=== PATIENT | female | born 1950 | race Caucasian/White ===

== ENCOUNTER → 2017-11-28 13:04 | Outpatient (CLI) | payer MEDICARE, SELFPAY ==
[2017-10-31 13:05] VITALS: BMI 44.4
[2017-11-28 13:14] VITALS: BP 118/66; PULSE 65; RESP 16; TEMP 36.5; O2SAT 94; BMI 43.1
[2017-11-28] MEDS: Immune Globulin 20 gm Premixed Solution IV (13:24)
[2017-11-28 14:05] VITALS: BP 129/62; PULSE 62; RESP 16; TEMP 36.8; O2SAT 95
[2017-11-28 14:35] VITALS: BP 117/66; PULSE 69; RESP 16; TEMP 36.7; O2SAT 93
[2017-11-28 15:10] VITALS: BP 110/55; PULSE 59; RESP 16; TEMP 36.2; O2SAT 94
[2017-11-28] MEDS: Immune Globulin 5 GM Premixed Solution IV (16:04)
[2017-11-28 16:07] VITALS: BP 145/72; PULSE 70; RESP 16; TEMP 36.8; O2SAT 95
== END ==
PROVIDERS: Family Provider Family Medicine; PCP Family Medicine; Visit Provider Psychiatry & Neurology Neuromuscular Medicine
DX: G61.81 Chronic inflammatory demyelinating polyneuritis (principal); G62.2 Polyneuropathy due to other toxic agents; G61.9 Inflammatory polyneuropathy, unspecified
CPT/HCPCS: 96365; 96366 ×2; A4216; J1568

== ENCOUNTER → 2017-11-29 13:07 | Outpatient (CLI) | payer MEDICARE, SELFPAY ==
[2017-11-28 13:14] VITALS: BMI 43.1
[2017-11-28 16:07] VITALS: BP 145/72
[2017-11-29] MEDS: Immune Globulin 20 gm Premixed Solution IV (13:15)
[2017-11-29 13:16] VITALS: BP 154/76; PULSE 68; RESP 16; TEMP 37.3; O2SAT 98; BMI 43.2
[2017-11-29 13:54] VITALS: BP 116/64; PULSE 59; RESP 16; TEMP 37; O2SAT 96
[2017-11-29 14:20] VITALS: BP 137/67; PULSE 71; RESP 18; TEMP 36.9; O2SAT 96
[2017-11-29 14:55] VITALS: BP 128/57; PULSE 54; RESP 18; TEMP 37.1; O2SAT 93
[2017-11-29] MEDS: Immune Globulin 5 GM Premixed Solution IV (15:38)
[2017-11-29 15:39] VITALS: BP 115/61; PULSE 65; RESP 18; TEMP 37; O2SAT 95
== END ==
PROVIDERS: Family Provider Family Medicine; PCP Family Medicine; Visit Provider Psychiatry & Neurology Neuromuscular Medicine
DX: G61.81 Chronic inflammatory demyelinating polyneuritis (principal); G61.9 Inflammatory polyneuropathy, unspecified; G62.2 Polyneuropathy due to other toxic agents
CPT/HCPCS: 96365; 96366 ×3; A4216; J1568

== ENCOUNTER → 2018-01-02 13:05 | Outpatient (CLI) | payer MEDICARE, SELFPAY ==
[2018-01-02 13:14] VITALS: BP 153/78; PULSE 71; RESP 18; TEMP 36.8; O2SAT 96
[2018-01-02] MEDS: Immune Globulin 20 gm Premixed Solution IV (13:19)
[2018-01-02 13:50] VITALS: BP 136/80; PULSE 72; RESP 16; O2SAT 94
[2018-01-02 14:24] VITALS: BP 125/63; PULSE 41
[2018-01-02 14:57] VITALS: BP 128/62; PULSE 69; RESP 16; O2SAT 98
[2018-01-02 15:48] VITALS: BP 131/68; PULSE 68; RESP 18
[2018-01-02] MEDS: Immune Globulin 5 GM Premixed Solution IV (15:51)
== END ==
PROVIDERS: Family Provider Family Medicine; PCP Family Medicine; Visit Provider Psychiatry & Neurology Neuromuscular Medicine
DX: G61.81 Chronic inflammatory demyelinating polyneuritis (principal); G62.2 Polyneuropathy due to other toxic agents; G61.9 Inflammatory polyneuropathy, unspecified
CPT/HCPCS: 96365; 96366 ×2; A4216; J1568

== ENCOUNTER → 2018-01-03 13:07 | Outpatient (CLI) | payer MEDICARE, SELFPAY ==
[2018-01-03 13:13] VITALS: BP 162/81; PULSE 72; RESP 18; TEMP 35.8; O2SAT 96; BMI 44.2
[2018-01-03] MEDS: Immune Globulin 20 gm Premixed Solution IV (13:16)
[2018-01-03 14:00] VITALS: BP 171/73; PULSE 76; RESP 18; TEMP 36.6; O2SAT 95
[2018-01-03 14:36] VITALS: BP 177/75; PULSE 72; RESP 16; O2SAT 93
[2018-01-03 15:00] VITALS: BP 143/71; PULSE 76; RESP 16; TEMP 37.2; O2SAT 93
[2018-01-03] MEDS: Immune Globulin 5 GM Premixed Solution IV (16:01)
[2018-01-03 16:02] VITALS: BP 158/73; PULSE 69; RESP 16; TEMP 36.7; O2SAT 94
== END ==
PROVIDERS: Family Provider Family Medicine; PCP Family Medicine; Visit Provider Psychiatry & Neurology Neuromuscular Medicine
DX: G61.81 Chronic inflammatory demyelinating polyneuritis (principal); G62.2 Polyneuropathy due to other toxic agents; G61.9 Inflammatory polyneuropathy, unspecified
CPT/HCPCS: 96365; 96366 ×3; A4216; J1568

== ENCOUNTER → 2018-01-30 13:03 | Outpatient (CLI) | payer MEDICARE, SELFPAY ==
[2018-01-30 13:07] VITALS: BP 144/70; PULSE 70; RESP 16; TEMP 37; O2SAT 95; BMI 44.7
[2018-01-30] MEDS: Immune Globulin 20 gm Premixed Solution IV (13:27)
[2018-01-30 14:00] VITALS: BP 153/82; PULSE 73; TEMP 37.3
[2018-01-30 14:35] VITALS: BP 142/82; PULSE 73; RESP 18; TEMP 37.1
[2018-01-30 15:06] VITALS: BP 108/56; PULSE 64; RESP 18; TEMP 36.7; O2SAT 93
[2018-01-30 16:03] VITALS: BP 128/60; PULSE 64; RESP 16; TEMP 36.9
[2018-01-30 16:40] VITALS: BP 139/69; PULSE 64; RESP 18; TEMP 36.8; O2SAT 94
== END ==
PROVIDERS: Family Provider Family Medicine; PCP Family Medicine; Visit Provider Psychiatry & Neurology Neuromuscular Medicine
DX: G61.81 Chronic inflammatory demyelinating polyneuritis (principal); G61.9 Inflammatory polyneuropathy, unspecified; G62.2 Polyneuropathy due to other toxic agents
CPT/HCPCS: 96365; 96366 ×3; A4216; J1568

== ENCOUNTER → 2018-01-31 13:02 | Outpatient (CLI) | payer MEDICARE, SELFPAY ==
[2018-01-31] MEDS: Immune Globulin 20 gm Premixed Solution IV (13:11)
[2018-01-31 13:28] VITALS: BP 131/71; PULSE 65; RESP 16; TEMP 37; O2SAT 94
[2018-01-31 13:45] VITALS: BP 146/87; PULSE 55; RESP 16; TEMP 36.5; O2SAT 95
[2018-01-31 14:21] VITALS: BP 148/69; PULSE 69; RESP 16; TEMP 36.6
[2018-01-31 14:50] VITALS: BP 121/56; PULSE 62; RESP 16; TEMP 36.8; O2SAT 94
== END ==
PROVIDERS: Family Provider Family Medicine; PCP Family Medicine; Visit Provider Psychiatry & Neurology Neuromuscular Medicine
DX: G61.81 Chronic inflammatory demyelinating polyneuritis (principal); G61.9 Inflammatory polyneuropathy, unspecified; G62.2 Polyneuropathy due to other toxic agents
CPT/HCPCS: 96365; 96366 ×2; A4216; J1568

== ENCOUNTER → 2018-03-06 13:03 | Outpatient (CLI) | payer MEDICARE, SELFPAY ==
[2018-03-06] MEDS: Immune Globulin 20 gm Premixed Solution IV (13:12)
[2018-03-06 13:13] VITALS: BP 142/68; PULSE 62; RESP 20; TEMP 36.7; BMI 43.4
[2018-03-06 13:40] VITALS: BP 126/60; PULSE 62; RESP 18; TEMP 36.9
[2018-03-06 14:15] VITALS: BP 149/77; PULSE 66; RESP 16; TEMP 36.4
[2018-03-06 14:47] VITALS: BP 111/58; PULSE 68; RESP 16; TEMP 36.9
[2018-03-06 15:39] VITALS: BP 133/63; PULSE 67; RESP 18; TEMP 36.5
[2018-03-06] MEDS: Immune Globulin 5 GM Premixed Solution IV (15:42)
[2018-03-06 16:14] VITALS: BP 139/71; PULSE 66; RESP 18; TEMP 36.8
== END ==
PROVIDERS: Family Provider Family Medicine; PCP Family Medicine; Visit Provider Psychiatry & Neurology Neuromuscular Medicine
DX: G61.81 Chronic inflammatory demyelinating polyneuritis (principal); G61.9 Inflammatory polyneuropathy, unspecified; G62.2 Polyneuropathy due to other toxic agents
CPT/HCPCS: 96365; 96366 ×3; A4216; J1568

== ENCOUNTER → 2018-03-07 13:00 | Outpatient (CLI) | payer MEDICARE, SELFPAY ==
[2018-03-07 13:02] VITALS: BP 134/90; PULSE 83; RESP 18; TEMP 36.9
[2018-03-07] MEDS: Immune Globulin 20 gm Premixed Solution IV (13:05)
[2018-03-07 13:41] VITALS: BP 119/81; PULSE 67; RESP 18; TEMP 36.8
[2018-03-07 14:10] VITALS: BP 147/73; PULSE 82; RESP 18; TEMP 37
[2018-03-07 15:34] VITALS: BP 133/72; PULSE 68; RESP 16; TEMP 36.6
[2018-03-07] MEDS: Immune Globulin 5 GM Premixed Solution IV (15:39)
== END ==
PROVIDERS: Family Provider Family Medicine; PCP Family Medicine; Visit Provider Psychiatry & Neurology Neuromuscular Medicine
DX: G61.81 Chronic inflammatory demyelinating polyneuritis (principal); G61.9 Inflammatory polyneuropathy, unspecified; G62.2 Polyneuropathy due to other toxic agents
CPT/HCPCS: 96365; 96366 ×2; A4216; J1568

== ENCOUNTER → 2018-04-03 12:54 | Outpatient (CLI) | payer MEDICARE, SELFPAY ==
[2018-04-03 13:07] VITALS: BP 141/61; PULSE 65; RESP 18; TEMP 37.6; O2SAT 96
[2018-04-03] MEDS: Immune Globulin 20 gm Premixed Solution IV (13:29)
[2018-04-03 14:02] VITALS: BP 158/60; PULSE 69; RESP 16; TEMP 37.2; O2SAT 95
[2018-04-03 14:28] VITALS: BP 139/62; PULSE 72; RESP 16; TEMP 37.1; O2SAT 95
[2018-04-03 14:57] VITALS: BP 121/56; PULSE 67; RESP 16; TEMP 36.1; O2SAT 97
[2018-04-03 15:49] VITALS: BP 135/61; PULSE 65; RESP 16; TEMP 36.8; O2SAT 93
[2018-04-03] MEDS: Immune Globulin 5 GM Premixed Solution IV (15:52)
== END ==
PROVIDERS: Family Provider Family Medicine; PCP Family Medicine; Visit Provider Psychiatry & Neurology Neuromuscular Medicine
DX: G61.81 Chronic inflammatory demyelinating polyneuritis (principal); G61.9 Inflammatory polyneuropathy, unspecified; G62.2 Polyneuropathy due to other toxic agents
CPT/HCPCS: 96365; 96366 ×2; A4216; J1568

== ENCOUNTER → 2018-04-04 13:03 | Outpatient (CLI) | payer MEDICARE, SELFPAY ==
[2018-04-04 13:17] VITALS: BP 152/65; PULSE 58; RESP 16; TEMP 36.1; O2SAT 94; BMI 44.8
[2018-04-04] MEDS: Immune Globulin 20 gm Premixed Solution IV (13:26)
[2018-04-04 14:00] VITALS: BP 169/68; PULSE 61; RESP 16; TEMP 36.4; O2SAT 93
[2018-04-04 14:37] VITALS: BP 157/66; PULSE 78; RESP 16; TEMP 36.7; O2SAT 93
[2018-04-04 15:08] VITALS: BP 125/62; PULSE 65; RESP 16
[2018-04-04] MEDS: Immune Globulin 5 GM Premixed Solution IV (16:09)
[2018-04-04 16:41] VITALS: BP 146/65; PULSE 63; RESP 18; TEMP 35.9; O2SAT 96
== END ==
PROVIDERS: Family Provider Family Medicine; PCP Family Medicine; Visit Provider Psychiatry & Neurology Neuromuscular Medicine
DX: G61.81 Chronic inflammatory demyelinating polyneuritis (principal); G62.2 Polyneuropathy due to other toxic agents
CPT/HCPCS: 96365; 96366 ×2; A4216; J1568

== ENCOUNTER → 2018-05-01 13:01 | Outpatient (CLI) | payer MEDICARE, SELFPAY ==
[2018-05-01 13:27] VITALS: BP 134/63; PULSE 59; RESP 16; TEMP 37.1; O2SAT 92; BMI 44.0
[2018-05-01] MEDS: Immune Globulin 20 gm Premixed Solution IV (13:44)
[2018-05-01 14:18] VITALS: BP 153/68; PULSE 64; RESP 18; TEMP 36.4; O2SAT 93
[2018-05-01 14:47] VITALS: BP 140/61; PULSE 64; RESP 18; TEMP 37.4; O2SAT 93
[2018-05-01 15:15] VITALS: BP 140/83; PULSE 66; RESP 18; TEMP 36.8; O2SAT 93
[2018-05-01 15:46] VITALS: BP 140/68; PULSE 64; RESP 16; TEMP 37; O2SAT 94
[2018-05-01] MEDS: Immune Globulin 5 GM Premixed Solution IV (16:12)
[2018-05-01 16:31] VITALS: BP 142/74; PULSE 68; RESP 16; TEMP 37.3; O2SAT 95
== END ==
PROVIDERS: Family Provider Family Medicine; PCP Family Medicine; Visit Provider Psychiatry & Neurology Neuromuscular Medicine
DX: G61.81 Chronic inflammatory demyelinating polyneuritis (principal); G61.9 Inflammatory polyneuropathy, unspecified; G62.2 Polyneuropathy due to other toxic agents
CPT/HCPCS: 96365; 96366 ×2; A4216; J1568

== ENCOUNTER → 2018-05-02 12:59 | Outpatient (CLI) | payer MEDICARE, SELFPAY ==
[2018-05-02 13:15] VITALS: BP 138/67; PULSE 61; RESP 16; TEMP 37.2; O2SAT 96
[2018-05-02] MEDS: Immune Globulin 20 gm Premixed Solution IV (13:19)
[2018-05-02 13:50] VITALS: BP 143/61
[2018-05-02 14:28] VITALS: BP 157/86; PULSE 16; RESP 65
[2018-05-02 14:41] VITALS: BP 144/62; PULSE 64
[2018-05-02 15:48] VITALS: BP 132/64; PULSE 70
[2018-05-02] MEDS: Immune Globulin 5 GM Premixed Solution IV (15:48)
== END ==
PROVIDERS: Family Provider Family Medicine; PCP Family Medicine; Visit Provider Psychiatry & Neurology Neuromuscular Medicine
DX: G61.81 Chronic inflammatory demyelinating polyneuritis (principal); G61.9 Inflammatory polyneuropathy, unspecified; G62.2 Polyneuropathy due to other toxic agents
CPT/HCPCS: 96365; 96366 ×3; A4216; J1568

== ENCOUNTER → 2018-05-20 15:12 | Outpatient (CLI) | payer MEDICARE, SELFPAY ==
[2018-05-20 17:39] LABS: Absolute Lymphocyte Count 2.62 X10^3/ul (0.83-4.51); Absolute Neutrophil Count 3.4 X10^3/uL (2.0-7.7); Basophil# 0.04 X10^3/uL; Basophil% 0.6 % (0-1); Eosinophil# 0.11 X10^3/uL; Eosinophils% 1.6 % (0-5); Hematocrit 38.8 % (37-47); Hemoglobin 12.7 g/dl (12.0-15.0); Lymphocyte # 2.62 X10^3/ul (4.0); Lymphocyte % 37.2 % (19-41); Mean Corp Hgb Conc 32.7 g/gl (32-36); Mean Corpuscular Hgb 30.7 pg (27.0-32.0); Mean Corpuscular Volume 93.7 fL (81-99); Mean Platelet Vol. 10.7 fl (6.2-12.0); Monocyte# 0.86 X10^3/uL; Monocyte% 12.2 % (0-10); Neutrophil % 48.3 % (47-70); Platelet Count 206 K/mm3 (150-450); RBC Distribution Width CV 14.3 % (11.6-14.6); RBC Distribution Width SD 47.4 fl (35.1-43.9); Red Blood Count 4.14 M/mm3 (4.2-5.4)
[2018-05-20 17:48] LABS: POSITIVE COUNT NO; POSITIVE DIFFERENTIAL NO; POSITIVE MORPHOLOGY NO
[2018-05-20 18:00] LABS: Hemoglobin A1c 8.4 % (4.2-6.3)
[2018-05-20 18:13] LABS: Anion Gap 8 (5-15); BUN 11 mg/dL (7-18); BUN/Creat Ratio 11.6 RATIO (10-20); Chloride 103 mmol/L (98-107); Creatinine, Serum 0.95 mg/dL (0.55-1.02); EST Glomerular Filtration Rate 62 mL/min (>60); Est Glom Filt Rate - Afr Amer 75 mL/min (>60); Glucose 88 mg/dL (74-106); Potassium 3.6 mmol/L (3.5-5.1); Sodium Level 142 mmol/L (136-145); Thyroid Stim Hormone (TSH) 1.22 uIU/mL (0.358-3.74)
== END ==
PROVIDERS: Family Provider Family Medicine; PCP Family Medicine; Visit Provider Family Medicine
DX: E11.65 Type 2 diabetes mellitus with hyperglycemia (principal); E03.9 Hypothyroidism, unspecified; E55.9 Vitamin D deficiency, unspecified; R53.83 Other fatigue
CPT/HCPCS: 36415; 80048; 82043; 82306; 83036; 84443; 85025

== ENCOUNTER → 2018-05-29 13:01 | Outpatient (CLI) | payer MEDICARE, SELFPAY ==
[2018-05-29] MEDS: Immune Globulin 20 gm Premixed Solution IV (13:40)
[2018-05-29 13:45] VITALS: BP 154/85; PULSE 67; RESP 16; TEMP 37.1; O2SAT 95; BMI 45.9
[2018-05-29 14:15] VITALS: BP 139/82; PULSE 65
[2018-05-29 14:54] VITALS: BP 153/74; PULSE 64; RESP 16; TEMP 37.1; O2SAT 95
[2018-05-29 15:25] VITALS: BP 138/52; PULSE 65; RESP 16; TEMP 37.2; O2SAT 93
[2018-05-29] MEDS: Immune Globulin 5 GM Premixed Solution IV (16:24)
[2018-05-29 16:25] VITALS: BP 141/74; PULSE 66; RESP 16; TEMP 37.3; O2SAT 93
== END ==
PROVIDERS: Family Provider Family Medicine; PCP Family Medicine; Visit Provider Psychiatry & Neurology Neuromuscular Medicine
DX: G61.81 Chronic inflammatory demyelinating polyneuritis (principal); G61.9 Inflammatory polyneuropathy, unspecified; G62.2 Polyneuropathy due to other toxic agents
CPT/HCPCS: 96365; 96366 ×2; A4216; J1568

== ENCOUNTER → 2018-05-30 11:26 | Outpatient (CLI) | payer MEDICARE, SELFPAY ==
[2018-05-30 11:49] VITALS: BP 157/65; PULSE 65; RESP 16; TEMP 35.5; O2SAT 94
[2018-05-30] MEDS: Immune Globulin 20 gm Premixed Solution IV (11:54)
[2018-05-30 12:27] VITALS: BP 156/60; PULSE 64; RESP 18; TEMP 37.1; O2SAT 93
[2018-05-30 13:05] VITALS: BP 150/63; PULSE 62
[2018-05-30 13:35] VITALS: BP 146/69; PULSE 68
[2018-05-30 14:34] VITALS: BP 147/61; PULSE 67; RESP 16; TEMP 37.5; O2SAT 94
[2018-05-30] MEDS: Immune Globulin 5 GM Premixed Solution IV (14:37)
== END ==
PROVIDERS: Family Provider Family Medicine; PCP Family Medicine; Visit Provider Psychiatry & Neurology Neuromuscular Medicine
DX: G61.81 Chronic inflammatory demyelinating polyneuritis (principal); G61.9 Inflammatory polyneuropathy, unspecified; G62.2 Polyneuropathy due to other toxic agents
CPT/HCPCS: 96365; 96366 ×3; A4216; J1568

== ENCOUNTER → 2018-07-07 11:53 | Outpatient (CLI) | payer MEDICARE, SELFPAY ==
[2018-07-07 12:09] VITALS: BP 134/72; PULSE 69; RESP 18; TEMP 36.7; O2SAT 95
[2018-07-07] MEDS: Immune Globulin 20 gm Premixed Solution IV (12:22)
[2018-07-07 13:00] VITALS: BP 163/73; PULSE 66; RESP 16; TEMP 36.6; O2SAT 96
[2018-07-07 13:30] VITALS: BP 142/79; PULSE 64; RESP 24; TEMP 36.1; O2SAT 95
[2018-07-07 14:03] VITALS: BP 127/70; PULSE 63; RESP 18; TEMP 36.4; O2SAT 94
[2018-07-07 14:59] VITALS: BP 142/69; PULSE 63; RESP 18; TEMP 36.5; O2SAT 93
[2018-07-07] MEDS: Immune Globulin 5 GM Premixed Solution IV (15:02)
== END ==
PROVIDERS: Family Provider Family Medicine; PCP Family Medicine; Visit Provider Psychiatry & Neurology Neuromuscular Medicine
DX: G61.81 Chronic inflammatory demyelinating polyneuritis (principal); G61.9 Inflammatory polyneuropathy, unspecified; G62.2 Polyneuropathy due to other toxic agents
CPT/HCPCS: 96365; 96366 ×3; A4216; J1568

== ENCOUNTER → 2018-07-08 12:01 | Outpatient (CLI) | payer MEDICARE, SELFPAY ==
[2018-07-08 12:07] VITALS: PULSE 73; RESP 16; TEMP 36.3; O2SAT 96
[2018-07-08] MEDS: Immune Globulin 20 gm Premixed Solution IV (12:13)
[2018-07-08 12:50] VITALS: BP 145/74; PULSE 64
[2018-07-08 13:23] VITALS: BP 141/75; PULSE 63; RESP 16
[2018-07-08 13:56] VITALS: BP 156/97; PULSE 65; RESP 16; O2SAT 95
[2018-07-08 14:31] VITALS: BP 135/74; PULSE 70
[2018-07-08] MEDS: Immune Globulin 5 GM Premixed Solution IV (15:06)
== END ==
PROVIDERS: Family Provider Family Medicine; PCP Family Medicine; Visit Provider Psychiatry & Neurology Neuromuscular Medicine
DX: G61.81 Chronic inflammatory demyelinating polyneuritis (principal); G61.9 Inflammatory polyneuropathy, unspecified; G62.2 Polyneuropathy due to other toxic agents
CPT/HCPCS: 96365; 96366 ×2; A4216; J1568

== ENCOUNTER → 2018-08-04 12:00 | Outpatient (CLI) | payer MEDICARE, SELFPAY ==
[2018-08-04 12:09] VITALS: BP 160/61; PULSE 63; RESP 18; TEMP 36.7; O2SAT 96
[2018-08-04] MEDS: Immune Globulin 10 gm Premixed Solution IV ×2 (12:28→14:05)
[2018-08-04 13:00] VITALS: BP 145/59; PULSE 61
[2018-08-04 13:35] VITALS: BP 150/66; PULSE 61; RESP 18
[2018-08-04 14:07] VITALS: BP 140/51; PULSE 65; RESP 18; TEMP 36.7; O2SAT 93
[2018-08-04] MEDS: Immune Globulin 5 GM Premixed Solution IV (15:10)
== END ==
PROVIDERS: Family Provider Family Medicine; PCP Family Medicine; Visit Provider Psychiatry & Neurology Neuromuscular Medicine
DX: G62.2 Polyneuropathy due to other toxic agents (principal); G61.81 Chronic inflammatory demyelinating polyneuritis
CPT/HCPCS: 96365; 96366 ×3; A4216; J1568

== ENCOUNTER → 2018-08-05 11:58 | Outpatient (CLI) | payer MEDICARE, SELFPAY ==
[2018-08-05] MEDS: Immune Globulin 10 gm Premixed Solution IV ×2 (12:16→13:57)
[2018-08-05 12:17] VITALS: BP 131/65; PULSE 60; RESP 16; TEMP 36.6; O2SAT 97; BMI 45.9
[2018-08-05 12:50] VITALS: BP 135/64; PULSE 64; RESP 18; TEMP 37.2
[2018-08-05 13:21] VITALS: BP 138/63; PULSE 62; RESP 16; TEMP 37.2
[2018-08-05 13:45] VITALS: BP 118/59; PULSE 60; RESP 14; O2SAT 92
[2018-08-05] MEDS: Immune Globulin 5 GM Premixed Solution IV (14:50)
== END ==
PROVIDERS: Family Provider Family Medicine; PCP Family Medicine; Visit Provider Psychiatry & Neurology Neuromuscular Medicine
DX: G62.2 Polyneuropathy due to other toxic agents (principal); G61.81 Chronic inflammatory demyelinating polyneuritis
CPT/HCPCS: 96365; 96366 ×2; A4216; J1568

== ENCOUNTER → 2018-09-01 12:10 | Outpatient (CLI) | payer MEDICARE, SELFPAY ==
[2018-09-01] MEDS: Immune Globulin 20 gm Premixed Solution IV (12:46)
[2018-09-01 12:47] VITALS: BP 151/67; PULSE 67; RESP 18; TEMP 36.7; BMI 45.6
[2018-09-01 13:50] VITALS: BP 150/63; PULSE 66; RESP 16
[2018-09-01 13:52] VITALS: BP 129/99; PULSE 65; RESP 16; TEMP 36.9
[2018-09-01 14:26] VITALS: BP 115/54; PULSE 67; RESP 16; TEMP 36.4
[2018-09-01] MEDS: Immune Globulin 5 GM Premixed Solution IV (15:20)
[2018-09-01 15:30] VITALS: BP 134/60; PULSE 69; RESP 16; TEMP 36.6; O2SAT 94
== END ==
PROVIDERS: Family Provider Family Medicine; PCP Family Medicine; Referring Provider Psychiatry & Neurology Neuromuscular Medicine; Visit Provider Psychiatry & Neurology Neuromuscular Medicine
DX: G61.81 Chronic inflammatory demyelinating polyneuritis (principal); G62.2 Polyneuropathy due to other toxic agents
CPT/HCPCS: 96365; 96366 ×3; A4216; J1568

== ENCOUNTER → 2018-09-02 12:02 | Outpatient (CLI) | payer MEDICARE, SELFPAY ==
[2018-09-02 12:40] VITALS: BP 146/59; PULSE 61; RESP 16; TEMP 36.7; BMI 45.6
[2018-09-02] MEDS: Immune Globulin 20 gm Premixed Solution IV (12:40)
[2018-09-02 13:05] VITALS: BP 124/54; PULSE 59; RESP 16; TEMP 36.8
[2018-09-02 13:41] VITALS: BP 142/69; PULSE 63; RESP 16; TEMP 36.2
[2018-09-02 14:13] VITALS: BP 151/71; PULSE 66; RESP 16; TEMP 36.4; O2SAT 95
[2018-09-02] MEDS: Immune Globulin 5 GM Premixed Solution IV (15:05)
[2018-09-02 15:09] VITALS: BP 130/59; PULSE 64; RESP 18; TEMP 36.4; O2SAT 95
== END ==
PROVIDERS: Family Provider Family Medicine; PCP Family Medicine; Referring Provider Psychiatry & Neurology Neuromuscular Medicine; Visit Provider Psychiatry & Neurology Neuromuscular Medicine
DX: G61.81 Chronic inflammatory demyelinating polyneuritis (principal); G62.2 Polyneuropathy due to other toxic agents
CPT/HCPCS: 96365; 96366 ×2; A4216; J1568

== ENCOUNTER → 2018-09-30 12:02 | Outpatient (CLI) | payer MEDICARE, SELFPAY ==
[2018-09-02 12:40] VITALS: BMI 45.6
[2018-09-30 12:15] VITALS: BP 143/73; PULSE 68; RESP 16; TEMP 37.1; O2SAT 95; BMI 44.6
[2018-09-30] MEDS: Immune Globulin 10 gm Premixed Solution IV ×2 (12:33→14:09)
[2018-09-30 13:35] VITALS: BP 140/79; PULSE 73; TEMP 36.9
[2018-09-30] MEDS: Immune Globulin 5 GM Premixed Solution IV (14:56)
--- OUTSIDE RECORDS SUMMARY | 2018-11-16 13:56 | XMS RPT_ITS ---
:1950 Author Organization OHIP Support Name Relationship Address Phone JAJA STEARNS Unavailable Unavailable + R Unavailable Unavailable Unavailable SCHRIER BUCK Unavailable [address] + [place] [address] LAURENJAJA CALHOUN Unavailable Unavailable + R Unavailable Unavailable Unavailable SCHRIER, BUCK Unavailable [address] + [place] [address] LAURENLJ JAJA Unavailable Unavailable + R Unavailable Unavailable Unavailable SCHRIER, BUCK Unavailable [address] + [place] [address] JAJA STEARNS Unavailable Unavailable + R Unavailable Unavailable Unavailable SCHRIER, BUCK Unavailable [address] + [place] [address] JAJA STEARNS Unavailable Unavailable + R Unavailable Unavailable Unavailable SCHRIER, BUCK Unavailable [address] + [place] [address] JUAN STEARNSARA Unavailable Unavailable + R Unavailable Unavailable Unavailable SCHRIER, BUCK Unavailable [address] + [place] [address] JAJA STEARNS Unavailable Unavailable + R Unavailable Unavailable Unavailable SCHRIER, BUCK Unavailable [address] + [place] [address] JAJA STEARNS Unavailable Unavailable + R Unavailable Unavailable Unavailable SCHRIER, BUCK Unavailable [address] + [place] [address] JAJA STEARNS Unavailable Unavailable + R Unavailable Unavailable Unavailable SCHRIER, BUCK Unavailable [address] + [place] [address] JINNY, JAJA Unavailable Unavailable + R Unavailable Unavailable Unavailable SCHRIER, BUCK Unavailable [address] + [place] [address] LUDMAN, JAJA Unavailable Unavailable + R Unavailable Unavailable Unavailable SCHRIER, BUCK Unavailable [address] + [place] [address] LUDMAN, JAJA Unavailable Unavailable + R Unavailable Unavailable Unavailable SCHRIER, BUCK Unavailable [address] + [place] [address] LUDMAN, JAJA Unavailable Unavailable + R Unavailable Unavailable Unavailable SCHRIER, BUCK Unavailable [address] + [place] [address] LAURENMAN, JAJA Unavailable Unavailable + R Unavailable Unavailable Unavailable SCHRIER, BUCK Unavailable [address] + [place] [address] LUDMAN, JAJA Unavailable Unavailable + R Unavailable Unavailable Unavailable SCHRIER, BUCK Unavailable [address] + [place] [address] LUDLJ, JAJA Unavailable Unavailable + R Unavailable Unavailable Unavailable SCHRIER, BUCK Unavailable [address] + [place] [address] LUDMAN, JAJA Unavailable Unavailable + R Unavailable Unavailable Unavailable SCHRIER, BUCK Unavailable [address] + [place] [address] LUDMAN, JAJA Unavailable Unavailable + R Unavailable Unavailable Unavailable SCHRIER, BUCK Unavailable [address] + [place] [address] LUDMAN, JAJA Unavailable Unavailable + R Unavailable Unavailable Unavailable SCHRIER, BUCK Unavailable [address] + [place] [address] LUDMAN, JAJA Unavailable Unavailable + R Unavailable Unavailable Unavailable SCHRIER BUCK Unavailable [address] + [place] [address] JAJA STEARNS Unavailable Unavailable + R Unavailable Unavailable Unavailable SCHRIER BUCK Unavailable [address] + [place] [address] JAJA STEARNS Unavailable Unavailable + R Unavailable Unavailable Unavailable SCHRIER BUCK Unavailable [address] + [place] [address] JAJA STEARNS Unavailable Unavailable + R Unavailable Unavailable Unavailable SCHRIER BUCK Unavailable [address] + [place] [address] JAJA STEARNS Unavailable . + ., . . R Unavailable Unavailable Unavailable SCHRIER BUCK Unavailable [address] + [place] [address] LAURENJAJA CALHOUN Unavailable . + ., . . R Unavailable Unavailable Unavailable SCHRIER BUCK Unavailable [address] + [place] [address] Care Team Providers Name Role Phone RAUL FREEMAN JR Admitting Unavailable RAUL FREEMAN JR Attending Unavailable RAUL FREEMAN JR Admitting Unavailable RAUL FREEMAN JR Attending Unavailable RAUL FREEMAN JR Admitting Unavailable RAUL FREEMAN JR Attending Unavailable RAUL FREEMAN JR Admitting Unavailable RAUL FREEMAN JR Attending Unavailable RAUL FREEMAN JR Admitting Unavailable RAUL FREEMAN JR Attending Unavailable RAUL FREEMAN JR Admitting Unavailable RAUL FREEMAN JR Attending Unavailable RAUL FREEMAN JR Attending Unavailable RAUL FREEMAN JR Referring Unavailable FATIMAH BIRMINGHAM (DRIVER STARTING GATE) Referring Unavailable MARCIE BATES Attending Unavailable RAUL FREEMAN JR Attending Unavailable RAUL FREEMAN JR Referring Unavailable MAURICIO FAIR (FEL) Referring Unavailable MAURICIO FAIR (FEL) Referring Unavailable RAUL FREEMAN JR Referring Unavailable MAURICIO FAIR (FEL) Referring Unavailable PETE LOPES, RAUL L Attending Unavailable PETE LOPES, RAUL L Referring Unavailable PETE JR, RAUL L Referring Unavailable Pioro, Marcie Attending Unavailable Pioro, Marcie Referring Unavailable Farley, Angella Primary Care Unavailable Pioro, Marcie Attending Unavailable Pioro, Marcie Referring Unavailable Farley, Angella Primary Care Unavailable Pioro, Marcie Attending Unavailable Farley, Angella Primary Care Unavailable Pioro, Marcie Attending Unavailable Farley, Angella Primary Care Unavailable Pioro, Marcie Attending Unavailable Pioro, Marcie Referring Unavailable Farley, Angella Primary Care Unavailable Pioro, Marcie Attending Unavailable Pioro, Marcie Referring Unavailable Farley, Angella Primary Care Unavailable Pioro, Marcie Attending Unavailable Pioro, Marcie Referring Unavailable Farley, Angella Primary Care Unavailable Pioro, Marcie Attending Unavailable Pioro, Marcie Referring Unavailable Farley, Angella Primary Care Unavailable Pioro, Marcie Attending Unavailable Pioro, Marcie Referring Unavailable Farley, Angella Primary Care Unavailable Pioro, Marcie Attending Unavailable Pioro, Marcie Referring Unavailable Farley, Angella Primary Care Unavailable Pioro, Marcie Attending Unavailable Pioro, Marcie Referring Unavailable Farley, Angella Primary Care Unavailable Pioro, Marcie Attending Unavailable Pioro, Marcie Referring Unavailable Farley, Angella Primary Care Unavailable Pioro, Marcie Attending Unavailable Pioro, Marcie Referring Unavailable Farley, Angella Primary Care Unavailable Pioro, Marcie Attending Unavailable Pioro, Marcie Referring Unavailable Farley, Angella Primary Care Unavailable Farley, Angella Attending Unavailable Farley, Angella Primary Care Unavailable Pioro, Marcie Attending Unavailable Pioro, Marcie Referring Unavailable Farley, Angella Primary Care Unavailable Pioro, Marcie Attending Unavailable Pioro, Marcie Referring Unavailable Farley, Angella Primary Care Unavailable Pioro, Marcie Attending Unavailable Pioro, Marcie Referring Unavailable Farley, Angella Primary Care Unavailable Pioro, Marcie Attending Unavailable Pioro, Marcie Referring Unavailable Farley, Angella Primary Care Unavailable Pioro, Marcie Attending Unavailable Pioro, Marcie Referring Unavailable Farley, Angella Primary Care Unavailable Pioro, Marcie Attending Unavailable Pioro, Marcie Referring Unavailable Farley, Angella Primary Care Unavailable Pioro, Marcie Attending Unavailable Pioro, Marcie Referring Unavailable Farley, Angella Primary Care Unavailable Pioro, Marcie Attending Unavailable Pioro, Marcie Referring Unavailable Farley, Angella Primary Care Unavailable Pioro, Marcie Attending Unavailable Pioro, Marcie Referring Unavailable Farley, Angella Primary Care Unavailable Pioro, Marcie Attending Unavailable Marcie Bates Referring Unavailable Angella Farley Primary Care Unavailable PROBLEMS PROBLEMS DATE TYPE CONDITION / CODE ATTENDING STATUS SOURCE 09/01/2018 Unknown 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 Bates 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 / Repository G62.2(ICD-10) 03/24/2017 Active Personal history of NA Active [facility] Main of ovary / [place] Z85.43(ICD-10) Repository 05/20/2018 Unknown E55.9 - Vitamin D Angella Farley Active [facility] deficiency, Community unspecified / Hospital E55.9(ICD-10) Repository 05/20/2018 Unknown E03.9 - Angelal Farley Active [facility] Hypothyroidism, Community unspecified / Hospital E03.9(ICD-10) Repository 05/20/2018 Unknown R53.83 - Other Angella Farley Active [facility] fatigue / Community R53.83(ICD-10) Hospital Repository 05/20/2018 Unknown E11.65 - Type 2 Angella Farley Active [facility] diabetes mellitus Community with hyperglycemia / Hospital E11.65(ICD-10) Repository 02/25/2018 Active Encounter for NA Active [facility] screening for other Clinic Main disorder / [place] Z13.89(ICD-10) Repository 02/25/2018 Active Malignant neoplasm NA Active [facility] of unspecified ovary Clinic Main / C56.9(ICD-10) [place] Repository 11/21/2017 Active Unknown / PETE LOPES Active [facility] UNK(Unknown) RAUL [facility] Other [place] Repository PROCEDURES PROCEDURES No Procedure Records FoundRESULTS RESULTS CNPN Observed: 08/04/2018 Status: COMPLETED Source: [place] 12:00 AM [facility] REPOSITORY Telephone (NENMMN) BRANDAN CROWE ([id number]) 1950 F Date Time Provider Department 08/04/18 MARCIE BATES During your visit today, we recorded the following information about you: Chico Wang RN 08/04/2018 11:48 AM Signed Message from racing secretary: Marely from [facility] called stated she has questions about the dosage for Octagam. At 400mg/kg - the dosing at 55kg is 20g on two consec days = 40g. Adjusted ideal body weight is 62kg (current documented wt = 95kg) which calculates to 25g on two consec days = 50g. Which dosage does Dr. Bates want to use for future Octagam therapy? Chico Wang RN 08/04/2018 12:[address] Bates, please use the 25g on two consec days = 50g. Marely at [facility] pharmacy notified + read-back. Chico Wang RN 08/05/2018 4:40 PM Signed Message from ELEAZAR Bae: Insurance is asking if Dr. Bates wants to do a dose titration? I told them they questioned the dosage last time and he said he would review and this is how he ordered it. Insurance says if he doesn't want to do a dose titration will he give any kind of clinical rationale for not wanting to change the dose whether the patient is currently experiencing worsening symptoms or if there is another reason? Allergies As of Date: 08/04/2018 Noted Allergy Reaction BERRIES 07/19/2014 14 - Other: See Comments MENTHOL 04/22/2013 9 - Itching OATS, OAT GUM 07/19/2014 2 - Rash PEPPER (GENUS CAPSICUM) 07/09/2016 16 - Unknown Comments: bogs down my immune system SODIUM BENZOATE 11/24/2012 16 - Unknown TUNA OIL 07/19/2014 14 - Other: See Comments Comments: TUNA Date Reviewed: 07/03/2018 Reviewed by: Ana Paula Hubbard - Fully Assessed Reason for Visit: Medication Update [0552] Cmt: Octagam-[facility] Prescriptions as of 08/04/2018 Sig: IBUPROFEN 100 MG TABLET Take 200 mg by mouth every 6 * DOCUSATE SODIUM 100 MG CAPSULE Take 100 mg by mouth twice da* AFLIBERCEPT 2 MG/0.05 ML INTR* 2 mg by INTRAVITREAL route on* IMMUNE GLOB,GAMM(IGG)10 %-MAL* Inject intravenously. IMMUNE GLOB,GAMM(IGG) 10 %-CA* Sig: Infuse for next 8 months* INSULIN LISPRO (U-100) 100 UN* Inject subcutaneously twice d* ARMOUR THYROID 60 MG TABLET Take 60 mg by mouth once yossi* ESCITALOPRAM 10 MG TABLET Take 10 mg by mouth once yossi* * INSULIN GLARGINE (U-100) 100 * Inject 75 Units subcutaneousl* Problem List As Of Date 08/04/2018 Noted Resolved Disturbance of skin sensation [R20.9] INVALID FOR* Pain in limb [M79.609] INVALID FOR*12/02/2015 Diabetic neuropathy [E11.40] INVALID FOR*10/30/2012 Abnormality of gait [R26.9] INVALID FOR* Inflammatory and toxic neuropathy (HCC) [G62.2,*INVALID FOR* Lumbar radiculopathy [M54.16] INVALID FOR* Spinal stenosis [M48.00] INVALID FOR*03/31/2018 Lumbago [M54.5] INVALID FOR* Small fiber neuropathy [G62.9] INVALID FOR* Pain of lower extremity [M79.606] INVALID FOR* Diabetic peripheral neuropathy (HCC) [E11.42] INVALID FOR* Diabetes mellitus (HCC) [E11.9] INVALID FOR* Hypothyroid [E03.9] INVALID FOR* CIDP (chronic inflammatory demyelinating polyne*INVALID FOR* Obesity, Class III, BMI >= 40 (morbid obesity) *INVALID FOR* History of ovarian cancer [Z85.43] INVALID FOR* Spinal stenosis of lumbosacral region [M48.07] INVALID FOR* Encounter Status:Closed by CHICO WANG RN on 08/04/18 MELISSA Observed: 07/16/2018 Status: COMPLETED Source: [place] 12:00 AM [facility] REPOSITORY Telephone (NEGAMN) BRANDAN CROWE ([id number]) 1950 F Date Time Provider Department 07[facility] During your visit today, we recorded the following information about you: Chico Wang RN 07/16/2018 9:24 AM Signed Fax from [facility]. Octagam order expires 07/09/18; pre-auth expires 08/10/18. Dr. Bates signed re-order: Octagam 400mg/kg/d for 2 consec days q4wk, #20 doses. Faxed to to [facility]. Chico Wang RN 07/24/2018 9:01 AM Signed Message from racing secretary: The patient called this morning and stated that her authorization for Octagam has , and that you usually take care of getting it authorized. Called and spoke with pt's spouse. Aware we faxed Octagam order to [facility] - they will f/u with them. Allergies As of Date: 07/16/2018 Noted Allergy Reaction BERRIES 07/19/2014 14 - Other: See Comments MENTHOL 04/22/2013 9 - Itching OATS, OAT GUM 07/19/2014 2 - Rash PEPPER (GENUS CAPSICUM) 07/09/2016 16 - Unknown Comments: bogs down my immune system SODIUM BENZOATE 11/24/2012 16 - Unknown TUNA OIL 07/19/2014 14 - Other: See Comments Comments: TUNA Date Reviewed: 07/03/2018 Reviewed by: Ana Paula Hubbard - Fully Assessed Reason for Visit: Medication Update [4848] Cmt: Octagam-[facility] Prescriptions as of 07/16/2018 Sig: IBUPROFEN 100 MG TABLET Take 200 mg by mouth every 6 * DOCUSATE SODIUM 100 MG CAPSULE Take 100 mg by mouth twice da* AFLIBERCEPT 2 MG/0.05 ML INTR* 2 mg by INTRAVITREAL route on* IMMUNE GLOB,GAMM(IGG)10 %-MAL* Inject intravenously. IMMUNE GLOB,GAMM(IGG) 10 %-CA* Sig: Infuse for next 8 months* INSULIN LISPRO (U-100) 100 UN* Inject subcutaneously twice d* ARMOUR THYROID 60 MG TABLET Take 60 mg by mouth once yossi* ESCITALOPRAM 10 MG TABLET Take 10 mg by mouth once yossi* * INSULIN GLARGINE (U-100) 100 * Inject 75 Units subcutaneousl* Problem List As Of Date 07/16/2018 Noted Resolved Disturbance of skin sensation [R20.9] INVALID FOR* Pain in limb [M79.609] INVALID FOR*12/02/2015 Diabetic neuropathy [E11.40] INVALID FOR*10/30/2012 Abnormality of gait [R26.9] INVALID FOR* Inflammatory and toxic neuropathy (HCC) [G62.2,*INVALID FOR* Lumbar radiculopathy [M54.16] INVALID FOR* Spinal stenosis [M48.00] INVALID FOR*03/31/2018 Lumbago [M54.5] INVALID FOR* Small fiber neuropathy [G62.9] INVALID FOR* Pain of lower extremity [M79.606] INVALID FOR* Diabetic peripheral neuropathy (HCC) [E11.42] INVALID FOR* Diabetes mellitus (HCC) [E11.9] INVALID FOR* Hypothyroid [E03.9] INVALID FOR* CIDP (chronic inflammatory demyelinating polyne*INVALID FOR* Obesity, Class III, BMI >= 40 (morbid obesity) *INVALID FOR* History of ovarian cancer [Z85.43] INVALID FOR* Spinal stenosis of lumbosacral region [M48.07] INVALID FOR* Encounter Status:Closed by CHICO WANG RN on 07/16/18 CNOVSP Observed: 07/03/2018 Status: COMPLETED Source: [place] 2:00 PM [facility] REPOSITORY Visit (SP) Office ([facility]) BRANDAN CROWE ([id number]) 1950 F Date Time Provider Department 07/03/18 2:00 PM RAUL FREEMAN JR GYN During your visit today, we recorded the following information about you: Temperature Pulse Blood pressure 97.8 degrees 63/minute 156/61 Raul Freeman Jr, MD 07/03/2018 4:53 PM Addendum DATE OF SERVICE: July 03, 2018 PROBLEM: Brandan Crowe presents for follow-up of ovarian cancer DIAGNOSIS: serous intermediate grade ovarian adenocarcinoma PRIOR THERAPY AND DATE: Ms. 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 She presented to Dr. Kline with a remote history of left sided pelvic discomfort as far back as 2002. Pelvic ultrasound at that time did identify a cyst on her right ovary thought to be a dermoid. She was followed serially, and no changes in the cyst was noted. In June of 2016, she did develop right sided pelvic pain. Uterine biopsy obtained by Dr. Lew did not reveal any evidence for malignancy, and a CA-125 obtained at that time returned to be 20, within normal limits. Regardless, the patient was concerned about the continued presence of this cyst on her right ovary in the context of pain and elected to pursue salpingo-oophorectomy under the care of Dr. Kline. On 08/30/16, BSO was attempted by Dr. Kline, but the surgery was aborted as Dr. Kline noted cancer deposits in her pelvic cavity; biopsies of which did return positive for infiltrative intermediate grade adenocarcinoma, serous. Dr. Kline recommended neoadjuvant chemotherapy, after which he preformed interval debulking surgery leaving her with no gross residual disease. She completed 3 cycles of carboplatin/taxol with Neulasta support; with toxicities of bone pain and worsening neuropathy. Cycle 1-10/01/16-11/13/16. Dose reduction with third cycle for worsening neuropathy. 12/25/16-BSO for ovarian malignancy with radical dissection for debulking with omentectomy, removal of peritoneal implants, subtotal hysterectomy 01/31/17-04/03/17: Seen by Dr. Freeman for second opinion- advised carboplatin single agent x 3 cycles CA 125 (U/mL) Date Value 06/24/2018 11 02/25/2018 14 11/12/2017 12 08/07/2017 12 05/09/[address] A/P:02/25/18- IMPRESSION: INTERVAL DECREASE IN SIZE OF THE 2 PREVIOUSLY SEEN HEPATIC LESIONS STABLE DIAPHRAGMATIC THICKENING/SOFT TISSUE IMPLANTS ALONG THE DOME OF THE LIVER/RIGHT DIAPHRAGM NO NEW METASTATIC DISEASE PRIOR CT C/A/P-11/12/17 CHEST-IMPRESSION: No CT evidence of acute abnormality. ABD/PEL-IMPRESSION: 2 NEW HYPODENSE HEPATIC LESIONS, POSSIBILITY OF METASTASIS IS RAISED --- ~1cm lesions LOW-ATTENUATION OVER THE DOME OF THE LIVER COULD BE EARLY CARCINOMATOSIS RECOMMEND CLOSE ATTENTION ON FOLLOW-UP 3 SMALL CYSTIC LESIONS OF THE PANCREAS CONSISTENT WITH INTRADUCTAL PAPILLARY MUCINOUS NEOPLASMS GENETICS: negative MAMMOGRAM: 10 years ago COLONOSCOPY:10 years ago SUBJECTIVE: Brandan Crowe reports that she feels okay, some fatigued. No abdominal pain, nausea, vomiting, diarrhea. Stable constipation since chemo, using prunes and colace daily. No bloating, early satiety, indigestion, or increased flatulence. No dysuria, gross hematuria, urinary frequency, urinary urgency, or incontinence. Has chronic shortness of breath, no cough, or chest pain. Her ECOG performance status is 2 (ambulatory and capable of all selfcare but unable to carry out any work activities, up and about more than 50% of waking hours). States generalized itching of skin this winter but not using lotions or creams. Denies vaginal bleeding or new pain. OBJECTIVE: There were no vitals taken for this visit. GENERAL: Patient is a well developed, well nourished, obese female. She is Alert, oriented, pleasant and cooperative. SKIN: Color, texture, turgor normal. No rashes or lesions. NECK: Supple, no adenopathy; thyroid symmetric, normal size, no bruits LUNGS: Clear to auscultation bilaterally. HEART: Regular rate and rhythm, no murmurs. BREAST: deferred exam ABDOMEN: Abdomen soft, non-tender, no hepatosplenomegaly. PELVIC: deferred at patient request LOWER EXTREMITIES: No pitting edema, no palpable cords and no skin changes. PROCEDURES: None ASSESSMENT: 68 year old with serous grade ovarian adenocarcinoma, s/p 3 cycles of neoadjuvant chemotherapy and interval cytoreduction. No clinical evidence of disease at this time, CT with stable liver lesions. PLAN: 1. OVCA - Stage III s/p neoadjuvant chemo and optimal interval debulking with subtotal hysterectomy. [facility] Reviewed imaging today, two small liver lesions. Ca125 stable Saw counselor per patient negative for any deleterious mutation RTC in 4-6 months with CA-[address] scans 2. Toxic inflammatory neuropathy - stable Octagam(IVIG) injections [id number] Neuropathy worsened s/p taxol, stable since treatment, no interference with ADLs Wendy Cruz, OTTO.DRIVER STARTING GATE [facility] Staff: Patient was seen and examined by me. All roberson elements of the Fellow's history and physical were confirmed. I agree with the above documented findings and plan of care as outlined by the Fellow. Raul Freeman MD Total face time spent with patient was 25 minutes and more than 50% of the that time was spent on counseling the patient and coordinating her care, reviewing records, imaging and communicating with her physician. My thoughts and recommendations will be communicated to the referring doctor through the EMR, by letter and/or personal communication. A letter and a copy of this office note were sent to: CC: Angella Farley MD (PCP) Dr. [email or web address] 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 Discontinue saline lock post exam. If Pt. has a central line or IVAD, may access for administration according to line specific nursing protocol. Once exam is complete flush line and de- access according to line specific nursing protocol in the CT contrast administration guidelines link.Disp: 1 EachRfl: 0 enteric contrast (will be provided with radiology test)For CT ABD/PEL W IVCON Routine order Administer, As Directed One Time Only, via Oral, Rectal, both Oral and Rectal, Enteric Tube, Stoma or Indwelling Catheter, Enteric Contrast as designated per enteric contrast guidelinesDisp: 1 EachRfl: 0 CA 125 BLD [RTGN314] Order #: [id number] FUTURE COMP METABOLIC PANEL [SQCMP] Order #: [id number] FUTURE CBC + DIFF [SQCBCDIF] Order #: [id number] FUTURE Prescriptions as of 07/03/2018 Sig: IBUPROFEN 100 MG TABLET Take 200 mg by mouth every 6 * DOCUSATE SODIUM 100 MG CAPSULE Take 100 mg by mouth twice da* AFLIBERCEPT 2 MG/0.05 ML INTR* 2 mg by INTRAVITREAL route on* IMMUNE GLOB,GAMM(IGG)10 %-MAL* Inject intravenously. IMMUNE GLOB,GAMM(IGG) 10 %-CA* Sig: Infuse for next 8 months* INSULIN LISPRO (U-100) 100 UN* Inject subcutaneously twice d* ARMOUR THYROID 60 MG TABLET Take 60 mg by mouth once yossi* ESCITALOPRAM 10 MG TABLET Take 10 mg by mouth once yossi* * INSULIN GLARGINE (U-100) 100 * Inject 75 Units subcutaneousl* IV CONTRAST (RADIOLOGY PROCED* CT ABD/PEL -Inject, intraveno* ENTERIC CONTRAST (RADIOLOGY P* For CT ABD/PEL W IVCON Routin* Problem List As Of Date 07/03/2018 Noted Resolved Disturbance of skin sensation [R20.9] INVALID FOR* Pain in limb [M79.609] INVALID FOR*12/02/2015 Diabetic neuropathy [E11.40] INVALID FOR*10/30/2012 Abnormality of gait [R26.9] INVALID FOR* Inflammatory and toxic neuropathy (HCC) [G62.2,*INVALID FOR* Lumbar radiculopathy [M54.16] INVALID FOR* Spinal stenosis [M48.00] INVALID FOR*03/31/2018 Lumbago [M54.5] INVALID FOR* Small fiber neuropathy [G62.9] INVALID FOR* Pain of lower extremity [M79.606] INVALID FOR* Diabetic peripheral neuropathy (HCC) [E11.42] INVALID FOR* Diabetes mellitus (HCC) [E11.9] INVALID FOR* Hypothyroid [E03.9] INVALID FOR* CIDP (chronic inflammatory demyelinating polyne*INVALID FOR* Obesity, Class III, BMI >= 40 (morbid obesity) *INVALID FOR* History of ovarian cancer [Z85.43] INVALID FOR* Spinal stenosis of lumbosacral region [M48.07] INVALID FOR* Encounter Status:Closed by RAUL FREEMAN MD on 07/03/18 PROGRESS Observed: 06/27/2018 Status: COMPLETED Source: [place] 3:59 PM [facility] REPOSITORY HNO ID: [id number] Author: Raul Freeman Jr. Service: (none) Author Type: Physician Type: Progress Notes Filed: 07/03/2018 5:04 PM Note Text: DATE OF SERVICE: July 03, 2018 PROBLEM: Brandan Crowe presents for follow-up of ovarian cancer DIAGNOSIS: serous intermediate grade ovarian adenocarcinoma PRIOR THERAPY AND DATE: Ms. 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 She presented to Dr. Kline with a remote history of left sided pelvic discomfort as far back as 2002. Pelvic ultrasound at that time did identify a cyst on her right ovary thought to be a dermoid. She was followed serially, and no changes in the cyst was noted. In June of 2016, she did develop right sided pelvic pain. Uterine biopsy obtained by Dr. Lew did not reveal any evidence for malignancy, and a CA-125 obtained at that time returned to be 20, within normal limits. Regardless, the patient was concerned about the continued presence of this cyst on her right ovary in the context of pain and elected to pursue salpingo-oophorectomy under the care of Dr. Kline. On 08/30/16, BSO was attempted by Dr. Kline, but the surgery was aborted as Dr. Kline noted cancer deposits in her pelvic cavity; biopsies of which did return positive for infiltrative intermediate grade adenocarcinoma, serous. Dr. Kline recommended neoadjuvant chemotherapy, after which he preformed interval debulking surgery leaving her with no gross residual disease. She completed 3 cycles of carboplatin/taxol with Neulasta support; with toxicities of bone pain and worsening neuropathy. Cycle 1-10/01/16-11/13/16. Dose reduction with third cycle for worsening neuropathy. 12/25/16-BSO for ovarian malignancy with radical dissection for debulking with omentectomy, removal of peritoneal implants, subtotal hysterectomy 01/31/17-04/03/17: Seen by Dr. Freeman for second opinion-advised carboplatin single agent x 3 cycles CA 125 (U/mL) Date Value 06/24/2018 11 02/25/2018 14 11/12/2017 12 08/07/2017 12 05/09/[address] A/P:02/25/18- IMPRESSION: INTERVAL DECREASE IN SIZE OF THE 2 PREVIOUSLY SEEN HEPATIC LESIONS STABLE DIAPHRAGMATIC THICKENING/SOFT TISSUE IMPLANTS ALONG THE DOME OF THE LIVER/RIGHT DIAPHRAGM NO NEW METASTATIC DISEASE PRIOR CT C/A/P-11/12/17 CHEST-IMPRESSION: No CT evidence of acute abnormality. ABD/PEL-IMPRESSION: 2 NEW HYPODENSE HEPATIC LESIONS, POSSIBILITY OF METASTASIS IS RAISED --- ~1cm lesions LOW-ATTENUATION OVER THE DOME OF THE LIVER COULD BE EARLY CARCINOMATOSIS RECOMMEND CLOSE ATTENTION ON FOLLOW-UP 3 SMALL CYSTIC LESIONS OF THE PANCREAS CONSISTENT WITH INTRADUCTAL PAPILLARY MUCINOUS NEOPLASMS GENETICS: negative MAMMOGRAM: 10 years ago COLONOSCOPY:10 years ago SUBJECTIVE: Brandan Crowe reports that she feels okay, some fatigued. No abdominal pain, nausea, vomiting, diarrhea. Stable constipation since chemo, using prunes and colace daily. No bloating, early satiety, indigestion, or increased flatulence. No dysuria, gross hematuria, urinary frequency, urinary urgency, or incontinence. Has chronic shortness of breath, no cough, or chest pain. Her ECOG performance status is 2 (ambulatory and capable of all selfcare but unable to carry out any work activities, up and about more than 50% of waking hours). States generalized itching of skin this winter but not using lotions or creams. Denies vaginal bleeding or new pain. OBJECTIVE: There were no vitals taken for this visit. GENERAL: Patient is a well developed, well nourished, obese female. She is Alert, oriented, pleasant and cooperative. SKIN: Color, texture, turgor normal. No rashes or lesions. NECK: Supple, no adenopathy; thyroid symmetric, normal size, no bruits LUNGS: Clear to auscultation bilaterally. HEART: Regular rate and rhythm, no murmurs. BREAST: deferred exam ABDOMEN: Abdomen soft, non-tender, no hepatosplenomegaly. PELVIC: deferred at patient request LOWER EXTREMITIES: No pitting edema, no palpable cords and no skin changes. PROCEDURES: None ASSESSMENT: 68 year old with serous grade ovarian adenocarcinoma, s/p 3 cycles of neoadjuvant chemotherapy and interval cytoreduction. No clinical evidence of disease at this time, CT with stable liver lesions. PLAN: 1. OVCA - Stage III s/p neoadjuvant chemo and optimal interval debulking with subtotal hysterectomy. [facility] Reviewed imaging today, two small liver lesions. Ca125 stable Saw counselor per patient negative for any deleterious mutation RTC in 4-6 months with CA-[address] scans 2. Toxic inflammatory neuropathy - stable Octagam(IVIG) injections [id number] Neuropathy worsened s/p taxol, stable since treatment, no interference with ADLs Wendy Cruz APRN.[employer] [facility] Staff: Patient was seen and examined by me. All roberson elements of the Fellow's history and physical were confirmed. I agree with the above documented findings and plan of care as outlined by the Fellow. Raul Freeman MD Total face time spent with patient was 25 minutes and more than 50% of the that time was spent on counseling the patient and coordinating her care, reviewing records, imaging and communicating with her physician. My thoughts and recommendations will be communicated to the referring doctor through the EMR, by letter and/or personal communication. A letter and a copy of this office note were sent to: CC: Angella Farley MD (PCP) [email or web address] Referring MD: SELF CA 125 Collected: 06/24/2018 Status: F Source: [place] 2:52 PM [facility] REPOSITORY TYPE CODE TESTS RESULT OUT OF RANGE REFERENCE UNITS LAB CA125 <39 U/mL CA 125 11 Result Comment: CA 125 test methodology used is the Electrochemiluminescence Immunoassay by [employer] [facility]. The reference interval is based on the 95th percentile of 240 apparently healthy premenopausal and postmenopausal women. At a cutoff value of 65 U/mL, the test sensitivity to distinguish ovarian carcinoma (FIGO stage I to IV) versus benign gynecological disease is 79%, with a specificity of 82%. Reference: Cancer Antigen 125 (CA 125 II) [package insert V 1.0 Mexican]. [employer], [place], [place] (July 2015) Performed By: #### CA125 #### [facility] [address] [place], [place] [address] CBC W/DIFF, AUTOMATED Collected: 05/20/2018 Status: F Source: [place] 3:14 PM [facility] REPOSITORY Order Comment: Order Date: 05/20/18 Order Info: 0184-1 - CBCD TYPE CODE TESTS RESULT OUT OF RANGE REFERENCE UNITS LAB L100.1000 4.4-11.0 K/mm3 Normal WBC 7.0 LAB L100.1200 4.2-5.4 M/mm3 Low RBC 4.14 LAB L100.1300 12.0-15.0 g/dl Normal HGB 12.7 LAB L100.1400 37-47 % Normal HCT 38.8 LAB L100.1500 81-99 fL Normal MCV 93.7 LAB L100.1600 27.0-32.0 pg Normal MCH 30.7 LAB L100.1700 32-36 g/gl Normal MCHC 32.7 LAB L100.1810 11.6-14.6 % Normal RDW CV 14.3 LAB L100.1820 35.1-43.9 fl High RDW SD 47.4 LAB L100.1900 150-450 K/mm3 Normal PLT 206 LAB L100.2000 6.2-12.0 fl Normal MPV 10.7 LAB L100.2100 47-70 % Normal NEUT% 48.3 LAB L100.2200 19-41 % Normal LY% 37.2 LAB L100.2300 0-10 % High MONO% 12.2 LAB L100.2400 0-5 % Normal EO% 1.6 LAB L100.2500 0-1 % Normal BASO% 0.6 LAB L100.2550 0.0-0.9 % Normal IM GRAN % 0.100 Result Comment: IG% - Immature Granulocytes (promyelocytes, myelocytes and metamyelocytes) > 1% indicates that a LEFT SHIFT is Present. LAB L100.2620 2.0-7.7 X10 3/uL Normal Absolute Neut 3.4 LAB L100.2720 0.83-4.51 X10 3/ul Normal Absolute Lymph 2.62 Performed By: #### L100.0100, L501.9985, L500.2500, L501.9520, L506.1000 #### [facility] [address] [place], [address] HEMOGLOBIN A1C Collected: 05/20/2018 Status: F Source: [place] 3:14 PM [facility] REPOSITORY Order Comment: Order Date: 05/20/18 Order Info: 4548-4 - A1C TYPE CODE TESTS RESULT OUT OF RANGE REFERENCE UNITS LAB L501.9985 4.2-6.3 % High HGB A1C 8.4 Performed By: #### L100.0100, L501.9985, L500.2500, L501.9520, L506.1000 #### [facility] [address] [place], [place], [address] BASIC METABOLIC Collected: 05/20/2018 Status: F Source: [place] PROFILE (BMP) 3:14 PM [facility] REPOSITORY Order Comment: Order Date: 05/20/18 Order Info: [id number] - BMP Order Info: 3016-3 - TSH TYPE CODE TESTS RESULT OUT OF RANGE REFERENCE UNITS LAB L501.0100 74-106 mg/dL Normal GLU 88 Result Comment: Please note revised GLUCOSE reference range effective 2017. LAB L501.1000 7-18 mg/dL Normal BUN 11 LAB L501.1100 0.55-1.02 mg/dL Normal CREAT,SERUM 0.95 Result Comment: The validity of the calculated GFR AND GFRAA in patients over 70 years has not been determined. Clinical correlation is essential. LAB L501.1110 >60 mL/min Normal EST GFR 62 Result Comment: Non- GFR Calc LAB L501.1115 >60 mL/min Normal EST GFR - AA 75 Result Comment: GFR Calc LAB L501.1300 10-20 RATIO Normal BUN/CRE 11.6 LAB L501.2200 8.5-10.1 mg/dL CA Normal 9.0 LAB L501.5300 136-145 mmol/L NA Normal 142 LAB L501.5600 3.5-5.1 mmol/L K Normal 3.6 LAB L501.5900 98-107 mmol/L CL Normal 103 LAB L501.6100 21.0-32.0 mmol/L Normal CO2 31.0 LAB L501.6200 5-15 Normal GAP 8 Performed By: #### L100.0100, L501.9985, L500.2500, L501.9520, L506.1000 #### [facility] [address] [place], [address] THYROID STIM HORMONE Collected: 05/20/2018 Status: F Source: [place] (TSH) 3:14 PM [facility] REPOSITORY Order Comment: Order Date: 05/20/18 Order Info: 0667-1 - BMP Order Info: 3016-3 - TSH TYPE CODE TESTS RESULT OUT OF RANGE REFERENCE UNITS LAB L501.9520 0.358-3.74 uIU/mL Normal TSH 1.22 Performed By: #### L100.0100, L501.9985, L500.2500, L501.9520, L506.1000 #### [facility] [address] [place], [address] VITAMIN D,25 HYDROXY Collected: 05/20/2018 Status: F Source: [place] 3:14 PM [facility] REPOSITORY Order Comment: Order Date: 05/20/18 Order Info: 91208-4 - VITD25 TYPE CODE TESTS RESULT OUT OF REFERENCE UNITS RANGE LAB L506.1000 29.95-100.01 ng/mL Low Vitamin D 22.0 25-OH Result Comment: Vitamin D 25(OH) Status Range Deficiency <20 ng/mL (50nmol/L) Insuffciency 20 - 30 ng/mL (50 - 75 nmol/L) Sufficiency 30 - 100 ng/mL (75 - 250 nmol/L) Toxicity >100 ng/mL (>250 nmol/L) Performed By: #### L100.0100, L501.9985, L500.2500, L501.9520, L506.1000 #### [facility] [address] [place], [address] MICROALBUMIN,RANDOM URINE Collected: Status: F Source: [place] 05/20/2018 3:14 PM [facility] REPOSITORY Order Comment: Order Date: 11/05/17 Order Info: [id number] - MIALB TYPE CODE TESTS RESULT OUT OF RANGE REFERENCE UNITS LAB L502.0500 NO RANGE EST. mg/L Normal 1330.0 MICROALBUMIN ,UR Performed By: #### L502.0500 #### [facility] [address] [place], [address] PROGRESS Observed: 03/24/2018 Status: COMPLETED Source: [place] 5:15 PM [facility] REPOSITORY HNO ID: [id number] Author: Marcie Bates Service: (none) Author Type: Physician Type: Progress Notes Filed: 03/31/2018 10:19 AM Note Text: Original referring physician AND PCP - [place] [address] ? 10th FOLLOW-UP APPOINTMENT to REVIEW SYMPTOMS and PLAN FURTHER MANAGEMENT ? I had the pleasure to see Ms. Brandan Crowe, a 67 year old left-handed female from [place], [place] at her 10th follow-up appointment to discuss her symptoms and plan of management on March 24, 2018 when she came accompanied by her . ? I had seen her initially in consultation in my [facility] on 07/18/13 for evaluation of Numbness and gait abnormality - in setting of diabetes mellitus. After that visit, the original impression / working diagnosis was Suspect predominantly sensory polyneuropathy - possibly painful small fiber neuropathy in view of reserved stretch reflexes; however, profound apparent sensory deafferentation suggests a sensory neuronopathy - could be diabetic? dysimmune? paraneoplastic? Needs more extensive work-up. Recommendations included: 1. EMG of right body to assess large fiber integrity 2. Blood tests today - no need for cryoglobulins since most likely diabetic in nature 3. Script given for 2 tabs Percocet immediately pre EMG since has some much pain/discomfort ? From 9th follow-up visit on 03/07/17: UPDATE Developed ovarian cancer - surgery and chemo (including microtubule stabilizer) Mostly numbness - worse now in fingers and hands, toes and up to just above left knee (only in foot on right) since chemo Hypersensitivity of toes has remained same since pre-chemotherapy IMPRESSION: Now that all the investigations have been completed, the final clinical diagnosis is small fiber neuropathy - question whether this is immune-mediated or related to her underlying diabetes mellitus. She believes the IVIG is improving and maintaining her sensory symptoms and mobility, allowing her to get out of the wheelchair. 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 Follow-up with her ovarian cancer doctor 2. Continue with present course of IVIG treatment 3. Return to clinic in 1 year UPDATE (today ): In remission x 1 yr from her ovarian cancer diagnosis - followed regularly Sensory symptoms worse since receiving Taxol and carboplatin - fingers and toes number after 3 cycles then 3 cycles off since Asking how long improvement from chemotherapy-induced worsening of her polyneuropathy may take Continues having low back pain (OA) Continues with IVIG q 4-5 wk - goes to infusion center - does not notice sensory symptoms of banding as had prior to IVIG Discussed Ad and she will check with her insurance company - seems interested IMPRESSION: Now that all the investigations have been completed, the final clinical diagnosis is small fiber neuropathy - question whether this is immune-mediated or related to her underlying diabetes mellitus. She believes the IVIG is improving and maintaining her sensory symptoms and mobility, allowing her to get out of the wheelchair. However, recent use of chemotherapy (with microtubule stabilizing drug - Taxol, and carboplatin) for ovarian cancer has worsened her neuropathy symptoms, although mostly distal extremities with increased digital numbness - which may resolve, although warned her it may not. 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 Crowe understands the diagnosis, had all her questions answered and agrees with the following plan of management. PLAN AND RECOMMENDATIONS: 1. Continue with present therapeutic regimen of IVIG q 4- 5 wk --> will consider switching to scIG (Hizentra) 2. Continue taking alpha-lipoic acid (alpha-lipoate) 600 mg daily 3. Follow-up with her oncologist, as directed 4. Follow-up with me in 1 yr The duration of this appointment visit was 40 minutes of fuuc-fe-gjbe time with the patient. At least 50% of this time was spent in counseling, explanation of diagnosis, planning of further management, and coordination of care. Marcie Bates MD, PhD Staff, [facility] CNOV Observed: 03/24/2018 Status: COMPLETED Source: [place] 4:10 PM [facility] REPOSITORY Office Visit (NENMMN) AIRSBRANDAN RAMEY ([id number]) 1950 F Date Time Provider Department 03/24/18 4:10 PM MARCIE BATES NEGAMN During your visit today, we recorded the following information about you: Pulse Blood pressure Weight Height 67/minute 139/68 95.3 kg 1.486 m Chico Wang RN 03/24/2018 4:55 PM Signed UPDATE: 02/2016 dx with ovarian with chemotherapy. Complete hysterectomy and omentectomy at [place], [place]. Stopped Taxol r/t neurologic side effects-worsened numbness in hands and feet; sudden, sharp, quick pain in bilat feet. Continues on IVIG q 4 wk x 2 d - infused at [facility]. Pt thinks current Ivig dosing is maintaining symptom stability. Easily fatigued. Naps after dinner, sleeps until about 11p-1am, up a few hours, then sleeps 4-5 hours. I want to sleep most of the time. Emotionally doing better since taking Lexapro. Having problems with her eyesight (diabetes mellitus-related). Improved with Eyelea injections every 8 weeks. Checking BS 2-3x/day, usually under 200, but sometimes 300. On insulin regimen. Spouse stated sometimes pt has low BS around 60's. Marcie Bates MD, PhD 03/31/2018 10:19 AM Signed Original referring physician AND PCP - [place] [address] [place] [address] ? 10th FOLLOW-UP APPOINTMENT to REVIEW SYMPTOMS and PLAN FURTHER MANAGEMENT ? I had the pleasure to see Ms. Brandan Crowe, a 67 year old left-handed female from [place], [place] at her 10th follow-up appointment to discuss her symptoms and plan of management on March 24, 2018 when she came accompanied by her . ? I had seen her initially in consultation in my [facility] on 07/18/13 for evaluation of Numbness and gait abnormality - in setting of diabetes mellitus. After that visit, the original impression / working diagnosis was Suspect predominantly sensory polyneuropathy - possibly painful small fiber neuropathy in view of reserved stretch reflexes; however, profound apparent sensory deafferentation suggests a sensory neuronopathy - could be diabetic? dysimmune? paraneoplastic? Needs more extensive work-up. Recommendations included: 1. EMG of right body to assess large fiber integrity 2. Blood tests today - no need for cryoglobulins since most likely diabetic in nature 3. Script given for 2 tabs Percocet immediately pre EMG since has some much pain/discomfort ? From 9th follow-up visit on 03/07/17: UPDATE Developed ovarian cancer - surgery and chemo (including microtubule stabilizer) Mostly numbness - worse now in fingers and hands, toes and up to just above left knee (only in foot on right) since chemo Hypersensitivity of toes has remained same since pre-chemotherapy IMPRESSION: Now that all the investigations have been completed, the final clinical diagnosis is small fiber neuropathy - question whether this is immune-mediated or related to her underlying diabetes mellitus. She believes the IVIG is improving and maintaining her sensory symptoms and mobility, allowing her to get out of the wheelchair. 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 Follow-up with her ovarian cancer doctor 2. Continue with present course of IVIG treatment 3. Return to clinic in 1 year UPDATE (today ): In remission x 1 yr from her ovarian cancer diagnosis - followed regularly Sensory symptoms worse since receiving Taxol and carboplatin - fingers and toes number after 3 cycles then 3 cycles off since Asking how long improvement from chemotherapy-induced worsening of her polyneuropathy may take Continues having low back pain (OA) Continues with IVIG q 4-5 wk - goes to infusion center - does not notice sensory symptoms of banding as had prior to IVIG Discussed Ad and she will check with her insurance company - seems interested IMPRESSION: Now that all the investigations have been completed, the final clinical diagnosis is small fiber neuropathy - question whether this is immune-mediated or related to her underlying diabetes mellitus. She believes the IVIG is improving and maintaining her sensory symptoms and mobility, allowing her to get out of the wheelchair. However, recent use of chemotherapy (with microtubule stabilizing drug - Taxol, and carboplatin) for ovarian cancer has worsened her neuropathy symptoms, although mostly distal extremities with increased digital numbness - which may resolve, although warned her it may not. 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 Crowe understands the diagnosis, had all her questions answered and agrees with the following plan of management. PLAN AND RECOMMENDATIONS: 1. Continue with present therapeutic regimen of IVIG q 4- 5 wk --> will consider switching to scIG (Hizentra) 2. Continue taking alpha-lipoic acid (alpha-lipoate) 600 mg daily 3. Follow-up with her oncologist, as directed 4. Follow-up with me in 1 yr The duration of this appointment visit was 40 minutes of nfmb-bq-whtj time with the patient. At least 50% of this time was spent in counseling, explanation of diagnosis, planning of further management, and coordination of care. Marcie Bates MD, PhD Staff, [facility] Referring Provider: SELF [[id number]] Allergies As of Date: 03/24/2018 Noted Allergy Reaction BERRIES 07/19/2014 14 - Other: See Comments MENTHOL 04/22/2013 9 - Itching OATS, OAT GUM 07/19/2014 2 - Rash PEPPER (GENUS CAPSICUM) 07/09/2016 16 - Unknown Comments: bogs down my immune system SODIUM BENZOATE 11/24/2012 16 - Unknown TUNA OIL 07/19/2014 14 - Other: See Comments Comments: TUNA Date Reviewed: 03/24/2018 Reviewed by: Chico Wang RN - Fully Assessed Reason for Visit: Follow Up [171] Primary Visit Diagnosis:Inflammatory and toxic neuropathy (HCC) [G62.2, G61.9] Other Visit Diagnoses:Small fiber neuropathy (HCC) [G62.9] Diabetic peripheral neuropathy (HCC) [E11.42] CIDP (chronic inflammatory demyelinating polyneuropathy) (HCC) [G61.81] Disturbance of skin sensation [R20.9] Pain in both lower extremities [M79.604, M79.605] Abnormality of gait [R26.9] Spinal stenosis of lumbosacral region [M48.07] Chronic bilateral low back pain without sciatica [M54.5, G89.29] Type 2 diabetes mellitus with diabetic polyneuropathy, with long-term current use of insulin (HCC) [E11.42, Z79.4] History of ovarian cancer [Z85.43] Prescriptions as of 03/24/2018 Sig: IBUPROFEN 100 MG TABLET Take 200 mg by mouth every 6 * DOCUSATE SODIUM 100 MG CAPSULE Take 100 mg by mouth twice da* AFLIBERCEPT 2 MG/0.05 ML INTR* 2 mg by INTRAVITREAL route on* IMMUNE GLOB,GAMM(IGG) 10 %-CA* Sig: Infuse for next 8 months* INSULIN LISPRO (U-100) 100 UN* Inject subcutaneously twice d* ARMOUR THYROID 60 MG TABLET Take 60 mg by mouth once yossi* ESCITALOPRAM 10 MG TABLET Take 10 mg by mouth once yossi* * INSULIN GLARGINE (U-100) 100 * Inject 75 Units subcutaneousl* IMMUNE GLOB,GAMM(IGG)10 %-MAL* Inject intravenously. Problem List As Of Date 03/24/2018 Noted Resolved Disturbance of skin sensation [R20.9] INVALID FOR* Pain in limb [M79.609] INVALID FOR*12/02/2015 Diabetic neuropathy [E11.40] INVALID FOR*10/30/2012 Abnormality of gait [R26.9] INVALID FOR* Inflammatory and toxic neuropathy (HCC) [G62.2,*INVALID FOR* Lumbar radiculopathy [M54.16] INVALID FOR* Spinal stenosis [M48.00] INVALID FOR* Lumbago [M54.5] INVALID FOR* Small fiber neuropathy [G62.9] INVALID FOR* Pain of lower extremity [M79.606] INVALID FOR* Diabetic peripheral neuropathy (HCC) [E11.42] INVALID FOR* Diabetes mellitus (HCC) [E11.9] INVALID FOR* Hypothyroid [E03.9] INVALID FOR* CIDP (chronic inflammatory demyelinating polyne*INVALID FOR* Obesity, Class III, BMI >= 40 (morbid obesity) *INVALID FOR* History of ovarian cancer [Z85.43] INVALID FOR* Visit Notes: >> Chico Wang RN Mon Mar 24, 2018 4:44 PM Status: Signed UPDATE: 02/2016 dx with ovarian with chemotherapy. Complete hysterectomy and omentectomy at [place], [place]. Stopped Taxol r/t neurologic side effects-worsened numbness in hands and feet; sudden, sharp, quick pain in bilat feet. Continues on IVIG q 4 wk x 2 d - infused at [facility]. Pt thinks current Ivig dosing is maintaining symptom stability. Easily fatigued. Naps after dinner, sleeps until about 11p-1am, up a few hours, then sleeps 4-5 hours. I want to sleep most of the time. Emotionally doing better since taking Lexapro. Having problems with her eyesight (diabetes mellitus-related). Improved with Eyelea injections every 8 weeks. Checking BS 2-3x/day, usually under 200, but sometimes 300. On insulin regimen. Spouse stated sometimes pt has low BS around 60's. Disposition: Return in about 1 year (around 03/24/2019) for EST with me. Follow-up and Disposition History Recorded Encounter Status:Closed by MARCIE BATES MD on 03/31/18 CNCO Observed: 03/03/2018 Status: COMPLETED Source: [place] 12:00 AM [facility] REPOSITORY Letter Text [address] [place], [place] [address] Raul Freeman MD Section of Gynecologic Oncology [facility] [place] Office: [phone] [email or web address] March 03, 2018 RE: Brandan Crowe DOS: 02/27/18 Dear Angella Farley MD This letter is in follow up for your patient, Brandan Crowe, who was recently seen in my office. Enclosed please find my office notes from that visit. If I can be of any further assistance, or if you have any questions, please contact my office. Sincerely, Hilaria RedmanO Observed: 03/03/2018 Status: COMPLETED Source: [place] 12:00 AM [facility] REPOSITORY Letter Text [address] [place], [place] [address] Raul Freeman MD Section of Gynecologic Oncology [facility] [place] Office: [phone] [email or web address] March 03, 2018 RE: Brandan Crowe DOS: 02/27/[address] Raudel Hay This letter is in follow up for your patient, Brandan Crowe, who was recently seen in my office. Enclosed please find my office notes from that visit. If I can be of any further assistance, or if you have any questions, please contact my office. Sincerely, Hilaria RedmanO Observed: 03/03/2018 Status: COMPLETED Source: [place] 12:00 AM [facility] REPOSITORY Letter Text [address] [place], [place] [address] Raul Freeman MD Section of Gynecologic Oncology [facility] and Women[facility] Office: [phone] [email or web address] March 03, 2018 RE: Brandan Crowe DOS: 02/27/[address] Maxi Kline This letter is in follow up for your patient, Brandan Crowe, who was recently seen in my office. Enclosed please find my office notes from that visit. If I can be of any further assistance, or if you have any questions, please contact my office. Sincerely, Raul Freeman M.D. CNOVSP Observed: 02/27/2018 Status: COMPLETED Source: [place] 2:00 PM [facility] REPOSITORY Visit (SP) Office ([facility]) BRANDAN CROWE ([id number]) 1950 F Date Time Provider Department 02/27/18 2:00 PM RAUL FREEMAN JR [facility] During your visit today, we recorded the following information about you: Temperature Pulse Blood pressure 99 degrees 74/minute 156/60 Raul Freeman Jr. 02/27/2018 6:17 PM Signed DATE OF SERVICE: February 27, 2018 PROBLEM: Brandan Crowe presents for follow-up of ovarian cancer and discuss scans (abd pelvis only done) DIAGNOSIS: serous intermediate grade ovarian adenocarcinoma PRIOR THERAPY AND DATE: Ms. 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 She presented to Dr. Kline with a remote history of left sided pelvic discomfort as far back as 2002. Pelvic ultrasound at that time did identify a cyst on her right ovary thought to be a dermoid. She was followed serially, and no changes in the cyst was noted. In June of 2016, she did develop right sided pelvic pain. Uterine biopsy obtained by Dr. Lew did not reveal any evidence for malignancy, and a CA-125 obtained at that time returned to be 20, within normal limits. Regardless, the patient was concerned about the continued presence of this cyst on her right ovary in the context of pain and elected to pursue salpingo-oophorectomy under the care of Dr. Kline. On 08/30/16, BSO was attempted by Dr. Kline, but the surgery was aborted as Dr. Kline noted cancer deposits in her pelvic cavity; biopsies of which did return positive for infiltrative intermediate grade adenocarcinoma, serous. Dr. Kline recommended neoadjuvant chemotherapy, after which he preformed interval debulking surgery leaving her with no gross residual disease. She completed 3 cycles of carboplatin/taxol with Neulasta support; with toxicities of bone pain and worsening neuropathy. Cycle 1-10/01/16-11/13/16. Dose reduction with third cycle for worsening neuropathy. 12/25/16-BSO for ovarian malignancy with radical dissection for debulking with omentectomy, removal of peritoneal implants, subtotal hysterectomy 01/31/17-04/03/17: Seen by Dr. Freeman for second opinion- advised carboplatin single agent x 3 cycles CA 125 (U/mL) Date Value 02/25/2018 14 11/12/2017 12 08/07/2017 12 05/09/[address] A/P:02/25/18- IMPRESSION: INTERVAL DECREASE IN SIZE OF THE 2 PREVIOUSLY SEEN HEPATIC LESIONS STABLE DIAPHRAGMATIC THICKENING/SOFT TISSUE IMPLANTS ALONG THE DOME OF THE LIVER/RIGHT DIAPHRAGM NO NEW METASTATIC DISEASE PRIOR CT C/A/P-11/12/17 CHEST-IMPRESSION: No CT evidence of acute abnormality. ABD/PEL-IMPRESSION: 2 NEW HYPODENSE HEPATIC LESIONS, POSSIBILITY OF METASTASIS IS RAISED --- ~1cm lesions LOW-ATTENUATION OVER THE DOME OF THE LIVER COULD BE EARLY CARCINOMATOSIS RECOMMEND CLOSE ATTENTION ON FOLLOW-UP 3 SMALL CYSTIC LESIONS OF THE PANCREAS CONSISTENT WITH INTRADUCTAL PAPILLARY MUCINOUS NEOPLASMS GENETICS: negative MAMMOGRAM: 10 years ago COLONOSCOPY:10 years ago SUBJECTIVE: Brandan Crowe reports that she feels okay, some fatigued. No abdominal pain, nausea, vomiting, diarrhea. Stable constipation since chemo, using prunes and colace daily. No bloating, early satiety, indigestion, or increased flatulence. No dysuria, gross hematuria, urinary frequency, urinary urgency, or incontinence. Has chronic shortness of breath, no cough, or chest pain. Her ECOG performance status is 2 (ambulatory and capable of all selfcare but unable to carry out any work activities, up and about more than 50% of waking hours). States generalized itching of skin this winter but not using lotions or creams. Denies vaginal bleeding or new pain. OBJECTIVE: BP 156/60 Pulse 74 Temp (Src) 99 (Temporal Artery) Wt 0 lb (0.0kg) SpO2 94% GENERAL: Patient is a well developed, well nourished, obese female. She is Alert, oriented, pleasant and cooperative. SKIN: Color, texture, turgor normal. No rashes or lesions. NECK: Supple, no adenopathy; thyroid symmetric, normal size, no bruits LUNGS: Clear to auscultation bilaterally. HEART: Regular rate and rhythm, no murmurs. BREAST: deferred exam ABDOMEN: Abdomen soft, non-tender, no hepatosplenomegaly. PELVIC: deferred at patient request LOWER EXTREMITIES: No pitting edema, no palpable cords and no skin changes. PROCEDURES: None ASSESSMENT: 67 year old with serous grade ovarian adenocarcinoma, s/p 3 cycles of neoadjuvant chemotherapy with taxol/carbo and neulasta support followed by BSO with radical dissection for debulking with omentectomy, removal of peritoneal implants, subtotal hysterectomy. 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 No clinical evidence of disease at this time, CT with stable liver lesions. PLAN: 1. OVCA - Stage III s/p neoadjuvant chemo and optimal interval debulking with subtotal hysterectomy. [facility] Reviewed imaging today, two small liver lesions. Ca125 stable Saw counselor per patient negative for any deleterious mutation RTC in 3 months with CA-125 and repeat CA 125 2. Toxic inflammatory neuropathy - stable Octagam(IVIG) injections x3diino Neuropathy worsened s/p taxol, stable since treatment, no interference with ADLs Wendy Cruz, SENIOR [employer] DAT[employer]ASE ADMINISTRATOR.DRIVER STARTING [employer] [facility] Staff: Patient was seen and examined by me. All roberson elements of the Fellow's history and physical were confirmed. I agree with the above documented findings and plan of care as outlined by the Fellow. Raul Freeman MD Total face time spent with patient was 25 minutes and more than 50% of the that time was spent on counseling the patient and coordinating her care, reviewing records, imaging and communicating with her physician. My thoughts and recommendations will be communicated to the referring doctor through the EMR, by letter and/or personal communication. A letter and a copy of this office note were sent to: CC: Angella Farley MD (PCP) [email or web address] Referring MD: SELF Referring Provider: RAUL FREEMAN JR [[id number]] Allergies As of Date: 02/27/2018 Noted Allergy Reaction BERRIES 07/19/2014 14 - Other: See Comments MENTHOL 04/22/2013 9 - Itching OATS, OAT GUM 07/19/2014 2 - Rash PEPPER (GENUS CAPSICUM) 07/09/2016 16 - Unknown Comments: bogs down my immune system SODIUM BENZOATE 11/24/2012 16 - Unknown TUNA OIL 07/19/2014 14 - Other: See Comments Comments: TUNA Date Reviewed: 02/27/2018 Reviewed by: Ana Paula Hubbard - Fully Assessed Reason for Visit: Established Patient [175] Primary Visit Diagnosis:History of ovarian cancer [Z85.43] Order(s):CA 125 BLD [IDEX580] Order #: [id number] Prescriptions as of 02/27/2018 Sig: DOCUSATE SODIUM 100 MG CAPSULE Take 100 mg by mouth twice da* AFLIBERCEPT 2 MG/0.05 ML INTR* 2 mg by INTRAVITREAL route on* IMMUNE GLOB,GAMM(IGG)10 %-MAL* Inject intravenously. IMMUNE GLOB,GAMM(IGG) 10 %-CA* Sig: Infuse for next 8 months* INSULIN LISPRO (U-100) 100 UN* Inject subcutaneously twice * ARMOUR THYROID 60 MG TABLET Take 60 mg by mouth once yossi* ESCITALOPRAM 10 MG TABLET Take 10 mg by mouth once yossi* * INSULIN GLARGINE (U-100) 100 * Inject 75 Units subcutaneousl* Problem List As Of Date 02/27/2018 Noted Resolved Disturbance of skin sensation [R20.9] INVALID FOR* Pain in limb [M79.609] INVALID FOR*12/02/2015 Diabetic neuropathy [E11.40] INVALID FOR*10/30/2012 Abnormality of gait [R26.9] INVALID FOR* Inflammatory and toxic neuropathy (HCC) [G62.2,*INVALID FOR* Lumbar radiculopathy [M54.16] INVALID FOR* Spinal stenosis [M48.00] INVALID FOR* Lumbago [M54.5] INVALID FOR* Small fiber neuropathy [G62.9] INVALID FOR* Pain of lower extremity [M79.606] INVALID FOR* Diabetic peripheral neuropathy (HCC) [E11.42] INVALID FOR* Diabetes mellitus (HCC) [E11.9] INVALID FOR* Hypothyroid [E03.9] INVALID FOR* CIDP (chronic inflammatory demyelinating polyne*INVALID FOR* Obesity, Class III, BMI >= 40 (morbid obesity) *INVALID FOR* History of ovarian cancer [Z85.43] INVALID FOR* Encounter Status:Closed by RAUL FREEMAN MD on 02/27/18 PROGRESS Observed: 02/26/2018 Status: COMPLETED Source: [place] 8:43 AM [facility] REPOSITORY HNO ID: [id number] Author: Basia Garcia Service: (none) Author Type: (none) Type: Progress Notes Filed: 02/26/2018 8:44 AM Note Text: Radiology Service Progress Note PATIENT NAME: Brandan Crowe DATE OF SERVICE: February 26, 2018 TIME: 8:43 AM PATIENT IDENTITY VERIFICATION COMPLETED USING TWO (2) METHODS: Patient confirmed name verbally and Date of . PATIENT GENDER DATA: Female. status: : No status: NO. PATIENT RELEVANT IMPLANT DATA REVIEWED: Not Applicable CONTRAST INDUCED NEPHROPATHY RISK FACTORS: Patient age > 60 years CREATININE: Creatinine Date Value Ref Range Status 05/09/2017 0.78 0.58 - 0.96 mg/dL Final 07/09/2016 0.70 0.58 - 0.96 mg/dL Final Creatinine (POCT) Date Value Ref Range Status 10/17/2012 0.64 0.6 - 1.5 mg/dL Final eGFR-All Other Races Date Value Ref Range Status 05/09/2017 >60 . Final Comment: eGFR (Estimated GFR) Units of measure: mL/min/1.73 meters squared eGFR is derived from the reexpressed MDRD Study equation using the following parameters: serum creatinine, age, gender and race. The creatinine assay has been calibrated to be traceable to IDMS. An eGFR <60 mL/min/1.73m2 for >3 months is consistent with chronic kidney disease. Refer to KDOQI guidelines for clinical interpretation. In patients with unstable renal function, e.g. those with acute kidney injury, the eGFR may not accurately reflect actual GFR. eGFR- Date Value Ref Range Status 05/09/2017 >60 Final P.O.C.T. RESULTS: POC done: Yes, See Lab Tab February 26, 2018 RADIOLOGIST NOTIFIED?: No ALLERGIES: Reviewed and unchanged CONTRAST ALLERGY: NO. PERIPHERAL IV ACCESS: power port acceessed by hem RADIOLOGY DEPARTMENT: CT; Exam(s) Completed: Abdomen/Pelvis SIGNED BY: Basia Zavala February 26, 2018 8:43 AM PROGRESS Observed: 02/25/2018 Status: COMPLETED Source: [place] 3:54 PM [facility] REPOSITORY HNO ID: [id number] Author: Raul Freeman Jr. Service: (none) Author Type: Physician Type: Progress Notes Filed: 02/27/2018 6:17 PM Note Text: DATE OF SERVICE: February 27, 2018 PROBLEM: Brandan Crowe presents for follow-up of ovarian cancer and discuss scans (abd pelvis only done) DIAGNOSIS: serous intermediate grade ovarian adenocarcinoma PRIOR THERAPY AND DATE: Ms. 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 She presented to Dr. Kline with a remote history of left sided pelvic discomfort as far back as 2002. Pelvic ultrasound at that time did identify a cyst on her right ovary thought to be a dermoid. She was followed serially, and no changes in the cyst was noted. In June of 2016, she did develop right sided pelvic pain. Uterine biopsy obtained by Dr. Lew did not reveal any evidence for malignancy, and a CA-125 obtained at that time returned to be 20, within normal limits. Regardless, the patient was concerned about the continued presence of this cyst on her right ovary in the context of pain and elected to pursue salpingo-oophorectomy under the care of Dr. Kline. On 08/30/16, BSO was attempted by Dr. Kline, but the surgery was aborted as Dr. Kline noted cancer deposits in her pelvic cavity; biopsies of which did return positive for infiltrative intermediate grade adenocarcinoma, serous. Dr. Kline recommended neoadjuvant chemotherapy, after which he preformed interval debulking surgery leaving her with no gross residual disease. She completed 3 cycles of carboplatin/taxol with Neulasta support; with toxicities of bone pain and worsening neuropathy. Cycle 1-10/01/16-11/13/16. Dose reduction with third cycle for worsening neuropathy. 12/25/16-BSO for ovarian malignancy with radical dissection for debulking with omentectomy, removal of peritoneal implants, subtotal hysterectomy 01/31/17-04/03/17: Seen by Dr. Freeman for second opinion-advised carboplatin single agent x 3 cycles CA 125 (U/mL) Date Value 02/25/2018 14 11/12/2017 12 08/07/2017 12 05/09/[address] A/P:02/25/18- IMPRESSION: INTERVAL DECREASE IN SIZE OF THE 2 PREVIOUSLY SEEN HEPATIC LESIONS STABLE DIAPHRAGMATIC THICKENING/SOFT TISSUE IMPLANTS ALONG THE DOME OF THE LIVER/RIGHT DIAPHRAGM NO NEW METASTATIC DISEASE PRIOR CT C/A/P-11/12/17 CHEST-IMPRESSION: No CT evidence of acute abnormality. ABD/PEL-IMPRESSION: 2 NEW HYPODENSE HEPATIC LESIONS, POSSIBILITY OF METASTASIS IS RAISED --- ~1cm lesions LOW-ATTENUATION OVER THE DOME OF THE LIVER COULD BE EARLY CARCINOMATOSIS RECOMMEND CLOSE ATTENTION ON FOLLOW-UP 3 SMALL CYSTIC LESIONS OF THE PANCREAS CONSISTENT WITH INTRADUCTAL PAPILLARY MUCINOUS NEOPLASMS GENETICS: negative MAMMOGRAM: 10 years ago COLONOSCOPY:10 years ago SUBJECTIVE: Brandan Crowe reports that she feels okay, some fatigued. No abdominal pain, nausea, vomiting, diarrhea. Stable constipation since chemo, using prunes and colace daily. No bloating, early satiety, indigestion, or increased flatulence. No dysuria, gross hematuria, urinary frequency, urinary urgency, or incontinence. Has chronic shortness of breath, no cough, or chest pain. Her ECOG performance status is 2 (ambulatory and capable of all selfcare but unable to carry out any work activities, up and about more than 50% of waking hours). States generalized itching of skin this winter but not using lotions or creams. Denies vaginal bleeding or new pain. OBJECTIVE: BP 156/60 Pulse 74 Temp (Src) 99 (Temporal Artery) Wt 0 lb (0.0kg) SpO2 94% GENERAL: Patient is a well developed, well nourished, obese female. She is Alert, oriented, pleasant and cooperative. SKIN: Color, texture, turgor normal. No rashes or lesions. NECK: Supple, no adenopathy; thyroid symmetric, normal size, no bruits LUNGS: Clear to auscultation bilaterally. HEART: Regular rate and rhythm, no murmurs. BREAST: deferred exam ABDOMEN: Abdomen soft, non-tender, no hepatosplenomegaly. PELVIC: deferred at patient request LOWER EXTREMITIES: No pitting edema, no palpable cords and no skin changes. PROCEDURES: None ASSESSMENT: 67 year old with serous grade ovarian adenocarcinoma, s/p 3 cycles of neoadjuvant chemotherapy with taxol/carbo and neulasta support followed by BSO with radical dissection for debulking with omentectomy, removal of peritoneal implants, subtotal hysterectomy. 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 No clinical evidence of disease at this time, CT with stable liver lesions. PLAN: 1. OVCA - Stage III s/p neoadjuvant chemo and optimal interval debulking with subtotal hysterectomy. [facility] Reviewed imaging today, two small liver lesions. Ca125 stable Saw counselor per patient negative for any deleterious mutation RTC in 3 months with CA-125 and repeat CA 125 2. Toxic inflammatory neuropathy - stable Octagam(IVIG) injections [id number] Neuropathy worsened s/p taxol, stable since treatment, no interference with ADLs Wendy Cruz, OTTO.DRIVER STARTING [employer] [facility] Staff: Patient was seen and examined by me. All roberson elements of the Fellow's history and physical were confirmed. I agree with the above documented findings and plan of care as outlined by the Fellow. Raul Freeman MD Total face time spent with patient was 25 minutes and more than 50% of the that time was spent on counseling the patient and coordinating her care, reviewing records, imaging and communicating with her physician. My thoughts and recommendations will be communicated to the referring doctor through the EMR, by letter and/or personal communication. A letter and a copy of this office note were sent to: CC: Angella Farley MD (PCP) [email or web address] Referring MD: SELF CT ABD/PEL Keith KC Observed: 02/25/2018 Status: F Source: [place] 2:37 PM [facility] REPOSITORY * * *Final Report* * * DATE OF EXAM: Feb 25 2018 2:37PM [facility] 0530 - CT ABD/PEL W IVCABHILASH / PROCEDURE REASON: Malignant neoplasm of unspecified ovary * * * * Physician Interpretation * * * * EXAMINATION: CT ABDOMEN AND PELVIS WITH IV CONTRAST CLINICAL HISTORY: Ovarian cancer follow-up TECHNIQUE: CT of the abdomen and pelvis was performed using standard technique, scanning from just above the dome of the diaphragm to the symphysis pubis. MQ: CTAP_3 Contrast: Other: 145 ml of Omnipaque 300 Oral: 50 ml of 50ML Omnipaque [address] Radiation dose: Integrated Dose-length product (DLP) for this visit = 990 mGy*cm. CT Dose Reduction Employed: Automated exposure control (AEC) COMPARISON: 11/12/2017 RESULT: Liver: Interval decrease in size of the 2 previously seen hepatic lesions: * Right lobe: 7 mm (3:49), previously 1 cm * Inferior RIGHT lobe: 7 mm (3:57), previously 1 cm No new lesions. Atrophic LEFT lobe. Diffuse steatosis. Biliary: No bile duct dilation. Cholelithiasis. Spleen: No mass. No splenomegaly. Pancreas: Atrophic. Small cystic lesions unchanged. No solid mass or duct dilation. Adrenals: No mass. Kidneys: No mass, calculus or hydronephrosis. GI tract: No dilation or wall thickening. Lymph nodes: No abdominal or pelvic lymphadenopathy. Mesentery/Peritoneum: No ascites. There is stable thickening and low attenuation along the RIGHT diaphragm and hepatic dome, with an area of coarse calcification. No new lesions. Small umbilical hernia containing unobstructed small bowel is unchanged. Retroperitoneum: No mass. Vasculature: There is calcification of the aorta and iliac arteries, without aneurysm. Pelvis: No mass, ascites or fluid collection. Bones/Soft Tissues: Degenerative changes in the spine. No neoplastic bone disease. Lower thorax: No acute abnormality IMPRESSION: INTERVAL DECREASE IN SIZE OF THE 2 PREVIOUSLY SEEN HEPATIC LESIONS STABLE DIAPHRAGMATIC THICKENING/SOFT TISSUE IMPLANTS ALONG THE DOME OF THE LIVER/RIGHT DIAPHRAGM NO NEW METASTATIC DISEASE Weatherization Technician: SAMREEN Transcribe Date/Time: Feb 26 2018 9:57A Dictated by : ADDY CLARKE MD This examination was interpreted and the report reviewed and electronically signed by: ADDY CLARKE MD on Feb 26 2018 10:05AM EST [id number] MAURI CREATININE Collected: 02/25/2018 Status: F Source: [place] 1:47 PM [facility] REPOSITORY TYPE CODE TESTS RESULT OUT OF REFERENCE UNITS RANGE LAB WCRET 0.7-1.4 mg/dL Mauri Creatinine 0.8 CA 125 Collected: 02/25/2018 Status: F Source: [place] 1:45 PM [facility] REPOSITORY TYPE CODE TESTS RESULT OUT OF RANGE REFERENCE UNITS LAB CA125 <39 U/mL CA 125 14 Result Comment: CA 125 test methodology used is the Electrochemiluminescence Immunoassay by [employer]. The reference interval is based on the 95th percentile of 240 apparently healthy premenopausal and postmenopausal women. At a cutoff value of 65 U/mL, the test sensitivity to distinguish ovarian carcinoma (FIGO stage I to IV) versus benign gynecological disease is 79%, with a specificity of 82%. Reference: Cancer Antigen 125 (CA 125 II) [package insert V 1.0 Mexican]. [facility], [place], [place] (July 2015) Performed By: #### CA125 #### [facility] [address] [place], [place] [address] CNPN Observed: 01/30/2018 Status: COMPLETED Source: [place] 12:00 AM [facility] REPOSITORY Telephone (NENMMN) BRANDAN CROWE ([id number]) 1950 F Date Time Provider Department 01/30/18 MARCIE BATES [facility] During your visit today, we recorded the following information about you: [facility] 01/30/2018 9:38 AM Signed Received fax from Ryan, placed in Chico's RN folder for review. [facility] Chico Wang RN 01/30/2018 9:57 AM Signed Reviewed IVig prescription order from [facility]. Also received message from ELEAZAR Hendrix: ? I'm working on the PA for patient's IVIG, and her insurance company is asking if you would be willing to try a lower dose or frequency? Insurance says they like to ask once a year to verify patient is on the minimum dose needed. Prescription placed in Dr. Bates's office for review; will also ask that he reviews inquiry above. Chico Wang RN 01/31/2018 2:51 PM Signed Prescription faxed to [facility]. Chico Wang RN 01/31/2018 2:[address] Bates, Yes, pt should stay at same IVig dose and frequency. Will review with pt at next visit to see if it can be decreased in the future. Message sent to ELEAZAR Hendrix. Allergies As of Date: 01/30/2018 Noted Allergy Reaction BERRIES 07/19/2014 14 - Other: See Comments MENTHOL 04/22/2013 9 - Itching OATS, OAT GUM 07/19/2014 2 - Rash PEPPER (GENUS CAPSICUM) 07/09/2016 16 - Unknown Comments: bogs down my immune system SODIUM BENZOATE 11/24/2012 16 - Unknown TUNA OIL 07/19/2014 14 - Other: See Comments Comments: TUNA Date Reviewed: 11/21/2017 Reviewed by: Uyen Ram Ma - Fully Assessed Reason for Visit: IVIG Order Mauri [Other] Prescriptions as of 01/30/2018 Sig: DOCUSATE SODIUM 100 MG CAPSULE Take 100 mg by mouth twice da* AFLIBERCEPT 2 MG/0.05 ML INTR* 2 mg by INTRAVITREAL route on* IMMUNE GLOB,GAMM(IGG)10 %-MAL* Inject intravenously. IMMUNE GLOB,GAMM(IGG) 10 %-CA* Sig: Infuse for next 8 months* INSULIN LISPRO (U-100) 100 UN* Inject subcutaneously twice * ARMOUR THYROID 60 MG TABLET Take 60 mg by mouth once yossi* ESCITALOPRAM 10 MG TABLET Take 10 mg by mouth once yossi* * INSULIN GLARGINE (U-100) 100 * Inject 75 Units subcutaneousl* Problem List As Of Date 01/30/2018 Noted Resolved Disturbance of skin sensation [R20.9] INVALID FOR* Pain in limb [M79.609] INVALID FOR*12/02/2015 Diabetic neuropathy [E11.40] INVALID FOR*10/30/2012 Abnormality of gait [R26.9] INVALID FOR* Inflammatory and toxic neuropathy (HCC) [G62.2,*INVALID FOR* Lumbar radiculopathy [M54.16] INVALID FOR* Spinal stenosis [M48.00] INVALID FOR* Lumbago [M54.5] INVALID FOR* Small fiber neuropathy [G62.9] INVALID FOR* Pain of lower extremity [M79.606] INVALID FOR* Diabetic peripheral neuropathy (HCC) [E11.42] INVALID FOR* Diabetes mellitus (HCC) [E11.9] INVALID FOR* Hypothyroid [E03.9] INVALID FOR* CIDP (chronic inflammatory demyelinating polyne*INVALID FOR* Obesity, Class III, BMI >= 40 (morbid obesity) *INVALID FOR* History of ovarian cancer [Z85.43] INVALID FOR* Encounter Status:Closed by MARGARETH HIGHTOWERAvivaMAXIMINO on 01/30/18 CNOVSP Observed: 11/21/2017 Status: COMPLETED Source: [place] 2:30 PM [facility] REPOSITORY Visit (SP) Office ([facility]) BRANDAN CROWE ([id number]) 1950 F Date Time Provider Department 11/21/17 2:30 PM RAUL FREEMAN JR GYN During your visit today, we recorded the following information about you: Temperature Pulse Blood pressure Weight 97.3 degrees 69/minute 160/68 98.8 kg Raul Freeman Jr, MD 11/21/2017 7:11 PM Signed DATE OF SERVICE: 11/21/17 PROBLEM: Brandan Crowe presents for follow-up of ovarian cancer. Recent CT with abnormalities (PET/CT not approved yet by insurance company.) DIAGNOSIS: serous intermediate grade ovarian adenocarcinoma PRIOR THERAPY ANDamp; DATE: Ms. 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 She presented to Dr. Kline with a remote history of left sided pelvic discomfort as far back as 2002. Pelvic ultrasound at that time did identify a cyst on her right ovary thought to be a dermoid. She was followed serially, and no changes in the cyst was noted. In June of 2016, she did develop right sided pelvic pain. Uterine biopsy obtained by Dr. Lew did not reveal any evidence for malignancy, and a CA-125 obtained at that time returned to be 20, within normal limits. Regardless, the patient was concerned about the continued presence of this cyst on her right ovary in the context of pain and elected to pursue salpingo-oophorectomy under the care of Dr. Kline. On 08/30/16, BSO was attempted by Dr. Kline, but the surgery was aborted as Dr. Kline noted ANDquot;cancer depositsANDquot; in her pelvic cavity; biopsies of which did return positive for infiltrative intermediate grade adenocarcinoma, serous. Dr. Kline recommended neoadjuvant chemotherapy, after which he preformed interval debulking surgery leaving her with no gross residual disease. She completed 3 cycles of carboplatin/taxol with Neulasta support; with toxicities of bone pain and worsening neuropathy. Cycle 1-10/01/16-11/13/16. Dose reduction with third cycle for worsening neuropathy. 12/25/16-BSO for ovarian malignancy with radical dissection for debulking with omentectomy, removal of peritoneal implants, subtotal hysterectomy 01/31/17-04/03/17: Seen by Dr. Freeman for second opinion- advised carboplatin single agent x 3 cycles CA 125 (U/mL) Date Value 11/12/2017 12 08/07/2017 12 05/09/[address] CHEST/ABD/PELVIS: 04/24/17-negative for metastasis CT C/A/P-11/12/17 CHEST-IMPRESSION: No CT evidence of acute abnormality. ABD/PEL-IMPRESSION: 2 NEW HYPODENSE HEPATIC LESIONS, POSSIBILITY OF METASTASIS IS RAISED --- ~1cm lesions LOW-ATTENUATION OVER THE DOME OF THE LIVER COULD BE EARLY CARCINOMATOSIS RECOMMEND CLOSE ATTENTION ON FOLLOW-UP 3 SMALL CYSTIC LESIONS OF THE PANCREAS CONSISTENT WITH INTRADUCTAL PAPILLARY MUCINOUS NEOPLASMS GENETICS: negative MAMMOGRAM: 10 years ago COLONOSCOPY:10 years ago SUBJECTIVE: Brandan Crowe reports that she feels okay. No abdominal pain, nausea, vomiting, diarrhea. Stable constipation since chemo, using prunes and colace daily. Intermittent mouth sores since chemo, self-resolving. No bloating, early satiety, indigestion, or increased flatulence. No dysuria, gross hematuria, urinary frequency, urinary urgency, or incontinence. Has chronic shortness of breath, no cough, or chest pain. Her ECOG performance status is 2 (ambulatory and capable of all selfcare but unable to carry out any work activities, up and about more than 50% of waking hours). OBJECTIVE: BP 160/68 Pulse 69 Temp 36.3 ?C (97.3 ?F) (Temporal Artery) Wt 98.8 kg (217 lb 14.4 oz) LMP (LMP Unknown) SpO2 96% BMI 45.54 kg/m2 GENERAL: Patient is a well developed, well nourished, obese female. She is Alert, oriented, pleasant and cooperative. SKIN: Color, texture, turgor normal. No rashes or lesions. NECK: Supple, no adenopathy; thyroid symmetric, normal size, no bruits LUNGS: Clear to auscultation bilaterally. HEART: Regular rate and rhythm, no murmurs. BREAST: deferred exam ABDOMEN: Abdomen soft, non-tender, no hepatosplenomegaly. PELVIC: external genitalia normal, no vulvar lesions. Digital exam with , good vaginal support, mo palpable vaginal masses. LOWER EXTREMITIES: No pitting edema, no palpable cords and no skin changes. PROCEDURES: None ASSESSMENT: 66 year old with serous grade ovarian adenocarcinoma, s/p 3 cycles of neoadjuvant chemotherapy with taxol/carbo and neulasta support followed by BSO with radical dissection for debulking with omentectomy, removal of peritoneal implants, subtotal hysterectomy. 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 No clinical evidence of disease at this time, although CT with 2 new small liver lesions. PLAN: 1. OVCA - probable Stage III s/p neoadjuvant chemo and optimal interval debulking with subtotal hysterectomy. Reviewed imaging today, two small liver lesions. PET/CT unlikely to further characterize. No ascites or other masses. Plan to repeat CT in 3 months. Ca125 stable Saw counselor per patient negative for any deleterious mutation RTC in 3 months with CA-[address] scans 3. Toxic inflammatory neuropathy Octagam(IVIG) injections [id number] Neuropathy worsened s/p taxol, stable since treatment, no interference with ADLs Mauricio Fair MD [facility] PGY7 [facility]: Patient was seen and examined by me. All roberson elements of the Fellow's history and physical were confirmed. I agree with the above documented findings and plan of care as outlined by the Fellow. Raul Freeman MD Total face time spent with patient was 25 minutes and more than 50% of the that time was spent on counseling the patient and coordinating her care, reviewing records, imaging and communicating with her physician. My thoughts and recommendations will be communicated to the referring doctor through the EMR, by letter and/or personal communication. A letter and a copy of this office note were sent to: CC: Angella Farley MD (PCP) [email or web address] Referring MD: SELF Wendy Cruz CNP 11/22/2017 3:15 PM Signed Addended by: WENDY CRUZ CNP on: 11/22/2017 03:15 PM Modules accepted: Orders Referring Provider: RAUL FREEMAN JR [[id number]] Allergies As of Date: 11/21/2017 Noted Allergy Reaction BERRIES 07/19/2014 14 - Other: See Comments MENTHOL 04/22/2013 9 - Itching OATS, OAT GUM 07/19/2014 2 - Rash PEPPER 07/09/2016 16 - Unknown Comments: bogs down my immune system SODIUM BENZOATE 11/24/2012 16 - Unknown TUNA OIL 07/19/2014 14 - Other: See Comments Comments: TUNA Date Reviewed: 11/21/2017 Reviewed by: Uyen Ram Ma - Fully Assessed Reason for Visit: Established Patient [175] Primary Visit Diagnosis:Screening for nephropathy [Z13.89] Other Visit Diagnosis:Malignant neoplasm of ovary, unspecified laterality (HCC) [C56.9] Order(s):CREATININE BLD [SQCRET] Order #: [id number] FUTURE CT ABD/PEL W IVCON [[id number]] Order #: [id number] FUTURE iv contrast (radiology procedure)CT ABD/PEL -Inject, intravenously, once for 1 dose.No IV access, insert saline lock prior to the beginning of sedation, infusion, injection of imaging exam. Discontinue saline lock post exam. If Pt. has a central line or IVAD, may access for administration according to line specific nursing protocol. Once exam is complete flush line and de- access according to line specific nursing protocol in the CT contrast administration guidelines link.Disp: 1 EachRfl: 0 enteric contrast (radiology procedure)For CT ABD/PEL W IVCON Routine order Administer, As Directed One Time Only, via Oral, Rectal, both Oral and Rectal, Enteric Tube, Stoma or Indwelling Catheter, Enteric Contrast as designated per enteric contrast guidelinesDisp: 1 EachRfl: 0 CA 125 BLD [[id number]] Order #: [id number] FUTURE Prescriptions as of 11/21/2017 Sig: DOCUSATE SODIUM 100 MG CAPSULE Take 100 mg by mouth twice da* AFLIBERCEPT 2 MG/0.05 ML INTR* 2 mg by INTRAVITREAL route on* IMMUNE GLOB,GAMM(IGG)10 %-MAL* Inject intravenously. IMMUNE GLOB,GAMM(IGG) 10 %-CA* Sig: Infuse for next 8 months* INSULIN LISPRO 100 UNIT/ML HERNÁNDEZ* Inject subcutaneously twice * ARMOUR THYROID 60 MG TABLET Take 60 mg by mouth once yossi* ESCITALOPRAM 10 MG TABLET Take 10 mg by mouth once yossi* * INSULIN GLARGINE 100 UNIT/ML * Inject 75 Units subcutaneousl* IV CONTRAST (RADIOLOGY PROCED* CT ABD/PEL -Inject, intraveno* ENTERIC CONTRAST (RADIOLOGY P* For CT ABD/PEL W IVCON Routin* Problem List As Of Date 11/21/2017 Noted Resolved Disturbance of skin sensation [R20.9] INVALID FOR* Pain in limb [M79.609] INVALID FOR*12/02/2015 Diabetic neuropathy [E11.40] INVALID FOR*10/30/2012 Abnormality of gait [R26.9] INVALID FOR* Inflammatory and toxic neuropathy (HCC) [G62.2,*INVALID FOR* Lumbar radiculopathy [M54.16] INVALID FOR* Spinal stenosis [M48.00] INVALID FOR* Lumbago [M54.5] INVALID FOR* Small fiber neuropathy [G62.9] INVALID FOR* Pain of lower extremity [M79.606] INVALID FOR* Diabetic peripheral neuropathy (HCC) [E11.42] INVALID FOR* Diabetes mellitus (HCC) [E11.9] INVALID FOR* Hypothyroid [E03.9] INVALID FOR* CIDP (chronic inflammatory demyelinating polyne*INVALID FOR* Obesity, Class III, BMI >= 40 (morbid obesity) *INVALID FOR* History of ovarian cancer [Z85.43] INVALID FOR* Encounter Status:Closed by RAUL FREEMAN MD on 11/21/17 PROGRESS Observed: 11/20/2017 Status: COMPLETED Source: [place] 5:42 PM [facility] REPOSITORY O ID: [id number] Author: Raul Freeman Jr. Service: (none) Author Type: Physician Type: Progress Notes Filed: 11/21/2017 7:11 PM Note Text: DATE OF SERVICE: 11/21/17 PROBLEM: Brandan Crowe presents for follow-up of ovarian cancer. Recent CT with abnormalities (PET/CT not approved yet by insurance company.) DIAGNOSIS: serous intermediate grade ovarian adenocarcinoma PRIOR THERAPY AND DATE: Ms. 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 She presented to Dr. Kline with a remote history of left sided pelvic discomfort as far back as 2002. Pelvic ultrasound at that time did identify a cyst on her right ovary thought to be a dermoid. She was followed serially, and no changes in the cyst was noted. In June of 2016, she did develop right sided pelvic pain. Uterine biopsy obtained by Dr. Lew did not reveal any evidence for malignancy, and a CA-125 obtained at that time returned to be 20, within normal limits. Regardless, the patient was concerned about the continued presence of this cyst on her right ovary in the context of pain and elected to pursue salpingo-oophorectomy under the care of Dr. Kline. On 08/30/16, BSO was attempted by Dr. Kline, but the surgery was aborted as Dr. Kline noted cancer deposits in her pelvic cavity; biopsies of which did return positive for infiltrative intermediate grade adenocarcinoma, serous. Dr. Kline recommended neoadjuvant chemotherapy, after which he preformed interval debulking surgery leaving her with no gross residual disease. She completed 3 cycles of carboplatin/taxol with Neulasta support; with toxicities of bone pain and worsening neuropathy. Cycle 1-10/01/16-11/13/16. Dose reduction with third cycle for worsening neuropathy. 12/25/16-BSO for ovarian malignancy with radical dissection for debulking with omentectomy, removal of peritoneal implants, subtotal hysterectomy 01/31/17-04/03/17: Seen by Dr. Freeman for second opinion-advised carboplatin single agent x 3 cycles CA 125 (U/mL) Date Value 11/12/2017 12 08/07/2017 12 05/09/[address] CHEST/ABD/PELVIS: 04/24/17-negative for metastasis CT C/A/P-11/12/17 CHEST-IMPRESSION: No CT evidence of acute abnormality. ABD/PEL-IMPRESSION: 2 NEW HYPODENSE HEPATIC LESIONS, POSSIBILITY OF METASTASIS IS RAISED --- ~1cm lesions LOW-ATTENUATION OVER THE DOME OF THE LIVER COULD BE EARLY CARCINOMATOSIS RECOMMEND CLOSE ATTENTION ON FOLLOW-UP 3 SMALL CYSTIC LESIONS OF THE PANCREAS CONSISTENT WITH INTRADUCTAL PAPILLARY MUCINOUS NEOPLASMS GENETICS: negative MAMMOGRAM: 10 years ago COLONOSCOPY:10 years ago SUBJECTIVE: Brandan Crowe reports that she feels okay. No abdominal pain, nausea, vomiting, diarrhea. Stable constipation since chemo, using prunes and colace daily. Intermittent mouth sores since chemo, self-resolving. No bloating, early satiety, indigestion, or increased flatulence. No dysuria, gross hematuria, urinary frequency, urinary urgency, or incontinence. Has chronic shortness of breath, no cough, or chest pain. Her ECOG performance status is 2 (ambulatory and capable of all selfcare but unable to carry out any work activities, up and about more than 50% of waking hours). OBJECTIVE: BP 160/68 Pulse 69 Temp 36.3 ?C (97.3 ?F) (Temporal Artery) Wt 98.8 kg (217 lb 14.4 oz) LMP (LMP Unknown) SpO2 96% BMI 45.54 kg/m2 GENERAL: Patient is a well developed, well nourished, obese female. She is Alert, oriented, pleasant and cooperative. SKIN: Color, texture, turgor normal. No rashes or lesions. NECK: Supple, no adenopathy; thyroid symmetric, normal size, no bruits LUNGS: Clear to auscultation bilaterally. HEART: Regular rate and rhythm, no murmurs. BREAST: deferred exam ABDOMEN: Abdomen soft, non-tender, no hepatosplenomegaly. PELVIC: external genitalia normal, no vulvar lesions. Digital exam with , good vaginal support, mo palpable vaginal masses. LOWER EXTREMITIES: No pitting edema, no palpable cords and no skin changes. PROCEDURES: None ASSESSMENT: 66 year old with serous grade ovarian adenocarcinoma, s/p 3 cycles of neoadjuvant chemotherapy with taxol/carbo and neulasta support followed by BSO with radical dissection for debulking with omentectomy, removal of peritoneal implants, subtotal hysterectomy. 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 No clinical evidence of disease at this time, although CT with 2 new small liver lesions. PLAN: 1. OVCA - probable Stage III s/p neoadjuvant chemo and optimal interval debulking with subtotal hysterectomy. Reviewed imaging today, two small liver lesions. PET/CT unlikely to further characterize. No ascites or other masses. Plan to repeat CT in 3 months. Ca125 stable Saw counselor per patient negative for any deleterious mutation RTC in 3 months with CA-[address] scans 3. Toxic inflammatory neuropathy Octagam(IVIG) injections [id number] Neuropathy worsened s/p taxol, stable since treatment, no interference with ADLs Mauricio Fair MD [facility] PGY7 [facility]: Patient was seen and examined by me. All roberson elements of the Fellow's history and physical were confirmed. I agree with the above documented findings and plan of care as outlined by the Fellow. Raul Freeman MD Total face time spent with patient was 25 minutes and more than 50% of the that time was spent on counseling the patient and coordinating her care, reviewing records, imaging and communicating with her physician. My thoughts and recommendations will be communicated to the referring doctor through the EMR, by letter and/or personal communication. A letter and a copy of this office note were sent to: CC: Angella Farley MD (PCP) Dr. [email or web address] Referring MD: JASON TORRES Observed: 11/15/2017 Status: COMPLETED Source: [place] 12:00 AM [facility] REPOSITORY Telephone ([facility]) BRANDAN CROWE ([id number]) 1950 F Date Time Provider Department 11/15/17 RAUL FREEMAN JR GYN During your visit today, we recorded the following information about you: Jeanine Treasure Ambrose 11/15/2017 8:42 AM Signed Pt's called in regards to the recent CT scan that she had done. He said that she was told to go ahead and get it done even though it hadn't been approved yet. It has been denied. There are notes in the chart that we had been in contact with insurance. They can be reached at [phone] or [phone](cell). Nicky Zurita, RN, RN 11/15/2017 11:00 AM Signed Nurse returned the phone call. Nurse told the that [employer] [place] was aware that the CT scan was denied and [employer] said she would work on the appeal on Saturday when she returns to work. The wondered if the PET scan was approved and nurse told the patient that the insurance would notify him or our office if it is denied. No further questions from the patient's . Pavel Brock RN, RN 11/18/2017 10:40 AM Signed Spoke to Eder lynch [facility] who notes CT scan from 11/12/17 was denied. This nurse requested to begin appeal process, he notes it would be a standard process which could take up to 60 days for a decision. He will fax paperwork to be completed to this nurse. He also notes no request has been initiated regarding the PET scan, gave the phone number for provider to call and start the process. Fax received and information and paperwork given to Naomi Gauthier CNP. Message left for pt and that a standard appeal has been started for CT scan and can take up to 60 days for a decision, also no request has been started for PET scan so Naomi Gauthier CNP will begin this today. Pavel Brock RN Allergies As of Date: 11/15/2017 Noted Allergy Reaction BERRIES 07/19/2014 14 - Other: See Comments MENTHOL 04/22/2013 9 - Itching OATS, OAT GUM 07/19/2014 2 - Rash PEPPER 07/09/2016 16 - Unknown Comments: bogs down my immune system SODIUM BENZOATE 11/24/2012 16 - Unknown TUNA OIL 07/19/2014 14 - Other: See Comments Comments: TUNA Date Reviewed: 11/12/2017 Reviewed by: Andres Sanchez RN, RN - Fully Assessed Reason for Visit: Dr. Freeman [Other] Prescriptions as of 11/15/2017 Sig: DOCUSATE SODIUM 100 MG CAPSULE Take 100 mg by mouth twice da* AFLIBERCEPT 2 MG/0.05 ML INTR* 2 mg by INTRAVITREAL route on* IMMUNE GLOB,GAMM(IGG)10 %-MAL* Inject intravenously. IMMUNE GLOB,GAMM(IGG) 10 %-CA* Sig: Infuse for next 8 months* INSULIN LISPRO 100 UNIT/ML HERNÁNDEZ* Inject subcutaneously twice * ARMOUR THYROID 60 MG TABLET Take 60 mg by mouth once yossi* ESCITALOPRAM 10 MG TABLET Take 10 mg by mouth once yossi* * INSULIN GLARGINE 100 UNIT/ML * Inject 75 Units subcutaneousl* Problem List As Of Date 11/15/2017 Noted Resolved Disturbance of skin sensation [R20.9] INVALID FOR* Pain in limb [M79.609] INVALID FOR*12/02/2015 Diabetic neuropathy [E11.40] INVALID FOR*10/30/2012 Abnormality of gait [R26.9] INVALID FOR* Inflammatory and toxic neuropathy (HCC) [G62.2,*INVALID FOR* Lumbar radiculopathy [M54.16] INVALID FOR* Spinal stenosis [M48.00] INVALID FOR* Lumbago [M54.5] INVALID FOR* Small fiber neuropathy [G62.9] INVALID FOR* Pain of lower extremity [M79.606] INVALID FOR* Diabetic peripheral neuropathy (HCC) [E11.42] INVALID FOR* Diabetes mellitus (HCC) [E11.9] INVALID FOR* Hypothyroid [E03.9] INVALID FOR* CIDP (chronic inflammatory demyelinating polyne*INVALID FOR* Obesity, Class III, BMI >= 40 (morbid obesity) *INVALID FOR* History of ovarian cancer [Z85.43] INVALID FOR* Encounter Status:Closed by NICKY ZURITA on 11/15/17 PROGRESS Observed: 11/12/2017 Status: COMPLETED Source: [place] 3:55 PM [facility] REPOSITORY O ID: [id number] Author: Basia Zavala Service: (none) Author Type: (none) Type: Progress Notes Filed: 11/12/2017 3:56 PM Note Text: Radiology Service Progress Note PATIENT NAME: Brandan Crowe DATE OF SERVICE: November 12, 2017 TIME: 3:55 PM PATIENT IDENTITY VERIFICATION COMPLETED USING TWO (2) METHODS: Patient confirmed name verbally and Date of . PATIENT GENDER DATA: Female. status: : No status: NO. PATIENT RELEVANT IMPLANT DATA REVIEWED: Not Applicable CONTRAST INDUCED NEPHROPATHY RISK FACTORS: Patient age > 60 years CREATININE: Creatinine Date Value Ref Range Status 05/09/2017 0.78 0.58 - 0.96 mg/dL Final 07/09/2016 0.70 0.58 - 0.96 mg/dL Final Creatinine (POCT) Date Value Ref Range Status 10/17/2012 0.64 0.6 - 1.5 mg/dL Final eGFR-All Other Races Date Value Ref Range Status 05/09/2017 >60 . Final Comment: eGFR (Estimated GFR) Units of measure: mL/min/1.73 meters squared eGFR is derived from the reexpressed MDRD Study equation using the following parameters: serum creatinine, age, gender and race. The creatinine assay has been calibrated to be traceable to IDMS. An eGFR <60 mL/min/1.73m2 for >3 months is consistent with chronic kidney disease. Refer to KDOQI guidelines for clinical interpretation. In patients with unstable renal function, e.g. those with acute kidney injury, the eGFR may not accurately reflect actual GFR. eGFR- Date Value Ref Range Status 05/09/2017 >60 Final P.O.C.T. RESULTS: POC done: Yes, See Lab Tab November 12, 2017 RADIOLOGIST NOTIFIED?: No ALLERGIES: Reviewed and unchanged CONTRAST ALLERGY: NO. PERIPHERAL IV ACCESS: power port accessed by [employer] RADIOLOGY DEPARTMENT: CT; Exam(s) Completed: Chest Abdomen Pelvis SIGNED BY: Basia Valle Ct November 12, 2017 3:[address] ABD/PEL W IVCON Observed: 11/12/2017 Status: F Source: [place] 3:54 PM [facility] REPOSITORY * * *Final Report* * * DATE OF EXAM: Nov 12 2017 3:54PM [facility] 0530 - CT ABD/PEL W IVCON / PROCEDURE REASON: multiple diagnoses * * * * Physician Interpretation * * * * EXAMINATION: CT ABDOMEN AND PELVIS WITH IV CONTRAST CLINICAL HISTORY: Ovarian cancer follow-up TECHNIQUE: CT of the abdomen and pelvis was performed using standard technique, scanning from just above the dome of the diaphragm to the symphysis pubis. M: [id number]_3 Contrast: Other: 140 ml of Omnipaque 300 Oral: 50 ml of 50ML Omnipaque [address] Radiation dose: Integrated Dose-length product (DLP) for this visit = 1505 mGy*cm. CT Dose Reduction Employed: Automated exposure control (AEC) COMPARISON: 04/24/2017 RESULT: Liver: 1 cm oval hypodense lesion in the RIGHT lobe (8:41), and 1 cm hypodense lesion in the inferior RIGHT lobe (8:48), neither seen previously. No other focal hepatic lesion. Atrophic LEFT lobe. Biliary: No bile duct dilation. Cholelithiasis without other CT findings of acute cholecystitis. Spleen: No mass. No splenomegaly Pancreas: At least 3 cystic lesions in the pancreas, unchanged: * 10 mm cystic lesion body of the pancreas (8:30) * 5 mm cystic lesion in the uncinate process (8:43) * 8mm cystic lesion in the tail (8:37) No solid mass or duct dilation. Adrenals: No mass. Kidneys: No mass, calculus or hydronephrosis. GI tract: No dilation or wall thickening. There is sigmoid diverticulosis without CT evidence of acute diverticulitis. Lymph nodes: No abdominal or pelvic lymphadenopathy. Mesentery/Peritoneum: Possible thickening and low attenuation along the RIGHT diaphragmatic dome (coronal: 50 and axial: 14), not seen previously, could represent early carcinomatosis. No ascites or other mass. Small umbilical hernia containing unobstructed small bowel. Retroperitoneum: No mass. Vasculature: The celiac axis and SMA are patent. The portal vein and branches, splenic vein, SMV, and hepatic veins are patent. There is calcification of the aorta and iliac arteries, without aneurysm. Pelvis: No mass, ascites or fluid collection. Bones/Soft Tissues: No neoplastic bone disease. Lower thorax: A chest CT was performed and will be reported separately. IMPRESSION: 2 NEW HYPODENSE HEPATIC LESIONS, POSSIBILITY OF METASTASIS IS RAISED LOW-ATTENUATION OVER THE DOME OF THE LIVER COULD BE EARLY CARCINOMATOSIS RECOMMEND CLOSE ATTENTION ON FOLLOW-UP 3 SMALL CYSTIC LESIONS OF THE PANCREAS CONSISTENT WITH INTRADUCTAL PAPILLARY MUCINOUS NEOPLASMS Weatherization Technician: SAMREEN Transcribe Date/Time: Nov 12 2017 7:02P Dictated by : ADDY CLARKE MD This examination was interpreted and the report reviewed and electronically signed by: ADDY CLARKE MD on Nov 12 2017 7:13PM EST [id number] CT CHEST W IVCON Observed: 11/12/2017 Status: F Source: HANA[place] 3:54 PM [facility] [place] REPOSITORY * * *Final Report* * * DATE OF EXAM: Nov 12 2017 3:54PM [facility] 0539 - CT CHEST W IVCON / PROCEDURE REASON: multiple diagnoses * * * * Physician Interpretation * * * * EXAMINATION: CHEST CT WITH CONTRAST CLINICAL HISTORY: Malignant neoplasm of unspecified ovary Personal history of malignant neoplasm of ovary Technique: Spiral CT acquisition of the chest from the thoracic inlet to the upper abdomen following IV contrast. M: [id number]_4 Contrast: 140 mL Omnipaque [address] Dose-Length Product: 1505 mGy*cm CT Dose Reduction Employed: Automated exposure control (AEC) Comparison: 04/24/2017 CT chest RESULT: Limitations: None. Lines, tubes, and devices: None. Lung parenchyma and pleura: No consolidation. No suspicious pulmonary nodule. No pleural effusion. Central airways are patent. Thoracic inlet, heart, and mediastinum: No lymphadenopathy or pericardial effusion. Bones and soft tissues: No destructive bone lesion. Chest wall is unremarkable. Upper abdomen: See today's CT abdomen pelvis report IMPRESSION: No CT evidence of acute abnormality. Weatherization Technician: SAMREEN Transcribe Date/Time: Nov 13 2017 1:11P Dictated by : ANGELLA ROGERS MD This examination was interpreted and the report reviewed and electronically signed by: ANGELLA ROGERS MD on Nov 13 2017 1:17PM EST [id number] MAURI CREATININE Collected: 11/12/2017 Status: F Source: [place] 2:31 PM [facility] REPOSITORY TYPE CODE TESTS RESULT OUT OF REFERENCE UNITS RANGE LAB WCRET 0.7-1.4 mg/dL Mauri Creatinine 0.7 CA 125 Collected: 11/12/2017 Status: F Source: [place] 2:31 PM [facility] REPOSITORY TYPE CODE TESTS RESULT OUT OF RANGE REFERENCE UNITS LAB CA125 <39 U/mL CA 125 12 Result Comment: CA 125 test methodology used is the Electrochemiluminescence Immunoassay by [facility]. The reference interval is based on the 95th percentile of 240 apparently healthy premenopausal and postmenopausal women. At a cutoff value of 65 U/mL, the test sensitivity to distinguish ovarian carcinoma (FIGO stage I to IV) versus benign gynecological disease is 79%, with a specificity of 82%. Reference: Cancer Antigen 125 (CA 125 II) [package insert V 1.0 Mexican]. [facility], [place], [place] (July 2015) Performed By: #### CA125 #### [facility] [address] [place], [place] [address] HOSP Observed: 11/12/2017 Status: COMPLETED Source: [place]NA[place] 2:15 PM [facility] REPOSITORY Infusion Center ([facility]) ARISBRANDAN RAMEY ([id number]) 1950 F Date Time Provider Department 11/12/17 2:15 PM [facility] During your visit today, we recorded the following information about you: Referring Provider: SELF [200] Allergies As of Date: 11/12/2017 Noted Allergy Reaction BERRIES 07/19/2014 14 - Other: See Comments MENTHOL 04/22/2013 9 - Itching OATS, OAT GUM 07/19/2014 2 - Rash PEPPER 07/09/2016 16 - Unknown Comments: bogs down my immune system SODIUM BENZOATE 11/24/2012 16 - Unknown TUNA OIL 07/19/2014 14 - Other: See Comments Comments: TUNA Date Reviewed: 11/12/2017 Reviewed by: Andres Sanchez, RN, RN - Fully Assessed Reason for Visit: Blood Draw (CVAD) [1758] Primary Visit Diagnosis:History of ovarian cancer [Z85.43] Prescriptions as of 11/12/2017 Sig: DOCUSATE SODIUM 100 MG CAPSULE Take 100 mg by mouth twice da* AFLIBERCEPT 2 MG/0.05 ML INTR* 2 mg by INTRAVITREAL route on* IMMUNE GLOB,GAMM(IGG)10 %-MAL* Inject intravenously. 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,*INVALID FOR* Lumbar radiculopathy [M54.16] INVALID FOR* Spinal stenosis [M48.00] INVALID FOR* Lumbago [M54.5] INVALID FOR* Small fiber neuropathy [G62.9] INVALID FOR* Pain of lower extremity [M79.606] INVALID FOR* Diabetic peripheral neuropathy (HCC) [E11.42] INVALID FOR* Diabetes mellitus (HCC) [E11.9] INVALID FOR* Hypothyroid [E03.9] INVALID FOR* CIDP (chronic inflammatory demyelinating polyne*INVALID FOR* Obesity, Class III, BMI >= 40 (morbid obesity) *INVALID FOR* History of ovarian cancer [Z85.43] INVALID FOR* Encounter Status:Closed by ANDRES SANCHEZ on 11/12/17 ALLERGIES ALLERGIES DATE TYPE / CODE NAME / CODE REACTION SEVERITY SOURCE 10/01/2018 Drug sodium compromise MO Ryan Allergy/872803954(S benzoate/F006 immune system [facility] [place] 10/01/2018 Drug oats/[id number] Rash SV Ryan Allergy/984994223(S 27(RXNORM) [facility] [place] [place] 10/01/2018 Miscellaneous BERRIES compromise MO Mauri Allergy/572690228( immune system [facility]) Hospital Repository 10/01/2018 Miscellaneous PEPPERS compromise MO Ryan Allergy/863443627( immune system [facility]) Hospital Repository 10/01/2018 Miscellaneous PLASTIC TAPE Rash SV [facility] [facility] [place] 10/01/2018 Miscellaneous TUNA compromise MO Ryan Allergy/219327564( immune system [facility] [place] [facility] [place] 07/09/2016 DRUG PEPPER (GENUS UNKNOWN [facility]/[id number](S CAPSICUM) Clinic Other NOMED CT) [place] Repository 07/09/2016 [facility]UG [id number] [place] Repository 07/19/2014 Food/158735744(SNOM BERRIES OTHER: SEE C [place]) Clinic Other [place] Repository 07/19/2014 Food/746295037(SNOM OATS, OAT GUM RASH [facility]) Clinic Other [place] Repository 07/19/2014 DRUG TUNA OIL OTHER: SEE C [facility]/869172566(S Clinic Other NOMED CT) [place] Repository 04/22/2013 DRUG MENTHOL ITCHING [id number] Other NOMED CT[facility] [place] Repository 11/24/2012 DRUG SODIUM UNKNOWN [id number] BENZOATE Clinic Other NOMED CT) [place] Repository ENCOUNTERS ENCOUNTERS ADMIT/DISCHARGE ACCOUNT NUMBER ADMITTING ENCOUNTER LOCATION SOURCE CLASS 10/29/2018 [id number] [facility] ding:MEDOUTP Repository 10/28/2018 [id number] [facility] ding:MEDOUTP Repository 10/01/2018 [id number] [facility] ding:MEDOUTP Repository 09/30/2018 [id number] [facility] ding:MEDOUTP Repository 09/02/2018 [id number] [facility] ding:MEDOUTP Repository 09/01/2018 [id number] [facility] ding:MEDOUTP Repository 08/05/2018 [id number] [facility] ding:MEDOUTP Repository 08/04/2018 [id number] [facility] ding:MEDOUTP Repository 07/21/2018 [id number] PETE LOPES, Ambulatory [facility] Other [place] Repository 07/08/2018 [id number] [facility] ding:MEDOUTP Repository 07/07/2018 [id number] [facility] ding:MEDOUTP Repository 07/03/2018/07/08/[id number] Main [place] Repository 07/02/2018 [id number] PETE LOPES, Ambulatory [facility] Other [place] Repository 06/24/2018/06/24/20 [id number] Ambulatory [address] Main [place] Repository 05/30/2018 [id number] Ambulatory [facility] ding:MEDOUTP Repository 05/29/2018 [id number] Ambulatory [facility] ding:MEDOUTP Repository 05/20/2018 [id number] [facility] Repository 05/02/2018 [id number] Ambulatory [facility] ding:MEDOUTP Repository 05/01/2018 [id number] Ambulatory [facility] ding:MEDOUTP Repository 04/04/2018 [id number] Ambulatory [facility] ding:MEDOUTP Repository 04/03/2018 [id number] Ambulatory [facility] ding:MEDOUTP Repository 03/24/2018/03/24/20 [id number] Ambulatory [address] Main [place] Repository 03/21/2018 [id number] PETE LOPES, Ambulatory [facility] [place] Repository 03/07/2018 [id number] Ambulatory [facility] ding:MEDOUTP Repository 03/06/2018 [id number] Ambulatory [facility] ding:MEDOUTP Repository 02/27/2018/03/03/20 [id number] Ambulatory [address] Main [place] Repository 02/26/2018 [id number] PETE LOPES, Ambulatory [facility] Other [place] Repository 02/25/2018/02/26/20 [id number] Ambulatory [address] Main [place] Repository 02/25/2018/02/28/20 [id number] Ambulatory [address] Main [place] Repository 02/25/2018/02/26/20 [id number] Ambulatory [address] [place] Repository 02/25/2018/02/26/20 [id number] Ambulatory [address] Main [place] Repository 01/31/2018 [id number] Ambulatory [facility] ding:MEDOUTP Repository 01/30/2018 [id number] Ambulatory [facility] ding:MEDOUTP Repository 01/03/2018 [id number] Ambulatory [facility] ding:MEDOUTP Repository 01/02/2018 [id number] [facility] ding:MEDOUTP Repository 12/19/2017 [id number] PETE LOPES, Ambulatory [facility] Repository 11/29/2017 [id number] Ambulatory [facility] ding:MEDOUTP Repository 11/28/2017 [id number] Ambulatory [facility] ding:MEDOUTP Repository 11/21/2017 [id number] Ambulatory [facility] Repository 11/21/2017 [id number] PETE LOPES, Ambulatory [facility] Repository 11/12/2017/11/12/19 [id number] Ambulatory [address] Repository 11/12/2017/11/12/19 [id number] Ambulatory [address] Repository 11/12/2017/11/12/19 [id number] Ambulatory [address] Repository 11/12/2017/11/12/19 [id number] Ambulatory [address] Repository PAYERS PAYERS ENCOUNTER GUARANTOR PAYER SUBSCRIBER SOURCE 10/29/2018 BRANDAN Funes Primary Insurance:AETGARY Dotson [id number] MCRPolicy Number: SCHRIERDOB: [facility] [id number] Date:3126-29-83YR BOX Repository 723[address]Scw: [phone], [place] [phone] (KO) [address]WP: 10/29/2018 Secondary NOT GIVENUNK Ryan Insurance:SELF PAY [facility] INSURANCEPolicy Number: Hospital Effective Repository Date:2018-10-01 10/28/2018 BRANDAN Funes Primary Insurance:AETGARY Dotson [id number] MCRPolicy Number: SCHRIERDOB: [facility] [id number] Date:0197-61-55SJ BOX Repository [address]Omv: [phone] [place] [phone] (HP) [address]IT: 10/28/2018 Secondary NOT GIVENUNK Mauri Insurance:SELF PAY Community INSURANCEPolicy Number: Hospital Effective Repository Date:2018-10-01 10/01/2018 BRANDAN A Primary Insurance:AETNA BRANDAN Funes Mauri [id number] MCRPolicy Number: [facility] [id number], [place] Date:8091-80-75PJ BOX Repository [address]808Dll: [phone] [place] [phone] (HP) [phone]: 10/01/2018 Secondary NOT GIVENUNK Mauri Insurance:SELF PAY Community INSURANCEPolicy Number: Hospital Effective Repository Date:2018-09-02 09/30/2018 BRANDAN A Primary Insurance:AETNA BRANDAN Funes Mauri [id number] MCRPolicy Number: SCH[facility]DOB[facility] [id number] Date:5711-65-62TF BOX Repository [address]Cfa: [phone] [place] [phone] () [address]PL: 09/30/2018 Secondary NOT GIVENUNK Ryan Insurance:SELF PAY Community INSURANCEPolicy Number: Hospital Effective Repository Date:2018-09-02 09/02/2018 BRANDAN A Primary Insurance:AETNA BRANDAN Funes Ryan [id number] MCRPolicy Number: SCH[facility]ERDOB[facility] [id number] Date:6876-37-27VO BOX Repository 31039Bqu: [phone] [place] [phone] () [phone]: 09/02/2018 Secondary NOT GIVENUNK Ryan Insurance:SELF PAY Community INSURANCEPolicy Number: Hospital Effective Repository Date:2018-08-05 09/01/2018 BRANDAN A Primary Insurance:AETGARY Funes Mauri [id number] MCRPolicy Number: SCH[facility]ERDOB[facility] [id number] [place] Date:5139-25-59DH BOX Repository [address]Msm: [phone] [place] [phone] () [phone]: 09/01/2018 Secondary NOT GIVENUNK Ryan Insurance:SELF PAY Community INSURANCEPolicy Number: Hospital Effective Repository Date:2018-08-05 08/05/2018 BRANDAN A Primary Insurance:AETNA BRANDAN Funes Mauri [id number] MCRPolicy Number: SCHRIERDOB: [facility] [id number] Clinic [facility] [place] Date:6679-75-49BW BOX Repository [address]Yhq: [phone] [place] [phone] () [address]BB: 08/05/2018 Secondary NOT GIVENUNK Ryan Insurance:SELF PAY Community INSURANCEPolicy Number: Hospital Effective Repository Date:2018-07-08 08/04/2018 BRANDAN A Primary Insurance:AETGARY Funes Mauri [id number] MCRPolicy Number: SCHRIERDOB: [facility] [id number] Clinic Hospital [place] Date:9783-80-31CZ BOX Repository [address]Tvd: [phone] [place] LU[place] [phone] () [address]KP: 08/04/2018 Secondary NOT GIVENUNK Mauri Insurance:SELF PAY Community INSURANCEPolicy Number: Hospital Effective Repository Date:2018-07-08 07/08/2018 Brandan A Primary Insurance:AETGARY Funes Ryan [id number] MCRPolicy Number: SchrierDOB: [facility] [id number]. [facility] [place] Date:2692-60-38MF BOX Repository 95841Cle: [phone] O[place] LUKE [phone] () [phone]: 07/08/2018 Secondary NOT GIVENUNK Ryan Insurance:SELF PAY Community INSURANCEPolicy Number: Hospital Effective Repository Date:2018-06-19 07/07/2018 Brandan A Primary Insurance:AETNA Brandan Funes Mauri [id number] MCRPolicy Number: SchrierDOB[facility] [id number]. Francis Hospital, [place] Date:5132-34-24LJ BOX Repository [address]Xgx: [phone] [place], [place] [phone] () [address]YO: 07/07/2018 Secondary NOT GIVENUNK Mauri Insurance:SELF PAY Community INSURANCEPolicy Number: Hospital Effective Repository Date:2018-06-19 05/30/2018 Brandan A Primary Insurance:AETNA Brandan Funes Mauri [id number] MCRPolicy Number: SchrierDOB: [facility] [id number]. Francis Hospital, [place] Date:4045-78-86AN BOX Repository [address]Nkj: [phone] [place] [phone] () [address]WI: 05/30/2018 Secondary NOT GIVENUNK Ryan Insurance:SELF PAY Community INSURANCEPolicy Number: Hospital Effective Repository Date:2018-05-02 05/29/2018 Brandan A Primary Insurance:AETNA Brandan Funes Ryan [id number] MCRPolicy Number: SchrierDOB: [facility] [id number] Date:9855-95-93JV BOX Repository 614[address]Hvx: [phone] [place] [phone] () [address]BB: 05/29/2018 Secondary NOT GIVENUNK Marui Insurance:SELF PAY Community INSURANCEPolicy Number: Hospital Effective Repository Date:2018-05-02 05/20/2018 Brandan A Primary Insurance:AETNA Brandan Funes Mauri [id number] MCRPolicy Number: SchrierDOB: [facility] [id number] Clinic Hospital [place] Date:8511-65-80XT BOX Repository [address]Ply: [phone] CONDON [phone] (HP) [phone]: 05/20/2018 Secondary NOT GIVENUNK Ryan Insurance:SELF PAY Community INSURANCEPolicy Number: Hospital Effective Repository Date:2018-05-20 05/02/2018 Brandan A Primary Insurance:AETNA Brandan Funes Mauri [id number] MCRPolicy Number: SchrierDOB: [facility] [id number] Clinic Hospital [place] Date:6344-20-66ME BOX Repository 93[address]Lqd: [phone] [place] [phone] (HP) [phone]: 05/02/2018 Secondary NOT GIVENUNK Mauri Insurance:SELF PAY Community INSURANCEPolicy Number: Hospital Effective Repository Date:2018-04-04 05/01/2018 Brandan A Primary Insurance:AETNA Brandan Funes Mauri [id number] MCRPolicy Number: SchrierDOB: [facility] [id number]. Francis Hospital, [place] Date:7290-66-38XM BOX Repository 79[address]Vxx: [phone] [place] [phone] ([phone]: 05/01/2018 Secondary NOT GIVENUNK Ryan Insurance:SELF PAY Community INSURANCEPolicy Number: Hospital Effective Repository Date:2018-04-04 04/04/2018 Brandan A Primary Insurance:AETNA Brandan Funes Ryan [id number] MCRPolicy Number: SchrierDOB: [facility] [id number], [place] Date:9763-25-83PK BOX Repository 65[address]Myc: [id number] [place] [phone]: [phone] ([phone] 04/04/2018 Secondary NOT GIVENUNK Mauri Insurance:SELF PAY Community INSURANCEPolicy Number: Hospital Effective Repository Date:2018-03-07 04/03/2018 Brandan A Primary Insurance:AETGARY Funes Mauri [id number] MCRPolicy Number: SchrierDOB: [facility] [id number] Clinic Hospital [place] Date:1990-96-44JM BOX Repository [address]Wze: [id number] [place], [place] [phone] [address]EM: [phone] (HP) [phone] 04/03/2018 Secondary NOT GIVENUNK Ryan Insurance:SELF PAY Community INSURANCEPolicy Number: Hospital Effective Repository Date:2018-03-07 03/07/2018 Brandan A Primary Insurance:AETGARY Funes Ryan [id number] MCRPolicy Number: SchrierDOB: [facility] [id number] General Hospital, [place] Date:0299-52-44RR BOX Repository [address]Cwy: [id number] [place], [place] [phone] [address]TA: [phone] (HP) [phone] 03/07/2018 Secondary NOT GIVENUNK Mauri Insurance:SELF PAY Community INSURANCEPolicy Number: Hospital Effective Repository Date:2018-01-31 03/06/2018 Brandan A Primary Insurance:AETGARY Funes Mauri [id number] MCRPolicy Number: SchrierDOB: [facility] [id number] General Hospital, [place] Date:7094-12-90JE BOX Repository 27[address]Hke: [id number] [place] [phone]: [phone] (HP) [phone] 03/06/2018 Secondary NOT GIVENUNK Mauri Insurance:SELF PAY Community INSURANCEPolicy Number: Hospital Effective Repository Date:2018-01-31 01/31/2018 Brandan A Primary Insurance:AETNA Brandan Funes Ryan [id number] MCRPolicy Number: SchrierDOB: [facility] [place] [facility] [id number] General Hospital, [place] Date:1278-44-00UK BOX Repository 455[address]Tjz: [id number] CONDON [phone] [address]XL: [phone] (HP) [phone] 01/31/2018 Secondary NOT GIVENUNK Mauri Insurance:SELF PAY Community INSURANCEPolicy Number: Hospital Effective Repository Date:2018-01-03 01/30/2018 Brandan A Primary Insurance:AETNA Brandan Funes Mauri [id number] MCRPolicy Number: SchrierDOB: [facility] [place] Betyfective [id number] General Hospital, [place] Date:9188-22-64HG BOX Repository 529[address]Jio: [id number] [place], [place] [phone]: [phone] (HP) [phone] 01/30/2018 Secondary NOT GIVENUNK Ryan Insurance:SELF PAY Community INSURANCEPolicy Number: Hospital Effective Repository Date:2018-01-03 01/03/2018 Brandan A Primary Insurance:AETNA Brandan Funes Mauri [id number] MCRPolicy Number: SchrierDOB: [facility] [place] Betyfective [id number] General Hospital, [place] Date:6586-07-17QU BOX Repository 218[address]Jyp: [id number] CONDON [phone]: [phone] (HP) [phone] 01/03/2018 Secondary NOT GIVENUNK Ryan Insurance:SELF PAY Community INSURANCEPolicy Number: Hospital Effective Repository Date:2017-11-29 01/02/2018 Brandan A Primary Insurance:AETNA Brandan Funes Ryan [id number] MCRPolicy Number: SchrierDOB: [facility] [place] B[facility]ive [id number] Community Hospital [place] Date:6005-58-08ZI BOX Repository 664[address]Ztj: [id number] [place], [place] [phone] [address]JC: [phone] (HP) [phone] 01/02/2018 Secondary NOT GIVENUNK Ryan Insurance:SELF PAY Community INSURANCEPolicy Number: Hospital Effective Repository Date:2017-11-29 11/29/2017 Brandan A Primary Insurance:AETGARY Funes Ryan [id number] MCRPolicy Number: SchrierDOB[facility] [id number] [place] Date:3642-81-82JW BOX Repository [address]Xjs: 687252LVOCEANO, [place] [phone] [address]TL: [phone] (HP) [phone] 11/29/2017 Secondary NOT GIVENUNK Mauri Insurance:SELF PAY Community INSURANCEPolicy Number: Hospital Effective Repository Date:2017-11-04 11/28/2017 Brandan A Primary Insurance:SARATHTGARY Funes Ryan [id number] MCRPolicy Number: SchrierDOB: [facility] [id number] [place] Date:3875-48-58EX BOX Repository [address]Jcr: 057882IPOCEANO, [place] [phone]: [phone] (HP) [phone] 11/28/2017 Secondary NOT GIVENUNK Mauri Insurance:SELF PAY Community INSURANCEPolicy Number: Hospital Effective Repository Date:2017-11-04
== END ==
PROVIDERS: Family Provider Family Medicine; PCP Family Medicine; Referring Provider Psychiatry & Neurology Neuromuscular Medicine; Visit Provider Psychiatry & Neurology Neuromuscular Medicine
DX: G61.81 Chronic inflammatory demyelinating polyneuritis (principal); G62.2 Polyneuropathy due to other toxic agents
CPT/HCPCS: 96365; 96366; A4216; J1568

== ENCOUNTER → 2018-10-01 12:04 | Outpatient (CLI) | payer MEDICARE, SELFPAY ==
[2018-09-30 12:15] VITALS: BMI 44.6
[2018-10-01 12:24] VITALS: BP 152/72; PULSE 64; RESP 16; TEMP 36.7; O2SAT 96; BMI 44.6
[2018-10-01] MEDS: Immune Globulin 10 gm Premixed Solution IV ×2 (12:42→14:17)
[2018-10-01] MEDS: Immune Globulin 5 GM Premixed Solution IV (15:13)
--- OUTSIDE RECORDS SUMMARY | 2018-11-17 15:37 | XMS RPT_ITS ---
:1950 Author Organization OHIP Support Name Relationship Address Phone JAJA STEARNS Unavailable Unavailable + R Unavailable Unavailable Unavailable SCHRIER BUCK Unavailable [address] + [place] or [address] LAURENJAJA CALHOUN Unavailable Unavailable + R Unavailable Unavailable Unavailable SCHRIER, BUCK Unavailable [address] + [place] or [address] LAURENLJ JAJA Unavailable Unavailable + R Unavailable Unavailable Unavailable SCHRIER, BUCK Unavailable [address] + [place] [address] JAJA STEARNS Unavailable Unavailable + R Unavailable Unavailable Unavailable SCHRIER, BUCK Unavailable [address] + [place] [address] JAJA STEARNS Unavailable Unavailable + R Unavailable Unavailable Unavailable SCHRIER, BUCK Unavailable [address] + [place] [address] JUAN STEARNSARA Unavailable Unavailable + R Unavailable Unavailable Unavailable SCHRIER, BUCK Unavailable [address] + [place] [address] JAJA STEARNS Unavailable Unavailable + R Unavailable Unavailable Unavailable SCHRIER, BUCK Unavailable [address] + [place] [address] JAJA STEARNS Unavailable Unavailable + R Unavailable Unavailable Unavailable SCHRIER, BUCK Unavailable [address] + [place] [address] JAJA STEARNS Unavailable Unavailable + R Unavailable Unavailable Unavailable SCHRIER, BUCK Unavailable [address] + [place] [address] JINNY, JAJA Unavailable Unavailable + R Unavailable Unavailable Unavailable SCHRIER, BUCK Unavailable [address] + [place] [address] LUDMAN, JAJA Unavailable Unavailable + R Unavailable Unavailable Unavailable SCHRIER, BUCK Unavailable [address] + [place] [address] LUDMAN, JAJA Unavailable Unavailable + R Unavailable Unavailable Unavailable SCHRIER, BUCK Unavailable [address] + [place] [address] LUDMAN, JAJA Unavailable Unavailable + R Unavailable Unavailable Unavailable SCHRIER, BUCK Unavailable [address] + [place] [address] LAURENMAN, JAJA Unavailable Unavailable + R Unavailable Unavailable Unavailable SCHRIER, BUCK Unavailable [address] + [place] [address] LUDMAN, JAJA Unavailable Unavailable + R Unavailable Unavailable Unavailable SCHRIER, BUCK Unavailable [address] + [place] [address] LUDLJ, JAJA Unavailable Unavailable + R Unavailable Unavailable Unavailable SCHRIER, BUCK Unavailable [address] + [place] [address] LUDMAN, JAJA Unavailable Unavailable + R Unavailable Unavailable Unavailable SCHRIER, BUCK Unavailable [address] + [place] [address] LUDMAN, JAJA Unavailable Unavailable + R Unavailable Unavailable Unavailable SCHRIER, BUCK Unavailable [address] + [place] [address] LUDMAN, JAJA Unavailable Unavailable + R Unavailable Unavailable Unavailable SCHRIER, BUCK Unavailable [address] + [place] [address] LUDMAN, JAJA Unavailable Unavailable + R Unavailable Unavailable Unavailable SCHRIER BUCK Unavailable [address] + [place] [address] JAJA STEARNS Unavailable Unavailable + R Unavailable Unavailable Unavailable SCHRIER BUCK Unavailable [address] + [place] [address] JAJA STEARNS Unavailable Unavailable + R Unavailable Unavailable Unavailable SCHRIER BUCK Unavailable [address] + [place] [address] JAJA STEARNS Unavailable Unavailable + R Unavailable Unavailable Unavailable SCHRIER BUCK Unavailable [address] + [place] [address] JAJA STEARNS Unavailable . + ., . . R Unavailable Unavailable Unavailable SCHRIER BUCK Unavailable [address] + [place] [address] LAURENJAJA CALHOUN Unavailable . + ., . . R Unavailable Unavailable Unavailable SCHRIER BUCK Unavailable [address] + [place] [address] Care Team Providers Name Role Phone RAUL [...] Attending Unavailable RAUL FREEMAN JR Referring Unavailable RAUL FREEMAN JR Attending Unavailable RAUL FREEMAN JR Referring Unavailable KEVIN FAIR (FEL) Referring Unavailable RAUL FREEMAN JR Attending Unavailable RAUL FREEMAN JR Referring Unavailable FATIMAH BIRMINGHAM (DRY STARCH OPERATOR) Referring Unavailable MARCIE BATES Attending Unavailable RAUL FREEMAN JR Attending Unavailable RAUL FREEMAN JR Referring Unavailable FAIRKEVIN (FEL) Referring Unavailable FAIR, KEVIN (FEL) Referring Unavailable RAUL FREEMAN JR Referring Unavailable Pioro, Marcie Attending Unavailable Pioro, [...] 09/01/2018 Unknown 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 / Repository G62.2(ICD-10) 05/20/2018 Unknown E55.9 - Vitamin D Angella Farley Active [place] deficiency, Community unspecified / Hospital E55.9(ICD-10) Repository 05/20/2018 Unknown E03.9 - Angella Farley Active [place] Hypothyroidism, Community unspecified / Hospital E03.9(ICD-10) Repository 05/20/2018 Unknown R53.83 - Other Angella Farley Active [place] fatigue / Community R53.83(ICD-10) Hospital Repository 05/20/2018 Unknown E11.65 - Type 2 Angella Farley Active [place] diabetes mellitus Community with hyperglycemia / Hospital E11.65(ICD-10) Repository 11/21/2017 Active Unknown / PETE LOPES Active [place] UNK(Unknown) RAUL [facility] Other [place] Repository 03/24/2017 Active Personal history of NA Active [place] malignant neoplasm Clinic Main of ovary / [place] Z85.43(ICD-10) Repository 11/12/2017 Active Malignant neoplasm NA Active [place] of unspecified ovary Clinic Main / C56.9(ICD-10) [place] Repository 11/12/2017 Active Encounter for NA Active [place] screening for other [facility] Main disorder / [place] Z13.89(ICD-10) Repository PROCEDURES PROCEDURES No Procedure Records FoundRESULTS RESULTS CNPN Observed: 08/04/2018 Status: COMPLETED Source: [place] 12:00 AM [facility] REPOSITORY Telephone (NENMMN) GRICEL CROWE ([id number]) 1950 F Date Time Provider Department 08/04/18 MARCIE BATES During your visit today, we recorded the following information about you: Chico Wang RN 08/04/2018 11:48 AM Signed Message from stenographer secretary: Marely from [facility] called stated she has questions about the [...] two consec days = 50g. Marely at [facility] pharmacy notified + read-back. Chico Wang RN [...] Fully Assessed Reason for Visit: Medication Update [4455] Cmt: Octagam-[place] Prescriptions as of 08/04/2018 Sig: IBUPROFEN 100 MG TABLET Take 200 mg by mouth every 6 * DOCUSATE SODIUM 100 MG CAPSULE Take 100 mg by mouth twice da* AFLIBERCEPT 2 MG/0.05 ML INTR* 2 mg by INTRAVITREAL route on* IMMUNE GLOB,GAMM(IGG)10 %-MAL* Inject intravenously. IMMUNE GLOB,GAMM(IGG) 10 %-MS* Sig: Infuse for next 8 months* INSULIN [...] 08/04/18 MELISSA Observed: 07/16/2018 Status: COMPLETED Source: [place] 12:00 AM [facility] REPOSITORY Telephone (NESCMN) GRICEL CROWE ([id number]) 1950 F Date Time Provider Department 07/16/[facility] During your visit today, we recorded the following information about you: Chico Wang RN 07/16/2018 9:24 AM Signed Fax from [facility]. Octagam order expires 07/09/18; pre-auth expires 08/10/18. Dr. Bates signed re-order: Octagam 400mg/kg/d for 2 consec days q4wk, #20 doses. Faxed to to [place]. Chico Wang RN 07/24/2018 9:01 AM Signed Message from stenographer secretary: The patient called this morning and stated that her authorization for Octagam has , and that you usually take care of getting it authorized. Called and spoke with pt's spouse. Aware we faxed Octagam order to [facility] - they will f/u with them. Allergies [...] Fully Assessed Reason for Visit: Medication Update [8566] Cmt: Octagam-[place] Prescriptions as of 07/16/2018 Sig: IBUPROFEN 100 MG TABLET Take 200 mg by mouth every 6 * DOCUSATE SODIUM 100 MG CAPSULE Take 100 mg by mouth twice da* AFLIBERCEPT 2 MG/0.05 ML INTR* 2 mg by INTRAVITREAL route on* IMMUNE GLOB,GAMM(IGG)10 %-MAL* Inject intravenously. IMMUNE GLOB,GAMM(IGG) 10 %-MS* Sig: Infuse for next 8 months* INSULIN [...] 07/16/18 CNOVSP Observed: 07/03/2018 Status: COMPLETED Source: [place] 2:00 PM [facility] REPOSITORY Visit (SP) Office (GYNHC) GRICEL CROWE ([id number]) 1950 F Date Time Provider Department 07/03/18 2:00 PM RAUL FREEMAN JR GYN During your visit today, we recorded the following information about you: Temperature Pulse Blood pressure 97.8 degrees 63/minute 156/61 Raul Freeman Jr, MD 07/03/2018 4:53 PM Addendum DATE OF SERVICE: July 03, 2018 PROBLEM: Gricel Crowe presents for follow-up of ovarian cancer [...] 10 years ago COLONOSCOPY:10 years ago SUBJECTIVE: Gricel Crowe reports that she feels okay, some [...] 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 [email or web address] Referring MD: SELF Referring Provider: RAUL FREEMAN JR [[id number]] Allergies As of Date: 07/03/2018 Noted Allergy [...] adnexa (HCC) [C57.4] Order(s):CT ABD/PEL W IVCON [7837108] Order #: [id number] FUTURE iv contrast (will be provided with [...] guidelinesDisp: 1 EachRfl: 0 CA 125 BLD [TAUT579] Order #: [id number] FUTURE COMP METABOLIC PANEL [SQCMP] Order #: [id number] FUTURE CBC + DIFF [SQCBCDIF] Order #: [id number] FUTURE Prescriptions as of 07/03/2018 Sig: IBUPROFEN 100 MG TABLET Take 200 mg by mouth every 6 * DOCUSATE SODIUM 100 MG CAPSULE Take 100 mg by mouth twice da* AFLIBERCEPT 2 MG/0.05 ML INTR* 2 mg by INTRAVITREAL route on* IMMUNE GLOB,GAMM(IGG)10 %-MAL* Inject intravenously. IMMUNE GLOB,GAMM(IGG) 10 %-MS* Sig: Infuse for next 8 months* INSULIN [...] 07/03/18 PROGRESS Observed: 06/27/2018 Status: COMPLETED Source: [place] 3:59 PM [facility] REPOSITORY HNO ID: [id number] Author: Raul Freeman Jr. 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 [email or web address] Referring MD: SELF CA 125 Collected: 06/24/2018 Status: F Source: [place] 2:52 PM [facility] [place] REPOSITORY TYPE CODE TESTS RESULT OUT OF [...] (CA 125 II) [package insert V 1.0 Gambian]. [facility], [place], [place] (July 2015) Performed By: #### CA125 #### [facility] [address] [place], [place] [address] CBC W/DIFF, AUTOMATED Collected: 05/20/2018 Status: F Source: [place] 3:14 PM [facility] REPOSITORY Order Comment: Order Date: 05/20/18 Order [...] #### L100.0100, L501.9985, L500.2500, L501.9520, L506.1000 #### [facility] [address] [place], [address] HEMOGLOBIN A1C Collected: 05/20/2018 Status: F Source: [place] 3:14 PM [facility] REPOSITORY Order Comment: Order Date: 05/20/18 Order Info: 4548-4 - A1C TYPE CODE TESTS RESULT OUT OF RANGE REFERENCE UNITS LAB L501.9985 4.2-6.3 % High HGB A1C 8.4 Performed By: #### L100.0100, L501.9985, L500.2500, L501.9520, L506.1000 #### [facility] [address] [place], [place], [address] BASIC METABOLIC Collected: 05/20/2018 Status: F Source: [place] PROFILE (BMP) 3:14 PM [facility] REPOSITORY Order Comment: Order Date: 05/20/18 Order [...] #### L100.0100, L501.9985, L500.2500, L501.9520, L506.1000 #### [facility] [address] [place], [address] THYROID STIM HORMONE Collected: 05/20/2018 Status: F Source: [place] (TSH) 3:14 PM [facility] REPOSITORY Order Comment: Order Date: 05/20/18 Order Info: 0667-1 - BMP Order Info: 3016-3 - TSH TYPE CODE TESTS RESULT OUT OF RANGE REFERENCE UNITS LAB L501.9520 0.358-3.74 uIU/mL Normal TSH 1.22 Performed By: #### L100.0100, L501.9985, L500.2500, L501.9520, L506.1000 #### [facility] [address] [place], [address] VITAMIN D,25 HYDROXY Collected: 05/20/2018 Status: F Source: [place] 3:14 PM [facility] REPOSITORY Order Comment: Order Date: 05/20/18 Order Info: 14376-0 - VITD25 TYPE CODE TESTS RESULT OUT OF REFERENCE UNITS RANGE LAB L506.1000 29.95-100.01 ng/mL Low Vitamin D 22.0 25-OH Result Comment: Vitamin D 25(OH) Status Range Deficiency <20 ng/mL (50nmol/L) Insuffciency 20 - 30 ng/mL (50 - 75 nmol/L) Sufficiency 30 - 100 ng/mL (75 - 250 nmol/L) Toxicity >100 ng/mL (>250 nmol/L) Performed By: #### L100.0100, L501.9985, L500.2500, L501.9520, L506.1000 #### [facility] [address] [place], [address] MICROALBUMIN,RANDOM URINE Collected: Status: F Source: [place] 05/20/2018 3:14 PM [facility] REPOSITORY Order Comment: Order Date: 11/05/17 Order Info: 83602-5 - MIALB TYPE CODE TESTS RESULT OUT OF RANGE REFERENCE UNITS LAB L502.0500 NO RANGE EST. mg/L Normal 1330.0 MICROALBUMIN ,UR Performed By: #### L502.0500 #### [facility] [address] [place], [address] PROGRESS Observed: 03/24/2018 Status: COMPLETED Source: [place] 5:15 PM [facility] REPOSITORY HNO ID: [id number] Author: Marcie Bates Service: (none) Author Type: Physician Type: Progress Notes Filed: 03/31/2018 10:19 AM Note Text: Original referring physician AND PCP - [place] [address] [address] ? 10th FOLLOW-UP APPOINTMENT to REVIEW SYMPTOMS and PLAN FURTHER MANAGEMENT ? I had the pleasure to see Ms. Gricel Crowe, a 67 year old left-handed female from [place], [place] at her 10th follow-up appointment to [...] this appointment visit was 40 minutes of lyzk-yg-ptzt time with the patient. At least 50% of this time was spent in counseling, explanation of diagnosis, planning of further management, and coordination of care. Marcie Bates MD, PhD Staff, [facility] [place] CNOV Observed: 03/24/2018 Status: COMPLETED Source: [place] 4:10 PM [facility] REPOSITORY Office Visit (NENMMN) ARISGRICEL RAMEY ([id number]) 1950 F Date Time Provider Department 03/24/18 4:10 PM MARCIE BATES NESCMN During your visit today, we recorded the following information about you: Pulse Blood pressure Weight Height 67/minute 139/68 95.3 kg 1.486 m Chico Wang RN 03/24/2018 4:55 PM Signed UPDATE: 02/2016 dx with ovarian with chemotherapy. Complete hysterectomy and omentectomy at [place], [place]. Stopped Taxol r/t neurologic side effects-worsened numbness in hands and feet; sudden, sharp, quick pain in bilat feet. Continues on IVIG q 4 wk x 2 d - infused at [facility]. Pt thinks current Ivig dosing is maintaining [...] - [place] [address] [address] [place] [address] ? 10th FOLLOW-UP APPOINTMENT to REVIEW SYMPTOMS and PLAN FURTHER MANAGEMENT ? I had the pleasure to see Ms. Gricel Crowe, a 67 year old left-handed female from [place], [place] at her 10th follow-up appointment to [...] this appointment visit was 40 minutes of pjwv-bu-nkng time with the patient. At least 50% of this time was spent in counseling, explanation of diagnosis, planning of further management, and coordination of care. Marcie Baets MD, PhD Staff, [facility] [place] Referring Provider: SELF [200] Allergies As of [...] by INTRAVITREAL route on* IMMUNE GLOB,GAMM(IGG) 10 %-MS* Sig: Infuse for next 8 months* INSULIN [...] with chemotherapy. Complete hysterectomy and omentectomy at [place], [place]. Stopped Taxol r/t neurologic side effects-worsened numbness in hands and feet; sudden, sharp, quick pain in bilat feet. Continues on IVIG q 4 wk x 2 d - infused at [facility]. Pt thinks current Ivig dosing is maintaining [...] 03/31/18 CNCO Observed: 03/03/2018 Status: COMPLETED Source: [place] 12:00 AM [facility] REPOSITORY Letter Text [address] [place], [place] [address] Raul Freeman MD Section of Gynecologic Oncology Iron Worker Apprentice and [facility] [place] Office: [phone] [email or web address] March 03, 2018 RE: Gricel Crowe DOS: 02/27/18 Dear Angella Farley MD This letter is in follow up for your patient, Gricel Crowe, who was recently seen in my office. Enclosed please find my office notes from that visit. If I can be of any further assistance, or if you have any questions, please contact my office. Sincerely, Hilaria RedmanO Observed: 03/03/2018 Status: COMPLETED Source: [place] 12:00 AM [facility] REPOSITORY Letter Text [address] [place], [place] [address] Raul Freeman MD Section of Gynecologic Oncology Iron Worker Apprentice and [facility] [place] Office: [phone] [email or web address] March 03, 2018 RE: Gricel Crowe DOS: 02/27/[address] Raudel Hay This letter is in follow up for your patient, Gricel Crowe, who was recently seen in my office. Enclosed please find my office notes from that visit. If I can be of any further assistance, or if you have any questions, please contact my office. Sincerely, Hilaria RedmanO Observed: 03/03/2018 Status: COMPLETED Source: [place] 12:00 AM [facility] REPOSITORY Letter Text [address] [place], [place] [address] Raul Freeman MD Section of Gynecologic Oncology Iron Worker Apprentice and Women's [facility] Office: [phone] [email or web address] March 03, 2018 RE: Gricel Crowe DOS: 02/27/[address] Maxi Kline This letter is in follow up for your patient, Gricel Crowe, who was recently seen in my office. Enclosed please find my office notes from that visit. If I can be of any further assistance, or if you have any questions, please contact my office. Sincerely, Raul Freeman M.D. CNOVSP Observed: 02/27/2018 Status: COMPLETED Source: [place] 2:00 PM [facility] REPOSITORY Visit (SP) Office (GYNHC) GRICEL CROWE ([id number]) 1950 F Date Time Provider Department 02/27/18 2:00 PM RAUL FREEMAN JR [facility] During your visit today, we recorded the following information about you: Temperature Pulse Blood pressure 99 degrees 74/minute 156/60 Raul Freeman Jr. 02/27/2018 6:17 PM Signed DATE OF SERVICE: February 27, 2018 PROBLEM: Gricel Crowe presents for follow-up of ovarian cancer [...] 10 years ago COLONOSCOPY:10 years ago SUBJECTIVE: Gricel Crowe reports that she feels okay, some [...] Toxic inflammatory neuropathy - stable Octagam(IVIG) injections [id number] Neuropathy worsened s/p taxol, stable since treatment, no interference with ADLs Wendy Cruz, WRAPPER STEMMER OPERATOR.DRY STARCH OPERATOR Ship [employer] Onc Staff: Patient was seen and examined [...] CC: Angella Farley MD (PCP) Dr. [email or web address] Referring MD: SELF Referring Provider: RAUL FREEMAN JR [[id number]] Allergies As of Date: 02/27/2018 Noted Allergy [...] of ovarian cancer [Z85.43] Order(s):CA 125 BLD [PYVK577] Order #: [id number] Prescriptions as of 02/27/2018 Sig: DOCUSATE SODIUM 100 MG CAPSULE Take 100 mg by mouth twice da* AFLIBERCEPT 2 MG/0.05 ML INTR* 2 mg by INTRAVITREAL route on* IMMUNE GLOB,GAMM(IGG)10 %-MAL* Inject intravenously. IMMUNE GLOB,GAMM(IGG) 10 %-MS* Sig: Infuse for next 8 months* INSULIN [...] 02/27/18 PROGRESS Observed: 02/26/2018 Status: COMPLETED Source: [place] 8:43 AM [facility] REPOSITORY HNO ID: [id number] Author: Basia Garcia Service: (none) Author Type: (none) Type: Progress Notes Filed: 02/26/2018 8:44 AM Note Text: Radiology Service Progress Note PATIENT NAME: Gricel Corwe DATE OF SERVICE: February 26, 2018 TIME: [...] AM PROGRESS Observed: 02/25/2018 Status: COMPLETED Source: [place] 3:54 PM [facility] [place] REPOSITORY HNO ID: [id number] Author: Raul Freeman Jr. 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 [email or web address] Referring MD: SELF CT ABD/PEL Keith KC Observed: 02/25/2018 Status: F Source: [place] 2:37 PM [facility] REPOSITORY * * *Final Report* * * DATE OF EXAM: Feb 25 2018 2:37PM [facility] 0530 - CT ABD/PEL W IVCABHILASH / [...] THE LIVER/RIGHT DIAPHRAGM NO NEW METASTATIC DISEASE Home Health Aid: [facility] Transcribe Date/Time: Feb 26 2018 9:57A Dictated by : ADDY CLARKE MD This examination was interpreted and the report reviewed and electronically signed by: ADDY CLARKE MD on Feb 26 2018 10:05AM EST [id number] [place] CREATININE Collected: 02/25/2018 Status: F Source: [place] 1:47 PM [facility] REPOSITORY TYPE CODE TESTS RESULT OUT OF REFERENCE UNITS RANGE LAB WCRET 0.7-1.4 mg/dL [place] Creatinine 0.8 CA 125 Collected: 02/25/2018 Status: F Source: [place] 1:45 PM [facility] REPOSITORY TYPE CODE TESTS RESULT OUT OF [...] (CA 125 II) [package insert V 1.0 Gambian]. [facility], [place], [place] (July 2015) Performed By: #### CA125 #### [facility] [address] [place], [place] [address] CNPN Observed: 01/30/2018 Status: COMPLETED Source: [place] 12:00 AM [facility] REPOSITORY Telephone (NENMMN) GRICEL CROWE ([id number]) 1950 F Date Time Provider Department 01/30/18 [facility] During your visit today, we recorded the following information about you: [facility] 01/30/2018 9:38 AM Signed Received fax from [place], placed in Chico's RN folder for review. [facility] Chico Wang RN 01/30/2018 9:57 AM Signed Reviewed IVig prescription order from [facility]. Also received message from ELEAZAR Hendrix: [...] 01/31/2018 2:51 PM Signed Prescription faxed to [facility]. Chico Wang RN 01/31/2018 2:55 PM Signed [...] GLOB,GAMM(IGG)10 %-MAL* Inject intravenously. IMMUNE GLOB,GAMM(IGG) 10 %-MS* Sig: Infuse for next 8 months* INSULIN [...] 01/30/18 CNOVSP Observed: 11/21/2017 Status: COMPLETED Source: [place] 2:30 PM [facility] REPOSITORY Visit (SP) Office ([facility]) GRICEL CROWE ([id number]) 1950 F Date Time Provider Department 11/21/17 2:30 PM RAUL FREEMAN JR GYN During your visit today, we recorded the following information about you: Temperature Pulse Blood pressure Weight 97.3 degrees 69/minute 160/68 98.8 kg Raul Freeman Jr, MD 11/21/2017 7:11 PM Signed DATE OF SERVICE: 11/21/17 PROBLEM: Gricel Crowe presents for follow-up of ovarian cancer. [...] 10 years ago COLONOSCOPY:10 years ago SUBJECTIVE: Gricel Crowe reports that she feels okay. No [...] scans 3. Toxic inflammatory neuropathy Octagam(IVIG) injections [id number] Neuropathy worsened s/p taxol, stable since treatment, no interference with ADLs Kevin Fair MD Ship Mate Onc Fellow PGY7 [employer] Staff: Patient was seen and examined [...] CC: Angella Farley MD (PCP) Dr. [email or web address] Referring MD: SELF Wendy Cruz CNP 11/22/2017 3:15 PM Signed Addended by: WENDY CRUZ CNP on: 11/22/2017 03:15 PM Modules accepted: Orders Referring Provider: RAUL FREEMAN JR [[id number]] Allergies As of Date: 11/21/2017 Noted Allergy [...] (HCC) [C56.9] Order(s):CREATININE BLD [SQCRET] Order #: [id number] FUTURE CT ABD/PEL W IVCON [[id number]] Order #: [id number] FUTURE iv contrast (radiology procedure)CT ABD/PEL -Inject, [...] guidelinesDisp: 1 EachRfl: 0 CA 125 BLD [[id number]] Order #: [id number] FUTURE Prescriptions as of 11/21/2017 Sig: DOCUSATE SODIUM 100 MG CAPSULE Take 100 mg by mouth twice da* AFLIBERCEPT 2 MG/0.05 ML INTR* 2 mg by INTRAVITREAL route on* IMMUNE GLOB,GAMM(IGG)10 %-MAL* Inject intravenously. IMMUNE GLOB,GAMM(IGG) 10 %-MS* Sig: Infuse for next 8 months* INSULIN [...] 11/21/17 PROGRESS Observed: 11/20/2017 Status: COMPLETED Source: [place] 5:42 PM [facility] [place] REPOSITORY O ID: [id number] Author: Raul Freeman Jr. Service: (none) Author Type: Physician Type: Progress Notes Filed: 11/21/2017 7:11 PM Note Text: DATE OF SERVICE: 11/21/17 PROBLEM: Gricel Crowe presents for follow-up of ovarian cancer. [...] 10 years ago COLONOSCOPY:10 years ago SUBJECTIVE: Gricel Crowe reports that she feels okay. No [...] scans 3. Toxic inflammatory neuropathy Octagam(IVIG) injections [id number] Neuropathy worsened s/p taxol, stable since treatment, no interference with ADLs Kevin Fair MD [facility] Fellow PGY7 [facility] Staff: Patient was seen and examined [...] CC: Angella Farley MD (PCP) Dr. Maxi [email or web address]@[employer] Referring MD: JASON TORRES Observed: 11/15/2017 Status: COMPLETED Source: [place] 12:00 AM [facility] REPOSITORY Telephone ([facility]) GRICEL CROWE ([id number]) 1950 F Date Time Provider Department 11/15/17 [...] with insurance. They can be reached at [phone] or [phone](cell). Nicky Zurita, RN, RN 11/15/2017 11:00 AM [...] 10:40 AM Signed Spoke to Eder lynch [facility] who notes CT scan from 11/12/17 was [...] Comments: TUNA Date Reviewed: 11/12/2017 Reviewed by: Jerica Sanchez RN, RN - Fully Assessed Reason for Visit: Dr. Freeman [Other] Prescriptions as of 11/15/2017 Sig: DOCUSATE SODIUM 100 MG CAPSULE Take 100 mg by mouth twice da* AFLIBERCEPT 2 MG/0.05 ML INTR* 2 mg by INTRAVITREAL route on* IMMUNE GLOB,GAMM(IGG)10 %-MAL* Inject intravenously. IMMUNE GLOB,GAMM(IGG) 10 %-MS* Sig: Infuse for next 8 months* INSULIN [...] 11/15/17 PROGRESS Observed: 11/12/2017 Status: COMPLETED Source: [place] 3:55 PM [facility] REPOSITORY O ID: [id number] Author: Basia Zavala Service: (none) Author Type: (none) Type: Progress Notes Filed: 11/12/2017 3:56 PM Note Text: Radiology Service Progress Note PATIENT NAME: Gricel Crowe DATE OF SERVICE: November 12, 2017 [...] PERIPHERAL IV ACCESS: power port accessed by Insiders@ [facility] RADIOLOGY DEPARTMENT: CT; Exam(s) Completed: Chest Abdomen Pelvis SIGNED BY: Basia Valle Ct November 12, 2017 3:[address] ABD/PEL W IVCON Observed: 11/12/2017 Status: F Source: [place] 3:54 PM [facility] REPOSITORY * * *Final Report* * * DATE OF EXAM: Nov 12 2017 3:54PM [facility] 0530 - CT ABD/PEL W IVCON / [...] 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 Home Health Aid: [facility] Transcribe Date/Time: Nov 13 2017 1:11P Dictated by : ANGELLA ROGERS MD This examination was interpreted and the report reviewed and electronically signed by: ANGELLA ROGERS MD on Nov 13 2017 1:17PM EST [id number] MAURI CREATININE Collected: 11/12/2017 Status: F Source: [place] 2:31 PM [facility] REPOSITORY TYPE CODE TESTS RESULT OUT OF REFERENCE UNITS RANGE LAB WCRET 0.7-1.4 mg/dL Mauri Creatinine 0.7 CA 125 Collected: 11/12/2017 Status: F Source: [place] 2:31 PM [facility] REPOSITORY TYPE CODE TESTS RESULT OUT OF [...] (CA 125 II) [package insert V 1.0 Gambian]. [facility], [place], [place] (July 2015) Performed By: #### CA125 #### [facility] [address] [place], [place] [address] HOSP Observed: 11/12/2017 Status: COMPLETED Source: [place] 2:15 PM [facility] REPOSITORY Infusion Center ([facility]) ARISGRICEL RAMEY ([id number]) 1950 F Date Time Provider Department 11/12/17 [...] Comments: TUNA Date Reviewed: 11/12/2017 Reviewed by: Jerica Sanchez, RN, RN - Fully Assessed Reason for Visit: Blood Draw (CVAD) [1758] Primary Visit Diagnosis:History of ovarian cancer [Z85.43] Prescriptions as of 11/12/2017 Sig: DOCUSATE SODIUM 100 MG CAPSULE Take 100 mg by mouth twice da* AFLIBERCEPT 2 MG/0.05 ML INTR* 2 mg by INTRAVITREAL route on* IMMUNE GLOB,GAMM(IGG)10 %-MAL* Inject intravenously. IMMUNE GLOB,GAMM(IGG) 10 %-MS* Sig: Infuse for next 8 months* INSULIN [...] cancer [Z85.43] INVALID FOR* Encounter Status:Closed by JERICA SANCHEZ on 11/12/17 ALLERGIES ALLERGIES DATE TYPE / CODE NAME / CODE REACTION SEVERITY SOURCE 10/01/2018 Drug sodium compromise [place] Allergy/760217453(S benzoate/F006 immune system [facility] [place] ) Repository 10/01/2018 Drug oats/[id number] Rash SV [place] Allergy/058969165(S 27(RXNORM) Community [facility] [place]) Hospital Repository 10/01/2018 Miscellaneous BERRIES compromise MO [place] Allergy/423440905( immune system Community NOMED CT) Hospital Repository 10/01/2018 Miscellaneous PEPPERS compromise [place] Allergy/810335994( immune system Community NOMED CT) Hospital Repository 10/01/2018 Miscellaneous PLASTIC TAPE Rash SV [place] [facility] 10/01/2018 Miscellaneous TUNA compromise [place] Allergy/831791269( immune system Community [facility] [place]) Hospital Repository 07/09/2016 DRUG PEPPER (GENUS UNKNOWN [facility]/142035686(S CAPSICUM) Clinic Other NOMED CT) [place] Repository 07/09/2016 [facility]UG [facility]ER UN[facility] CT[facility] [place] Repository 07/19/2014 Food/845577185(SNOM BERRIES OTHER: SEE C [place] [facility]) Clinic Other [place] Repository 07/19/2014 Food/474100479(SNOM OATS, OAT GUM R[facility] [place] [facility]) Clinic Other [place] Repository 07/19/2014 DRUG TUNA OIL OTHER: SEE C [place] INGREDI/323442624(S Clinic Other NOMED CT) [place] Repository 04/22/2013 DRUG MENTHOL ITCHING [facility] Other NOMED CT) [place] Repository 11/24/2012 DRUG SODIUM UNKNOWN [facility]S BENZOATE Clinic Other NOMED CT) [place] Repository ENCOUNTERS ENCOUNTERS ADMIT/DISCHARGE ACCOUNT NUMBER ADMITTING ENCOUNTER LOCATION SOURCE CLASS 10/29/2018 [id number] [facility] ding:MEDOUTP Repository 10/28/2018 [id number] [facility] ding:MEDOUTP Repository 10/01/2018 [id number] [facility] ding:MEDOUTP Repository 09/30/2018 [id number] [facility] ding:MEDOUTP Repository 09/02/2018 [id number] [facility] ding:MEDOUTP Repository 09/01/2018 [id number] [facility] ding:MEDOUTP Repository 08/05/2018 [id number] [facility] ding:MEDOUTP Repository 08/04/2018 [id number] [facility] ding:MEDOUTP Repository 07/21/2018 [id number] PETE LOPES, Ambulatory [facility] Other [place] Repository 07/08/2018 [id number] [facility] ding:MEDOUTP Repository 07/07/2018 [id number] [facility] ding:MEDOUTP Repository 07/03/2018/07/08/[id number] [place] Repository 07/02/2018 [id number] PETE LOPES, Ambulatory [facility] Other [place] Repository 06/24/2018/06/24/20 [id number] Ambulatory [address] Main [place] Repository 05/30/2018 [id number] Ambulatory [facility] ding:MEDOUTP Repository 05/29/2018 [id number] Ambulatory [facility] ding:MEDOUTP Repository 05/20/2018 [id number] [facility]MF[facility] Repository 05/02/2018 [id number] Ambulatory [facility] ding:MEDOUTP Repository 05/01/2018 [id number] Ambulatory [facility] ding:MEDOUTP Repository 04/04/2018 [id number] Ambulatory [facility] ding:MEDOUTP Repository 04/03/2018 [id number] Ambulatory [facility] ding:MEDOUTP Repository 03/24/2018/03/24/20 [id number] Ambulatory [address] [place] Repository 03/21/2018 [id number] PETE LOPES, Ambulatory [facility] [place] Repository 03/07/2018 [id number] Ambulatory [facility] ding:MEDOUTP Repository 03/06/2018 [id number] Ambulatory [facility] ding:MEDOUTP Repository 02/27/2018/03/03/20 [id number] Ambulatory [address] [place] Repository 02/26/2018 [id number] PETE LOPES, Ambulatory [facility] Other [place] Repository 02/25/2018/02/26/20 [id number] Ambulatory [address] [place] Repository 02/25/2018/02/28/20 [id number] Ambulatory [address] [place] Repository 02/25/2018/02/26/20 [id number] Ambulatory [address] [place] Repository 02/25/2018/02/26/20 [id number] Ambulatory [address] [place] Repository 01/31/2018 [id number] Ambulatory [facility] ding:MEDOUTP Repository 01/30/2018 [id number] Ambulatory [facility] ding:MEDOUTP Repository 01/03/2018 [id number] Ambulatory [facility] ding:MEDOUTP Repository 01/02/2018 [id number] [facility] ding:MEDOUTP Repository 12/19/2017 [id number] PETE LOPES, Ambulatory [facility] Repository 11/29/2017 [id number] Ambulatory [facility] ding:MEDOUTP Repository 11/28/2017 [id number] Ambulatory [facility] ding:MEDOUTP Repository 11/21/2017 [id number] Ambulatory [facility] Repository 11/21/2017 [id number] PETE LOPES, Ambulatory [facility] Repository 11/12/2017/11/12/19 [id number] Ambulatory [address] Repository 11/12/2017/11/12/19 [id number] Ambulatory [address] Repository 11/12/2017/11/12/19 [id number] Ambulatory [address] Repository PAYERS PAYERS ENCOUNTER GUARANTOR PAYER SUBSCRIBER SOURCE 10/29/2018 GRICEL Funes Primary Insurance:AECORRINE GIPSON Shantel Mauri [id number] MCRPolicy Number: SCHRIERDOB: [facility] 2622[place]88[place]FE[place] Date:9569-65-93PF BOX Repository [address]Ahd: [phone] ONDINA LUKE [phone] () [address]WP: 10/29/2018 Secondary NOT GIVENUNK [place] Insurance:SELF PAY Community INSURANCEPolicy Number: Hospital Effective Repository Date:2018-10-01 10/28/2018 GRICEL Funes Primary Insurance:CHRISTINA Dotson [id number] MCRPolicy Number: SCHRIERDOB: [facility] [id number] Date:9526-67-03LG BOX Repository [address]Mnt: [phone] CONDON [phone] () [phone]: 10/28/2018 Secondary NOT GIVENUNK [place] Insurance:SELF PAY Community INSURANCEPolicy Number: Hospital Effective Repository Date:2018-10-01 10/01/2018 GRICEL A Primary Insurance:AETNA GRICEL Funes [place] [id number] MCRPolicy Number: SCHRIERDOB: [facility] [id number], [place] Date:7475-51-38ZO BOX Repository [address]Wlj: [phone] [place], [place] [phone] () [address]WO: 10/01/2018 Secondary NOT GIVENUNK [place] Insurance:SELF PAY Community INSURANCEPolicy Number: Hospital Effective Repository Date:2018-09-02 09/30/2018 GRICEL A Primary Insurance:AETNA GRICEL Funes [place] [id number] MCRPolicy Number: [facility] 2014-89-[place] Date:1637-28-60KP BOX Repository [address]Jfc: [phone] [place], [place] [phone] () [phone]: 09/30/2018 Secondary NOT GIVENUNK [place] Insurance:SELF PAY Community INSURANCEPolicy Number: Hospital Effective Repository Date:2018-09-02 09/02/2018 GRICEL A Primary Insurance:AETNA GRICEL Funes [place] [id number] MCRPolicy Number: SCHRIERDOB: [facility] [id number], [place] Date:4412-92-37KF BOX Repository [address]Wnu: [phone] [place], [place] [phone] () [address]UZ: 09/02/2018 Secondary NOT GIVENUNK [place] Insurance:SELF PAY Community INSURANCEPolicy Number: Hospital Effective Repository Date:2018-08-05 09/01/2018 GRICEL A Primary Insurance:AETNA GRICEL Funes [place] [id number] MCRPolicy Number: SCHRIERDOB: [facility] Betyfective [id number] Memorial Hospital [place] Date:6865-88-04TR BOX Repository [address]Ysg: [phone] [place], [place] [phone] (HP) [address]CW: 09/01/2018 Secondary NOT GIVENUNK [place] Insurance:SELF PAY Community INSURANCEPolicy Number: Hospital Effective Repository Date:2018-08-05 08/05/2018 GRICEL A Primary Insurance:AETNA GRICEL Funes [place] [id number] MCRPolicy Number: SCHRIERDOB: [facility] Betyfective [id number] Memorial Hospital [place] Date:1958-32-90FB BOX Repository [address]Nro: [phone] [place] [phone] (HP) [phone]: 08/05/2018 Secondary NOT GIVENUNK [place] Insurance:SELF PAY Community INSURANCEPolicy Number: Hospital Effective Repository Date:2018-07-08 08/04/2018 GRICEL A Primary Insurance:AETNA GRICEL Funes [place] [id number] MCRPolicy Number: SCHRIERDOB: [facility] STEPHANIEHTChristinefective [id number] Valley Hospital, [place] Date:2247-33-55TM BOX Repository [address]Aap: [phone] [place] [phone] (HP) [address]WC: 08/04/2018 Secondary NOT GIVENUNK [place] Insurance:SELF PAY Community INSURANCEPolicy Number: Hospital Effective Repository Date:2018-07-08 07/08/2018 Gricel A Primary Insurance:AETNA Gricel Funes [place] [id number] MCRPolicy Number: SchrierDOB: [facility] Betyfective [id number], [place] Date:8697-25-30FY BOX Repository [address]Ori: [phone] [place] [phone] (HP) [address]CK: 07/08/2018 Secondary NOT GIVENUNK [place] Insurance:SELF PAY Community INSURANCEPolicy Number: Hospital Effective Repository Date:2018-06-19 07/07/2018 Gricel A Primary Insurance:AETNA Gricel Funes [place] [id number] MCRPolicy Number: SchrierDOB: [facility] [id number], [place] Date:9222-33-13XS BOX Repository [address]Kjz: [phone] [facility] [place] [phone] () [address]PW: 07/07/2018 Secondary NOT GIVENUNK [place] Insurance:SELF PAY Community INSURANCEPolicy Number: Hospital Effective Repository Date:2018-06-19 05/30/2018 Gricel A Primary Insurance:AETNA Gricel Funes [place] [id number] MCRPolicy Number: SchrierDOB: [facility] [id number] Valley Hospital, [place] Date:8168-31-42MT BOX Repository [address]Ako: [phone] [place] [phone] () [address]LC: 05/30/2018 Secondary NOT GIVENUNK [place] Insurance:SELF PAY Community INSURANCEPolicy Number: Hospital Effective Repository Date:2018-05-02 05/29/2018 Gricel A Primary Insurance:AETNA Gricel Funes [place] [id number] MCRPolicy Number: SchrierDOB: [facility] [id number] Valley Hospital, [place] Date:1254-53-25MV BOX Repository [address]Osk: [phone] [place], [place] [phone] () [address]GT: 05/29/2018 Secondary NOT GIVENUNK [place] Insurance:SELF PAY Community INSURANCEPolicy Number: Hospital Effective Repository Date:2018-05-02 05/20/2018 Gricel A Primary Insurance:AETNA Gricel Funes [place] [id number] MCRPolicy Number: SchrierDOB: [facility] [id number] Memorial Hospital [place] Date:4429-85-94RU BOX Repository [address]Bnh: [phone] [place] [phone] (HP) [phone]: 05/20/2018 Secondary NOT GIVENUNK [place] Insurance:SELF PAY Community INSURANCEPolicy Number: Hospital Effective Repository Date:2018-05-20 05/02/2018 Gricel A Primary Insurance:AETNA Gricel Funes [place] [id number] MCRPolicy Number: SchrierDOB: Community [facility] [id number], [place] Date:8887-16-88IM BOX Repository [address]Jgj: [phone] [place] [phone] (HP) [address]RE: 05/02/2018 Secondary NOT GIVENUNK [place] Insurance:SELF PAY Community INSURANCEPolicy Number: Hospital Effective Repository Date:2018-04-04 05/01/2018 Gricel A Primary Insurance:AETNA Gricel Funes [place] [id number] MCRPolicy Number: SchrierDOB: [facility] [id number] Memorial Hospital [place] Date:7374-21-17WQ BOX Repository [address]Wdu: [phone] [place] [phone] (HP) [phone]: 05/01/2018 Secondary NOT GIVENUNK [place] Insurance:SELF PAY Community INSURANCEPolicy Number: Hospital Effective Repository Date:2018-04-04 04/04/2018 Gricel A Primary Insurance:AETNA Gricel Funes [place] [id number] MCRPolicy Number: SchrierDOB: [facility]HT[facility] [id number] Memorial Hospital [place] Date:3268-36-69FA BOX Repository [address]Osn: 237844SQONDINA CONDON [phone] [address]WP: [phone] ([phone] 04/04/2018 Secondary NOT GIVENUNK [place] Insurance:SELF PAY Community INSURANCEPolicy Number: Hospital Effective Repository Date:2018-03-07 04/03/2018 Gricel A Primary Insurance:AETGARY Funes [place] [id number] MCRPolicy Number: SchrierDOB: [facility] [id number], [place] Date:4092-26-84TF BOX Repository [address]Ziu: 269128VH [place], [place] [phone]~33 [phone]: [phone] (HP) [phone] 04/03/2018 Secondary NOT GIVENUNK [place] Insurance:SELF PAY Community INSURANCEPolicy Number: Hospital Effective Repository Date:2018-03-07 03/07/2018 Gricel A Primary Insurance:AETGARY Funes [place] [id number] MCRPolicy Number: SchrierDOB: [facility] [id number] Rehabilitation [facility] [place] Date:2737-18-65CI BOX Repository [address]Zck: [id number] [place], [place] [phone] [address]ED: [phone] 03/07/2018 Secondary NOT GIVENUNK [place] Insurance:SELF PAY Community INSURANCEPolicy Number: Hospital Effective Repository Date:2018-01-31 03/06/2018 Gricel A Primary Insurance:AETGARY Funes [place] [id number] MCRPolicy Number: SchrierDOB: [facility]Christine[facility] [id number] Rehabilitation Hospital [place] Date:0313-17-18LU BOX Repository [address]Fcj: [id number] [place], [place] [phone] [address]JD: [phone] (HP) [phone] 03/06/2018 Secondary NOT GIVENUNK [place] Insurance:SELF PAY Community INSURANCEPolicy Number: Hospital Effective Repository Date:2018-01-31 01/31/2018 Gricel A Primary Insurance:AETGARY Funes [place] [id number] MCRPolicy Number: SchrierDOB: [facility] [id number] Rehabilitation Hospital [place] Date:9712-46-59UR BOX Repository [address]Ikb: [id number] CONDON [phone]: [phone] (HP) [phone] 01/31/2018 Secondary NOT GIVENUNK [place] Insurance:SELF PAY Community INSURANCEPolicy Number: Hospital Effective Repository Date:2018-01-03 01/30/2018 Gricel A Primary Insurance:AETNA Gricel Funes [place] [id number] MCRPolicy Number: SchrierDOB: [facility] Niteshfective [id number] Rehabilitation Hospital [place] Date:0626-96-72UR BOX Repository [address]Fzs: [id number] [place], [place] [phone]: [phone] (HP) [phone] 01/30/2018 Secondary NOT GIVENUNK [place] Insurance:SELF PAY Community INSURANCEPolicy Number: Hospital Effective Repository Date:2018-01-03 01/03/2018 Gricel A Primary Insurance:AETNA Gricel Funes [place] [id number] MCRPolicy Number: SchrierDOB: [facility] Niteshfective [id number].W. [facility], [place] Date:3798-28-92OQ BOX Repository 28[address]Qlj: [id number] CONDON [phone]: [phone] (HP) [phone] 01/03/2018 Secondary NOT GIVENUNK [place] Insurance:SELF PAY Community INSURANCEPolicy Number: Hospital Effective Repository Date:2017-11-29 01/02/2018 Gricel A Primary Insurance:AETNA Gricel Funes [place] [id number] MCRPolicy Number: SchrierDOB: [facility] Niteshfective [id number] Rehabilitation Hospital [place] Date:0033-38-20ZO BOX Repository [address]Yzq: 196707NYONDINA CONDON [phone]~33 [address]HL: [phone] (HP) [phone] 01/02/2018 Secondary NOT GIVENUNK [place] Insurance:SELF PAY Community INSURANCEPolicy Number: Hospital Effective Repository Date:2017-11-29 11/29/2017 Gricel A Primary Insurance:SARATHAydinGARY [place] [id number] MCRPolicy Number: SchrierDOB: [facility]iteshatrium [facility] mountainive [id number], [place] Date:9907-69-59WF BOX Repository [address]Ify: 186472MWSAINT [place], [place] [phone]~33 [phone]: [phone] (HP) [phone] 11/29/2017 Secondary NOT GIVENUNK [place] Insurance:SELF PAY Community INSURANCEPolicy Number: Hospital Effective Repository Date:2017-11-04 11/28/2017 Gricel A Primary Insurance:CHRISTINA Dotson [id number] MCRPolicy Number: SchrierDOB: [facility] HospitalHTMDEfmercy health west hospital [id number], [place] Date:5316-32-16VY BOX Repository [address]Wef: [id number] [place], [place] [phone]: [phone] (HP) [phone] 11/28/2017 Secondary NOT GIVENUNK [place] Insurance:SELF PAY Community INSURANCEPolicy Number: Hospital Effective Repository Date:2017-11-04
== END ==
PROVIDERS: Family Provider Family Medicine; PCP Family Medicine; Referring Provider Psychiatry & Neurology Neuromuscular Medicine; Visit Provider Psychiatry & Neurology Neuromuscular Medicine
DX: G61.81 Chronic inflammatory demyelinating polyneuritis (principal); G62.2 Polyneuropathy due to other toxic agents
CPT/HCPCS: 96365; 96366 ×2; A4216; J1568

== ENCOUNTER → 2018-10-28 12:00 | Outpatient (CLI) | payer MEDICARE, SELFPAY ==
[2018-10-01 12:24] VITALS: BMI 44.6
[2018-10-28 12:09] VITALS: BP 133/74; PULSE 67; RESP 16; TEMP 37.3; O2SAT 93; BMI 44.6
[2018-10-28] MEDS: Immune Globulin 20 gm Premixed Solution IV (12:28)
[2018-10-28 13:30] VITALS: BP 128/67; PULSE 70; RESP 16
[2018-10-28 14:08] VITALS: BP 114/55; PULSE 70; RESP 16; O2SAT 94
[2018-10-28 14:39] VITALS: BP 130/68; PULSE 70; RESP 16
[2018-10-28] MEDS: Immune Globulin 5 GM Premixed Solution IV (14:50)
== END ==
PROVIDERS: Family Provider Family Medicine; PCP Family Medicine; Referring Provider Psychiatry & Neurology Neuromuscular Medicine; Visit Provider Psychiatry & Neurology Neuromuscular Medicine
DX: G61.81 Chronic inflammatory demyelinating polyneuritis (principal); G62.2 Polyneuropathy due to other toxic agents
CPT/HCPCS: 96365; 96366 ×2; A4216; J1568

== ENCOUNTER → 2018-10-29 12:05 | Outpatient (CLI) | payer MEDICARE, SELFPAY ==
[2018-10-01 12:24] VITALS: BMI 44.6
[2018-10-28 12:09] VITALS: BMI 44.6
[2018-10-29 12:18] VITALS: BP 152/70; PULSE 68; RESP 16; TEMP 36.6; O2SAT 95; BMI 44.6
[2018-10-29] MEDS: Immune Globulin 20 gm Premixed Solution IV (12:30)
[2018-10-29] MEDS: Immune Globulin 5 GM Premixed Solution IV (14:58)
== END ==
PROVIDERS: Family Provider Family Medicine; PCP Family Medicine; Referring Provider Psychiatry & Neurology Neuromuscular Medicine; Visit Provider Psychiatry & Neurology Neuromuscular Medicine
DX: G61.81 Chronic inflammatory demyelinating polyneuritis (principal); G62.2 Polyneuropathy due to other toxic agents
CPT/HCPCS: 96365; 96366 ×2; A4216; J1568

== ENCOUNTER → 2018-11-24 12:05 | Outpatient (CLI) | payer MEDICARE, SELFPAY ==
[2018-10-29 12:18] VITALS: BMI 44.6
[2018-11-24 12:29] VITALS: BP 163/78; PULSE 58; RESP 16; TEMP 36.7; BMI 43.8
[2018-11-24] MEDS: Immune Globulin 20 gm Premixed Solution IV (12:29)
[2018-11-24] MEDS: Immune Globulin 5 GM Premixed Solution IV (14:58)
== END ==
PROVIDERS: Family Provider Family Medicine; PCP Family Medicine; Referring Provider Psychiatry & Neurology Neuromuscular Medicine; Visit Provider Psychiatry & Neurology Neuromuscular Medicine
DX: G61.81 Chronic inflammatory demyelinating polyneuritis (principal); G62.2 Polyneuropathy due to other toxic agents
CPT/HCPCS: 96365; 96366 ×2; A4216; J1568

== ENCOUNTER → 2018-11-25 12:04 | Outpatient (CLI) | payer MEDICARE, SELFPAY ==
[2018-10-29 12:18] VITALS: BMI 44.6
[2018-11-24 12:29] VITALS: BMI 43.8
[2018-11-25 12:12] VITALS: BP 176/69; PULSE 58; RESP 18; TEMP 36.6; O2SAT 93; BMI 43.8
[2018-11-25] MEDS: Immune Globulin 20 gm Premixed Solution IV (12:21)
[2018-11-25] MEDS: Immune Globulin 5 GM Premixed Solution IV (14:57)
== END ==
PROVIDERS: Family Provider Family Medicine; PCP Family Medicine; Referring Provider Psychiatry & Neurology Neuromuscular Medicine; Visit Provider Psychiatry & Neurology Neuromuscular Medicine
DX: G61.81 Chronic inflammatory demyelinating polyneuritis (principal); G62.2 Polyneuropathy due to other toxic agents
CPT/HCPCS: 96365; 96366 ×2; A4216; J1568

== ENCOUNTER → 2018-12-11 16:14 | Outpatient (CLI) | payer MEDICARE, SELFPAY ==
[2018-11-25 12:12] VITALS: BMI 43.8
[2018-12-11 17:58] LABS: Hemoglobin A1c 8.5 % (4.2-6.3)
[2018-12-11 18:01] LABS: Vitamin D,25 Hydroxy 16.5 ng/mL (29.95-100.01)
[2018-12-11 18:04] LABS: Anion Gap 6 (5-15); BUN 14 mg/dL (7-18); BUN/Creat Ratio 13.6 RATIO (10-20); Calcium,Total 9.3 mg/dL (8.5-10.1); Chloride 103 mmol/L (98-107); Creatinine, Serum 1.03 mg/dL (0.55-1.02); EST Glomerular Filtration Rate 56 mL/min (>60); Est Glom Filt Rate - Afr Amer 68 mL/min (>60); Glucose 216 mg/dL (74-106); Potassium 4.1 mmol/L (3.5-5.1); Sodium Level 137 mmol/L (136-145); Thyroid Stim Hormone (TSH) 4.84 uIU/mL (0.358-3.74)
== END ==
PROVIDERS: Family Provider Family Medicine; PCP Family Medicine; Referring Provider Family Medicine; Visit Provider Family Medicine
DX: E11.65 Type 2 diabetes mellitus with hyperglycemia (principal); E03.9 Hypothyroidism, unspecified; E55.9 Vitamin D deficiency, unspecified
CPT/HCPCS: 36415; 80048; 82306; 83036; 84443

== ENCOUNTER → 2018-12-18 16:01 | Outpatient (CLI) | payer MEDICARE, SELFPAY ==
[2018-11-25 12:12] VITALS: BMI 43.8
--- NOTE | 2018-12-18 16:07 | RAD_ITS ---
STUDY: X-RAY - RIGHT KNEE REASON FOR EXAM: Female, 68 years old. Pain. TECHNIQUE: 3 view(s) of the knee. COMPARISON: None. FINDINGS: Normal visualized distal femur. Normal visualized proximal tibia and fibula. Normal proximal tibiofibular articulation. There is no acute fracture, dislocation or destructive osseous pathology. There is moderate degenerative arthrosis of the medial femorotibial compartment with moderate joint space narrowing. Normal lateral femorotibial compartment. There is severe degenerative arthrosis of the patellofemoral articulation. There is no demonstrated joint effusion. The soft tissue structures are unremarkable. RAD/Knee 3 Views IMPRESSION: Degenerative arthrosis. Electronically Signed: Sterling Saenz DO at 23:29 EST Tel [phone], Service support ,
== END ==
PROVIDERS: Family Provider Family Medicine; PCP Family Medicine; Referring Provider Family Medicine; Visit Provider Family Medicine
DX: M25.561 Pain in right knee (principal)
CPT/HCPCS: 73562

== ENCOUNTER → 2018-12-30 12:03 | Outpatient (CLI) | payer MEDICARE, SELFPAY ==
[2018-11-25 12:12] VITALS: BMI 43.8
[2018-12-30] MEDS: Immune Globulin 20 gm Premixed Solution IV (12:30)
[2018-12-30 12:39] VITALS: BP 160/73; PULSE 84; RESP 16; TEMP 35.8; O2SAT 95; BMI 45.1
[2018-12-30 13:11] VITALS: BP 145/76; PULSE 53; RESP 16; TEMP 37; O2SAT 94
[2018-12-30] MEDS: Immune Globulin 5 GM Premixed Solution IV (15:04)
== END ==
PROVIDERS: Family Provider Family Medicine; PCP Family Medicine; Referring Provider Psychiatry & Neurology Neuromuscular Medicine; Visit Provider Psychiatry & Neurology Neuromuscular Medicine
DX: G61.81 Chronic inflammatory demyelinating polyneuritis (principal); G62.2 Polyneuropathy due to other toxic agents
CPT/HCPCS: 96365; 96366 ×3; A4216; J1568

== ENCOUNTER → 2018-12-31 12:05 | Outpatient (CLI) | payer MEDICARE, SELFPAY ==
[2018-11-25 12:12] VITALS: BMI 43.8
[2018-12-30 12:39] VITALS: BMI 45.1
[2018-12-31 12:31] VITALS: BP 148/68; PULSE 59; RESP 18; TEMP 36.6; O2SAT 97; BMI 43.7
[2018-12-31] MEDS: Immune Globulin 20 gm Premixed Solution IV (12:38)
[2018-12-31 13:10] VITALS: BP 146/83; PULSE 72
[2018-12-31] MEDS: Immune Globulin 5 GM Premixed Solution IV (15:02)
== END ==
PROVIDERS: Family Provider Family Medicine; PCP Family Medicine; Referring Provider Psychiatry & Neurology Neuromuscular Medicine; Visit Provider Psychiatry & Neurology Neuromuscular Medicine
DX: G61.81 Chronic inflammatory demyelinating polyneuritis (principal); G62.2 Polyneuropathy due to other toxic agents
CPT/HCPCS: 96365; 96366 ×2; A4216; J1568

== ENCOUNTER → 2019-01-26 12:02 | Outpatient (CLI) | payer MEDICARE, SELFPAY ==
[2018-12-31 12:31] VITALS: BMI 43.7
[2019-01-26 12:11] VITALS: BP 150/74; PULSE 64; RESP 18; TEMP 37; O2SAT 95; BMI 44.6
[2019-01-26] MEDS: Immune Globulin 20 gm Premixed Solution IV (12:32)
[2019-01-26] MEDS: Immune Globulin 5 GM Premixed Solution IV (15:11)
== END ==
PROVIDERS: Family Provider Family Medicine; PCP Family Medicine; Visit Provider Psychiatry & Neurology Neuromuscular Medicine
DX: G61.81 Chronic inflammatory demyelinating polyneuritis (principal); G62.2 Polyneuropathy due to other toxic agents
CPT/HCPCS: 96365; 96366 ×2; A4216; J1568

== ENCOUNTER → 2019-01-27 12:04 | Outpatient (CLI) | payer MEDICARE, SELFPAY ==
[2018-12-31 12:31] VITALS: BMI 43.7
[2019-01-26 12:11] VITALS: BMI 44.6
[2019-01-27 12:18] VITALS: BP 143/77; PULSE 57; RESP 16; TEMP 36.8; O2SAT 94; BMI 44.6
[2019-01-27] MEDS: Immune Globulin 20 gm Premixed Solution IV (12:18)
[2019-01-27] MEDS: Immune Globulin 5 GM Premixed Solution IV (14:44)
== END ==
PROVIDERS: Family Provider Family Medicine; PCP Family Medicine; Referring Provider Psychiatry & Neurology Neuromuscular Medicine; Visit Provider Psychiatry & Neurology Neuromuscular Medicine
DX: G61.81 Chronic inflammatory demyelinating polyneuritis (principal); G62.2 Polyneuropathy due to other toxic agents
CPT/HCPCS: 96365; 96366 ×3; A4216; J1568

== ENCOUNTER → 2019-02-24 12:01 | Outpatient (CLI) | payer MEDICARE, SELFPAY ==
[2019-01-27 12:18] VITALS: BMI 44.6
[2019-02-24] MEDS: Immune Globulin 20 gm Premixed Solution IV (12:25)
[2019-02-24 12:29] VITALS: BP 140/89; PULSE 88; RESP 16; TEMP 36.6; O2SAT 97; BMI 42.8
[2019-02-24] MEDS: Immune Globulin 5 GM Premixed Solution IV (14:51)
== END ==
PROVIDERS: Family Provider Family Medicine; PCP Family Medicine; Referring Provider Psychiatry & Neurology Neuromuscular Medicine; Visit Provider Psychiatry & Neurology Neuromuscular Medicine
DX: G61.81 Chronic inflammatory demyelinating polyneuritis (principal); G62.2 Polyneuropathy due to other toxic agents
CPT/HCPCS: 96365; 96366 ×2; A4216; J1568

== ENCOUNTER → 2019-02-25 12:02 | Outpatient (CLI) | payer MEDICARE, SELFPAY ==
[2019-01-27 12:18] VITALS: BMI 44.6
[2019-02-24 12:29] VITALS: BMI 42.8
[2019-02-25 12:13] VITALS: BP 168/51; PULSE 61; RESP 16; TEMP 36.4; O2SAT 97; BMI 44.4
[2019-02-25] MEDS: Immune Globulin 20 gm Premixed Solution IV (12:19)
[2019-02-25 13:50] VITALS: BP 134/51; PULSE 58
[2019-02-25] MEDS: Immune Globulin 5 GM Premixed Solution IV (14:43)
== END ==
PROVIDERS: Family Provider Family Medicine; PCP Family Medicine; Referring Provider Psychiatry & Neurology Neuromuscular Medicine; Visit Provider Psychiatry & Neurology Neuromuscular Medicine
DX: G62.2 Polyneuropathy due to other toxic agents (principal); G61.81 Chronic inflammatory demyelinating polyneuritis
CPT/HCPCS: 96365; 96366 ×3; A4216; J1568

== ENCOUNTER → 2019-03-24 11:56 | Outpatient (CLI) | payer MEDICARE, SELFPAY ==
[2019-02-25 12:13] VITALS: BMI 44.4
[2019-03-24 12:17] VITALS: BP 141/70; PULSE 55; RESP 16; TEMP 36.5; O2SAT 95; BMI 44.4
[2019-03-24] MEDS: Immune Globulin 20 gm Premixed Solution IV (12:40)
[2019-03-24] MEDS: Immune Globulin 10 gm Premixed Solution IV (15:07)
== END ==
PROVIDERS: Family Provider Family Medicine; PCP Family Medicine; Referring Provider Psychiatry & Neurology Neuromuscular Medicine; Visit Provider Psychiatry & Neurology Neuromuscular Medicine
DX: G62.2 Polyneuropathy due to other toxic agents (principal); G61.81 Chronic inflammatory demyelinating polyneuritis
CPT/HCPCS: 96365; 96366 ×3; J7050; A4216; J1568

== ENCOUNTER → 2019-03-25 12:01 | Outpatient (CLI) | payer MEDICARE, SELFPAY ==
[2019-02-25 12:13] VITALS: BMI 44.4
[2019-03-24 12:17] VITALS: BMI 44.4
[2019-03-25 12:20] VITALS: BP 135/86; PULSE 90; RESP 16; TEMP 36.8; O2SAT 95; BMI 44.4
[2019-03-25] MEDS: Immune Globulin 20 gm Premixed Solution IV (12:20)
== END ==
PROVIDERS: Family Provider Family Medicine; PCP Family Medicine; Referring Provider Psychiatry & Neurology Neuromuscular Medicine; Visit Provider Psychiatry & Neurology Neuromuscular Medicine
DX: G62.2 Polyneuropathy due to other toxic agents (principal); G61.81 Chronic inflammatory demyelinating polyneuritis
CPT/HCPCS: 96365; 96366 ×2; A4216; J1568

== ENCOUNTER → 2019-04-29 11:52 | Outpatient (CLI) | payer MEDICARE, SELFPAY ==
[2019-03-25 12:20] VITALS: BMI 44.4
[2019-04-29] MEDS: Immune Globulin 20 gm Premixed Solution IV (12:25)
[2019-04-29 12:39] VITALS: BP 146/66; PULSE 65; RESP 16; TEMP 36.5; O2SAT 95; BMI 43.8
== END ==
PROVIDERS: Family Provider Family Medicine; PCP Family Medicine; Referring Provider Psychiatry & Neurology Neuromuscular Medicine; Visit Provider Psychiatry & Neurology Neuromuscular Medicine
DX: G62.2 Polyneuropathy due to other toxic agents (principal); G61.81 Chronic inflammatory demyelinating polyneuritis
CPT/HCPCS: 96365; 96366 ×2; A4216; J1568

== ENCOUNTER → 2019-04-30 11:57 | Outpatient (CLI) | payer MEDICARE, SELFPAY ==
[2019-03-25 12:20] VITALS: BMI 44.4
[2019-04-29 12:39] VITALS: BMI 43.8
[2019-04-30] MEDS: Immune Globulin 20 gm Premixed Solution IV (12:24)
[2019-04-30 12:26] VITALS: BP 154/81; PULSE 58; RESP 16; TEMP 36.8; O2SAT 100; BMI 43.7
== END ==
PROVIDERS: Family Provider Family Medicine; PCP Family Medicine; Referring Provider Psychiatry & Neurology Neuromuscular Medicine; Visit Provider Psychiatry & Neurology Neuromuscular Medicine
DX: G62.2 Polyneuropathy due to other toxic agents (principal); G61.81 Chronic inflammatory demyelinating polyneuritis
CPT/HCPCS: 96365; 96366 ×2; A4216; J1568

== ENCOUNTER → 2019-05-26 11:57 | Outpatient (CLI) | payer MEDICARE, SELFPAY ==
[2019-04-30 12:26] VITALS: BMI 43.7
[2019-05-26 12:25] VITALS: BP 168/70; PULSE 62; RESP 16; TEMP 36.4; O2SAT 95; BMI 44.9
[2019-05-26] MEDS: Immune Globulin 20 gm Premixed Solution IV (12:46)
[2019-05-26] MEDS: Immune Globulin 5 GM Premixed Solution IV (15:14)
== END ==
PROVIDERS: Family Provider Family Medicine; PCP Family Medicine; Referring Provider Psychiatry & Neurology Neuromuscular Medicine; Visit Provider Psychiatry & Neurology Neuromuscular Medicine
DX: G62.2 Polyneuropathy due to other toxic agents (principal); G61.81 Chronic inflammatory demyelinating polyneuritis
CPT/HCPCS: 96365; 96366 ×3; A4216; J1568

== ENCOUNTER → 2019-05-27 12:02 | Outpatient (CLI) | payer MEDICARE, SELFPAY ==
[2019-04-30 12:26] VITALS: BMI 43.7
[2019-05-26 12:25] VITALS: BMI 44.9
[2019-05-27 12:12] VITALS: BP 163/57; PULSE 65; RESP 18; TEMP 36.8; O2SAT 95; BMI 44.9
[2019-05-27] MEDS: Immune Globulin 20 gm Premixed Solution IV (12:26)
[2019-05-27] MEDS: Immune Globulin 5 GM Premixed Solution IV (14:59)
== END ==
PROVIDERS: Family Provider Family Medicine; PCP Family Medicine; Referring Provider Psychiatry & Neurology Neuromuscular Medicine; Visit Provider Psychiatry & Neurology Neuromuscular Medicine
DX: G62.2 Polyneuropathy due to other toxic agents (principal); G61.81 Chronic inflammatory demyelinating polyneuritis
CPT/HCPCS: 96365; 96366 ×3; A4216; J1568

== ENCOUNTER → 2019-06-25 11:52 | Outpatient (CLI) | payer MEDICARE, SELFPAY ==
[2019-05-27 12:12] VITALS: BMI 44.9
[2019-06-25 12:05] VITALS: BP 158/67; PULSE 53; RESP 18; TEMP 36.9; O2SAT 93; BMI 44.0
[2019-06-25] MEDS: Immune Globulin 20 gm Premixed Solution 31 BAG IV (12:22)
[2019-06-25] MEDS: Immune Globulin 5 GM Premixed Solution 124 BAG IV (14:44)
== END ==
PROVIDERS: Family Provider Family Medicine; PCP Family Medicine; Referring Provider Psychiatry & Neurology Neuromuscular Medicine; Visit Provider Psychiatry & Neurology Neuromuscular Medicine
DX: G61.81 Chronic inflammatory demyelinating polyneuritis (principal); G62.2 Polyneuropathy due to other toxic agents
CPT/HCPCS: 96365; 96366 ×2; A4216; J1568

== ENCOUNTER → 2019-06-26 12:02 | Outpatient (CLI) | payer MEDICARE, SELFPAY ==
[2019-05-27 12:12] VITALS: BMI 44.9
[2019-06-25 12:05] VITALS: BMI 44.0
[2019-06-26] MEDS: Immune Globulin 20 gm Premixed Solution 31 BAG IV (12:35)
[2019-06-26 12:36] VITALS: BP 140/64; PULSE 103; RESP 16; TEMP 36.6; O2SAT 93; BMI 44.7
[2019-06-26] MEDS: Immune Globulin 5 GM Premixed Solution 124 BAG IV (15:03)
== END ==
PROVIDERS: Family Provider Family Medicine; PCP Family Medicine; Visit Provider Psychiatry & Neurology Neuromuscular Medicine
DX: G61.81 Chronic inflammatory demyelinating polyneuritis (principal); G62.2 Polyneuropathy due to other toxic agents
CPT/HCPCS: 96365; 96366 ×2; A4216; J1568

== ENCOUNTER → 2019-06-30 15:10 | Outpatient (CLI) | payer MEDICARE, SELFPAY ==
[2019-06-26 12:36] VITALS: BMI 44.7
[2019-06-30 18:20] LABS: Vitamin D,25 Hydroxy 17.4 ng/mL (29.95-100.01)
[2019-06-30 18:37] LABS: ALB/GLOB Ratio 0.6 RATIO (0.9-2.4); AST(SGOT) 56 U/L (15-37); Alanine Aminotransfer ALT/SGPT 47 U/L (13-56); Albumin, Serum 2.9 g/dL (3.2-5.0); Alkaline Phosphatase 94 U/L (45-117); Anion Gap 7 (5-15); BUN 17 mg/dL (7-18); BUN/Creat Ratio 19.5 RATIO (10-20); Calcium,Total 8.9 mg/dL (8.5-10.1); Chloride 107 mmol/L (98-107); Cholesterol 255 mg/dL (200); Creatinine, Serum 0.87 mg/dL (0.55-1.02); EST Glomerular Filtration Rate 68 mL/min (>60); Est Glom Filt Rate - Afr Amer 82 mL/min (>60); Globulin 5.2 g/dL (2.2-4.2); Glucose 92 mg/dL (74-106); High Density Lipoprotein 49 mg/dL; Potassium 3.8 mmol/L (3.5-5.1); Protein, Total 8.1 g/dL (6.4-8.2); Sodium Level 142 mmol/L (136-145); Thyroid Stim Hormone (TSH) 2.95 uIU/mL (0.358-3.74); Triglycerides 131 mg/dL; Very Low Density Lipoprotein 26 mg/dL (5-40)
== END ==
PROVIDERS: Family Provider Family Medicine; PCP Family Medicine; Referring Provider Family Medicine; Visit Provider Family Medicine
DX: C56.9 Malignant neoplasm of unspecified ovary (principal); E11.65 Type 2 diabetes mellitus with hyperglycemia; E03.9 Hypothyroidism, unspecified; E55.9 Vitamin D deficiency, unspecified
CPT/HCPCS: 36415; 80053; 80061; 82306; 83036; 84443

== ENCOUNTER → 2019-07-23 12:09 | Outpatient (CLI) | payer MEDICARE, SELFPAY ==
[2019-06-26 12:36] VITALS: BMI 44.7
[2019-07-23 12:13] VITALS: BP 168/58; PULSE 60; RESP 18; TEMP 36.8; O2SAT 95; BMI 44.7
[2019-07-23] MEDS: Immune Globulin 20 gm Premixed Solution 31 BAG IV (12:33)
[2019-07-23] MEDS: Immune Globulin 5 GM Premixed Solution 124 BAG IV (15:10)
== END ==
PROVIDERS: Family Provider Family Medicine; PCP Family Medicine; Visit Provider Psychiatry & Neurology Neuromuscular Medicine
DX: G62.2 Polyneuropathy due to other toxic agents (principal); G61.81 Chronic inflammatory demyelinating polyneuritis
CPT/HCPCS: 96365; 96366 ×3; A4216; J1568

== ENCOUNTER → 2019-07-24 12:00 | Outpatient (CLI) | payer MEDICARE, SELFPAY ==
[2019-07-23 12:13] VITALS: BMI 44.7
[2019-07-24] MEDS: Immune Globulin 20 gm Premixed Solution 31 BAG IV (12:26)
[2019-07-24 12:34] VITALS: BP 152/63; PULSE 57; RESP 16; TEMP 36.5; O2SAT 96; BMI 47.5
[2019-07-24] MEDS: Immune Globulin 5 GM Premixed Solution 124 BAG IV (14:48)
== END ==
PROVIDERS: Family Provider Family Medicine; PCP Family Medicine; Visit Provider Psychiatry & Neurology Neuromuscular Medicine
DX: G61.81 Chronic inflammatory demyelinating polyneuritis (principal); G62.2 Polyneuropathy due to other toxic agents
CPT/HCPCS: 96365; 96366 ×3; A4216; J1568

== ENCOUNTER → 2019-08-27 12:03 | Outpatient (CLI) | payer MEDICARE, SELFPAY ==
[2019-07-24 12:34] VITALS: BMI 47.5
[2019-08-27 12:27] VITALS: BP 149/67; PULSE 53; RESP 18; TEMP 36.6; O2SAT 93; BMI 47.5
[2019-08-27] MEDS: Immune Globulin 20 gm Premixed Solution 31 BAG IV (12:38)
[2019-08-27] MEDS: Immune Globulin 5 GM Premixed Solution 124 BAG IV (14:59)
== END ==
PROVIDERS: Family Provider Family Medicine; PCP Family Medicine; Referring Provider Psychiatry & Neurology Neuromuscular Medicine; Visit Provider Psychiatry & Neurology Neuromuscular Medicine
DX: G61.81 Chronic inflammatory demyelinating polyneuritis (principal); G62.2 Polyneuropathy due to other toxic agents
CPT/HCPCS: 96365; 96366 ×3; A4216; J1568

== ENCOUNTER → 2019-08-28 12:00 | Outpatient (CLI) | payer MEDICARE, SELFPAY ==
[2019-07-24 12:34] VITALS: BMI 47.5
[2019-08-27 12:27] VITALS: BMI 47.5
[2019-08-28] MEDS: Immune Globulin 20 gm Premixed Solution 31 BAG IV (12:20)
[2019-08-28 12:31] VITALS: BP 148/70; PULSE 60; RESP 16; TEMP 36.9; O2SAT 96; BMI 46.5
[2019-08-28] MEDS: Immune Globulin 5 GM Premixed Solution 124 BAG IV (15:04)
== END ==
PROVIDERS: Family Provider Family Medicine; PCP Family Medicine; Referring Provider Psychiatry & Neurology Neuromuscular Medicine; Visit Provider Psychiatry & Neurology Neuromuscular Medicine
DX: G61.81 Chronic inflammatory demyelinating polyneuritis (principal); G62.2 Polyneuropathy due to other toxic agents
CPT/HCPCS: 96365; 96366 ×3; A4216; J1568

== ENCOUNTER → 2019-09-29 12:03 | Outpatient (CLI) | payer MEDICARE, SELFPAY ==
[2019-08-28 12:31] VITALS: BMI 46.5
[2019-09-29] MEDS: Immune Globulin 20 gm Premixed Solution 31 BAG IV (12:31)
[2019-09-29 12:33] VITALS: BP 156/50; PULSE 61; RESP 16; TEMP 36.9; O2SAT 95; BMI 43.7
[2019-09-29] MEDS: Immune Globulin 5 GM Premixed Solution 124 BAG IV (14:54)
== END ==
PROVIDERS: Family Provider Family Medicine; PCP Family Medicine; Referring Provider Psychiatry & Neurology Neuromuscular Medicine; Visit Provider Psychiatry & Neurology Neuromuscular Medicine
DX: G61.81 Chronic inflammatory demyelinating polyneuritis (principal); G62.2 Polyneuropathy due to other toxic agents
CPT/HCPCS: 96365; 96366 ×2; J1568

== ENCOUNTER → 2019-09-30 12:01 | Outpatient (CLI) | payer MEDICARE, SELFPAY ==
[2019-08-28 12:31] VITALS: BMI 46.5
[2019-09-29 12:33] VITALS: BMI 43.7
[2019-09-30 12:25] VITALS: BP 155/54; PULSE 58; TEMP 36.9; BMI 43.7
[2019-09-30] MEDS: Immune Globulin 20 gm Premixed Solution 31 BAG IV (12:35)
[2019-09-30] MEDS: Immune Globulin 5 GM Premixed Solution 124 BAG IV (14:58)
== END ==
PROVIDERS: Family Provider Family Medicine; PCP Family Medicine; Referring Provider Psychiatry & Neurology Neuromuscular Medicine; Visit Provider Psychiatry & Neurology Neuromuscular Medicine
DX: G61.81 Chronic inflammatory demyelinating polyneuritis (principal); G62.2 Polyneuropathy due to other toxic agents
CPT/HCPCS: 96365; 96366 ×3; A4216; J1568

== ENCOUNTER → 2019-10-26 12:13 | Outpatient (CLI) | payer MEDICARE, SELFPAY ==
[2019-09-30 12:25] VITALS: BMI 43.7
[2019-10-26 12:45] VITALS: BP 137/78; PULSE 69; RESP 16; TEMP 37.2; O2SAT 94; BMI 46.3
[2019-10-26] MEDS: Immune Globulin 20 gm Premixed Solution 31 BAG IV (12:49)
[2019-10-26] MEDS: Immune Globulin 5 GM Premixed Solution 124 BAG IV (15:26)
== END ==
PROVIDERS: Family Provider Family Medicine; PCP Family Medicine; Referring Provider Psychiatry & Neurology Neuromuscular Medicine; Visit Provider Psychiatry & Neurology Neuromuscular Medicine
DX: G61.81 Chronic inflammatory demyelinating polyneuritis (principal); G62.2 Polyneuropathy due to other toxic agents
CPT/HCPCS: 96365; 96366 ×3; A4216; J1568

== ENCOUNTER → 2019-10-27 12:04 | Outpatient (CLI) | payer MEDICARE, SELFPAY ==
[2019-09-30 12:25] VITALS: BMI 43.7
[2019-10-26 12:45] VITALS: BMI 46.3
[2019-10-27] MEDS: Immune Globulin 20 gm Premixed Solution 31 BAG IV (12:25)
[2019-10-27 12:26] VITALS: BP 158/82; PULSE 61; RESP 16; TEMP 36.6; O2SAT 95; BMI 46.3
[2019-10-27] MEDS: Immune Globulin 5 GM Premixed Solution 124 BAG IV (14:58)
== END ==
PROVIDERS: Family Provider Family Medicine; PCP Family Medicine; Visit Provider Psychiatry & Neurology Neuromuscular Medicine
DX: G61.81 Chronic inflammatory demyelinating polyneuritis (principal); G62.2 Polyneuropathy due to other toxic agents
CPT/HCPCS: 96365; 96366 ×3; A4216; J1568

== ENCOUNTER → 2019-11-25 11:54 | Outpatient (CLI) | payer MEDICARE, SELFPAY ==
[2019-10-27 12:26] VITALS: BMI 46.3
[2019-11-25 12:05] VITALS: BP 130/73; PULSE 50; RESP 18; TEMP 35.9; O2SAT 99; BMI 46.3
[2019-11-25] MEDS: Immune Globulin 20 gm Premixed Solution 31 BAG IV (12:22)
[2019-11-25] MEDS: Immune Globulin 5 GM Premixed Solution 124 BAG IV (14:47)
== END ==
PROVIDERS: Family Provider Family Medicine; PCP Family Medicine; Referring Provider Psychiatry & Neurology Neuromuscular Medicine; Visit Provider Psychiatry & Neurology Neuromuscular Medicine
DX: G62.2 Polyneuropathy due to other toxic agents (principal); G61.81 Chronic inflammatory demyelinating polyneuritis
CPT/HCPCS: 96365; 96366 ×3; A4216; J1568

== ENCOUNTER → 2019-11-26 12:08 | Outpatient (CLI) | payer MEDICARE, SELFPAY ==
[2019-10-27 12:26] VITALS: BMI 46.3
[2019-11-25 12:05] VITALS: BMI 46.3
[2019-11-26] MEDS: Immune Globulin 20 gm Premixed Solution 31 BAG IV (12:19)
[2019-11-26 12:28] VITALS: BP 141/77; PULSE 98; RESP 16; TEMP 36.3; O2SAT 97; BMI 46.3
[2019-11-26] MEDS: Immune Globulin 5 GM Premixed Solution 124 BAG IV (14:55)
== END ==
PROVIDERS: Family Provider Family Medicine; PCP Family Medicine; Referring Provider Psychiatry & Neurology Neuromuscular Medicine; Visit Provider Psychiatry & Neurology Neuromuscular Medicine
DX: G61.81 Chronic inflammatory demyelinating polyneuritis (principal); G62.2 Polyneuropathy due to other toxic agents
CPT/HCPCS: 96365; 96366 ×3; A4216; J1568

== ENCOUNTER → 2019-12-21 12:01 | Outpatient (CLI) | payer MEDICARE, SELFPAY ==
[2019-11-25 12:05] VITALS: BMI 46.3
[2019-11-26 12:28] VITALS: BMI 46.3
[2019-12-21 12:15] VITALS: BP 170/73; PULSE 80; RESP 16; TEMP 36.4; O2SAT 95; BMI 46.3
[2019-12-21] MEDS: Immune Globulin 20 gm Premixed Solution 31 BAG IV (12:21)
[2019-12-21] MEDS: Immune Globulin 5 GM Premixed Solution 124 BAG IV (15:02)
== END ==
PROVIDERS: PCP Family Medicine; Visit Provider Psychiatry & Neurology Neuromuscular Medicine
DX: G61.81 Chronic inflammatory demyelinating polyneuritis (principal); G62.2 Polyneuropathy due to other toxic agents
CPT/HCPCS: 96365; 96366 ×3; A4216; J1568

== ENCOUNTER → 2019-12-22 12:02 | Outpatient (CLI) | payer MEDICARE, SELFPAY ==
[2019-11-25 12:05] VITALS: BMI 46.3
[2019-12-21 12:15] VITALS: BMI 46.3
[2019-12-22 12:33] VITALS: BP 147/58; PULSE 64; RESP 16; TEMP 36.2; O2SAT 93; BMI 43.2
[2019-12-22] MEDS: 0.9 % NaCl (Sterile) Posiflush 10 mL IV (12:41)
[2019-12-22] MEDS: Immune Globulin 20 gm Premixed Solution 31 BAG IV (12:44)
[2019-12-22] MEDS: Immune Globulin 5 GM Premixed Solution 124 BAG IV (15:12)
[2019-12-22] MEDS: 0.9% Saline Lock 10 ML Syringe IV (15:46)
== END ==
PROVIDERS: PCP Family Medicine; Referring Provider Psychiatry & Neurology Neuromuscular Medicine; Visit Provider Psychiatry & Neurology Neuromuscular Medicine
DX: G61.81 Chronic inflammatory demyelinating polyneuritis (principal); G62.2 Polyneuropathy due to other toxic agents
CPT/HCPCS: 96365; 96366 ×3; A4216; J1568

== ENCOUNTER → 2020-01-18 12:01 | Outpatient (CLI) | payer MEDICARE, SELFPAY ==
[2019-11-26 12:28] VITALS: BMI 46.3
[2019-12-22 12:33] VITALS: BMI 43.2
[2020-01-18 12:21] VITALS: BP 150/62; PULSE 66; RESP 16; TEMP 37.1; O2SAT 95; BMI 46.3
[2020-01-18] MEDS: Immune Globulin 20 gm Premixed Solution 31 BAG IV (12:38)
[2020-01-18] MEDS: Immune Globulin 5 GM Premixed Solution 124 BAG IV (15:06)
[2020-01-18] MEDS: 0.9% NaCl PICC Flush IV (15:35)
== END ==
PROVIDERS: PCP Family Medicine; Referring Provider Psychiatry & Neurology Neuromuscular Medicine; Visit Provider Psychiatry & Neurology Neuromuscular Medicine
DX: G61.81 Chronic inflammatory demyelinating polyneuritis (principal); G62.2 Polyneuropathy due to other toxic agents
CPT/HCPCS: 96365; 96366 ×3; A4216; J1568

== ENCOUNTER → 2020-01-19 11:57 | Outpatient (CLI) | payer MEDICARE, SELFPAY ==
[2019-11-26 12:28] VITALS: BMI 46.3
[2020-01-18 12:21] VITALS: BMI 46.3
[2020-01-19 12:22] VITALS: BP 151/78; PULSE 64; RESP 16; TEMP 36.8; O2SAT 93; BMI 46.3
[2020-01-19] MEDS: Immune Globulin 20 gm Premixed Solution 31 BAG IV (12:23)
[2020-01-19] MEDS: 0.9 % NaCl (Sterile) Posiflush 10 mL IV (12:23)
[2020-01-19] MEDS: Immune Globulin 5 GM Premixed Solution 124 BAG IV (15:09)
[2020-01-19] MEDS: 0.9% NaCl VAD Flush IV (15:44)
== END ==
PROVIDERS: PCP Family Medicine; Referring Provider Psychiatry & Neurology Neuromuscular Medicine; Visit Provider Psychiatry & Neurology Neuromuscular Medicine
DX: G61.81 Chronic inflammatory demyelinating polyneuritis (principal); G62.2 Polyneuropathy due to other toxic agents
CPT/HCPCS: 96365; 96366; A4216; J1568

== ENCOUNTER → 2020-02-15 12:01 | Outpatient (CLI) | payer MEDICARE, SELFPAY ==
[2019-12-22 12:33] VITALS: BMI 43.2
[2020-01-19 12:22] VITALS: BMI 46.3
[2020-02-15] MEDS: 0.9 % NaCl (Sterile) Posiflush 10 mL IV (12:30)
[2020-02-15] MEDS: Immune Globulin 20 gm Premixed Solution 31 BAG IV (12:33)
[2020-02-15 12:34] VITALS: BP 148/62; PULSE 62; RESP 16; TEMP 36.6; O2SAT 96; BMI 46.7
[2020-02-15] MEDS: Immune Globulin 5 GM Premixed Solution 124 BAG IV (14:59)
[2020-02-15] MEDS: 0.9% NaCl Peripheral Flush Adult/Peds IV (15:30)
== END ==
PROVIDERS: PCP Family Medicine; Referring Provider Psychiatry & Neurology Neuromuscular Medicine; Visit Provider Psychiatry & Neurology Neuromuscular Medicine
DX: G61.81 Chronic inflammatory demyelinating polyneuritis (principal); G62.2 Polyneuropathy due to other toxic agents
CPT/HCPCS: 96365; 96366 ×3; A4216; J1568

== ENCOUNTER → 2020-02-16 12:07 | Outpatient (CLI) | payer MEDICARE, SELFPAY ==
[2019-12-22 12:33] VITALS: BMI 43.2
[2020-02-15 12:34] VITALS: BMI 46.7
[2020-02-16 12:28] VITALS: BP 148/53; PULSE 63; RESP 18; TEMP 36.6; O2SAT 95; BMI 46.7
[2020-02-16] MEDS: 0.9 % NaCl (Sterile) Posiflush 10 mL IV (12:30)
[2020-02-16] MEDS: Immune Globulin 20 gm Premixed Solution 31 BAG IV (12:34)
[2020-02-16] MEDS: Immune Globulin 5 GM Premixed Solution 124 BAG IV (15:01)
[2020-02-16 15:38] VITALS: BP 141/60; PULSE 68; RESP 16; TEMP 36.4
[2020-02-16] MEDS: 0.9% NaCl VAD Flush IV (15:40)
== END ==
PROVIDERS: PCP Family Medicine; Referring Provider Psychiatry & Neurology Neuromuscular Medicine; Visit Provider Psychiatry & Neurology Neuromuscular Medicine
DX: G61.81 Chronic inflammatory demyelinating polyneuritis (principal); G62.2 Polyneuropathy due to other toxic agents
CPT/HCPCS: 96365; 96366 ×3; A4216; J1568

== ENCOUNTER → 2020-03-15 12:09 | Outpatient (CLI) | payer MEDICARE, SELFPAY ==
[2020-02-15 12:34] VITALS: BMI 46.7
[2020-02-16 12:28] VITALS: BMI 46.7
[2020-03-15 12:16] VITALS: BP 160/69; PULSE 77; RESP 18; TEMP 37.2; O2SAT 95; BMI 46.9
[2020-03-15] MEDS: Immune Globulin 20 gm Premixed Solution 31.5 BAG IV (12:48)
[2020-03-15] MEDS: Immune Globulin 5 GM Premixed Solution 126 BAG IV (15:16)
[2020-03-15] MEDS: 0.9% NaCl Peripheral Flush Adult/Peds IV (15:47)
== END ==
PROVIDERS: PCP Family Medicine; Visit Provider Psychiatry & Neurology Neuromuscular Medicine
DX: G61.81 Chronic inflammatory demyelinating polyneuritis (principal); G62.2 Polyneuropathy due to other toxic agents
CPT/HCPCS: 96365; 96366; A4216; J1568

== ENCOUNTER → 2020-03-16 12:14 | Outpatient (CLI) | payer MEDICARE, SELFPAY ==
[2020-02-15 12:34] VITALS: BMI 46.7
[2020-03-15 12:16] VITALS: BMI 46.9
[2020-03-16] MEDS: 0.9% NaCl Peripheral Flush Adult/Peds IV ×2 (12:37→15:30)
[2020-03-16] MEDS: Immune Globulin 20 gm Premixed Solution 31.5 BAG IV (12:41)
[2020-03-16 12:43] VITALS: BP 151/78; PULSE 90; RESP 18; TEMP 36.7; O2SAT 92; BMI 46.9
[2020-03-16] MEDS: Immune Globulin 5 GM Premixed Solution 158 BAG IV (15:04)
[2020-03-16 15:28] VITALS: BP 149/59; PULSE 64; RESP 16; O2SAT 98
== END ==
PROVIDERS: PCP Family Medicine; Referring Provider Psychiatry & Neurology Neuromuscular Medicine; Visit Provider Psychiatry & Neurology Neuromuscular Medicine
DX: G61.81 Chronic inflammatory demyelinating polyneuritis (principal); G62.2 Polyneuropathy due to other toxic agents
CPT/HCPCS: 96365; 96366 ×2; A4216; J1568

== ENCOUNTER → 2020-04-12 12:02 | Outpatient (CLI) | payer MEDICARE, SELFPAY ==
[2020-02-16 12:28] VITALS: BMI 46.7
[2020-03-16 12:43] VITALS: BMI 46.9
[2020-04-12] MEDS: 0.9 % NaCl (Sterile) Posiflush 10 mL IV (12:30)
[2020-04-12] MEDS: Immune Globulin 20 gm Premixed Solution 31.5 BAG IV (12:31)
[2020-04-12 12:35] VITALS: BP 148/72; PULSE 58; RESP 16; TEMP 37.3; O2SAT 96; BMI 46.5
[2020-04-12] MEDS: Immune Globulin 5 GM Premixed Solution 126 BAG IV (14:59)
[2020-04-12] MEDS: 0.9% NaCl VAD Flush IV (15:35)
== END ==
PROVIDERS: PCP Family Medicine; Referring Provider Psychiatry & Neurology Neuromuscular Medicine; Visit Provider Psychiatry & Neurology Neuromuscular Medicine
DX: G61.81 Chronic inflammatory demyelinating polyneuritis (principal); G62.2 Polyneuropathy due to other toxic agents
CPT/HCPCS: 96365; 96366; A4216; J1568

== ENCOUNTER → 2020-04-13 12:06 | Outpatient (CLI) | payer MEDICARE, SELFPAY ==
[2020-02-16 12:28] VITALS: BMI 46.7
[2020-04-12 12:35] VITALS: BMI 46.5
[2020-04-13 12:40] VITALS: BP 154/74; PULSE 50; RESP 16; TEMP 36.2; O2SAT 94; BMI 46.5
[2020-04-13] MEDS: 0.9% NaCl IVPB Med Flush (250 mL) 15 ML IV ×2 (12:41→12:46)
[2020-04-13] MEDS: Immune Globulin 20 gm Premixed Solution 31.5 BAG IV (12:41)
[2020-04-13] MEDS: Immune Globulin 5 GM Premixed Solution 126 BAG IV (15:28)
[2020-04-13] MEDS: 0.9% NaCl VAD Flush IV (15:59)
== END ==
PROVIDERS: PCP Family Medicine; Referring Provider Psychiatry & Neurology Neuromuscular Medicine; Visit Provider Psychiatry & Neurology Neuromuscular Medicine
DX: G61.81 Chronic inflammatory demyelinating polyneuritis (principal); G62.2 Polyneuropathy due to other toxic agents
CPT/HCPCS: 96365; 96366; J7050; A4216; J1568

== ENCOUNTER → 2020-05-10 12:11 | Outpatient (CLI) | payer MEDICARE, SELFPAY ==
[2020-03-16 12:43] VITALS: BMI 46.9
[2020-04-13 12:40] VITALS: BMI 46.5
[2020-05-10 12:32] VITALS: BP 147/83; PULSE 80; RESP 16; TEMP 35.9; O2SAT 95; BMI 47.1
[2020-05-10] MEDS: 0.9 % NaCl (Sterile) Posiflush 10 mL IV (12:40)
[2020-05-10] MEDS: Immune Globulin 20 gm Premixed Solution 31.5 BAG IV (12:42)
[2020-05-10] MEDS: Immune Globulin 5 GM Premixed Solution 126 BAG IV (15:15)
[2020-05-10] MEDS: 0.9% NaCl VAD Flush IV (15:42)
== END ==
PROVIDERS: PCP Family Medicine; Referring Provider Psychiatry & Neurology Neuromuscular Medicine; Visit Provider Psychiatry & Neurology Neuromuscular Medicine
DX: G61.81 Chronic inflammatory demyelinating polyneuritis (principal); G62.2 Polyneuropathy due to other toxic agents
CPT/HCPCS: 96365; 96366 ×3; A4216; J1568

== ENCOUNTER → 2020-05-11 12:19 | Outpatient (CLI) | payer MEDICARE, SELFPAY ==
[2020-03-16 12:43] VITALS: BMI 46.9
[2020-05-10 12:32] VITALS: BMI 47.1
[2020-05-11 12:45] VITALS: BP 150/86; PULSE 74; RESP 16; TEMP 36.3; O2SAT 95; BMI 47.1
[2020-05-11] MEDS: Immune Globulin 20 gm Premixed Solution 31.5 BAG IV (13:00)
[2020-05-11] MEDS: 0.9 % NaCl (Sterile) Posiflush 10 mL IV (13:00)
[2020-05-11 13:45] VITALS: BP 161/76; PULSE 71; RESP 16; O2SAT 95
[2020-05-11] MEDS: Immune Globulin 5 GM Premixed Solution 158 BAG IV (15:38)
[2020-05-11] MEDS: 0.9% NaCl VAD Flush IV (16:09)
== END ==
PROVIDERS: PCP Family Medicine; Referring Provider Psychiatry & Neurology Neuromuscular Medicine; Visit Provider Psychiatry & Neurology Neuromuscular Medicine
DX: G61.81 Chronic inflammatory demyelinating polyneuritis (principal); G62.2 Polyneuropathy due to other toxic agents
CPT/HCPCS: 96365; 96366 ×2; A4216; J1568

== ENCOUNTER → 2020-06-07 11:58 | Outpatient (CLI) | payer MEDICARE, SELFPAY ==
[2020-04-13 12:40] VITALS: BMI 46.5
[2020-05-11 12:45] VITALS: BMI 47.1
[2020-06-07 12:00] VITALS: BP 145/75; PULSE 66; RESP 16; TEMP 36.8; O2SAT 96; BMI 46.9
[2020-06-07] MEDS: 0.9% NaCl Peripheral Flush Adult/Peds IV ×2 (12:18→15:27)
[2020-06-07] MEDS: Immune Globulin 20 gm Premixed Solution 31.5 BAG IV (12:23)
[2020-06-07] MEDS: Immune Globulin 5 GM Premixed Solution 158 BAG IV (14:54)
[2020-06-07 15:31] VITALS: BP 127/64; PULSE 62; RESP 16; TEMP 36.3; O2SAT 92
== END ==
PROVIDERS: PCP Family Medicine; Referring Provider Psychiatry & Neurology Neuromuscular Medicine; Visit Provider Psychiatry & Neurology Neuromuscular Medicine
DX: G61.81 Chronic inflammatory demyelinating polyneuritis (principal); G62.2 Polyneuropathy due to other toxic agents
CPT/HCPCS: 96365; 96366 ×3; A4216; J1568

== ENCOUNTER → 2020-06-08 12:00 | Outpatient (CLI) | payer MEDICARE, SELFPAY ==
[2020-04-13 12:40] VITALS: BMI 46.5
[2020-06-07 12:00] VITALS: BMI 46.9
[2020-06-08] MEDS: 0.9 % NaCl (Sterile) Posiflush 10 mL IV (12:20)
[2020-06-08 12:23] VITALS: BP 142/86; PULSE 67; RESP 20; TEMP 36.4; O2SAT 95; BMI 46.9
[2020-06-08] MEDS: Immune Globulin 20 gm Premixed Solution 31.5 BAG IV (12:36)
[2020-06-08] MEDS: Immune Globulin 5 GM Premixed Solution 126 BAG IV (15:06)
[2020-06-08] MEDS: 0.9% NaCl Peripheral Flush Adult/Peds IV (15:33)
== END ==
PROVIDERS: PCP Family Medicine; Referring Provider Psychiatry & Neurology Neuromuscular Medicine; Visit Provider Psychiatry & Neurology Neuromuscular Medicine
DX: G61.81 Chronic inflammatory demyelinating polyneuritis (principal); G62.2 Polyneuropathy due to other toxic agents
CPT/HCPCS: 96365; 96366 ×3; A4216; J1568

== ENCOUNTER → 2020-07-05 12:07 | Outpatient (CLI) | payer MEDICARE, SELFPAY ==
[2020-05-11 12:45] VITALS: BMI 47.1
[2020-06-08 12:23] VITALS: BMI 46.9
[2020-07-05 12:28] VITALS: BP 169/60; PULSE 62; RESP 16; TEMP 36.6; O2SAT 100; BMI 43.7
[2020-07-05] MEDS: Immune Globulin 20 gm Premixed Solution 31.5 BAG IV (12:28)
[2020-07-05] MEDS: Immune Globulin 5 GM Premixed Solution 126 BAG IV (15:10)
[2020-07-05] MEDS: 0.9% NaCl Peripheral Flush Adult/Peds IV (15:44)
== END ==
PROVIDERS: PCP Family Medicine; Referring Provider Psychiatry & Neurology Neuromuscular Medicine; Visit Provider Psychiatry & Neurology Neuromuscular Medicine
DX: G61.81 Chronic inflammatory demyelinating polyneuritis (principal); G62.2 Polyneuropathy due to other toxic agents
CPT/HCPCS: 96365; 96366; A4216; J1568

== ENCOUNTER → 2020-07-06 12:08 | Outpatient (CLI) | payer MEDICARE, SELFPAY ==
[2020-05-11 12:45] VITALS: BMI 47.1
[2020-07-05 12:28] VITALS: BMI 43.7
[2020-07-06] MEDS: Immune Globulin 20 gm Premixed Solution 31.5 BAG IV (12:35)
[2020-07-06 12:37] VITALS: BP 163/65; PULSE 70; RESP 18; TEMP 36.2; O2SAT 97; BMI 47.1
[2020-07-06 14:10] VITALS: BP 149/61; PULSE 63; TEMP 36.6; O2SAT 98
[2020-07-06] MEDS: Immune Globulin 5 GM Premixed Solution 126 BAG IV (15:06)
[2020-07-06] MEDS: 0.9% NaCl Peripheral Flush Adult/Peds IV (15:29)
[2020-07-06 15:37] VITALS: BP 155/67; PULSE 61; RESP 16; TEMP 35.9
== END ==
PROVIDERS: PCP Family Medicine; Referring Provider Psychiatry & Neurology Neuromuscular Medicine; Visit Provider Psychiatry & Neurology Neuromuscular Medicine
DX: G61.81 Chronic inflammatory demyelinating polyneuritis (principal); G62.2 Polyneuropathy due to other toxic agents
CPT/HCPCS: 96365; 96366; A4216; J1568

== ENCOUNTER → 2020-08-02 11:59 | Outpatient (CLI) | payer MEDICARE, SELFPAY ==
[2020-06-08 12:23] VITALS: BMI 46.9
[2020-07-06 12:37] VITALS: BMI 47.1
[2020-08-02] MEDS: 0.9 % NaCl (Sterile) Posiflush 10 mL IV (12:15)
[2020-08-02] MEDS: Immune Globulin 20 gm Premixed Solution 31.5 BAG IV (12:33)
[2020-08-02 12:39] VITALS: BP 137/69; PULSE 93; RESP 16; TEMP 36.1; O2SAT 98; BMI 45.8
[2020-08-02] MEDS: Immune Globulin 5 GM Premixed Solution 158 BAG IV (15:09)
[2020-08-02] MEDS: 0.9% NaCl VAD Flush IV (15:33)
== END ==
PROVIDERS: PCP Family Medicine; Referring Provider Psychiatry & Neurology Neuromuscular Medicine; Visit Provider Psychiatry & Neurology Neuromuscular Medicine
DX: G61.81 Chronic inflammatory demyelinating polyneuritis (principal); G62.2 Polyneuropathy due to other toxic agents
CPT/HCPCS: 96365; 96366 ×2; A4216; J1568

== ENCOUNTER → 2020-08-03 12:03 | Outpatient (CLI) | payer MEDICARE, SELFPAY ==
[2020-06-08 12:23] VITALS: BMI 46.9
[2020-08-02 12:39] VITALS: BMI 45.8
[2020-08-03 12:15] VITALS: BP 172/87; PULSE 72; RESP 16; TEMP 36.5; O2SAT 96; BMI 43.7
[2020-08-03] MEDS: Immune Globulin 20 gm Premixed Solution 31.5 BAG IV (12:18)
[2020-08-03] MEDS: Immune Globulin 5 GM Premixed Solution 158 BAG IV (14:47)
[2020-08-03] MEDS: 0.9% NaCl Peripheral Flush Adult/Peds IV (15:12)
== END ==
PROVIDERS: PCP Family Medicine; Referring Provider Psychiatry & Neurology Neuromuscular Medicine; Visit Provider Psychiatry & Neurology Neuromuscular Medicine
CPT/HCPCS: A4216; J1568

== ENCOUNTER 2020-08-06 22:22 | Emergency (ER) | payer MEDICARE, SELFPAY ==
[2020-08-03 12:15] VITALS: BMI 43.7
[2020-08-06 22:24] VITALS: BP 181/74; PULSE 64; RESP 20; TEMP 36.6; O2SAT 97; BMI 48.6
--- NOTE | 2020-08-06 22:50 | RAD_ITS ---
STUDY: X-RAY - LEFT ELBOW REASON FOR EXAM: Female, 70 years old. PAIN S/P FALL TECHNIQUE: 3 view(s) of the elbow. COMPARISON: None. FINDINGS: Normal visualized humerus, radius and ulna. Normal radiocapitellar and ulnotrochlear articulations. The soft tissue structures are unremarkable. RAD/Elbow min 3 Views IMPRESSION: Normal x-ray examination of the elbow. Electronically Signed: Richard Patel MD at 23:11 EDT , Service support ,
--- NOTE | 2020-08-06 22:50 | RAD_ITS ---
STUDY: X-RAY - RIGHT KNEE REASON FOR EXAM: Female, 70 years old. PAIN S/P FALL TECHNIQUE: 4 view(s) of the knee. COMPARISON: 12/18/2018 FINDINGS: Normal visualized distal femur. Normal visualized proximal tibia and fibula. Normal proximal tibiofibular articulation. There is moderate degenerative arthrosis of the medial femorotibial compartment with moderate joint space narrowing. Normal lateral femorotibial compartment. There is moderate degenerative arthrosis of the patellofemoral articulation. The soft tissue structures are unremarkable. RAD/Knee 4 or More Views IMPRESSION: Degenerative arthrosis. Electronically Signed: Richard Patel MD at 23:12 EDT , Service support ,
--- NOTE | 2020-08-06 22:50 | RAD_ITS ---
STUDY: X-RAY - LEFT SHOULDER REASON FOR EXAM: Female, 70 years old. PAIN S/P FALL TECHNIQUE: 2 view(s) of the shoulder. COMPARISON: None. FINDINGS: There is moderate degenerative arthrosis of the glenohumeral articulation. There is degenerative arthrosis of the acromioclavicular joint without inferior osseous spur formation. Normal acromion. There is demineralization of the humerus and visualized osseous structures. The soft tissue structures are unremarkable. Normal visualized pulmonary apex. RAD/Shoulder min 2 Views IMPRESSION: Degenerative arthrosis, no demonstrated fracture. Electronically Signed: Richard Patel MD at 23:13 EDT , Service support ,
--- NOTE | 2020-08-06 23:11 | ED.VISSUMM ---
- ER Visit Summary Date of Service: 08/06/20 Chief Complaint: [Fall with injury to left shoulder] History of Present Illness: The patient is a 70 F [presents to the emergency department with a mechanical fall tonight. Patient states that she try to catch herself with the left arm and injured her left shoulder. Patient states it happened quickly and is unsure if she fell directly onto her left shoulder. She also complains of some discomfort in her right knee. She did not strike her head. No loss of consciousness. She denies any neck pain. She was able to bear weight and stand when transferring from her wheelchair at home to the EMS cot. Patient complains of severe pain with movement in the left shoulder that radiates to her elbow. Patient has history of type 2 diabetes, hypertension, high cholesterol, history of stroke, and history of ovarian cancer.] Physical Examination: [HEENT-PERRLA, EOMI. Cranial nerves II through XII grossly intact. TMs clear. Mucous membranes moist. No adenopathy. Cardiovascular-regular rate and rhythm without murmur or ectopy Lungs-clear to auscultation, chest wall stable without crepitus or subcu emphysema Abdomen-normoactive bowel sounds, soft, nontender, no rebound or rigidity, no peritoneal signs. Extremities-intact ?4, normal range of motion, normal pulses. Left shoulder-patient has diffuse tenderness about the glenohumeral joint with significant pain with any attempted range of motion. Patient has diffuse tenderness about the elbow. She has good range of motion of flexion-extension at the elbow. She is neurovascular intact distally. Right knee-patient has diffuse tenderness to palpation over the medial and lateral joint lines. She has good range of motion in flexion extension of the knee. Ligamentously stable. Neurovascular intact distally.] Test Results: [X-rays of the right knee showed no evidence of fractures only degenerative changes. X-rays of the left elbow showed no evidence of fractures. X-rays of the left shoulder was read by radiology as no acute fractures however I had concerned that there may be a fracture of the humeral head. At this point patient will be treated with a sling and pain medication and referral to orthopedics. If symptoms persist she may need further imaging such as possibly MRI to evaluate further for occult fracture versus ligamentous injury.] Emergency Department Course and Treatment: [Initially patient did not want a thing for pain. Subsequently she did ask for pain medicine and was given morphine 4 mg IM and Zofran 4 mg IM. Patient was given a sling.] Treatment Plan: [Patient will be treated with a sling and a prescription for [place] for pain. Patient will be referred to orthopedics for follow-up.] Disposition: [Discharged home in stable condition] Impression: [Mechanical fall Left shoulder contusion/sprain-possible internal derangement Contusion right knee] This note was generated with [employer] dictation software. It may contain incorrect words, spelling, and punctuation that were not noted in review of the chart prior to signing ED Disposition - Plan for ED Patient: Instructions: ED Mechanical Fall, ED Fracture Upper Extremity Prescriptions: Hydrocodone Bitart/Apap 5-325 [[place] 5MG-325MG] 1 tab PO Q4H PRN PRN 2 Days #20 tab PRN Reason: Pain Prescription Printed Referrals: Christian Toure MD [Primary Care Provider] - Jaya Farley MD [STAFF PHYSICIAN] - 3-5 Days
--- NOTE | 2020-08-06 23:15 | DCINST.ED_ITS ---
ED Disposition - Plan for ED Patient: Instructions: ED Mechanical Fall, ED Fracture Upper Extremity Prescriptions: Hydrocodone Bitart/Apap 5-325 [[place] 5MG-325MG] 1 tab PO Q4H PRN PRN 2 Days #20 tab PRN Reason: Pain Prescription Printed Referrals: Christian Toure MD [Primary Care Provider] - Jaya Farley MD [STAFF PHYSICIAN] - 3-5 Days
[2020-08-06] MEDS: Ondansetron 4 MG/2 ML Vial IM (23:26)
[2020-08-06] MEDS: Morphine 4 MG/ML Syringe IM (23:26)
[2020-08-06 23:30] VITALS: RESP 18
== END 2020-08-07 00:05 | disposition home or self-care (01) ==
LOC: ED 22:41
PROVIDERS: Emergency Provider Emergency Medicine; PCP Family Medicine
DX: S42.202A Unspecified fracture of upper end of left humerus, initial encounter for closed fracture (principal); S43.402A Unspecified sprain of left shoulder joint, initial encounter; S40.012A Contusion of left shoulder, initial encounter; S80.01XA Contusion of right knee, initial encounter; W19.XXXA Unspecified fall, initial encounter; Y93.9 Activity, unspecified; Y92.9 Unspecified place or not applicable; Y99.9 Unspecified external cause status; E11.9 Type 2 diabetes mellitus without complications; E78.00 Pure hypercholesterolemia, unspecified; I10 Essential (primary) hypertension; Z79.4 Long term (current) use of insulin; Z79.899 Other long term (current) drug therapy; Z86.73 Personal history of transient ischemic attack (TIA), and cerebral infarction without residual deficits; Z85.43 Personal history of malignant neoplasm of ovary
CPT/HCPCS: 73030; 73080; 73564; 96372; 99283; 99285; J2405

== ENCOUNTER → 2020-10-03 12:02 | Outpatient (CLI) | payer MEDICARE, SELFPAY ==
[2020-10-03 12:34] VITALS: BP 157/56; PULSE 62; RESP 18; TEMP 35.8; O2SAT 96; BMI 43.1
[2020-10-03] MEDS: 0.9 % NaCl (Sterile) Posiflush 10 mL IV (12:41)
[2020-10-03] MEDS: Immune Globulin 20 gm Premixed Solution 33.5 BAG IV (12:49)
[2020-10-03] MEDS: Immune Globulin 20 gm Premixed Solution 168 BAG IV (15:18)
[2020-10-03] MEDS: 0.9% NaCl VAD Flush IV (16:29)
== END ==
PROVIDERS: PCP Family Medicine; Visit Provider Psychiatry & Neurology Neuromuscular Medicine
DX: G61.81 Chronic inflammatory demyelinating polyneuritis (principal); G62.2 Polyneuropathy due to other toxic agents
CPT/HCPCS: 96365; 96366; A4216; J1568

== ENCOUNTER → 2020-10-04 11:59 | Outpatient (CLI) | payer MEDICARE, SELFPAY ==
[2020-10-03 12:34] VITALS: BMI 43.1
[2020-10-04 12:14] VITALS: BP 155/86; PULSE 85; RESP 18; TEMP 36; O2SAT 96
[2020-10-04] MEDS: 0.9 % NaCl (Sterile) Posiflush 10 mL IV (12:17)
[2020-10-04] MEDS: Immune Globulin 20 gm Premixed Solution 33.5 BAG IV (12:23)
[2020-10-04] MEDS: Immune Globulin 20 gm Premixed Solution 168 BAG IV (14:53)
[2020-10-04] MEDS: 0.9% NaCl VAD Flush IV (16:26)
== END ==
PROVIDERS: PCP Family Medicine; Referring Provider Psychiatry & Neurology Neuromuscular Medicine; Visit Provider Psychiatry & Neurology Neuromuscular Medicine
DX: G61.81 Chronic inflammatory demyelinating polyneuritis (principal); G62.2 Polyneuropathy due to other toxic agents
CPT/HCPCS: 96365; 96366 ×3; A4216; J1568

== ENCOUNTER → 2020-11-01 12:08 | Outpatient (CLI) | payer MEDICARE, SELFPAY ==
[2020-10-03 12:34] VITALS: BMI 43.1
[2020-11-01 12:25] VITALS: BP 134/58; PULSE 98; RESP 16; TEMP 36.2; O2SAT 96; BMI 43.1
[2020-11-01] MEDS: Immune Globulin 20 gm Premixed Solution 20.5 BAG IV (12:31)
[2020-11-01] MEDS: Immune Globulin 5 GM Premixed Solution 123 BAG IV (15:30)
== END ==
PROVIDERS: PCP Family Medicine; Referring Provider Psychiatry & Neurology Neuromuscular Medicine; Visit Provider Psychiatry & Neurology Neuromuscular Medicine
DX: G62.2 Polyneuropathy due to other toxic agents (principal); G61.9 Inflammatory polyneuropathy, unspecified; G61.81 Chronic inflammatory demyelinating polyneuritis
CPT/HCPCS: 96365; 96366 ×3; A4216; J1568

== ENCOUNTER → 2020-11-02 12:07 | Outpatient (CLI) | payer MEDICARE, SELFPAY ==
[2020-11-01 12:25] VITALS: BMI 43.1
[2020-11-02 12:20] VITALS: BP 159/85; PULSE 46; RESP 16; TEMP 36.1; O2SAT 97; BMI 43.1
[2020-11-02] MEDS: Immune Globulin 20 gm Premixed Solution 20.5 BAG IV (12:30)
[2020-11-02] MEDS: Immune Globulin 5 GM Premixed Solution 144 BAG IV (15:39)
[2020-11-02 16:10] VITALS: BP 145/59; PULSE 55; TEMP 36.3
== END ==
PROVIDERS: PCP Family Medicine; Referring Provider Psychiatry & Neurology Neuromuscular Medicine; Visit Provider Psychiatry & Neurology Neuromuscular Medicine
DX: G62.2 Polyneuropathy due to other toxic agents (principal); G61.9 Inflammatory polyneuropathy, unspecified; G61.81 Chronic inflammatory demyelinating polyneuritis
CPT/HCPCS: 96365; 96366 ×3; A4216; J1568

== ENCOUNTER → 2020-11-29 12:00 | Outpatient (CLI) | payer MEDICARE, SELFPAY ==
[2020-10-03 12:34] VITALS: BMI 43.1
[2020-11-02 12:20] VITALS: BMI 43.1
[2020-11-29] MEDS: 0.9% NaCl VAD Flush IV ×2 (12:10→16:27)
[2020-11-29 12:15] VITALS: BP 160/60; PULSE 55; RESP 16; TEMP 35.6; O2SAT 96
[2020-11-29] MEDS: Immune Globulin 20 gm Premixed Solution 20.5 BAG IV (12:22)
[2020-11-29] MEDS: Immune Globulin 5 GM Premixed Solution 103 BAG IV (15:48)
== END ==
PROVIDERS: PCP Family Medicine; Referring Provider Psychiatry & Neurology Neuromuscular Medicine; Visit Provider Psychiatry & Neurology Neuromuscular Medicine
DX: G62.2 Polyneuropathy due to other toxic agents (principal); G61.9 Inflammatory polyneuropathy, unspecified; G61.81 Chronic inflammatory demyelinating polyneuritis
CPT/HCPCS: 96365; 96366; A4216; J1568

== ENCOUNTER → 2020-11-30 12:02 | Outpatient (CLI) | payer MEDICARE, SELFPAY ==
[2020-10-03 12:34] VITALS: BMI 43.1
[2020-11-02 12:20] VITALS: BMI 43.1
[2020-11-30] MEDS: Immune Globulin 20 gm Premixed Solution 20.5 BAG IV (12:28)
[2020-11-30 12:31] VITALS: BP 142/85; PULSE 65; RESP 16; TEMP 36.4; O2SAT 95; BMI 43.1
[2020-11-30] MEDS: 0.9% NaCl Peripheral Flush Adult/Peds IV ×2 (14:40→15:58)
[2020-11-30] MEDS: Immune Globulin 5 GM Premixed Solution 123 BAG IV (15:27)
== END ==
PROVIDERS: PCP Family Medicine; Referring Provider Psychiatry & Neurology Neuromuscular Medicine; Visit Provider Psychiatry & Neurology Neuromuscular Medicine
DX: G62.2 Polyneuropathy due to other toxic agents (principal); G61.9 Inflammatory polyneuropathy, unspecified; G61.81 Chronic inflammatory demyelinating polyneuritis
CPT/HCPCS: 96365; 96366; A4216; J1568

== ENCOUNTER 2020-12-07 08:02 | Outpatient (CLI) | payer MEDICARE, SELFPAY ==
[2020-11-30 12:31] VITALS: BMI 43.1
[2020-12-07] MEDS: 0.9 % NaCl (Sterile) Posiflush 10 mL IV (08:16)
[2020-12-07] MEDS: 0.9% NaCl VAD Flush IV ×2 (08:16→11:34)
== END 2020-12-07 11:00 ==
LOC: MEDOUTP 08:03
PROVIDERS: PCP Family Medicine; Referring Provider Ophthalmology; Visit Provider Ophthalmology
DX: Z45.2 Encounter for adjustment and management of vascular access device (principal)
CPT/HCPCS: 96523; A4216

== ENCOUNTER 2020-12-22 14:05 | Outpatient (RCR) | payer MEDICARE, SELFPAY ==
[2020-11-30 12:31] VITALS: BMI 43.1
[2020-12-22] MEDS: COVID-19 VACC, MRNA(PFIZER)/PF 30 MCG/0.3 ML SYRINGE IM (16:17)
[2021-01-12] MEDS: COVID-19 VACC, MRNA(PFIZER)/PF 30 MCG/0.3 ML SYRINGE IM (15:29)
== END 2021-03-28 23:59 ==
LOC: IMMUN 14:05
PROVIDERS: PCP Family Medicine; Visit Provider Family Medicine
DX: Z23 Encounter for immunization (principal)
CPT/HCPCS: 0001A; 0002A; 91300

== ENCOUNTER → 2021-01-03 12:07 | Outpatient (CLI) | payer MEDICARE, SELFPAY ==
[2020-11-02 12:20] VITALS: BMI 43.1
[2020-11-30 12:31] VITALS: BMI 43.1
[2021-01-03] MEDS: Immune Globulin 5 GM Premixed Solution 20.5 BAG IV (12:35)
[2021-01-03 13:50] VITALS: BP 136/65; PULSE 73; RESP 16; TEMP 36.3; O2SAT 96; BMI 43.1
[2021-01-03] MEDS: Immune Globulin 20 gm Premixed Solution 82 BAG IV (14:22)
== END ==
PROVIDERS: PCP Family Medicine; Referring Provider Psychiatry & Neurology Neuromuscular Medicine; Visit Provider Psychiatry & Neurology Neuromuscular Medicine
DX: G61.81 Chronic inflammatory demyelinating polyneuritis (principal); G62.2 Polyneuropathy due to other toxic agents; G61.9 Inflammatory polyneuropathy, unspecified
CPT/HCPCS: 96365; 96366 ×3; A4216; J1568

== ENCOUNTER → 2021-01-04 | Outpatient (CLI) | payer MEDICARE, SELFPAY ==
[2020-11-02 12:20] VITALS: BMI 43.1
[2021-01-03 13:50] VITALS: BMI 43.1
[2021-01-04 12:23] VITALS: BP 175/81; PULSE 55; RESP 18; TEMP 36; O2SAT 97; BMI 43.1
[2021-01-04] MEDS: Immune Globulin 20 gm Premixed Solution 20.5 BAG IV (12:37)
[2021-01-04] MEDS: Immune Globulin 5 GM Premixed Solution 123 BAG IV (15:47)
[2021-01-04 16:16] VITALS: BP 132/52; PULSE 58; RESP 16; TEMP 36.4; O2SAT 96
== END | disposition home or self-care (01) ==
LOC: MEDOUTP 12:14
PROVIDERS: PCP Family Medicine; Referring Provider Psychiatry & Neurology Neuromuscular Medicine; Visit Provider Psychiatry & Neurology Neuromuscular Medicine
DX: G62.2 Polyneuropathy due to other toxic agents (principal); G61.9 Inflammatory polyneuropathy, unspecified; G61.81 Chronic inflammatory demyelinating polyneuritis
CPT/HCPCS: 96365; 96366 ×3; A4216; J1568

== ENCOUNTER → 2021-01-31 12:04 | Outpatient (CLI) | payer MEDICARE, SELFPAY ==
[2020-11-30 12:31] VITALS: BMI 43.1
[2021-01-04 12:23] VITALS: BMI 43.1
[2021-01-31 12:15] VITALS: BP 165/56; PULSE 57; RESP 16; TEMP 35.9; O2SAT 95; BMI 43.1
[2021-01-31] MEDS: Immune Globulin 20 gm Premixed Solution 20.5 BAG IV (12:26)
[2021-01-31] MEDS: Immune Globulin 5 GM Premixed Solution 123 BAG IV (15:30)
== END ==
PROVIDERS: PCP Family Medicine; Referring Provider Psychiatry & Neurology Neuromuscular Medicine; Visit Provider Psychiatry & Neurology Neuromuscular Medicine
DX: G62.2 Polyneuropathy due to other toxic agents (principal); G61.9 Inflammatory polyneuropathy, unspecified; G61.81 Chronic inflammatory demyelinating polyneuritis
CPT/HCPCS: 96365; 96366 ×3; A4216; J1568

== ENCOUNTER 2021-02-01 12:04 | Outpatient (CLI) | payer MEDICARE, SELFPAY ==
[2020-11-30 12:31] VITALS: BMI 43.1
[2021-01-31 12:15] VITALS: BMI 43.1
[2021-02-01] MEDS: 0.9% NaCl Peripheral Flush Adult/Peds IV ×2 (12:10→16:03)
[2021-02-01 12:22] VITALS: BP 175/68; PULSE 67; RESP 16; TEMP 35.9; O2SAT 98
[2021-02-01] MEDS: Immune Globulin 20 gm Premixed Solution 20.5 BAG IV (12:31)
[2021-02-01] MEDS: Immune Globulin 5 GM Premixed Solution 123 BAG IV (15:32)
== END 2021-02-01 16:23 | disposition home or self-care (01) ==
LOC: MEDOUTP 12:04
PROVIDERS: PCP Family Medicine; Visit Provider Psychiatry & Neurology Neuromuscular Medicine
DX: G62.2 Polyneuropathy due to other toxic agents (principal); G61.9 Inflammatory polyneuropathy, unspecified; G61.81 Chronic inflammatory demyelinating polyneuritis
CPT/HCPCS: 96365; 96366 ×3; A4216; J1568

== ENCOUNTER → 2021-03-28 11:56 | Outpatient (CLI) | payer MEDICARE, SELFPAY ==
[2021-01-04 12:23] VITALS: BMI 43.1
[2021-01-31 12:15] VITALS: BMI 43.1
[2021-03-28 12:06] VITALS: BP 133/59; PULSE 74; RESP 18; TEMP 36.7; O2SAT 94; BMI 43.9
[2021-03-28] MEDS: Immune Globulin 20 gm Premixed Solution 20.5 BAG IV (12:22)
== END ==
PROVIDERS: PCP Family Medicine; Referring Provider Psychiatry & Neurology Neuromuscular Medicine; Visit Provider Psychiatry & Neurology Neuromuscular Medicine
DX: G62.2 Polyneuropathy due to other toxic agents (principal); G61.9 Inflammatory polyneuropathy, unspecified; G61.81 Chronic inflammatory demyelinating polyneuritis
CPT/HCPCS: 96365; 96366 ×2; A4216; J1568

== ENCOUNTER → 2021-03-29 12:10 | Outpatient (CLI) | payer MEDICARE, SELFPAY ==
[2021-01-04 12:23] VITALS: BMI 43.1
[2021-03-28 12:06] VITALS: BMI 43.9
[2021-03-29 12:25] VITALS: BP 158/57; PULSE 57; RESP 18; TEMP 36.9; O2SAT 96; BMI 43.9
[2021-03-29] MEDS: Immune Globulin 20 gm Premixed Solution 20.5 BAG IV (12:35)
== END ==
PROVIDERS: PCP Family Medicine; Referring Provider Psychiatry & Neurology Neuromuscular Medicine; Visit Provider Psychiatry & Neurology Neuromuscular Medicine
DX: G62.2 Polyneuropathy due to other toxic agents (principal); G61.9 Inflammatory polyneuropathy, unspecified; G61.81 Chronic inflammatory demyelinating polyneuritis
CPT/HCPCS: 96365; 96366 ×2; A4216; J1568

== ENCOUNTER 2021-05-17 15:00 | Outpatient (RCR) | payer MEDICARE, SELFPAY ==
[2021-01-04 12:23] VITALS: BMI 43.1
[2021-01-31 12:15] VITALS: BMI 43.1
--- NOTE | 2021-02-02 18:19 | HP.SP.AD ---
History - History Date of Eval: 02/02/21 Medical Diagnosis (from RX): MCI (G31.84), Frontal lobe and executive function deficit (R41.844), Date of Onset of Diagnosis: 01/02/2021 Previous speech therapy: Yes Results: Pt briefly seen for acute speech therapy in October 2014 for CVA. Pt determined to have cognitive-linguistic skills WNL, mild dysarthria, and was recommended for Regular Textures / Thin Liquids with aspiration precautions for small bites/sips, slow rate, upright for intake. The pt was seen for 1 additional visit for instruction of oral motor exercises prior to discharge home. Other Relevant Medical History/Diagnoses/Surgery: PMH: type 2 diabetes, hypertension, high cholesterol, history of stroke (October 2014), and history of ovarian cancer. Pt had MRI done in November 2020, that revealed 2 additional past strokes, unknown when these occurred. The pt had cataract removed December 2020 and feels her vision has been worse ever since. In November 2020, pt had a neuropsychological evaluation completed with [facility]. Results found pt to have impairments in processing speed, visuospatial processing, executive functioning, and memory. Medications related to this diagnosis: SEE chart for complete list of medications. Smoking Status: Former smoker Hx Smoking: Yes - Quit in 1978 Hx Tobacco Use: No Hx Smoking Exposure: No - Pain Is pain an issue with your current prescribed condition?: Yes - Personal Education History: 2 years of college, massage therapy training Occupation: retired - massage therapist Right Hearing Abillity: Hard of Hearing Left Hearing Abillity: Hard of Hearing Visual Assistive Devices: Glasses Patients Living Arrangements: With Family Patient Allergies - Allergies Allergies oats Adverse Reaction (Severe, Verified 10/03/20 12:37) Rash sodium benzoate Adverse Reaction (Intermediate, Verified 10/03/20 12:37) compromise immune system PLASTIC TAPE Adverse Reaction (Severe, Uncoded 10/03/20 12:37) Rash BERRIES Adverse Reaction (Intermediate, Uncoded 10/03/20 12:37) compromise immune system PEPPERS Adverse Reaction (Intermediate, Uncoded 10/03/20 12:37) compromise immune system TUNA Adverse Reaction (Intermediate, Uncoded 10/03/20 12:37) compromise immune system CLQT - CLQT CLQT Administered: Yes CLQT: Cognitive Linguistic Quick Test (CLQT) is a criterion - referenced assessment designed for adults between the ages of 18 and 89 with known or suspected neurological dysfuntions. The CLQT is to assess strength and weaknesses in five cognitive domains. Severity ratings are within normal limits, mild, moderate, severe deficits. The subtests are as follows: Date: 02/02/21 - Memory Memory: WNL - Language Language: WNL - Clock Drawing Severity Rating Clock Drawing Severity Rating: WNL - CLQT Comments Results Entirety of test not completed on this date due to time constraints. Although the pt scored WNL on the memory and language domains, she presented with low average scores. She had most notable difficulty with auditory memory tasks, including scoring a 5/10 on the Story Retelling subtest. She verbalized noticing a significant decline in her memory in the past year. Pt's assisted pt in clarifying timeline of recent events, procedures, and testing, as the pt had difficulty reporting details of medical history. Plan to complete remainder of the assessment in future sessions to further assess attention, visuospatial skills, and executive functioning and set additional goals as needed to POC. Plan - Plan Plan: Will recommend cognitive-linguistic therapy to address functional deficits in processing speed, memory, and executive functioning. Plan to complete remainder of cognitive-linguistic assessment in future sessions to set additional goals as needed to POC. Without skilled ST services, the pt is at risk for further cognitive decline and decreased independence completing adl tasks. - Recommendations MBS: No Treatment Warranted: Yes - Frequency Frequency: 1x/Week Duration: 4-6 Weeks - Prognosis Prognosis: Good - Goals that are Established: Determination:: Goals will be added/modified as deemed necessary and appropriate. Therapy will be discontinued when results of re-evaluation indicate therapy is no longer needed or lack of progress has been documented. - Goal #1-5 Goal #1: The pt will utlize learned compensatory strategies to immediately recall novel information presented visually or verbally (word lists, paragraphs, appointments) with 85% accuracy with minimal verbal cues across 3 consecutive sessions to improve short term memory. Goal #2: The pt will complete executive function (organization, attention, planning, self-monitoring) tasks with 90% accuracy with minimal verbal cues across 3 consecutive sessions to promote independence completing daily living tasks. Goal #3: The pt will participate in continued cognitive-linguistic assessment to set additional goals as needed to POC. Education - Patient Instruction Patient Education: Diagnosis, Treatment Plan, Goals Person Taught: Patient, Significant Other Teaching Method: Discussion Response to teaching: Verbalize understanding
== END 2021-05-17 19:00 | disposition home or self-care (01) ==
LOC: SP 15:00
PROVIDERS: PCP Family Medicine
DX: G31.84 Mild cognitive impairment of uncertain or unknown etiology (principal); R47.1 Dysarthria and anarthria; Z86.73 Personal history of transient ischemic attack (TIA), and cerebral infarction without residual deficits
CPT/HCPCS: 92507; 92523

== ENCOUNTER → 2021-05-23 11:58 | Outpatient (CLI) | payer MEDICARE, SELFPAY ==
[2021-01-31 12:15] VITALS: BMI 43.1
[2021-03-29 12:25] VITALS: BMI 43.9
[2021-05-23 12:19] VITALS: BP 146/74; PULSE 57; RESP 16; TEMP 36.3; O2SAT 97; BMI 43.7
[2021-05-23] MEDS: Immune Globulin 20 gm Premixed Solution 21 BAG IV (12:28)
== END ==
PROVIDERS: PCP Family Medicine; Referring Provider Internal Medicine; Visit Provider Internal Medicine
DX: G61.9 Inflammatory polyneuropathy, unspecified (principal); G62.2 Polyneuropathy due to other toxic agents; G61.81 Chronic inflammatory demyelinating polyneuritis
CPT/HCPCS: 96365; 96366 ×2; A4216; J1568

== ENCOUNTER → 2021-05-24 12:00 | Outpatient (CLI) | payer MEDICARE, SELFPAY ==
[2021-01-31 12:15] VITALS: BMI 43.1
[2021-05-23 12:19] VITALS: BMI 43.7
[2021-05-24] MEDS: Immune Globulin 20 gm Premixed Solution 21 BAG IV (12:39)
[2021-05-24 12:41] VITALS: BP 137/54; PULSE 55; RESP 16; TEMP 36.3; O2SAT 96
== END ==
PROVIDERS: PCP Family Medicine; Referring Provider Internal Medicine; Visit Provider Internal Medicine
DX: G62.2 Polyneuropathy due to other toxic agents (principal); G61.9 Inflammatory polyneuropathy, unspecified; G61.81 Chronic inflammatory demyelinating polyneuritis
CPT/HCPCS: 96365; 96366 ×2; A4216; J1568

== ENCOUNTER → 2021-07-18 11:59 | Outpatient (CLI) | payer MEDICARE, SELFPAY ==
[2021-03-29 12:25] VITALS: BMI 43.9
[2021-07-18 12:29] VITALS: BP 153/60; PULSE 67; RESP 16; TEMP 36.2; O2SAT 96; BMI 45.5
[2021-07-18] MEDS: Immune Globulin 20 gm Premixed Solution 20.5 BAG IV (12:53)
[2021-07-18] MEDS: 0.9% NaCl Peripheral Flush Adult/Peds IV (15:59)
== END ==
PROVIDERS: PCP Family Medicine; Referring Provider Psychiatry & Neurology Neuromuscular Medicine; Visit Provider Psychiatry & Neurology Neuromuscular Medicine
DX: G62.2 Polyneuropathy due to other toxic agents (principal); G61.9 Inflammatory polyneuropathy, unspecified; G61.81 Chronic inflammatory demyelinating polyneuritis
CPT/HCPCS: 96365; 96366 ×2; A4216; J1568

== ENCOUNTER → 2021-07-19 | Outpatient (CLI) | payer MEDICARE, SELFPAY ==
[2021-03-29 12:25] VITALS: BMI 43.9
[2021-07-19 12:15] VITALS: BP 144/60; PULSE 72; RESP 16; TEMP 36.2; O2SAT 98; BMI 45.5
[2021-07-19] MEDS: Immune Globulin 20 gm Premixed Solution 20.5 BAG IV (12:19)
[2021-07-19] MEDS: 0.9% NaCl Peripheral Flush Adult/Peds IV (15:40)
== END | disposition home or self-care (01) ==
LOC: MEDOUTP 12:05
PROVIDERS: PCP Family Medicine; Referring Provider Psychiatry & Neurology Neuromuscular Medicine; Visit Provider Psychiatry & Neurology Neuromuscular Medicine
DX: G62.2 Polyneuropathy due to other toxic agents (principal); G61.9 Inflammatory polyneuropathy, unspecified; G61.81 Chronic inflammatory demyelinating polyneuritis
CPT/HCPCS: 96365; 96366 ×3; A4216; J1568

== ENCOUNTER → 2021-09-12 12:00 | Outpatient (CLI) | payer MEDICARE, SELFPAY ==
[2021-09-12 12:25] VITALS: BP 151/69; PULSE 78; RESP 16; TEMP 36.3; O2SAT 96; BMI 44.5
[2021-09-12] MEDS: Immune Globulin 20 gm Premixed Solution 20.5 BAG IV (12:28)
[2021-09-12 15:36] VITALS: BP 178/73; PULSE 68; RESP 16; TEMP 35.9; O2SAT 96
== END ==
PROVIDERS: PCP Family Medicine; Referring Provider Psychiatry & Neurology Neuromuscular Medicine; Visit Provider Psychiatry & Neurology Neuromuscular Medicine
DX: G62.2 Polyneuropathy due to other toxic agents (principal); G61.9 Inflammatory polyneuropathy, unspecified; G61.81 Chronic inflammatory demyelinating polyneuritis
CPT/HCPCS: 96365; 96366 ×2; A4216; J1568

== ENCOUNTER → 2021-09-13 11:58 | Outpatient (CLI) | payer MEDICARE, SELFPAY ==
[2021-09-13] MEDS: Immune Globulin 20 gm Premixed Solution 20.5 BAG IV (12:16)
[2021-09-13 12:18] VITALS: BP 127/74; PULSE 58; RESP 16; TEMP 35.9; O2SAT 95
[2021-09-13] MEDS: 0.9% NaCl Peripheral Flush Adult/Peds IV (15:21)
== END ==
PROVIDERS: PCP Family Medicine; Referring Provider Psychiatry & Neurology Neuromuscular Medicine; Visit Provider Psychiatry & Neurology Neuromuscular Medicine
DX: G62.2 Polyneuropathy due to other toxic agents (principal); G61.9 Inflammatory polyneuropathy, unspecified; G61.81 Chronic inflammatory demyelinating polyneuritis
CPT/HCPCS: 96365; 96366 ×2; A4216; J1568

== ENCOUNTER 2021-10-04 08:32 | Inpatient (IN) | payer MEDICARE, SELFPAY ==
[2021-10-04] VITALS (15 sets, daily range): BP systolic 142–188; BP diastolic 61–97; PULSE 58–79; RESP 14–20; TEMP 36.6–36.9; O2SAT 94–96; BMI 46.6; BMI 46.8
[2021-10-04 08:41] LABS: Bedside Glucose 55 mg/dL (70-110)
--- NOTE | 2021-10-04 08:53 | CT_ITS ---
STUDY: CT HEAD STROKE PROTOCOL W/O CONTRAST INJECTION REASON FOR EXAM: Female, 71 years old. Neuro deficit, acute, stroke suspected RADIATION DOSAGE (If Supplied By Facility): CTDIvol = ( 44.99 ) mGy, DLP = ( 812.98 ) mGycm TECHNIQUE: Transaxial CT imaging of the brain was performed without administration of intravenous contrast material. Individualized dose optimization techniques were used for this CT. COMPARISON: Comparison is made with prior study dated 11/05/2014. FINDINGS: Normal soft tissue structures. Normal calvarium. There is mild cerebral atrophy with widening of the extra-axial spaces and ventricular dilatation. There are areas of decreased attenuation within the white matter tracts of the supratentorial brain, consistent with microvascular disease changes. There now is evidence of a focal area of encephalomalacia in the posterior medial aspect of the left occipital lobe suggestive of old ischemic infarct. Old tiny lacunar sites are seen in the left basal ganglia. Normal brainstem. Normal cerebellum. There is no intracranial hemorrhage. There are no findings of an acute ischemic infarction. Atherosclerotic calcification of the cavernous portions of the internal carotid arteries bilaterally. Normal visualized paranasal sinuses. CT/STROKE Brain/Head without Cont IMPRESSION: Chronic involutional changes of the brain. Focal encephalomalacia in the posterior medial aspect of the left occipital lobe suggestive of old infarct. Tiny lacunae seen in the left basal ganglia. N.B. : The above Results were Read Back by Jonathan Marti MD to Dr Graham MD, and understanding confirmed on 10/04/2021 09:44:00 (ET). Electronically Signed: Jonathan Marti MD at 9:45 EST , Service support ,
--- NOTE | 2021-10-04 08:53 | EKG12_ITS ---
Test Reason : WEAKNESS Blood Pressure : / mmHG Vent. Rate : 062 BPM Atrial Rate : 062 BPM P-R Int : 220 ms QRS Dur : 080 ms QT Int : 434 ms P-R-T Axes : 050 058 038 degrees QTc Int : 440 ms Sinus rhythm with 1st degree A-V block with Premature atrial complexes Otherwise normal ECG Confirmed by DEANNA SHORE, ASHOK ([id number]), digital editor SANJEEV KATHLEEN ([id number]) on 10/06/2021 1:06:06 PM Referred By: PENELOPE Confirmed By:ASHOK HUERTA MD
--- NOTE | 2021-10-04 08:55 | EDS_ITS ---
HPI History of Present Illness Chief Complaint: Weakness Detail of Chief Complaint: Low blood sugar and right leg weakness Informant: patient and spouse/S.O. Onset/Context/Timing Onset: Days Timing: Continuous Quality and Location: Positive for Right Facial Droop and Right Leg Weakness Current Severity: Moderate Maximum Severity: Moderate Associated Symptoms Associated Symptoms: Negative for Headache, Nausea, Vomiting and Chest Pain Narrative Narrative: 71-year-old female history of diabetes and 3 prior strokes. She also had ovarian cancer around 7 years ago. Her and her noticed either Saturday night or Saturday night that she had right leg weakness. She was having trouble getting in bed. Today she was brought in by squad and she had a low blood sugar and was given oral glucose. When she got here her blood sugar was still 44 and the nurses gave her an amp of D50. Prior similar symptoms: Yes Recent Illness/Hospitalization: No PFSH PFSH Home Medications escitalopram oxalate 20 mg PO DAILY 11/24/15 [History Last Taken Unknown] thyroid (pork) [[place] Thyroid] 60 mg PO DAILY 02/23/16 [History Last Taken Unknown] insulin lispro [Humalog] 20 unit SUBCUT TID 07/05/16 [History Last Taken Unknown] docusate sodium [Colace] 100 mg PO BID PRN 03/14/17 [History Last Taken Unknown] Immune Globulin 5 Gm (Octagam) 25 g IV QMONTH 04/18/17 [History Last Taken Unknown] insulin glargine [Lantus] 60 unit QHS 08/08/17 [History Last Taken Unknown] cholecalciferol (vitamin D3) 1,250 mcg PO QWEEK 10/04/21 [History Last Taken Unknown] levothyroxine [Synthroid] 10/04/21 [History Last Taken Unknown] meclizine mg 10/04/21 [History Last Taken Unknown] Allergy/AdvReac Type Severity Reaction Status Date / Time oats AdvReac Severe Rash Verified 10/04/21 08:38 sodium benzoate AdvReac Intermediate compromise Verified 10/04/21 08:38 immune system PLASTIC TAPE AdvReac Severe Rash Uncoded 10/04/21 08:38 BERRIES AdvReac Intermediate compromise Uncoded 10/04/21 08:38 immune system PEPPERS AdvReac Intermediate compromise Uncoded 10/04/21 08:38 immune system TUNA AdvReac Intermediate compromise Uncoded 10/04/21 08:38 immune system Social History Smoking Status: Former smoker ROS ROS ED ROS Narrative Denies recent illness. Review of Systems ROS Unobtainable: Denies due to encephalopathy Constitutional Constitutional ED: Denies fever(s) Eyes Eyes: Denies change in vision ENT ENT ED: Denies ear pain Cardiovascular Cardiovascular: Denies chest pain Respiratory/Chest Respiratory/Chest: Denies dyspnea Gastrointestinal Gastrointestinal: Denies abdominal pain, nausea or vomiting Genitourinary Genitourinary ED: Denies dysuria Musculoskeletal Musculoskeletal: Denies myalgias Integumentary Denies rash Neurologic Neurologic: Denies headache(s) Psychiatric Psychiatric: Denies depression Endocrine Endocrinology: Denies polyuria Hematologic/Lymphatic Hematologic/Lymphatic: Denies easy bruising Allergic/Immunologic Allergic/Immunologic ED: Denies urticaria EXAM Physical Exam Narrative Exam Narrative: 71 of female vital signs are stable afebrile. H EENT exam she is a right facial droop that is old from prior strokes as not new today. She has normal speech. Neck nontender. Lungs clear to auscultation. Heart regular rhythm rate about 70. Abdomen soft nontender normal bowel sounds no peritoneal signs. 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 Right hand is weak that is chronic from prior stroke. She is able to lift her left leg and has normal dorsi and plantar flexion of the left leg. Right leg she states is weak but she can lift it off the bed. She does have a drift. Right hand is chronically weak that is not new today. Neurologically she is awake. She is alert. She has right facial droop which is old from her prior stroke. She has normal speech. She has weakness in her right arm that is chronic. Left arm and leg are unremarkable. She complains of weakness to her right leg. She has normal sensation bilaterally. Her NIH score is facial droop on the right right arm weakness which is chronic but there and right leg weakness her NIH is around 5. Const Vital Signs: 10/04/21 08:33 10/04/21 08:37 10/04/21 08:39 Temperature 97.8 F 97.8 F Temperature Source Temporal Temporal Pulse Rate 70 70 Respiratory Rate 19 H 19 H Respiratory Effort Normal Non-Labored Respiratory Pattern Normal Blood Pressure 179/97 H 179/97 H Blood Pressure Mean 124 124 Pulse Ox 96 96 Oxygen Delivery Method Room Air Room Air 10/04/21 08:58 10/04/21 09:37 10/04/21 10:03 Temperature 98.2 F 98.2 F Temperature Source Oral Oral Pulse Rate 63 58 L 59 L Respiratory Rate 17 17 15 Respiratory Effort Respiratory Pattern Blood Pressure 142/78 H 188/91 H 165/79 H Blood Pressure Mean 99 123 107 Pulse Ox 96 96 96 Oxygen Delivery Method Room Air Room Air Room Air Positive well nourished, well developed and obese; Negative for cachectic, contractures or unkempt General Appearance ED: well developed and NAD; Negative for unkempt, cachectic or contractures Nutritional Appearance: obese; Negative for cachectic HEENT Reports moist mucous membranes atraumatic; Negative for trauma Eyes PERRL and EOMs intact bilaterally General Eye ED: Negative for pale conjunctiva or scleral icterus Neck no lymphadenopathy, supple and no JVD General: Negative for tenderness Chest Wall inspection of chest normal and palpation of chest normal Resp normal respiratory effort and clear to auscultation bilaterally Auscultation: Negative for rales, rhonchi or wheezes Cardio no murmurs Rate: regular rate Rhythm: regular rhythm Heart Sounds: S1 normal and S2 normal GI normal to inspection, nondistended, normoactive bowel sounds, soft to palpation, non-tender, non-distended and no masses Auscultation: normoactive bowel sounds Palpation: Negative for tender, guarding or rebound tenderness present Back/Spine no CVA tenderness General Back: Negative for CVA tenderness Cervical Spine: Negative for cervical spine tenderness Thoracic Spine / Upper Back: Negative for thoracic spinal tenderness Extremity normal to inspection General Extremety ED: Negative for deformity, edema or tenderness General Extremity: Negative for deformity or edema Neuro oriented x3 Neuro Narrative: Chronic right facial droop. Crate chronic right arm weakness. Right leg weakness with a drift. Normal sensation. Normal speech. NIH of around a 5 foot much of that is chronic from prior strokes. Sensorium / Orientation: alert, oriented to person, oriented to place and oriented to time; Negative for orientation impaired, confused, lethargic or stuporous Speech: speech normal Gait (Neuro): Negative for normal gait Motor Exam: Negative for strength 5/5 throughout Psych mental status grossly normal Appearance: Negative for unkempt Mood & Affect: Negative for depressed Skin no wounds General Skin Exam: Negative for jaundice Lesions: no lesions Rashes: no rashes and No rashes noted STROKE Vital Signs/Narrative: Vital Signs Temp Pulse Resp BP Pulse Ox 10/04/21 10:03 98.2 F 59 L 15 165/79 H 96 10/04/21 09:37 98.2 F 58 L 17 188/91 H 96 10/04/21 08:58 63 17 142/78 H 96 10/04/21 08:37 97.8 F 70 19 H 179/97 H 96 10/04/21 08:33 97.8 F 70 19 H 179/97 H 96 Inital Vital Signs reviewed: Yes MDM MDM MDM Narrative Medical decision making narrative: 71-year-old diabetic female with multiple prior strokes with some chronic findings of right facial droop and right arm weakness. Today presents with a low blood sugar which has been treated by squad with oral glucose and by us with an amp of D50 through the IV. She also today has right leg weakness is new be worked up for a new stroke. The findings however are at least 2 if not 3days old. She is not a TPA candidate. Repeat exam at 10:30 AM unchanged. Nurses will attempt to ambulate the patient if she is unable to ambulate due to the weakness in her right leg will speak to the hospitalist about admission. Lab Data Attestation: I reviewed the patient's lab results. Lab results narrative: CBC shows a white count 8. Hemoglobin of 14. PT/INR PTT are normal. BNP normal. Normal gap. Normal kidney function. Glucose 64 but that was after she was given an amp of D50. Current blood sugars 210. CAT scan of the brain is read by the radiologist shows old strokes. No acute abnormality. Chest x-ray shows chronic changes no acute process. Labs: Laboratory Results - last 24 hr 10/04/21 10/04/21 10/04/21 08:37 08:45 08:45 WBC 8.0 RBC 4.63 Hgb 14.9 Hct 44.5 MCV 96.1 MCH 32.2 H MCHC 33.5 RDW Std Deviation 47.0 H RDW Coeff of Alex 13.2 Plt Count 182 MPV 10.6 Immature Gran % (Auto) 0.200 Neut % (Auto) 37.5 L Lymph % (Auto) 48.1 H [place] % (Auto) 10.0 Eos % (Auto) 3.2 Baso % (Auto) 1.0 Absolute Neuts (auto) 3.0 Absolute Lymphs (auto) 3.86 Nucleated RBC % 0 PT 12.5 INR 1.0 APTT 27.8 Sodium Potassium Chloride Carbon Dioxide Anion Gap BUN Creatinine Estim Creat Clear Calc Est GFR (MDRD) Af Amer Est GFR (MDRD) Non-Af BUN/Creatinine Ratio Glucose Calcium Troponin I High Sens POC Glucose 55 L 10/04/21 10/04/21 08:45 09:41 WBC RBC Hgb Hct MCV MCH MCHC RDW Std Deviation RDW Coeff of Alex Plt Count MPV Immature Gran % (Auto) Neut % (Auto) Lymph % (Auto) [place] % (Auto) Eos % (Auto) Baso % (Auto) Absolute Neuts (auto) Absolute Lymphs (auto) Nucleated RBC % PT INR APTT Sodium 141 Potassium 3.6 Chloride 105 Carbon Dioxide 30.0 Anion Gap 6 BUN 17 Creatinine 0.96 Estim Creat Clear Calc 83.38 Est GFR (MDRD) Af Amer 74 Est GFR (MDRD) Non-Af 61 BUN/Creatinine Ratio 17.8 Glucose 64 L Calcium 9.5 Troponin I High Sens 18 POC Glucose 210 H Radiography Diagnostic Testing: Clinical Impression(s) from Imaging Studies Brain CT 10/04/21 08:53 IMPRESSION: Chronic involutional changes of the brain. Focal encephalomalacia in the posterior medial aspect of the left occipital lobe suggestive of old infarct. Tiny lacunae seen in the left basal ganglia. N.B. : The above Results were Read Back by Jonathan Marti MD to Dr Graham MD, and understanding confirmed on 10/04/2021 09:44:00 (ET). Electronically Signed: Jonathan Marti MD at 9:45 EST , Service support , ADDENDUM: 10/04/21 0953 IMPRESSION: Chronic involutional changes of the brain. Focal encephalomalacia in the posterior medial aspect of the left occipital lobe suggestive of old infarct. Tiny lacunae seen in the left basal ganglia. N.B. : The above Results were Read Back by Jonathan Marti MD to Dr Graham MD, and understanding confirmed on 10/04/2021 09:44:00 (ET). Electronically Signed: Jonathan Marti MD at 9:45 EST , Service support , Chest X-Ray 10/04/21 09:25 IMPRESSION: No acute abnormality is seen. Cardiomegaly. Electronically Signed: Jonathan Marti MD at 9:49 EST , Service support , Chest x-ray, portable, single view interpreted by myself and radiologist shows no acute abnormality. Chronic changes and cardiomegaly but no acute process. Rhythm Strip Rhythm Strip: Sinus Rhythm Rate: 62 Ectopy: PAC(s) EKG Initial EKG: Attestation: I personally reviewed and interpreted this EKG as follows: Interpretation: Sinus Rhythm and No Acute Injury Pattern Comments: Normal sinus rhythm rate of 62 first-degree AV block with a [place] interval rule of 220. Occasional PACs. Similar to her prior EKG. Prior: Unchanged Discharge Plan Dx/Rx/DC Orders Clinical Impression: Hypoglycemia due to type 2 diabetes mellitus, Right leg weakness, Unable to ambulate, History of cardioembolic stroke Disposition Disposition: Acute Care Hospital [facility]
[2021-10-04 09:04] LABS: Absolute Lymphocyte Count 3.86 X10^3/uL (0.83-4.51); Basophil# 0.08 X10^3/uL; Eosinophil# 0.26 X10^3/uL; Eosinophils% 3.2 % (0-5); Hematocrit 44.5 % (37-47); Hemoglobin 14.9 g/dL (12.0-15.0); Lymphocyte # 3.86 X10^3/ul (0.83-4.51); Lymphocyte % 48.1 % (19-41); Mean Corp Hgb Conc 33.5 g/dL (32-36); Mean Corpuscular Hgb 32.2 pg (27.0-32.0); Mean Corpuscular Volume 96.1 fL (81-99); Mean Platelet Vol. 10.6 fl (6.2-12.0); NRBC Flagged by Analyzer 0 % (0-5); Neutrophil # 3.01 X10^3/uL (2.7-7.7); Neutrophil % 37.5 % (47-70); Platelet Count 182 K/mm3 (150-450); RBC Distribution Width CV 13.2 % (11.6-14.6); Red Blood Count 4.63 M/mm3 (4.2-5.4)
[2021-10-04 09:08] LABS: Prothrombin Time (Protime)PT. 12.5 SECONDS (11.7-14.9)
[2021-10-04 09:09] LABS: Partial Thromboplast Time 27.8 Seconds (24.1-36.2)
[2021-10-04 09:15] LABS: Anion Gap 6 (5-15); BUN 17 mg/dL (7-18); BUN/Creat Ratio 17.8 RATIO (10-20); Calcium,Total 9.5 mg/dL (8.5-10.1); Chloride 105 mmol/L (98-107); Creatinine, Serum 0.96 mg/dL (0.55-1.02); EST Glomerular Filtration Rate 61 mL/min (>60); Est Glom Filt Rate - Afr Amer 74 mL/min (>60); Estimated Creatinine Clearance 83.38 ml/min; Glucose 64 mg/dL (74-106); Potassium 3.6 mmol/L (3.5-5.1); Sodium Level 141 mmol/L (136-145); Troponin-I HS 18 pg/mL (3.0-54.0)
--- NOTE | 2021-10-04 09:25 | RAD_ITS ---
STUDY: X-RAY CHEST REASON FOR EXAM: Female, 71 years old. Neuro deficit, acute, stroke suspected TECHNIQUE: Single AP portable view of the chest. COMPARISON: Comparison is made with prior study dated 09/19/2016. FINDINGS: A right-sided portacatheter is seen with the tip in the proximal portion at the junction of the superior vena cava and right atrium. EKG electrodes are seen. The lungs are clear and expanded. There is no demonstrated pleural abnormality. There is mild cardiac enlargement. Normal mediastinum and sarah. Normal visualized pulmonary arteries. There is atherosclerotic tortuosity of the aortic arch and descending thoracic aorta. There are diffuse degenerative changes of the visualized thoracic spine. Normal visualized ribs, clavicles, and shoulders. There is no demonstrated abnormality of the visualized soft tissue structures of the upper abdomen. RAD/Chest 1 View IMPRESSION: No acute abnormality is seen. Cardiomegaly. Electronically Signed: Jonathan Marti MD at 9:49 EST , Service support ,
[2021-10-04 09:45] LABS: Bedside Glucose 210 mg/dL (70-110)
[2021-10-04] MEDS: Meclizine HCl 25 MG Tablet PO (10:53)
--- NOTE | 2021-10-04 11:20 | NURSING ---
PCSam MARIA RT LEG WEAKNESS, UNABLE TO WALK, HX CVA, DIABETIC HYPOGLYCEMIA
--- NOTE | 2021-10-04 11:30 | HP.PCM.HOS_ITS ---
HPI - General HPI Narrative BRANDAN ESPAÑA, is a 71 F who presents with right-sided weakness. Symptoms began 2 days ago. Patient does have a history of left-sided stroke with right face arm and leg weakness but her right arm and leg are much wea.ker Patient has minimal deficits at baseline. She does have a chronic right facial asymmetry which according to her is stable and chronic. She presents to the emergency room and since this onset of symptoms was 2 days ago a stroke team was not called. Head CT Patient week wit h was unremarkable. try to get out of bed and hospitalist was contacted for admission and evaluation. Patient changes. Patient does have chronic blurred vision but that is unchanged over the past several months. denies any other Her speech is unchanged. She has no or difficulty findings That is new. Patient is being evaluated for what sounds like mild cognitive impairment and sees a neurologist in the [facility]. [facility] Medical History (Updated 10/04/21 @ 11:[address] Kaden Sandoval, DO) Cerebrovascular disease CIDP (chronic inflammatory demyelinating polyneuropathy) Depressive disorder Diabetes mellitus History of cardioembolic stroke HLD (hyperlipidemia) Lumbar degenerative disc disease Malignant neoplasm of right ovary Morbid obesity with BMI of 40.0-44.9, adult Ovarian cancer Peritoneal carcinomatosis Home Medications escitalopram oxalate 20 mg PO DAILY 11/24/15 [History Last Taken Unknown] thyroid (pork) [[place] Thyroid] 60 mg PO DAILY 02/23/16 [History Last Taken Unknown] insulin lispro [Humalog] 20 unit SUBCUT TID 07/05/16 [History Last Taken Unknown] docusate sodium [Colace] 100 mg PO BID PRN 03/14/17 [History Last Taken Unknown] Immune Globulin 5 Gm (Octagam) 25 g IV QMONTH 04/18/17 [History Last Taken Unknown] insulin glargine [Lantus] 60 unit QHS 08/08/17 [History Last Taken Unknown] cholecalciferol (vitamin D3) 1,250 mcg PO QWEEK 10/04/21 [History Last Taken Unknown] levothyroxine [Synthroid] 10/04/21 [History Last Taken Unknown] meclizine mg 10/04/21 [History Last Taken Unknown] Allergy/AdvReac Type Severity Reaction Status Date / Time oats AdvReac Severe Rash Verified 10/04/21 08:38 sodium benzoate AdvReac Intermediate compromise Verified 10/04/21 08:38 immune system PLASTIC TAPE AdvReac Severe Rash Uncoded 10/04/21 08:38 BERRIES AdvReac Intermediate compromise Uncoded 10/04/21 08:38 immune system PEPPERS AdvReac Intermediate compromise Uncoded 10/04/21 08:38 immune system TUNA AdvReac Intermediate compromise Uncoded 10/04/21 08:38 immune system Social History Smoking Status: Former smoker Vital Signs Vital Signs Vital Signs: 10/04/21 08:33 10/04/21 08:37 10/04/21 08:39 Temperature 36.6 C 36.6 C Temperature Source Temporal Temporal Pulse Rate 70 70 Respiratory Rate 19 H 19 H Respiratory Effort Normal Non-Labored Respiratory Pattern Normal Blood Pressure 179/97 H 179/97 H Blood Pressure Mean 124 124 Pulse Ox 96 96 Oxygen Delivery Method Room Air Room Air 10/04/21 08:58 10/04/21 09:37 10/04/21 10:03 Temperature 36.8 C 36.8 C Temperature Source Oral Oral Pulse Rate 63 58 L 59 L Respiratory Rate 17 17 15 Respiratory Effort Respiratory Pattern Blood Pressure 142/78 H 188/91 H 165/79 H Blood Pressure Mean 99 123 107 Pulse Ox 96 96 96 Oxygen Delivery Method Room Air Room Air Room Air 10/04/21 10:49 10/04/21 11:07 Temperature 36.6 C Temperature Source Temporal Pulse Rate 60 61 Respiratory Rate 20 H 20 H Respiratory Effort Respiratory Pattern Blood Pressure 168/75 H 166/89 H Blood Pressure Mean 106 114 Pulse Ox 95 96 Oxygen Delivery Method Room Air Room Air Weight Weight: 101.2 kg Body Mass Index (BMI) 46.6 Physical Exam Const alert, oriented x3 and no apparent distress HEENT moist oral mucous membranes HEENT Narrative: Right facial droop. Eyes PERRL and EOMs intact bilaterally Eyes Narrative: No icterus Neck no lymphadenopathy and supple Resp normal respiratory effort, no retractions, no use of accessory muscles and clear to auscultation bilaterally Cardio regular rate, regular rhythm, S1 normal heart sound and S2 normal heart sound GI normal to inspection, nondistended, normoactive bowel sounds, soft to palpation, non-tender and non-distended Extremity normal to inspection and no clubbing, cyanosis or edema Skin no rashes or lesions noted Neuro Neuro Narrative: Muscle strength out of 5 in the left upper and left lower extremities. 3-5 in the right upper and right lower extremity. Sensation diminished in the right lower extremity. Sensorium / Orientation: awake and alert Psych affect normal Mood & Affect: depressed Results Lab / Micro Data Result Diagrams: 10/04/21 08:45 10/04/21 08:45 Labs: Laboratory Results - last 24 hr 10/04/21 08:37: POC Glucose 55 L 10/04/21 08:45: WBC 8.0, RBC 4.63, Hgb 14.9, Hct 44.5, MCV 96.1, MCH 32.2 H, MCHC 33.5, RDW Std Deviation 47.0 H, RDW Coeff of Alex 13.2, Plt Count 182, MPV 10.6, Immature Gran % (Auto) 0.200, Neut % (Auto) 37.5 L, Lymph % (Auto) 48.1 H, Crisp % (Auto) 10.0, Eos % (Auto) 3.2, Baso % (Auto) 1.0, Absolute Neuts (auto) 3.0, Absolute Lymphs (auto) 3.86, Nucleated RBC % 0 10/04/21 08:45: PT 12.5, INR 1.0, APTT 27.8 10/04/21 08:45: Sodium 141, Potassium 3.6, Chloride 105, Carbon Dioxide 30.0, Anion Gap 6, BUN 17, Creatinine 0.96, Estim Creat Clear Calc 83.38, Est GFR (MDRD) Af Amer 74, Est GFR (MDRD) Non-Af 61, BUN/Creatinine Ratio 17.8, Glucose 64 L, Calcium 9.5, Troponin I High Sens 18 10/04/21 09:41: POC Glucose 210 H Rhythm Strip Rhythm Strip: Sinus Rhythm Rate: 62 Ectopy: PAC(s) Radiology Impression Brain CT 10/04/21 08:53 IMPRESSION: Chronic involutional changes of the brain. Focal encephalomalacia in the posterior medial aspect of the left occipital lobe suggestive of old infarct. Tiny lacunae seen in the left basal ganglia. N.B. : The above Results were Read Back by Jonathan Marti MD to Dr Graham MD, and understanding confirmed on 10/04/2021 09:44:00 (ET). Electronically Signed: Jonathan Marti MD at 9:45 EST , Service support , ADDENDUM: 10/04/21 0953 IMPRESSION: Chronic involutional changes of the brain. Focal encephalomalacia in the posterior medial aspect of the left occipital lobe suggestive of old infarct. Tiny lacunae seen in the left basal ganglia. N.B. : The above Results were Read Back by Jonathan Marti MD to Dr Graham MD, and understanding confirmed on 10/04/2021 09:44:00 (ET). Electronically Signed: Jonathan Marti MD at 9:45 EST , Service support , Chest X-Ray 10/04/21 09:25 IMPRESSION: No acute abnormality is seen. Cardiomegaly. Electronically Signed: Jonathan Marti MD at 9:49 EST , Service support , Assessment & Plan Assessment/Plan (1) Ovarian cancer: QUALIFIERS: Laterality: right Qualified Code(s): C56.1 - Malignant neoplasm of right ovary (2) Peritoneal carcinomatosis: (3) Depressive disorder: (4) HLD (hyperlipidemia): (5) Lumbar degenerative disc disease: (6) Morbid obesity with BMI of 40.0-44.9, adult: (7) Cerebrovascular disease: (8) Diabetes mellitus: (9) CIDP (chronic inflammatory demyelinating polyneuropathy): (10) Malignant neoplasm of right ovary: (11) History of cardioembolic stroke: (12) CVA (cerebral vascular accident): PLAN: 1. Acute CVA Onset was the . Therefore stroke team was not called. Plan: MRI of the brain, MRA of the head and neck, 2D echocardiogram, PT, OT, speech therapy. Bedside swallow evaluation. Aspirin. Check records from [facility]. Once MRI and echocardiogram is completed, recommended consultation with [facility] teleneurology. Patient's asked about consulting with her neurologist [facility]. I told him that there is no clear indication at this point time as the concern is that she may have had another stroke but would not ultimately change her management at this time. Said that we would review the records from [facility] however that may be hard to come by given the current pandemic. If there is something unique in regards to her case outside of a stroke that may warrant a conversation with her neurologist but nothing to indicate that at this point time. He expressed understanding and seemed to be excepting of response. 2. Diabetes mellitus type 2 Insulin-dependent Continue with basal and prandial insulin Add sliding scale insulin A1c 3.CIDP Gets outpatient infusions of IVIG. Patient to follow-up with her specialist in regards to continuing those. 4. VTE prophylaxis: Moderate risk. Enoxaparin. 5. Advanced directives: Discussed with the patient. Patient unsure. I told her that we would leave her at full CODE STATUS unless she tells us otherwise. Patient has been vaccinated for COVID-19. She has not yet received her booster. Case discussed with the patient's at bedside. Charges/Coding Visit Charges Inpatient E&M: 95560 Init Hosp L3
[2021-10-04 11:59] LABS: Troponin-I HS 21 pg/mL (3.0-54.0)
[2021-10-04 14:31] LABS: Bedside Glucose 233 mg/dL (70-110)
--- NOTE | 2021-10-04 15:46 | MRI_ITS ---
We are attempting to reach an attending provider to discuss findings. An addendum with communication details will be sent when the communication is complete. STUDY: MRI BRAIN WITHOUT CONTRAST REASON FOR EXAM: Female, 71 years old. cva, rt weakness TECHNIQUE: Standardized multiplanar fat and water weighted pulse sequences were obtained. COMPARISON: CT brain 10/04/2021 and MRI brain 11/05/2014 FINDINGS: There is moderate cerebral atrophy with widening of the extra-axial spaces and ventricular dilatation. There are multiple white matter hyperintensities, distributed throughout the deep white matter tracts of the cerebral hemispheres, consistent with moderate chronic white matter ischemic changes. Left occipital encephalomalacia again noted. Restricted diffusion left caudate body. Normal bilateral basal ganglia. Normal thalami. There is no extra-axial fluid accumulation. Normal flow voids within the major intracranial circulation suggesting patency by spin echo criteria. Normal sella turcica, pituitary gland, infundibular stalk, optic chiasm and hypothalamus. Normal tectal plate and pineal gland. Normal midbrain, karle and medulla. Normal cerebellum. Normal basal cisterns. Normal bilateral temporal bones. Normal bilateral internal auditory canals. Lens implant on the right. Normal visualized paranasal sinuses. Normal calvarium and skull base. Normal visualized soft tissue structures. Normal visualized upper cervical spine. MRI/Brain without Contrast IMPRESSION: Acute or subacute infarct left caudate body Electronically Signed: Malcolm Jj MD at 0:02 EST , Service support ,
--- NOTE | 2021-10-04 15:46 | ECHOCS_ITS ---
Reason For Study: TIA/CVA Procedure This was a 2D Doppler, Color Flow transthoracic echocardiogram. Contrast injection was performed. The study was technically difficult. Exam performed portable in ED. Left Ventricle The estimated ejection fraction is 60 %. No evidence for diastolic dysfunction. No regional wall motion abnormalities noted. Right Ventricle Normal RV size. Normal systolic function. Atria Normal left atrium. Normal right atrium. No doppler evidence for ASD. Mitral Valve There is no mitral valve stenosis. No mitral valve insufficiency. Tricuspid Valve There is no tricuspid stenosis. Unable to estimate RV systolic pressure due to insufficient tricuspid regurgitant envelope. Trivial tricuspid valve insufficiency. Aortic Valve Aortic sclerosis, no stenosis. Trisinus/trileaflet aortic valve. There is no aortic stenosis. No aortic valve insufficiency. Pulmonic Valve There is no pulmonic valvular stenosis. No pulmonic valve insufficiency. Great Vessels Normal aortic root. Pericardium/Pleural No pericardial effusion. Medication Diluted definity 3.0ml given slow IV push to enhance endocardial definition. Previously negative bubble study. MMode/2D Measurements & Calculations LVIDd: 3.9 cm IVSd: 1.2 cm Ao root diam: 3.4 cm LVIDs: 2.5 cm LVPWd: 1.2 cm RVDd: 3.1 cm FS: 34.8 % LAV(MOD-bp): 32.2 ml LA A4 area: 13.2 cm2 LA dimension(2D): 3.8 cm LAV(MOD-bp) Indexed: 16.9 ml/m2 LAV(MOD-sp2): 31.9 ml LAV(MOD-sp4): 29.0 ml RA A4 area: 13.8 cm2 Doppler Measurements & Calculations MV E max pasquale: 59.3 cm/sec Lat Peak E' Pasquale: 5.8 cm/sec Med Peak E' Pasquale: 4.4 cm/sec MV A max pasquale: 98.7 cm/sec E/E' lat: 10.2 E/E' med: 13.5 MV E/A: 0.60 MV V2 max: 117.1 cm/sec Ao V2 max: 190.2 cm/sec LV V1 max: 109.4 cm/sec MV max P.5 mmHg Ao max P.6 mmHg LV V1 max P.9 mmHg MV V2 mean: 65.2 cm/sec Ao V2 mean: 132.3 cm/sec LV V1 mean P.8 mmHg MV mean P.9 mmHg Ao mean P.7 mmHg LV V1 mean: 79.3 cm/sec MV V2 VTI: 31.4 cm Ao V2 VTI: 37.6 cm LV V1 VTI: 22.9 cm PA V2 max: 93.6 cm/sec TR max pasquale: 212.3 cm/sec PA V2 mean: 49.7 cm/sec TR max P.0 mmHg PA V2 VTI: 39.6 cm ECHO/Echo Complete W/ Contrast Interpretation Summary The estimated ejection fraction is 60 %. No evidence for diastolic dysfunction. Aortic sclerosis, no stenosis. Ordering Physician: Kaden Sandoval Referring Physician: MARK LOMELI Performed By: Eulalia Cook, MEMO, RVT
--- NOTE | 2021-10-04 15:46 | MRI_ITS ---
History: cva EXAMINATION: MRA Neck W/O Contrast TECHNIQUE: Routine non-contrast [id number] Carotid MR angiogram protocol was performed without gadolinium. 3D reconstructions were reviewed. Nascet criteria using the distal ICAs for comparison were used for evaluation of stenoses. IV Contrast dosage and agent: None. COMPARISON: None FINDINGS: AORTIC ARCH AND BRANCHES: No significant stenosis at the visualized portions. RIGHT CCA: No occlusion or significant stenosis. RIGHT ICA: No occlusion or significant stenosis. LEFT CCA: No occlusion or significant stenosis. LEFT ICA: No occlusion or significant stenosis. RIGHT VERTEBRAL ARTERY: No occlusion or significant stenosis. 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 MRI/MRA Neck without Contrast IMPRESSION: Negative non-contrast MRA of the Neck. at 1029 Reported and signed by: Kody Shannon MD Electronically Signed: Kody Shannon MD at 10:27 EST Tel , Service support ,
--- NOTE | 2021-10-04 15:46 | MRI_ITS ---
STUDY: MRA OF THE HEAD WITHOUT CONTRAST REASON FOR EXAM: Female, 71 years old. cva, rt weakness TECHNIQUE: 3-D [id number] (TOF) imaging was performed with MIPs. The study was performed unenhanced. COMPARISON: CT brain 10/04/2021 FINDINGS: Normal bilateral petrous carotid arteries. Normal right cavernous carotid artery with a normal supraclinoid bifurcation. There is atheromatous plaque formation of the left cavernous carotid artery, with a mild stenosis (less than 50%). Normal right A1 segments of the anterior cerebral artery. Normal left A1 segments of the anterior cerebral artery. There is non-visualization of the anterior communicating artery (ACOM). Normal bilateral A2 segments of the anterior cerebral arteries. Normal right M1 and M2 segments of the middle cerebral arteries, with a normal M1 bifurcation. Normal left M1 and M2 segments of the middle cerebral arteries, with a normal M1 bifurcation. There is non-visualization of the right posterior communicating artery (PCOM). There is non-visualization of the left posterior communicating artery (PCOM). Normal bilateral vertebral arteries. Normal basilar artery with a normal basilar bifurcation. The visualized bilateral superior cerebellar (SCA) arteries are normal. Normal bilateral P1, P2 and visualized P3 segments of the posterior cerebral arteries. There is no demonstrated aneurysm of the [place] of [place]. There is no major vessel occlusion or hemodynamically significant stenosis. There is no demonstrated abnormality of the visualized brain. MRI/MRA Head ONLY without Contrast IMPRESSION: Normal MRA of the head Electronically Signed: Malcolm Jj MD at 23:56 EST , Service support ,
[2021-10-04] MEDS: Acetaminophen 325 MG Tablet 650 MG PO (16:38)
[2021-10-04] MEDS: Aspirin 325 MG Tablet PO (16:40)
[2021-10-04] MEDS: Insulin Lispro 100 UNIT/ML INSULN.PEN 20 UNIT SC (17:42)
[2021-10-04] MEDS: Insulin Lispro 100 UNIT/ML INSULN.PEN SC (17:43)
[2021-10-04 17:46] LABS: Bedside Glucose 285 mg/dL (70-110)
[2021-10-04 23:56] LABS: Bedside Glucose 80 mg/dL (70-110)
[2021-10-04 23:56] LABS: Bedside Glucose 54 mg/dL (70-110)
[2021-10-05] VITALS (10 sets, daily range): BP systolic 131–157; BP diastolic 66–90; PULSE 68–81; RESP 14–16; TEMP 36.8–37.3; O2SAT 91–95; BMI 46.8
--- NOTE | 2021-10-05 01:36 | PCS.PANDOC ---
PANDEMIC DOCUMENTATION INITIATED: Date: 06/05/2021 Time: 190
--- NOTE | 2021-10-05 01:36 | NURSING ---
Patient hs blood sugar 54 given orange juice rechecked and BS 80. Patient was given snacks.
[2021-10-05] MEDS: Thyroid 60 MG Tablet PO (06:21)
[2021-10-05 06:56] LABS: Bedside Glucose 126 mg/dL (70-110)
[2021-10-05 07:19] LABS: Cholesterol 248 mg/dL (200); High Density Lipoprotein 48 mg/dL; Triglycerides 102 mg/dL; Very Low Density Lipoprotein 20 mg/dL (5-40)
--- NOTE | 2021-10-05 07:53 | TELEMED_ITS ---
[facility] Telemed has confirmed receipt of a request for visit. This document confirms receipt of the order initiating the consult. To find the results of the consultation, please view the patient's reports for the scanned Telemed Consult.
[2021-10-05 08:04] LABS: Hemoglobin A1c 8.4 % (3.8-5.6)
[2021-10-05] MEDS: Aspirin 81 MG TAB.CHEW PO (08:46)
[2021-10-05] MEDS: Escitalopram Oxalate 20 MG Tablet PO (08:46)
[2021-10-05] MEDS: Enoxaparin 40 MG/0.4 ML Syringe SC (08:46)
--- NOTE | 2021-10-05 12:08 | PN.HOSP_ITS ---
Subjective Subjective Patient seen and examined. Patient currently undergoing echocardiogram, laying in bed no distress noted. Patient states she cannot move right-side of body or feel right side of body. Objective Data Objective Data Vital Signs: Vital Signs Temp Pulse Resp BP Pulse Ox 98.6 F 78 15 157/90 H 95 10/05/21 08:40 10/05/21 11:10 10/05/21 08:40 10/05/21 08:40 10/05/21 08:40 Oxygen Delivery Method Room Air Weight: 223 lb 1.725 oz Body Mass Index (BMI) 46.8 Intake & Output: Intake and Output for Last 24 Hours 10/03/21 10/04/21 10/05/21 23:59 23:59 23:59 Intake Total 200 / 200 Output Total 350 / 350 Balance -150 / -150 Lab / Micro Data Result Diagrams: 10/04/21 08:45 10/04/21 08:45 Labs: Laboratory Results - last 24 hr 10/04/21 14:27: POC Glucose 233 H 10/04/21 17:38: POC Glucose 285 H 10/04/21 22:57: POC Glucose 54 L 10/04/21 23:29: POC Glucose 80 10/05/21 06:05: Triglycerides 102, Cholesterol 248 H, LDL Cholesterol 180 H, VLDL Cholesterol 20, HDL Cholesterol 48 10/05/21 06:05: Hemoglobin A1c 8.4 H 10/05/21 06:19: POC Glucose 126 H Radiography Diagnostic Testing: Radiology Impression Brain MRI 10/04/21 15:46 IMPRESSION: Acute or subacute infarct left caudate body Electronically Signed: Malcolm Jj MD at 0:02 EST , Service support , ADDENDUM: 10/05/21 0137 IMPRESSION: Acute or subacute infarct left caudate body N.B. : The above Results were Read Back by Malcolm Jj MD to Emily Castro RN, and understanding confirmed on 10/05/2021 01:30:38 (ET). Electronically Signed: Malcolm Jj MD at 0:02 EST , Service support , Head MRA 10/04/21 15:46 IMPRESSION: Normal MRA of the head Electronically Signed: Malcolm Jj MD at 23:56 EST , Service support , Neck MRA 10/04/21 15:46 IMPRESSION: Negative non-contrast MRA of the Neck. at 1029 Reported and signed by: Kody Shannon MD Electronically Signed: Kody Shannon MD at 10:27 EST Tel , Service support , Rhythm Strip Rhythm Strip: Sinus Rhythm Rate: 62 Ectopy: PAC(s) Physical Exam Const alert, oriented x3 and no apparent distress Nutritional Appearance: obese HEENT head/scalp atraumatic and moist oral mucous membranes Head and Scalp: normocephalic Eyes conjunctivae normal and no scleral icterus Neck full ROM and supple General: trachea midline Resp normal respiratory effort, normal air movement and clear to auscultation bi laterally Effort and Inspection: able to speak in complete sentences and symmetric chest movement Cardio regular rate, regular rhythm, S1 normal heart sound and S2 normal heart sound GI normal to inspection, nondistended, normoactive bowel sounds, soft to palpation and non-tender Extremity normal to inspection and no clubbing, cyanosis or edema Peripheral Pulses: Yes pulses 2+ throughout Skin no rashes or lesions noted, no wounds and skin turgor normal Neuro oriented x3 Neuro Narrative: Right-sided upper and lower extremity flaccid Sensorium / Orientation: awake and alert Speech: speech normal Psych affect normal Assessment & Plan Assessment/Plan (1) CVA (cerebral vascular accident): QUALIFIERS: CVA mechanism: unspecified Qualified Code(s): I63.9 - Cerebral infarction, unspecified PLAN: Patient is a 71-year-old female with a history of stroke. Patient has residual right-sided weakness from previous stroke however per patient's it is notably worse than normal. 1. Acute CVA -Per [facility] neurology will initiate patient on statin therapy as well as low-dose aspirin daily -MRA neck normal, MRA head normal, brain MRI demonstrates acute or subacute infarct of the left caudate body -PT, OT, ST following 2. Diabetes mellitus type 2 -AC at bedtime blood sugars with sliding scale insulin ordered -Continue basal and prandial insulin -Hemoglobin A1c 8.4 3. CIDP -Patient receives outpatient infusions of IVIg DVT prophylaxis-subcu Lovenox This patient was seen by EMMA Gray under the supervision of Dr. Soto.
[2021-10-05] MEDS: Insulin Lispro 100 UNIT/ML INSULN.PEN SC (12:22)
[2021-10-05] MEDS: Insulin Lispro 100 UNIT/ML INSULN.PEN 20 UNIT SC (12:22)
[2021-10-05 12:30] LABS: Bedside Glucose 219 mg/dL (70-110)
[2021-10-05] MEDS: Glycerin/Hypromellose/PEG400 15 ml Bottle 2 DRP EACH EYE (12:36)
--- NOTE | 2021-10-05 12:54 | CASEMGMT ---
SW was informed by therapy and RN that patient and her are interested in patient going to [facility] for rehab. SW spoke with [facility] and they have beds available. SW met with patient and her . Introduced self and role at [facility]. SW discussed d/c options. SW let them know TCU does have beds available. Patient was unsure at first where she wanted to go. SW provided a list of SNF providers including quality and resource use data and consistent with the patient?s preferred geographic region, medical needs, and insurance network. Patient and her decided TCU is their first choice. SW let them know TCU would have a bed for her at discharge. SW told patient's that SW will let him know when she is being discharged if he is not here. SW notified physician. Plan: d/c to [facility] under skilled level of care. [place] ALEXANDER
--- NOTE | 2021-10-05 13:47 | PCM.TXEXTCAR ---
Diet 10/04/21 15:46 Diet: Cardiac: Calorie-Controlled Food consistency:: Easy to Chew Liquid Consistency:: Regular/Thin Dietary Modifications:: Consistent Carbohydrate Diet Comments: MEAT CUT BITE SIZE, Sup. at meals, LIQUIDS BY STRAW, CHECK FOR POCKETING How many daily calories?: 2000 calorie Routine Orders/Code Status Enema Type: Fleetz Enema Frequency: Daily PRN Suppository Type: Dulcolax 10mg Suppository Frequency: Daily PRN Code Status: Full Code Therapies Physical Therapy: Eval and Treat Occupational Therapy: Eval and Treat Speech Therapy: Eval and Treat Problem/Diagnosis (1) CVA (cerebral vascular accident): Status: Acute Allergies/Procedures Done in Hospital Allergies oats Adverse Reaction (Severe, Verified 10/04/21 08:38) Rash sodium benzoate Adverse Reaction (Intermediate, Verified 10/04/21 08:38) compromise immune system PLASTIC TAPE Adverse Reaction (Severe, Uncoded 10/04/21 08:38) Rash BERRIES Adverse Reaction (Intermediate, Uncoded 10/04/21 08:38) compromise immune system PEPPERS Adverse Reaction (Intermediate, Uncoded 10/04/21 08:38) compromise immune system TUNA Adverse Reaction (Intermediate, Uncoded 10/04/21 08:38) compromise immune system Procedures: 2-D Echocardiogram Type of Care/Length of Stay Estimated LOS: Convalescent Care Less Than 30 days Type of Care Needed: Skilled Rehab Potential: Fair Prognosis: Fair Additional Orders/Day of Discharge Day of Discharge: 10/05/21 Discharge Plan Admission Admit Date/Time: 10/04/21 11:19 Primary Reason for Your Visit: CVA Attending Provider: Bailee Soto Primary Care Provider: Christian Toure Discharge Orders/Prescriptions Prescriptions: New atorvastatin 40 mg Tablet 40 mg PO QHS Qty: 0 RF: 0 acetaminophen [Tylenol] 325 mg Tablet 650 mg PO Q6H PRN PRN (Reason: Pain Score 1-10/Temp > 100.7 F) Qty: 0 RF: 0 aspirin 81 mg Tablet,Chewable 81 mg PO BREAKFAST Qty: 0 RF: 0 Artificial Tears([id number]-fdrp) 1-0.2-0.2 % Drops 2 drp EACH EYE Q1H PRN (Reason: DRY EYES) Qty: 0 RF: 0 Continued escitalopram oxalate 10 MG tablet 20 mg PO DAILY RF: 0 thyroid (pork) [[place] Thyroid] 60 MG tablet 60 mg PO DAILY RF: 0 Humalog U-100 Insulin 100 UNIT/ML cartridge 20 unit subcut TID RF: 0 Immune Globulin 5 Gm (Octagam) 50 ML Vial 25 g IV QMONTH RF: 0 docusate sodium [DOK] 100 MG capsule 100 mg PO BID PRN (Reason: Constipation) RF: 0 Lantus U-100 Insulin 100 UNIT/ML solution 60 unit QHS RF: 0 levothyroxine [Synthroid] 88 mcg tablet RF: 0 meclizine 25 mg tablet RF: 0 cholecalciferol (vitamin D3) 1,250 mcg (50,000 unit) Capsule 1,250 mcg PO QWEEK RF: 0 Referrals / Follow Up: Christian Toure MD [Primary Care Provider] - Disposition Disposition (needs filled in before D/C Order can be placed[facility]
--- NOTE | 2021-10-05 13:53 | DS.PCM_ITS ---
Providers Date of Admission: 10/04/21 Primary Care Physician: Dr. Mark Lomeli MD Reason For Visit: CVA Diagnosis Discharge Diagnosis (1) CVA (cerebral vascular accident): Status: Acute Code(s): I63.9 - Cerebral infarction, unspecified Qualifiers: CVA mechanism: unspecified Qualified Code(s): I63.9 - Cerebral infarction, unspecified Medications at Discharge Home Medications escitalopram oxalate 20 mg PO DAILY 11/24/15 thyroid (pork) [[place] Thyroid] 60 mg PO DAILY 02/23/16 Humalog U-100 Insulin 20 unit SUBCUT TID 07/05/16 docusate sodium [DOK] 100 mg PO BID PRN 03/14/17 Immune Globulin 5 Gm (Octagam) 25 g IV QMONTH 04/18/17 Lantus U-100 Insulin 60 unit QHS 08/08/17 cholecalciferol (vitamin D3) 1,250 mcg PO QWEEK 10/04/21 levothyroxine [Synthroid] 10/04/21 meclizine mg 10/04/21 acetaminophen [Tylenol] 650 mg PO Q6H PRN PRN #0 tab 10/05/21 aspirin 81 mg PO BREAKFAST #0 tab 10/05/21 atorvastatin 40 mg PO QHS #0 tab 10/05/21 peg [id number] [Artificial Tears(wn-hktf-lheh)] 2 drp EACH EYE Q1H PRN #0 ml 10/05/21 Hospital Course Operations None Procedures 2-D Echocardiogram Summary of Care Provided Minutes Spent on Discharge: 30 Hospital Course: Patient is a 71-year-old female who came in for increased weakness x2 days. Patient has a history of left-sided stroke with right facial droop along with right arm and leg weakness however upon presentation her stated that these were much worse. Patient underwent head CT, brain MRI, MRA head and neck which showed a subacute infarct of the left caudate body. Patient will be discharged to TCU with orders to continue PT, OT, ST per recom mendations from therapy. Echocardiogram demonstrates EF 60% no evidence of diastolic dysfunction. Physical Exam Const alert, oriented x3 and no apparent distress Nutritional Appearance: obese HEENT head/scalp atraumatic and moist oral mucous membranes Eyes PERRL, EOMs intact bilaterally, conjunctivae normal and no scleral icterus Eyes Narrative: No icterus Neck full ROM, no lymphadenopathy and supple General: trachea midline Resp normal respiratory effort, normal air movement, no retractions, no use of accessory muscles and clear to auscultation bilaterally Effort and Inspection: able to speak in complete sentences and symmetric chest movement Cardio regular rate, regular rhythm, S1 normal heart sound and S2 normal heart sound GI normal to inspection, nondistended, normoactive bowel sounds, soft to palpation, non-tender and non-distended Extremity normal to inspection and no clubbing, cyanosis or edema Skin no rashes or lesions noted, no wounds and skin turgor normal Neuro oriented x3 Neuro Narrative: Right-sided upper and lower extremity flaccid Sensorium / Orientation: awake and alert Speech: speech normal Psych affect normal Mood & Affect: depressed Weight / BMI Weight Weight: 223 lb 1.725 oz Body Mass Index (BMI) 46.8 ABG / Lab / Microbiology Data Result Diagrams: 10/04/21 08:45 10/04/21 08:45 Laboratory: Laboratory Results - last 24 hr 10/04/21 14:27: POC Glucose 233 H 10/04/21 17:38: POC Glucose 285 H 10/04/21 22:57: POC Glucose 54 L 10/04/21 23:29: POC Glucose 80 10/05/21 06:05: Triglycerides 102, Cholesterol 248 H, LDL Cholesterol 180 H, VLDL Cholesterol 20, HDL Cholesterol 48 10/05/21 06:05: Hemoglobin A1c 8.4 H 10/05/21 06:19: POC Glucose 126 H 10/05/21 12:20: POC Glucose 219 H Radiography Diagnostic Testing: Radiology Impression Brain MRI 10/04/21 15:46 IMPRESSION: Acute or subacute infarct left caudate body Electronically Signed: Malcolm Jj MD at 0:02 EST , Service support , ADDENDUM: 10/05/21 0132 IMPRESSION: Acute or subacute infarct left caudate body N.B. : The above Results were Read Back by Malcolm Jj MD to Emily Castro RN, and understanding confirmed on 10/05/2021 01:30:38 (ET). Electronically Signed: Malcolm Jj MD at 0:02 EST , Service support , Echocardiogram 10/04/21 15:46 Interpretation Summary The estimated ejection fraction is 60 %. No evidence for diastolic dysfunction. Aortic sclerosis, no stenosis. Ordering Physician: Kaden Sandoval Referring Physician: MARK LOMELI Performed By: Eulalia Cook, RDCS, RVT Head MRA 10/04/21 15:46 IMPRESSION: Normal MRA of the head Electronically Signed: Malcolm Jj MD at 23:56 EST , Service support , Neck MRA 10/04/21 15:46 IMPRESSION: Negative non-contrast MRA of the Neck. at 1029 Reported and signed by: Kody Shannon MD Electronically Signed: Kody Shannon MD at 10:27 EST Tel , Service support , D/C Instructions Discharge Diet: Low fat / Low cholesterol and 1800 Calorie Control Diet Call your doctor if you observe: Numbness or Tingling Meaningful Use Info Meaningful Use Diagnoses (Choose all that apply): Ischemic CVA CVA Therapy Assessed for PT,OT and/or ST?: Yes Ischemic Stroke Antithrombotic order at d/c?: No Reason antithrombotic not ordered: Medical Contraindication Dx of Atrial fib/flutter?: No Statins at discharge?: Yes Primary Dx Acute Ischemic CVA?: Yes IV tPA ordered during stay?: No Reason IV t-PA not ordered: Medical Contraindication Discharge Plan Admission Admit Date/Time: 10/04/21 11:19 Primary Reason for Your Visit: CVA Attending Provider: Bailee Soto Primary Care Provider: Mark Lomeli Discharge Orders/Prescriptions Prescriptions: New atorvastatin 40 mg Tablet 40 mg PO QHS Qty: 0 RF: 0 acetaminophen [Tylenol] 325 mg Tablet 650 mg PO Q6H PRN PRN (Reason: Pain Score 1-10/Temp > 100.7 F) Qty: 0 RF: 0 aspirin 81 mg Tablet,Chewable 81 mg PO BREAKFAST Qty: 0 RF: 0 Artificial Tears([id number]-cvkr) 1-0.2-0.2 % Drops 2 drp EACH EYE Q1H PRN (Reason: DRY EYES) Qty: 0 RF: 0 Continued escitalopram oxalate 10 MG tablet 20 mg PO DAILY RF: 0 thyroid (pork) [[place] Thyroid] 60 MG tablet 60 mg PO DAILY RF: 0 Humalog U-100 Insulin 100 UNIT/ML cartridge 20 unit subcut TID RF: 0 Immune Globulin 5 Gm (Octagam) 50 ML Vial 25 g IV QMONTH RF: 0 docusate sodium [DOK] 100 MG capsule 100 mg PO BID PRN (Reason: Constipation) RF: 0 Lantus U-100 Insulin 100 UNIT/ML solution 60 unit QHS RF: 0 levothyroxine [Synthroid] 88 mcg tablet RF: 0 meclizine 25 mg tablet RF: 0 cholecalciferol (vitamin D3) 1,250 mcg (50,000 unit) Capsule 1,250 mcg PO QWEEK RF: 0 Referrals / Follow Up: Mark Lomeli MD [Primary Care Provider] - Disposition Disposition (needs filled in before D/C Order can be placed): [facility]
--- NOTE | 2021-10-05 14:13 | CASEMGMT ---
Patient is going to be discharged to [facility] TCU today. SW spoke with patient and let her know this information. SW also let her know SW will call her and let him know. SW called patient's and let him know patient is going to [facility] today. TERRY told him SW can see if the RN can call him when she knows a time so he knows where to go when he comes in later. He thanked SW for the update. Plan: d/c to [facility] under skilled level of care. [place] ALEXANDER
--- NOTE | 2021-10-05 14:18 | CASEMGMT ---
SW attempted to complete a PHQ 9 with patient as she had a Stroke. However, patient did not seem to fully understand so SW discontinued. TERRY asked patient how her lunch was today and she said she couldn't remember her lunch. [place] ALEXANDER
--- NOTE | 2021-10-05 15:28 | CASEMGMT ---
AISHA MORAGN NOTE: Pt qualifies for a Palliative referral per the [facility] palliative screening tool at this time. Dr Soto made aware but is not agreeable to Palliative referral at this time. She states this can be done while pt on TCU. TERRY Coleman, made aware and states will notify SW on TCU. Jennifer FRITZ RN CM
--- NOTE | 2021-10-05 15:49 | NURSING ---
report called to kelsey in tcu. called aware of transfer to tcu
== END 2021-10-05 15:53 | disposition skilled nursing facility (03) | DRG 65 ==
LOC: ED 10:28 → PCU 13:31
PROVIDERS: Emergency Provider Emergency Medicine; PCP Family Medicine; Visit Provider Student in an Organized Health Care Education/Training Program
DX: I63.9 Cerebral infarction, unspecified (principal); R47.81 Slurred speech; R53.1 Weakness; R29.705 NIHSS score 5; G61.81 Chronic inflammatory demyelinating polyneuritis; Z68.42 Body mass index [BMI] 45.0-49.9, adult; I69.392 Facial weakness following cerebral infarction; I69.331 Monoplegia of upper limb following cerebral infarction affecting right dominant side; E11.649 Type 2 diabetes mellitus with hypoglycemia without coma; Z20.822 Contact with and (suspected) exposure to COVID-19; E78.5 Hyperlipidemia, unspecified; F32.A Depression, unspecified; E66.01 Morbid (severe) obesity due to excess calories; Z79.4 Long term (current) use of insulin; Z79.82 Long term (current) use of aspirin; Z79.890 Hormone replacement therapy; Z79.899 Other long term (current) drug therapy; Z85.43 Personal history of malignant neoplasm of ovary; Z87.891 Personal history of nicotine dependence
CPT/HCPCS: 36415; 70450; 70544; 70547; 70551; 71045; 80048; 80061; 82962; 83036; 84484; 85025; 85610; 85730; 87426; 92610; 93005; 93306; 97162; 97166; 97802; 99285; 99406; Q9957; A4216; C8929

== ENCOUNTER 2021-10-05 16:09 | Inpatient (IN) | payer MEDICARE, SELFPAY ==
[2021-10-05 16:13] VITALS: BP 154/64; PULSE 90; RESP 18; TEMP 36.4; O2SAT 92; BMI 44.1
[2021-10-05 18:35] LABS: Bedside Glucose 185 mg/dL (70-110)
[2021-10-05 21:11] LABS: Bedside Glucose 207 mg/dL (70-110)
--- NOTE | 2021-10-05 22:21 | HP.PCM_ITS ---
HPI - General General Date of Admission: 10/05/21 HPI Narrative 10/04/2021 BRANDAN ESPAÑA, is a 71 Female who presents to [facility] Emergency Department with weakness. Right leg weakness which is new, blood glucose 44, Amp D50 given. Patient has history of 3 previous strokes resulting in right facial droop, right upper extremity weakness which are chronic. Symptoms ongoing for 3 to 4 days, not TPA candidate. CT brain showed old strokes. Chest X-ray negative. 10/04/2021 Admit to Hospital. MRI brain, MRA head/neck, Echo, PT/OT/ST, bedside swallow evaluation, aspirin for acute stroke. Continue IVIG for CIDP. Monitor blood sugars, continue home insulin regimen. 10/04/2021 Echo showed EF 60%. Negative diastolic dysfunction. 10/05/2021 Teleneurology recommended aspirin, statin. MRA head/neck normal. MRI brain showed acute/subacute infarct left caudate body. PT/OT/ST. HbA1c 8.4. 10/05/2021 Admit to TCU with debility, here for rehabilitation, strengthening, prior to discharge home with . [facility] Medical History Cerebrovascular disease CIDP (chronic inflammatory demyelinating polyneuropathy) Depressive disorder Diabetes mellitus History of cardioembolic stroke HLD (hyperlipidemia) Lumbar degenerative disc disease Malignant neoplasm of right ovary Morbid obesity with BMI of 40.0-44.9, adult Ovarian cancer Peritoneal carcinomatosis Home Medications escitalopram oxalate 20 mg PO DAILY 11/24/15 [History Last Taken Unknown] thyroid (pork) [[place] Thyroid] 60 mg PO DAILY 02/23/16 [History Last Taken Unknown] Humalog U-100 Insulin 20 unit SUBCUT TID 07/05/16 [History Last Taken Unknown] docusate sodium [DOK] 100 mg PO BID PRN 03/14/17 [History Last Taken Unknown] Immune Globulin 5 Gm (Octagam) 25 g IV QMONTH 04/18/17 [History Last Taken Unknown] Lantus U-100 Insulin 60 unit QHS 08/08/17 [History Last Taken Unknown] cholecalciferol (vitamin D3) 1,250 mcg PO QWEEK 10/04/21 [History Last Taken Unknown] levothyroxine [Synthroid] 10/04/21 [History Last Taken Unknown] meclizine 25 mg PO PRN PRN 10/04/21 [History Last Taken Unknown] acetaminophen [Tylenol] 650 mg PO Q6H PRN PRN #0 tab 10/05/21 [Rx Last Taken Unknown] aspirin 81 mg PO BREAKFAST 10/05/21 [History Last Taken Unknown] atorvastatin 40 mg PO QHS 10/05/21 [History Last Taken Unknown] peg [id number] [Artificial Tears([id number]-[id number])] 2 drp EACH EYE Q1H PRN #0 ml 10/05/21 [Rx Last Taken Unknown] Allergy/AdvReac Type Severity Reaction Status Date / Time oats AdvReac Severe Rash Verified 10/04/21 08:38 sodium benzoate AdvReac Intermediate compromise Verified 10/04/21 08:38 immune system PLASTIC TAPE AdvReac Severe Rash Uncoded 10/04/21 08:38 BERRIES AdvReac Intermediate compromise Uncoded 10/04/21 08:38 immune system PEPPERS AdvReac Intermediate compromise Uncoded 10/04/21 08:38 immune system TUNA AdvReac Intermediate compromise Uncoded 10/04/21 08:38 immune system Social History (Updated 10/05/21 @ 22:[address] Rigo Kenney MD) household members: spouse Smoking Status: Never smoker alcohol intake: never substance use type: does not use ROS Constitutional Constitutional: Denies chills, fever(s) or weight gain ENT HEENT: Denies headache(s), nasal congestion or nasal discharge Cardiovascular Cardiovascular: Denies chest pain or palpitations Respiratory/Chest Respiratory/Chest: Denies cough, excessive phlegm production or shortness of breath with exertion Gastrointestinal Gastrointestinal: Denies abdominal pain, nausea or vomiting Genitourinary Genitourinary: Denies dysuria Musculoskeletal Musculoskeletal: Denies joint pain or joint swelling Integumentary Integumentary: Denies rash or wounds Neurologic Neurologic: Denies focal weakness, numbness or tingling Psychiatric Psychiatric: Denies anxiety, auditory hallucinations, depression, homicidal ideation or suicidal ideation Vital Signs Vital Signs Vital Signs: 10/05/21 16:13 Temperature 97.6 F L Temperature Source Temporal Pulse Rate 90 Respiratory Rate 18 Blood Pressure 154/64 H Blood Pressure Mean 94 Blood Pressure Source Monitor Blood Pressure Position Supine Blood Pressure Location Left Arm Pulse Ox 92 Oxygen Delivery Method Room Air Weight Weight: 95.906 kg Body Mass Index (BMI) 44.1 Physical Exam Const alert and oriented x3 General Appearance: cooperative HEENT normocephalic Eyes PERRL and EOMs intact bilaterally Neck supple, no JVD and no carotid bruits Resp normal respiratory effort, normal air movement and clear to auscultation bilaterally Cardio regular rate and regular rhythm GI normal to inspection, nondistended, normoactive bowel sounds, non-tender and non-distended Extremity normal capillary refill General Extremity: Negative for edema Skin no rashes or lesions noted General Skin Exam: no breakdown Neuro Neuro Narrative: Right hemiparesis. Psych affect normal Appearance: appropriate Results Lab / Micro Data Labs: Laboratory Results - last 24 hr 10/05/21 18:32: POC Glucose 185 H 10/05/21 21:07: POC Glucose 207 H Assessment & Plan Assessment/Plan (1) Debility: (2) CVA (cerebral vascular accident): QUALIFIERS: CVA mechanism: unspecified Qualified Code(s): I63.9 - Cerebral infarction, unspecified (3) Hypoglycemia due to type 2 diabetes mellitus: (4) Right leg weakness: (5) Ovarian cancer: (6) Depression: (7) Hypothyroidism: (8) Vitamin D deficiency: (9) Dizziness: (10) CIDP (chronic inflammatory demyelinating polyneuropathy): PLAN: 71 year old female with below past medical history hospitalized for acute stroke, right hemiparesis, admitted to TCU with debility, here for rehabilitation, strengthening, prior to discharge home with . * Debility - PT/OT. * Dysarthria - ST. * Pain - Tylenol 1000mg q6h prn pain (1-10). * Bowel - Senna/colace 1 tablet bid, Dulcolax 10mg daliy prn. * Adult immunization - Administer prevnar 13, pneumovax 23, fluzone, covid19 vaccine as appropriate. * DVT prophylaxis - Lovenox 40mg sc daily. * Stroke - Aspirin 81mg daily. * Hyperlipidemia - Atorvastatin 40mg qhs. * Vitamin D deficiency - D3 1.25mg per week. * Depression - Lexapro 20mg daily, stable chronic intermodal customer service use, GDR not recommended. * Diabetes Mellitus II - A1c 8.4, Lantus 60 units qhs, Humalog 20 units tidac. * Dizziness - Meclizine 25mg tid prn. * Dry Eyes - Artificial tears 2gtt ou Q1H prn. * Hypothyroidism - [place] Thyroid 60mg daily.
[2021-10-05 23:32] VITALS: PULSE 84; RESP 16; O2SAT 90
[2021-10-06] MEDS: Escitalopram Oxalate 20 MG Tablet PO (04:58)
[2021-10-06] MEDS: Thyroid 60 MG Tablet PO (04:58)
[2021-10-06] MEDS: Senna/Docusate Sodium 1 Tablet PO ×2 (04:59→17:37)
[2021-10-06] MEDS: Enoxaparin 40 MG/0.4 ML Syringe SC (04:59)
[2021-10-06] MEDS: Glycerin/Hypromellose/PEG400 15 ml Bottle 2 DRP EACH EYE (04:59)
[2021-10-06 05:00] VITALS: BP 178/90; PULSE 85; RESP 16; TEMP 37.1; O2SAT 93
[2021-10-06 05:58] LABS: Absolute Lymphocyte Count 2.74 X10^3/uL (0.83-4.51); Absolute Neutrophil Count 4.5 X10^3/uL (2.0-7.7); Basophil# 0.06 X10^3/uL; Basophil% 0.7 % (0-1); Eosinophil# 0.24 X10^3/uL; Eosinophils% 2.8 % (0-5); Hematocrit 41.6 % (37-47); Hemoglobin 14.1 g/dL (12.0-15.0); Lymphocyte # 2.74 X10^3/ul (0.83-4.51); Lymphocyte % 32.3 % (19-41); Mean Corp Hgb Conc 33.9 g/dL (32-36); Mean Corpuscular Hgb 32.1 pg (27.0-32.0); Mean Corpuscular Volume 94.8 fL (81-99); Mean Platelet Vol. 10.6 fl (6.2-12.0); Monocyte# 0.94 X10^3/uL; Monocyte% 11.1 % (0-10); NRBC Flagged by Analyzer 0 % (0-5); Neutrophil # 4.48 X10^3/uL (2.7-7.7); Neutrophil % 52.9 % (47-70); Platelet Count 168 K/mm3 (150-450); RBC Distribution Width CV 13.1 % (11.6-14.6); RBC Distribution Width SD 46.1 fl (35.1-43.9); Red Blood Count 4.39 M/mm3 (4.2-5.4); White Blood Count 8.5 K/mm3 (4.4-11.0)
[2021-10-06 06:25] LABS: Bedside Glucose 220 mg/dL (70-110)
[2021-10-06 06:33] LABS: Anion Gap 7 (5-15); BUN 23 mg/dL (7-18); BUN/Creat Ratio 20.4 RATIO (10-20); Calcium,Total 9.2 mg/dL (8.5-10.1); Chloride 104 mmol/L (98-107); Creatinine, Serum 1.13 mg/dL (0.55-1.02); EST Glomerular Filtration Rate 50 mL/min (>60); Est Glom Filt Rate - Afr Amer 61 mL/min (>60); Estimated Creatinine Clearance 67.13 ml/min; Glucose 193 mg/dL (74-106); Sodium Level 136 mmol/L (136-145)
[2021-10-06] MEDS: Insulin Lispro 100 UNIT/ML INSULN.PEN 20 UNIT SC ×3 (08:00→17:40)
[2021-10-06] MEDS: Aspirin 81 MG TAB.CHEW PO (08:02)
[2021-10-06] MEDS: Losartan Potassium 100 MG Tablet PO (08:21)
[2021-10-06 11:06] LABS: Bedside Glucose 233 mg/dL (70-110)
[2021-10-06] MEDS: Tuberculin,Purif.prot.deriv. 50 TU/ML Vial 0.1 ML ID (12:08)
[2021-10-06 14:29] VITALS: BP 122/51; PULSE 68; RESP 18; TEMP 36.6; O2SAT 92
[2021-10-06 16:10] LABS: Bedside Glucose 179 mg/dL (70-110)
--- NOTE | 2021-10-06 16:26 | CASEMGMT ---
Addendum entered by May Drew 10/06/21 16:30: requesting Palliative consult. Order entered. Referral made to [facility] via email. Original Note: Social Work Met with patient and in room for initial assessment. Pt drowsy, thus answered most assessment questions. Pt did wish her code status be DNR-CCA, no intubation. Did not complete MOLST. is POA and requested he provide a copy for chart. Explained [employer] insurance with NRD 10/09 and continued stay is not guaranteed. Cautioned insurance can issue DC date at any time and pt may not be ready to DC home at that time. Discussed pt is currently dep x2/manuel lift and it would not be safe for her to DC home. agreed. stated she was independent with ADLs, meds and steps prior. He assisted with IADLs. Explained insurance would not cover another SNF, it would only cover part B therapies at a SNF or C. SW encouraged to begin thinking of alternative DC plan. Offered SNF list. agreed. Encouraged to tour and research facilities. expressed understanding and appreciative of information and assistance. SW to continue to follow. May Drew ,RAG WASHER BREAKER UP MACHINE OPERATOR
[2021-10-06] MEDS: Menthol/Lanolin/Calamine/Znox 113 GM Tube 1 APPLIC TOPICAL (17:39)
[2021-10-06] MEDS: Nystatin Powder 15gm Bottle 1 APPLIC TOPICAL (17:39)
[2021-10-06] MEDS: Atorvastatin Calcium 40 MG Tablet PO (22:09)
[2021-10-06 22:11] LABS: Bedside Glucose 200 mg/dL (70-110)
[2021-10-07 05:25] VITALS: BP 138/72; PULSE 84; RESP 18; TEMP 36.8; O2SAT 90
[2021-10-07] MEDS: Thyroid 60 MG Tablet PO (05:30)
[2021-10-07] MEDS: Enoxaparin 40 MG/0.4 ML Syringe SC (05:31)
[2021-10-07] MEDS: Escitalopram Oxalate 20 MG Tablet PO (05:31)
[2021-10-07] MEDS: Losartan Potassium 100 MG Tablet PO (05:31)
[2021-10-07] MEDS: Nystatin Powder 15gm Bottle 1 APPLIC TOPICAL ×2 (05:32→18:05)
[2021-10-07] MEDS: Senna/Docusate Sodium 1 Tablet PO ×2 (05:32→18:00)
[2021-10-07] MEDS: Menthol/Lanolin/Calamine/Znox 113 GM Tube 1 APPLIC TOPICAL ×2 (05:40→18:05)
[2021-10-07 06:20] LABS: Bedside Glucose 194 mg/dL (70-110)
[2021-10-07] MEDS: Aspirin 81 MG TAB.CHEW PO (08:20)
[2021-10-07] MEDS: Insulin Lispro 100 UNIT/ML INSULN.PEN 20 UNIT SC ×3 (08:20→18:00)
--- NOTE | 2021-10-07 09:09 | NURSING ---
Pt c/o of left calf pain and edema. Positive Homans sign. Dr. Kenney updated new order for Doppler to left leg.
[2021-10-07 11:10] LABS: Bedside Glucose 257 mg/dL (70-110)
[2021-10-07] MEDS: Acetaminophen 500 MG Tablet 1000 MG PO (14:52)
[2021-10-07 16:35] LABS: Bedside Glucose 176 mg/dL (70-110)
[2021-10-07] MEDS: Glycerin/Hypromellose/PEG400 15 ml Bottle 2 DRP EACH EYE (18:15)
[2021-10-07 18:44] VITALS: BP 154/56; PULSE 82; RESP 16; TEMP 36.9; O2SAT 94
[2021-10-07 18:46] VITALS: PULSE 82; RESP 16; O2SAT 94
[2021-10-07 21:15] LABS: Bedside Glucose 249 mg/dL (70-110)
[2021-10-07] MEDS: Atorvastatin Calcium 40 MG Tablet PO (21:47)
[2021-10-08] MEDS: Losartan Potassium 100 MG Tablet PO (04:46)
[2021-10-08] MEDS: Escitalopram Oxalate 20 MG Tablet PO (04:46)
[2021-10-08] MEDS: Thyroid 60 MG Tablet PO (04:46)
[2021-10-08] MEDS: Senna/Docusate Sodium 1 Tablet PO ×2 (04:46→18:07)
[2021-10-08] MEDS: Enoxaparin 40 MG/0.4 ML Syringe SC (04:46)
[2021-10-08] MEDS: Menthol/Lanolin/Calamine/Znox 113 GM Tube 1 APPLIC TOPICAL ×2 (04:46→18:05)
[2021-10-08] MEDS: Nystatin Powder 15gm Bottle 1 APPLIC TOPICAL ×2 (04:47→18:05)
[2021-10-08 06:20] LABS: Bedside Glucose 166 mg/dL (70-110)
--- NOTE | 2021-10-08 06:36 | NURSING ---
Nursing Extension Service Specialist, Divya notified of stat doppler order to rule out DVT.
[2021-10-08] MEDS: Acetaminophen 500 MG Tablet 1000 MG PO (07:53)
[2021-10-08] MEDS: Aspirin 81 MG TAB.CHEW PO (07:56)
[2021-10-08] MEDS: Insulin Lispro 100 UNIT/ML INSULN.PEN 20 UNIT SC ×3 (07:57→17:58)
[2021-10-08 11:05] LABS: Bedside Glucose 269 mg/dL (70-110)
[2021-10-08 16:07] VITALS: BP 142/72; PULSE 83; RESP 16; TEMP 37.1; O2SAT 94
[2021-10-08 16:08] VITALS: PULSE 82; RESP 16; O2SAT 94
[2021-10-08 16:51] LABS: Bedside Glucose 192 mg/dL (70-110)
[2021-10-08] MEDS: Ergocalciferol 1.25 MG (50, 000 UNIT) Capsule PO (17:57)
[2021-10-08 21:15] LABS: Bedside Glucose 206 mg/dL (70-110)
--- NOTE | 2021-10-08 23:26 | NURSING ---
HS snack given after insulin administered this hs. Held pudding cup for pt who fed self. Coughed at end of eating snack. Consumed a couple of sips of thin water w/ a straw. In no acute distress. Kept HOB at 90 degrees to prevent aspiration. Entered room at this time and pt lowered self to semi-waggoner's position. Reports generalized discomfort. Offered Tylenol and pt declines stating, That doesn't work for me. Appears relaxed in bed. Resp even and unlabored. Will continue to monitor.
[2021-10-09] MEDS: Enoxaparin 40 MG/0.4 ML Syringe SC (05:28)
[2021-10-09] MEDS: Losartan Potassium 100 MG Tablet PO (05:30)
[2021-10-09] MEDS: Senna/Docusate Sodium 1 Tablet PO ×2 (05:30→17:16)
[2021-10-09] MEDS: Escitalopram Oxalate 20 MG Tablet PO (05:30)
[2021-10-09] MEDS: Menthol/Lanolin/Calamine/Znox 113 GM Tube 1 APPLIC TOPICAL ×2 (05:30→17:18)
[2021-10-09] MEDS: Thyroid 60 MG Tablet PO (05:30)
[2021-10-09] MEDS: Nystatin Powder 15gm Bottle 1 APPLIC TOPICAL ×2 (05:30→17:18)
[2021-10-09 05:36] VITALS: BP 155/68; PULSE 87
[2021-10-09 06:25] LABS: Bedside Glucose 101 mg/dL (70-110)
--- NOTE | 2021-10-09 07:47 | NURSING ---
Remains uncomfortable this. Able to point to left lower back. NO void for almost 12 hours. Bladder scan for 530ml. ST cath completed using sterile technique w/ immediate return of 600 ml light tamica, clear urine. No foul odor noted. Pt tolerated well. Staff to continue to monitor.
[2021-10-09] MEDS: Aspirin 81 MG TAB.CHEW PO (08:19)
[2021-10-09] MEDS: Insulin Lispro 100 UNIT/ML INSULN.PEN 20 UNIT SC ×3 (08:34→17:15)
--- NOTE | 2021-10-09 08:34 | NURSING ---
pt blood sugar 101 this AM, pt ate some pancakes and cereal. dr lee updated, new order to only give 1/2 humalog order this AM. so 10 units given.
--- NOTE | 2021-10-09 11:49 | CON.PCM.PA_ITS ---
Assessment & Plan Assessment/Plan (1) Debility: (2) CVA (cerebral vascular accident): QUALIFIERS: CVA mechanism: unspecified Qualified Code(s): I63.9 - Cerebral infarction, unspecified (3) CIDP (chronic inflammatory demyelinating polyneuropathy): (4) Right leg weakness: (5) Unable to ambulate: (6) Depression: QUALIFIERS: Depression Type: unspecified Qualified Code(s): F32.A - Depression, unspecified (7) Ovarian cancer: QUALIFIERS: Laterality: unspecified laterality Qualified Code(s): C56.9 - Malignant neoplasm of unspecified ovary PLAN: 71-year-old female with history of multiple strokes, hospitalized with acute stroke with subsequent debility and weakness and inability to ambulate. Seen today for palliative consult for symptom management of weakness and for supportive care as an outpatient. 1. Debility and weakness/inability to ambulate: History of CIDP and CVAs complicate her mobility issues. She is here in TCU for rehab and strengthening. It is unclear if she will be able to return home or will need further penitentiary care at a facility. We will continue to follow for supportive management. 2. CIDP/depression/history of ovarian cancer/type 2 diabetes (uncontrolled): Complicates overall care, management, recovery, and prognosis. Patient has been advised to work on getting her diabetes under better control to reduce likelihood of more complications. She is morbidly obese as well. She follows at [facility]. Thank you for the opportunity to participate in this patient's care, please do not hesitate to contact [facility] with any further questions or concerns. Palliative direct line is [phone]. We will follow up with spouse to discuss palliative services further. Patient has some baseline cognitive deficits. Greater than 50% of F2F visit dedicated to education and counseling of palliative care services, medications, comorbid conditions and potential assistance with management, and plan of care moving forward. Start time: 1149 End time: 1226 HPI Consult Data Date of Consult: 10/09/21 HPI Narrative HPI Narrative: BRANDAN ESPAÑA, is a 71 F who presented to [facility] 10/04/21 with new right-sided leg weakness, hypoglycemia, and debility. CT showed nothing acute. She does have some previous strokes. Chest x-ray nothing acute. Echo showed an EF of 60%. MRI/MRA showed an acute stroke. Patient does have a chronic right-sided facial droop and right arm/leg weakness. She was admitted for further evaluation and management and eventually discharged to TCU 10/05/2021. Patient has history of chronic inflammatory demyelinating polyneuropathy and has baseline debility. Requires Gisela lift and is dependent with 2 assist. Recent A1c was 8.4. She is a DNR CCA with no intubation. is POA. He reports patient is typically independent with ADLs at home, medication administration, and was able to even do steps at home prior to this admission. Dr. Kenney, attending physician on TCU has requested palliative referral. Patient did qualify for palliative referral while admitted at [facility], however hospitalist declined to go forward with referral at that time. Patient denies chest pain or shortness of breath. No N/V/D. Her appetite is good. Denies any dizziness or syncope. Admits she is quite weak and cannot do things she was able to do prior to this admission. Unable to move the right side of her body. She does have some urinary incontinence. No burning or frequency. Denies any cough or congestion. She is eating her lunch and is a supervised feed due to risk of dysphagia. Not really having any pain at this point in time. Memory is poor. [facility] Medical History Cerebrovascular disease CIDP (chronic inflammatory demyelinating polyneuropathy) Depressive disorder Diabetes mellitus History of cardioembolic stroke HLD (hyperlipidemia) Lumbar degenerative disc disease Malignant neoplasm of right ovary Morbid obesity with BMI of 40.0-44.9, adult Ovarian cancer Peritoneal carcinomatosis Home Medications escitalopram oxalate 20 mg PO DAILY 11/24/15 [History Last Taken Unknown] thyroid (pork) [[place] Thyroid] 60 mg PO DAILY 02/23/16 [History Last Taken Unknown] Humalog U-100 Insulin 20 unit SUBCUT TID 07/05/16 [History Last Taken Unknown] docusate sodium [DOK] 100 mg PO BID PRN 03/14/17 [History Last Taken Unknown] Immune Globulin 5 Gm (Octagam) 25 g IV QMONTH 04/18/17 [History Last Taken Unknown] Lantus U-100 Insulin 60 unit QHS 08/08/17 [History Last Taken Unknown] cholecalciferol (vitamin D3) 1,250 mcg PO QWEEK 10/04/21 [History Last Taken Unknown] levothyroxine [Synthroid] 88 mcg PO DAILY 10/04/21 [History Last Taken Unknown] meclizine 25 mg PO PRN PRN 10/04/21 [History Last Taken Unknown] acetaminophen [Tylenol] 650 mg PO Q6H PRN PRN #0 tab 10/05/21 [Rx Last Taken Unknown] aspirin 81 mg PO BREAKFAST 10/05/21 [History Last Taken Unknown] atorvastatin 40 mg PO QHS 10/05/21 [History Last Taken Unknown] peg [id number] [Artificial Tears([id number])] 2 drp EACH EYE Q1H PRN #0 ml 10/05/21 [Rx Last Taken Unknown] Allergy/AdvReac Type Severity Reaction Status Date / Time oats AdvReac Severe Rash Verified 10/04/21 08:38 sodium benzoate AdvReac Intermediate compromise Verified 10/04/21 08:38 immune system PLASTIC TAPE AdvReac Severe Rash Uncoded 10/04/21 08:38 BERRIES AdvReac Intermediate compromise Uncoded 10/04/21 08:38 immune system PEPPERS AdvReac Intermediate compromise Uncoded 10/04/21 08:38 immune system TUNA AdvReac Intermediate compromise Uncoded 10/04/21 08:38 immune system Social History household members: spouse Smoking Status: Never smoker alcohol intake: never substance use type: does not use ROS ROS Narrative Review of systems otherwise negative from a constitutional, HEENT, respiratory, cardiovascular, GI, genitourinary, musculoskeletal, skin, neurologic, psychiatric and hematologic system unless stated above. Physical Exam Const alert and no apparent distress General Appearance: cooperative Nutritional Appearance: morbidly obese HEENT normocephalic and head/scalp atraumatic Neck supple General: trachea midline Resp normal respiratory effort Effort and Inspection: able to speak in complete sentences and symmetric chest movement Auscultation: diminished lung sounds Cardio S1 normal heart sound and S2 normal heart sound GI soft to palpation and non-tender GI Narrative: obese Auscultation: normoactive bowel sounds Extremity no clubbing, cyanosis or edema Skin no rashes or lesions noted Neuro moves all extremities Neuro Narrative: R arm and leg weakness, facial droop. Sensorium / Orientation: oriented to person and oriented to place Psych cooperative Attitude: calm Activity / Motor Behavior: appropriate eye contact Speech: slow and slurred Memory / Cognition: cognition impaired
[2021-10-09 12:11] LABS: Bedside Glucose 234 mg/dL (70-110)
--- NOTE | 2021-10-09 12:42 | PHA.CONS_ITS ---
Progress Note - Pharmacy Subjective: TCU Admission Objective: Allergies oats Adverse Reaction (Severe, Verified 10/04/21 08:38) Rash sodium benzoate Adverse Reaction (Intermediate, Verified 10/04/21 08:38) compromise immune system PLASTIC TAPE Adverse Reaction (Severe, Uncoded 10/04/21 08:38) Rash BERRIES Adverse Reaction (Intermediate, Uncoded 10/04/21 08:38) compromise immune system PEPPERS Adverse Reaction (Intermediate, Uncoded 10/04/21 08:38) compromise immune system TUNA Adverse Reaction (Intermediate, Uncoded 10/04/21 08:38) compromise immune system Current Medications Generic Name Dose Route Start Last Admin Trade Name Freq PRN Reason Stop Dose Admin Acetaminophen 1,000 mg 10/05/21 22:39 10/08/21 07:53 Acetaminophen 500 Mg Tablet PO 1,000 mg Q6H PRN PRN Administration Pain Score 1-10 Aspirin 81 mg 10/06/21 08:00 10/09/21 08:19 Aspirin 81 Mg Tab.Chew PO 81 mg BREAKFAST [facility] Administration Atorvastatin Calcium 40 mg 10/05/21 22:00 10/08/21 22:29 Atorvastatin Calcium 40 Mg Tablet PO Not Given QHS [facility] Bisacodyl 10 mg 10/05/21 22:38 Bisacodyl 5 Mg Tablet PO DAILY PRN Constipation Calamine/Phenol 1 applic 10/06/21 18:00 10/09/21 05:30 Menthol/Lanolin/Calamine/Znox 113 Gm Tube TOPICAL 1 applic BID [facility] Administration Protocol Enoxaparin Sodium 40 mg 10/06/21 06:00 10/09/21 05:28 Enoxaparin 40 Mg/0.4 Ml Syringe SC 40 mg DAILY@0600 ARIS Administration Ergocalciferol 1.25 mg 10/08/21 16:30 10/08/21 17:57 Ergocalciferol 1.25 Mg (50, 000 Unit) Capsule PO 1.25 mg QWEEK [facility] Administration Escitalopram Oxalate 20 mg 10/06/21 06:00 10/09/21 05:30 Escitalopram Oxalate 20 Mg Tablet PO 20 mg DAILY ARIS Administration Heparin Sodium (Beef Lung) 50 units 10/09/21 07:21 Heparin Pf Lock 10 Units/Ml 50 Units/5 Ml Syringe IV UD PRN Port-a-Cath (VAD)Heparin Flush Insulin Glargine 60 units 10/05/21 22:00 10/08/21 22:29 Insulin Glargine 100 Units/Ml Pen SC 60 u QHS [facility]IS Administration Insulin Human Lispro 20 unit 10/06/21 06:45 10/09/21 12:04 Insulin Lispro 100 Unit/Ml Insuln.Pen SC 20 units TIDAC ARIS Administration Losartan Potassium 100 mg 10/07/21 06:00 10/09/21 05:30 Losartan Potassium 100 Mg Tablet PO 100 mg DAILY ARIS Administration Meclizine HCl 25 mg 10/05/21 17:28 Meclizine Hcl 25 Mg Tablet PO TID PRN Dizziness/Nausea Nystatin 1 applic 10/06/21 18:00 10/09/21 05:30 Nystatin Powder 15gm Bottle TOPICAL 1 applic BID ARIS Administration Protocol Senna/Docusate Sodium 1 tablet 10/06/21 06:00 10/09/21 05:30 Senna/Docusate Sodium 1 Tablet PO 1 tablet BID ARIS Administration Sodium Chloride 10 - 40 ml 10/09/21 07:21 0.9% Saline Lock 10 Ml Syringe IV UD PRN Port-a-Cath (VAD) Flush Sodium Chloride 10 - 40 ml 10/09/21 07:21 0.9 % Nacl (Sterile) Posiflush 10 Ml IV UD PRN Port access or dressing change Thyroid 60 mg 10/06/21 06:00 10/09/21 05:30 Thyroid 60 Mg Tablet PO 60 mg DAILY ARIS Administration Tuberculin PPD 0.1 ml 10/13/21 10:00 Tuberculin,Purif.Prot.Deriv. 50 Tu/Ml Vial ID 10/13/21 10:01 X1 ONE Problem List (Last Reviewed 10/09/21 @ 12:02 by Nikkie Jung NP-C) CIDP (chronic inflammatory demyelinating polyneuropathy) (Chronic) Dizziness (Acute) Vitamin D deficiency (Acute) Hypothyroidism (Acute) Depression (Acute) Ovarian cancer (Acute) Debility (Acute) CVA (cerebral vascular accident) (Acute) Hypoglycemia due to type 2 diabetes mellitus (Acute) Right leg weakness (Acute) Unable to ambulate (Acute) Vital Signs Temp Pulse Resp BP Pulse Ox 98.7 F 87 16 155/68 H 94 10/08/21 16:07 10/09/21 05:36 10/08/21 16:08 10/09/21 05:36 10/08/21 16:08 Oxygen Delivery Method Room Air Weight: 97.885 kg Body Mass Index (BMI) 44.1 Sodium 136 mmol/L (136-145) 10/06/21 05:40 Potassium 4.0 mmol/L (3.5-5.1) 10/06/21 05:40 Chloride 104 mmol/L (98-107) 10/06/21 05:40 Carbon Dioxide 25.0 mmol/L (21.0-32.0) 10/06/21 05:40 Anion Gap 7 (5-15) 10/06/21 05:40 BUN 23 mg/dL (7-18) H 10/06/21 05:40 Creatinine 1.13 mg/dL (0.55-1.02) H 10/06/21 05:40 Est GFR (MDRD) Af Amer 61 mL/min (>60) 10/06/21 05:40 Est GFR (MDRD) Non-Af 50 mL/min (>60) L 10/06/21 05:40 BUN/Creatinine Ratio 20.4 RATIO (10-20) H 10/06/21 05:40 Glucose 193 mg/dL (74-106) H 10/06/21 05:40 Assessment/Plan: 1. Pain: acetaminophen 1000mg PO Q6H PRN pain 1-07/30. Please continue to monitor for increased pain and PRN usage. 2. DVT prophylaxis: enoxaparin 40mg SC daily. Please continue to monitor for S/S of bleeding, hemoglobin (last 14.1g/dL), platelets (last 168,000) and renal function. 3. Stroke: aspirin 81mg PO breakfast. Please continue to monitor for S/S of bleeding and hemoglobin. 4. Hyperlipidemia: atorvastatin 40mg PO QHS. Please continue to monitor lipid panel (last 10/05/21) and for muscle pain. 5. Diabetes Mellitus II: insulin glargine 60units SC QHS and insulin lispro 20units SC TIDAC. Please continue to monitor hemoglobin A1c (last 8.4% 10/05/21), glucose (last 234mg/dL) and S/S of hypoglycemia. *6. Hypothyroidism: thyroid 60mg PO daily. Please consider ordering a TSH level (last from 06/2019) if clinically appropriate. Thanks. Please continue to monitor for S/S of hypothyroidism. 7. Dizziness: meclizine 25mg PO TID PRN dizziness/nausea. Please continue to monitor for PRN usage, dizziness and nausea. If patient starts taking doses, please monitor for anticholinergic side effects as this medication is on the BEERs list. 8. Dry eyes: artificial tears 1gtt OU Q1H PRN dry eyes. Please continue to monitor. 9. Vitamin D deficiency: ergocalciferol 1.25mg PO weekly. Please consider ordering a vitamin D level (last from 06/2019) if clinically appropriate. Thanks. Psychotropic Medications: 1. Depression: escitalopram 20mg PO daily. Please see physician note regarding GDR. *Unnecessary Medications: losartan 100mg PO daily. I did not see a documented indication for this medication. Please consider adding an indication. Thanks. Please continue to monitor BP (last 155/68). Bowel Regimen: senna/docusate 1T PO BID and bisacodyl 10mg PO daily PRN constipation. Please continue to monitor for constipation and PRN usage. Date of Note:: 10/09/21
[2021-10-09 13:14] VITALS: BP 131/67; PULSE 80; RESP 16; TEMP 36.4; O2SAT 96
--- NOTE | 2021-10-09 14:37 | NURSING ---
Pt incontinent of urine at this time, bladder scan 0cc, continue voiding trials
--- NOTE | 2021-10-09 15:29 | NURSING ---
Palliative in today for consult, updated and informed that palliative should be in contact with him to go over tx plan and services offered. stated pt had an MRI done at [facility] which shows spinal stenosis and was instructed to consult with Dr. Sosa in Pain management for spinal pain needs. stated that they were supposed to have an appointment with Dr. Sosa today in his office but was told Dr. Sosa could come to the floor to see pt. Message left for Dr. Kenney requesting Dr. Sosa consult.
[2021-10-09 16:11] LABS: Bedside Glucose 171 mg/dL (70-110)
--- NOTE | 2021-10-09 17:15 | NURSING ---
doppler negative to LLE
--- NOTE | 2021-10-09 18:57 | NURSING ---
Dr. Sosa in for consult, N.O. norco 5/325 PO Q6H PRN, Schedule tylenol 1000mg PO Q8H, lidoderm patch on for 12 hours and off for 12 hours, once pt heals from CVA consider bilateral sacroiliac steroid injection
[2021-10-09 21:45] LABS: Bedside Glucose 147 mg/dL (70-110)
[2021-10-09] MEDS: Acetaminophen 500 MG Tablet 1000 MG PO (21:55)
[2021-10-10] MEDS: HYDROcodone Bitartrate/Apap 5/325 Tablet PO (00:34)
[2021-10-10] MEDS: Nystatin Powder 15gm Bottle 1 APPLIC TOPICAL ×2 (05:25→21:10)
[2021-10-10] MEDS: Menthol/Lanolin/Calamine/Znox 113 GM Tube 1 APPLIC TOPICAL ×2 (05:25→21:10)
[2021-10-10] MEDS: Lidocaine 5% Patch 1 PATCH TOPICAL (05:25)
[2021-10-10] MEDS: Acetaminophen 500 MG Tablet 1000 MG PO ×3 (05:25→21:14)
[2021-10-10] MEDS: Losartan Potassium 100 MG Tablet PO (05:26)
[2021-10-10] MEDS: Enoxaparin 40 MG/0.4 ML Syringe SC (05:26)
[2021-10-10] MEDS: Thyroid 60 MG Tablet PO (05:26)
[2021-10-10] MEDS: Senna/Docusate Sodium 1 Tablet PO ×2 (05:26→17:51)
[2021-10-10] MEDS: Escitalopram Oxalate 20 MG Tablet PO (05:26)
[2021-10-10 06:26] LABS: Bedside Glucose 91 mg/dL (70-110)
[2021-10-10] MEDS: Insulin Lispro 100 UNIT/ML INSULN.PEN 20 UNIT SC ×2 (08:20→18:04)
[2021-10-10] MEDS: Aspirin 81 MG TAB.CHEW PO (08:20)
[2021-10-10 11:35] LABS: Bedside Glucose 171 mg/dL (70-110)
[2021-10-10 13:30] VITALS: BP 144/61; PULSE 70; RESP 18; TEMP 36.3; O2SAT 95
[2021-10-10 16:26] LABS: Bedside Glucose 151 mg/dL (70-110)
--- NOTE | 2021-10-10 16:57 | CHAPLAIN ---
Type of Pastoral Visit ___ Initial Visit ___ Follow-up Visit ___ On-call Visit ___ General Patient Visit ___ Spiritual Assessment ___ Family Conference ___ Bereavement ___ Rapid Response ___ Code Blue ___ Other (describe below) Pastoral Care Referral From ___ Patient ___ Family ___ Nurse ___ Physician ___ Oracle Application Consultant ___ Security Professionals ___ Other (describe below) Sacrament/Intervention ___ Active listening ___ Anointing ___ Sabianist ___ Bereavement ___ Communion ___ Jennifer exploration ___ ___ Life review ___ Prayer ___ Reconciliation ___ Sacrament of Sick ___ Supportive presence ___ Wedding ___ Other (describe below) Pastoral Comments patient is sleeping at both attempts to visit today; left a calling card
[2021-10-10] MEDS: Glycerin/Hypromellose/PEG400 15 ml Bottle 2 DRP EACH EYE (18:17)
[2021-10-10 21:16] LABS: Bedside Glucose 178 mg/dL (70-110)
[2021-10-11] MEDS: Lidocaine 5% Patch 1 PATCH TOPICAL (04:37)
[2021-10-11] MEDS: Enoxaparin 40 MG/0.4 ML Syringe SC (04:37)
[2021-10-11] MEDS: Escitalopram Oxalate 20 MG Tablet PO (04:37)
[2021-10-11] MEDS: Thyroid 60 MG Tablet PO (04:37)
[2021-10-11] MEDS: Senna/Docusate Sodium 1 Tablet PO ×2 (04:38→17:29)
[2021-10-11] MEDS: Nystatin Powder 15gm Bottle 1 APPLIC TOPICAL ×2 (04:38→17:31)
[2021-10-11] MEDS: Losartan Potassium 100 MG Tablet PO (04:38)
[2021-10-11] MEDS: Menthol/Lanolin/Calamine/Znox 113 GM Tube 1 APPLIC TOPICAL ×2 (04:38→17:30)
[2021-10-11] MEDS: Acetaminophen 500 MG Tablet 1000 MG PO ×3 (04:40→21:45)
--- NOTE | 2021-10-11 05:03 | NURSING ---
Pt morning bladder scan was over 500mL, had pt try to void into bedpan, unable to do so, straight cathed using sterile technique per order, 700 mL was drained out. pt tolerated well.
[2021-10-11 06:20] LABS: Bedside Glucose 105 mg/dL (70-110)
[2021-10-11] MEDS: Insulin Lispro 100 UNIT/ML INSULN.PEN 20 UNIT SC ×3 (08:27→17:30)
[2021-10-11] MEDS: Aspirin 81 MG TAB.CHEW PO (08:27)
[2021-10-11] MEDS: HYDROcodone Bitartrate/Apap 5/325 Tablet PO (08:29)
[2021-10-11 10:46] LABS: Bedside Glucose 191 mg/dL (70-110)
--- NOTE | 2021-10-11 10:49 | CASEMGMT ---
Addendum entered by May Drew 10/11/21 13:49: contacted this worker with follow up questions about Palliative services. Explained Palliative and offered for their staff to discuss in further detail with . appreciative. Notified [facility] to follow up. Original Note: Social Work IDT met with patient and for care plan meeting. Notified pt and that two staff members tested positive for COVID. Discussed patient's progress in PT/OT/ST and nursing. Explained [employer] insurance with [employer]D 10/16 and continued stay is not guaranteed. Reiterated plan needed for alternative DC. agreed and will give SW names of SNFs by 10/16. will pay privately, he states they would not qualify for [facility]. SW to continue to follow. May Drew, NENA HUGOW
--- NOTE | 2021-10-11 12:51 | NURSING ---
Spoke to resident and to inform them of staff members testing positive for COVID-19 and testing procedures. Both voiced understanding.
[2021-10-11 12:53] VITALS: BP 123/57; PULSE 67; RESP 16; TEMP 36.9; O2SAT 93
--- NOTE | 2021-10-11 13:07 | MDS.RN ---
Completed pain interview for MIKE 10/12/21
--- NOTE | 2021-10-11 14:52 | CHAPLAIN ---
Type of Pastoral Visit _x__ Initial Visit ___ Follow-up Visit ___ On-call Visit ___ General Patient Visit ___ Spiritual Assessment ___ Family Conference ___ Bereavement ___ Rapid Response ___ Code Blue ___ Other (describe below) Pastoral Care Referral From _x__ Patient ___ Family ___ Nurse ___ Physician ___ Automotive Internet Sales Manager ___ Extracorporeal Technician ___ Other (describe below) Sacrament/Intervention _x__ Active listening ___ Anointing ___ Hindu ___ Bereavement ___ Communion ___ Jennifer exploration ___ ___ Life review ___ Prayer ___ Reconciliation ___ Sacrament of Sick _x__ Supportive presence ___ Wedding ___ Other (describe below) Pastoral Comments patient is welcoming but is slow to speak and answer questions; gave time and patient with assurance that staff understands how difficult it can be; offer of future support given and invited
[2021-10-11 15:51] LABS: Bedside Glucose 131 mg/dL (70-110)
[2021-10-11] MEDS: Glycerin/Hypromellose/PEG400 15 ml Bottle 2 DRP EACH EYE (17:54)
[2021-10-11 21:26] LABS: Bedside Glucose 54 mg/dL (70-110)
[2021-10-11 21:56] LABS: Bedside Glucose 80 mg/dL (70-110)
[2021-10-12] MEDS: Lidocaine 5% Patch 1 PATCH TOPICAL (05:51)
[2021-10-12] MEDS: Escitalopram Oxalate 20 MG Tablet PO (06:00)
[2021-10-12] MEDS: Thyroid 60 MG Tablet PO (06:00)
[2021-10-12] MEDS: Losartan Potassium 100 MG Tablet PO (06:00)
[2021-10-12] MEDS: Acetaminophen 500 MG Tablet 1000 MG PO ×3 (06:00→21:41)
[2021-10-12] MEDS: Senna/Docusate Sodium 1 Tablet PO ×2 (06:00→17:17)
[2021-10-12] MEDS: Enoxaparin 40 MG/0.4 ML Syringe SC (06:00)
[2021-10-12] MEDS: Menthol/Lanolin/Calamine/Znox 113 GM Tube 1 APPLIC TOPICAL ×2 (06:01→17:23)
[2021-10-12] MEDS: Nystatin Powder 15gm Bottle 1 APPLIC TOPICAL ×2 (06:01→17:23)
[2021-10-12 06:05] LABS: Bedside Glucose 119 mg/dL (70-110)
[2021-10-12] MEDS: Insulin Lispro 100 UNIT/ML INSULN.PEN 20 UNIT SC ×3 (08:01→17:15)
[2021-10-12] MEDS: Aspirin 81 MG TAB.CHEW PO (08:02)
[2021-10-12 11:05] LABS: Bedside Glucose 177 mg/dL (70-110)
--- NOTE | 2021-10-12 13:58 | NURSING ---
Resident and informed of staff members testing positive for COVID.
--- NOTE | 2021-10-12 14:13 | CASEMGMT ---
Social Work BIMS and PHQ-9 completed for MDS assessment. Pt reported to having thoughts of being better off . Explored thoughts further. However, after spending time in conversation, pt's responses were not very clear and contradictory, then pt stated she tired and wanted to be put into bed. SW was able to get clear answers that pt felt safe here, with staff caring for her properly, she has no plan for self harm, and she felt comfortable with her continuing to visit. SW will follow up. May Drew, TAB CARD PRESS OPERATOR WOMEN'S BASKETBALL COACH
[2021-10-12 15:21] VITALS: BP 125/58; PULSE 54; RESP 20; TEMP 36.4; O2SAT 95
[2021-10-12 16:20] LABS: Bedside Glucose 184 mg/dL (70-110)
[2021-10-12 21:35] VITALS: PULSE 55; RESP 16; O2SAT 94
[2021-10-12] MEDS: Atorvastatin Calcium 40 MG Tablet PO (21:39)
[2021-10-12 22:15] LABS: Bedside Glucose 107 mg/dL (70-110)
--- NOTE | 2021-10-12 22:25 | NURSING ---
Blood sugar 107 this evening, order for [address] Kenney, verbal order to hold dose for this evening and DC lantus.
[2021-10-12 22:40] LABS: Bedside Glucose 113 mg/dL (70-110)
[2021-10-13] MEDS: HYDROcodone Bitartrate/Apap 5/325 Tablet PO (03:37)
[2021-10-13 03:46] LABS: Bedside Glucose 164 mg/dL (70-110)
[2021-10-13] MEDS: Acetaminophen 500 MG Tablet 1000 MG PO ×2 (05:55→22:10)
[2021-10-13] MEDS: Losartan Potassium 100 MG Tablet PO (05:56)
[2021-10-13] MEDS: Thyroid 60 MG Tablet PO (05:56)
[2021-10-13] MEDS: Senna/Docusate Sodium 1 Tablet PO ×2 (05:56→16:32)
[2021-10-13] MEDS: Escitalopram Oxalate 20 MG Tablet PO (05:56)
[2021-10-13] MEDS: Menthol/Lanolin/Calamine/Znox 113 GM Tube 1 APPLIC TOPICAL ×2 (06:00→16:32)
[2021-10-13] MEDS: Enoxaparin 40 MG/0.4 ML Syringe SC (06:00)
[2021-10-13] MEDS: Nystatin Powder 15gm Bottle 1 APPLIC TOPICAL ×2 (06:01→16:33)
[2021-10-13] MEDS: Lidocaine 5% Patch 2 PATCH TOPICAL (06:07)
[2021-10-13 07:16] LABS: Bedside Glucose 209 mg/dL (70-110)
[2021-10-13 07:58] LABS: Absolute Lymphocyte Count 3.05 X10^3/uL (0.83-4.51); Absolute Neutrophil Count 3.5 X10^3/uL (2.0-7.7); Basophil% 1.3 % (0-1); Eosinophil# 0.26 X10^3/uL; Eosinophils% 3.4 % (0-5); Hematocrit 41.9 % (37-47); Hemoglobin 13.6 g/dL (12.0-15.0); Lymphocyte # 3.05 X10^3/ul (0.83-4.51); Lymphocyte % 39.7 % (19-41); Mean Corp Hgb Conc 32.5 g/dL (32-36); Mean Corpuscular Hgb 31.1 pg (27.0-32.0); Mean Corpuscular Volume 95.7 fL (81-99); Mean Platelet Vol. 11.1 fl (6.2-12.0); Monocyte# 0.74 X10^3/uL; Monocyte% 9.6 % (0-10); NRBC Flagged by Analyzer 0 % (0-5); Neutrophil # 3.51 X10^3/uL (2.7-7.7); Neutrophil % 45.7 % (47-70); Platelet Count 211 K/mm3 (150-450); RBC Distribution Width CV 12.4 % (11.6-14.6); RBC Distribution Width SD 44.2 fl (35.1-43.9); Red Blood Count 4.38 M/mm3 (4.2-5.4); White Blood Count 7.7 K/mm3 (4.4-11.0)
[2021-10-13] MEDS: Insulin Lispro 100 UNIT/ML INSULN.PEN 20 UNIT SC ×3 (08:03→17:30)
[2021-10-13] MEDS: Aspirin 81 MG TAB.CHEW PO (08:03)
[2021-10-13 08:15] LABS: Anion Gap 8 (5-15); BUN 24 mg/dL (7-18); BUN/Creat Ratio 24.7 RATIO (10-20); Calcium,Total 9.4 mg/dL (8.5-10.1); Chloride 104 mmol/L (98-107); Creatinine, Serum 0.97 mg/dL (0.55-1.02); EST Glomerular Filtration Rate 60 mL/min (>60); Est Glom Filt Rate - Afr Amer 72 mL/min (>60); Estimated Creatinine Clearance 79.29 ml/min; Glucose 200 mg/dL (74-106); Potassium 4.5 mmol/L (3.5-5.1); Sodium Level 139 mmol/L (136-145)
[2021-10-13 11:26] LABS: Bedside Glucose 262 mg/dL (70-110)
[2021-10-13] MEDS: Tuberculin,Purif.prot.deriv. 50 TU/ML Vial 0.1 ML ID (13:46)
[2021-10-13 16:00] VITALS: BP 129/55; PULSE 52; RESP 16; TEMP 36.1; O2SAT 95
[2021-10-13 16:51] LABS: Bedside Glucose 167 mg/dL (70-110)
[2021-10-13] MEDS: Glycerin/Hypromellose/PEG400 15 ml Bottle 2 DRP EACH EYE (18:42)
[2021-10-13 20:26] LABS: Bedside Glucose 139 mg/dL (70-110)
[2021-10-13 21:21] LABS: Bedside Glucose 120 mg/dL (70-110)
[2021-10-13 21:42] VITALS: PULSE 65; RESP 16; O2SAT 93
[2021-10-13] MEDS: Bisacodyl 5 MG Tablet 10 MG PO (22:09)
[2021-10-14] MEDS: Senna/Docusate Sodium 1 Tablet PO ×2 (04:50→17:31)
[2021-10-14] MEDS: Thyroid 60 MG Tablet PO (04:50)
[2021-10-14] MEDS: Escitalopram Oxalate 20 MG Tablet PO (04:50)
[2021-10-14] MEDS: Acetaminophen 500 MG Tablet 1000 MG PO ×3 (04:50→22:47)
[2021-10-14] MEDS: Losartan Potassium 100 MG Tablet PO (04:50)
[2021-10-14] MEDS: Enoxaparin 40 MG/0.4 ML Syringe SC (04:51)
[2021-10-14] MEDS: Menthol/Lanolin/Calamine/Znox 113 GM Tube 1 APPLIC TOPICAL ×2 (04:54→17:31)
[2021-10-14] MEDS: Nystatin Powder 15gm Bottle 1 APPLIC TOPICAL ×2 (04:54→10:23)
[2021-10-14] MEDS: Lidocaine 5% Patch 2 PATCH TOPICAL (04:56)
[2021-10-14 06:01] LABS: Bedside Glucose 182 mg/dL (70-110)
[2021-10-14] MEDS: Insulin Lispro 100 UNIT/ML INSULN.PEN 20 UNIT SC ×3 (07:50→17:30)
[2021-10-14] MEDS: Aspirin 81 MG TAB.CHEW PO (07:50)
[2021-10-14] MEDS: HYDROcodone Bitartrate/Apap 5/325 Tablet PO (10:20)
[2021-10-14 10:40] LABS: Bedside Glucose 269 mg/dL (70-110)
[2021-10-14 15:34] VITALS: BP 140/78; PULSE 51; RESP 18; TEMP 36.2; O2SAT 93
[2021-10-14 15:51] LABS: Bedside Glucose 254 mg/dL (70-110)
[2021-10-14 21:30] LABS: Bedside Glucose 254 mg/dL (70-110)
[2021-10-15 06:26] LABS: Bedside Glucose 183 mg/dL (70-110)
[2021-10-15] MEDS: Lidocaine 5% Patch 2 PATCH TOPICAL (06:34)
[2021-10-15] MEDS: Acetaminophen 500 MG Tablet 1000 MG PO ×3 (06:37→21:51)
[2021-10-15] MEDS: Thyroid 60 MG Tablet PO (06:37)
[2021-10-15] MEDS: Losartan Potassium 100 MG Tablet PO (06:37)
[2021-10-15] MEDS: Enoxaparin 40 MG/0.4 ML Syringe SC (06:37)
[2021-10-15] MEDS: Senna/Docusate Sodium 1 Tablet PO ×2 (06:37→17:39)
[2021-10-15] MEDS: Escitalopram Oxalate 20 MG Tablet PO (06:37)
[2021-10-15] MEDS: Nystatin Powder 15gm Bottle 1 APPLIC TOPICAL ×2 (06:38→17:44)
[2021-10-15] MEDS: Menthol/Lanolin/Calamine/Znox 113 GM Tube 1 APPLIC TOPICAL ×2 (06:38→17:45)
[2021-10-15] MEDS: Aspirin 81 MG TAB.CHEW PO (08:42)
[2021-10-15] MEDS: Insulin Lispro 100 UNIT/ML INSULN.PEN 20 UNIT SC ×3 (08:43→17:38)
[2021-10-15 10:51] LABS: Bedside Glucose 293 mg/dL (70-110)
[2021-10-15 12:42] VITALS: BP 136/66; PULSE 67; RESP 18; TEMP 36.6; O2SAT 91
[2021-10-15 15:51] VITALS: O2SAT 93
[2021-10-15 15:51] LABS: Bedside Glucose 259 mg/dL (70-110)
[2021-10-15] MEDS: Ergocalciferol 1.25 MG (50, 000 UNIT) Capsule PO (17:38)
[2021-10-15] MEDS: Glycerin/Hypromellose/PEG400 15 ml Bottle 2 DRP EACH EYE (18:32)
[2021-10-15 21:11] LABS: Bedside Glucose 246 mg/dL (70-110)
--- NOTE | 2021-10-15 22:00 | NURSING ---
Addendum entered by Martha Hernandez 10/16/21 07:46: 2200: Pt refused hs snack prior to insulin administration. Gave pt a few extra bites of applesauce w/ medication administration. Original Note: Pt refusing Lipitor this hs stating, I heard it's bad for you. Informed pt Lipitor in prescribed to prevent recurrent strokes. Continues to refuse medication with education provided and verbalizes if another stroke occurs as a result that she is at peace with that decision. Questioned goals of care on TCU and pt states, I don't know. Will report to oncoming nurse and continue to monitor.
[2021-10-16 06:20] VITALS: BP 115/55; PULSE 50; RESP 16; TEMP 35.7; O2SAT 95
[2021-10-16] MEDS: Acetaminophen 500 MG Tablet 1000 MG PO ×3 (06:21→21:44)
[2021-10-16] MEDS: Thyroid 60 MG Tablet PO (06:21)
[2021-10-16] MEDS: Senna/Docusate Sodium 1 Tablet PO ×2 (06:21→17:14)
[2021-10-16] MEDS: Escitalopram Oxalate 20 MG Tablet PO (06:22)
[2021-10-16] MEDS: Enoxaparin 40 MG/0.4 ML Syringe SC (06:22)
[2021-10-16] MEDS: Nystatin Powder 15gm Bottle 1 APPLIC TOPICAL ×2 (06:22→17:14)
[2021-10-16] MEDS: Losartan Potassium 100 MG Tablet PO (06:22)
[2021-10-16] MEDS: Menthol/Lanolin/Calamine/Znox 113 GM Tube 1 APPLIC TOPICAL ×2 (06:22→17:13)
[2021-10-16] MEDS: Lidocaine 5% Patch 2 PATCH TOPICAL (06:23)
[2021-10-16 06:30] LABS: Bedside Glucose 176 mg/dL (70-110)
[2021-10-16] MEDS: Insulin Lispro 100 UNIT/ML INSULN.PEN 20 UNIT SC ×3 (08:08→17:45)
[2021-10-16] MEDS: Aspirin 81 MG TAB.CHEW PO (08:08)
--- NOTE | 2021-10-16 09:15 | CASEMGMT ---
Social Work Telephone call to patient spouse, Eun. Eun reports to have been looking into SNF's but just not sure. Eun reports to have been looking into [facility], [place], [facility] and [facility] and not sure of which one is first choice. Eun still wanting to see patient continue with therapy with goal to return to home. Eun aware that patient is currently requiring a Gisela Lift and is currently non ambulatory. Eun reports to not be able to take care of patient in the home at current level. Eun aware that insurance update is due today and that continued stay approval is not guaranteed. Eun does report intentions to initiate appeal if continued stay is denied by insurance. Support and active listening provided. Eun also wanting to confirm that patient will be free today at 11:00am for a Zoom wedding, this social science research assistant able to confirm this with staff. Social work to continue to follow. Yaya Bueno MSW, TINO
[2021-10-16 11:00] LABS: Bedside Glucose 254 mg/dL (70-110)
[2021-10-16 17:11] LABS: Bedside Glucose 143 mg/dL (70-110)
[2021-10-16] MEDS: Glycerin/Hypromellose/PEG400 15 ml Bottle 2 DRP EACH EYE (17:45)
[2021-10-16 21:25] LABS: Bedside Glucose 179 mg/dL (70-110)
[2021-10-16] MEDS: Atorvastatin Calcium 40 MG Tablet PO (21:41)
[2021-10-17] MEDS: Escitalopram Oxalate 20 MG Tablet PO (04:36)
[2021-10-17] MEDS: Senna/Docusate Sodium 1 Tablet PO ×2 (04:36→17:44)
[2021-10-17] MEDS: Losartan Potassium 100 MG Tablet PO (04:37)
[2021-10-17] MEDS: Thyroid 60 MG Tablet PO (04:37)
[2021-10-17] MEDS: Enoxaparin 40 MG/0.4 ML Syringe SC (04:38)
[2021-10-17] MEDS: Nystatin Powder 15gm Bottle 1 APPLIC TOPICAL ×2 (04:39→17:50)
[2021-10-17] MEDS: Menthol/Lanolin/Calamine/Znox 113 GM Tube 1 APPLIC TOPICAL ×2 (04:39→17:49)
[2021-10-17] MEDS: Lidocaine 5% Patch 2 PATCH TOPICAL (04:40)
[2021-10-17 04:41] VITALS: BP 155/76; PULSE 51
[2021-10-17] MEDS: HYDROcodone Bitartrate/Apap 5/325 Tablet PO ×2 (04:47→21:18)
[2021-10-17] MEDS: Acetaminophen 500 MG Tablet 1000 MG PO ×2 (04:49→14:12)
[2021-10-17 06:21] LABS: Bedside Glucose 185 mg/dL (70-110)
[2021-10-17] MEDS: Aspirin 81 MG TAB.CHEW PO (08:14)
[2021-10-17] MEDS: Insulin Lispro 100 UNIT/ML INSULN.PEN 20 UNIT SC ×3 (08:14→17:43)
--- NOTE | 2021-10-17 09:29 | CASEMGMT ---
Addendum entered by May Drew 10/17/21 14:00: [facility] is not in network with [facility], [facility] does not have beds, [facility] will put on waitlist for beds opening 10/25 and [facility] accepted. Insurance approved with [employer]D 10/23. Spoke with to update on SNFs and insurance NRD. appreciative. Will continue to follow. Original Note: Social Work Referrals made to [facility], [facility], [facility] and [facility]. Still awaiting outcome from insurance update. SW to continue to follow. May Drew, REFRIGERATOR ASSEMBLER CLAIM INSPECTOR
[2021-10-17 11:06] LABS: Bedside Glucose 270 mg/dL (70-110)
--- NOTE | 2021-10-17 14:42 | MDS.RN ---
Information for the mds was obtained from review of the clinical record, interview of resident, staff, and direct observation of resident's care.
[2021-10-17 14:48] VITALS: BP 128/60; PULSE 57; RESP 16; TEMP 36.3; O2SAT 96
[2021-10-17 16:01] LABS: Bedside Glucose 227 mg/dL (70-110)
[2021-10-17] MEDS: Glycerin/Hypromellose/PEG400 15 ml Bottle 2 DRP EACH EYE (17:44)
[2021-10-17 21:21] LABS: Bedside Glucose 191 mg/dL (70-110)
[2021-10-17 21:23] VITALS: PULSE 69; RESP 16; O2SAT 97
[2021-10-18] MEDS: Bisacodyl 5 MG Tablet 10 MG PO (04:57)
[2021-10-18] MEDS: Enoxaparin 40 MG/0.4 ML Syringe SC (04:57)
[2021-10-18] MEDS: Acetaminophen 500 MG Tablet 1000 MG PO ×2 (04:58→21:38)
[2021-10-18] MEDS: Losartan Potassium 100 MG Tablet PO (04:58)
[2021-10-18] MEDS: Senna/Docusate Sodium 1 Tablet PO ×2 (04:58→17:39)
[2021-10-18] MEDS: Escitalopram Oxalate 20 MG Tablet PO (04:58)
[2021-10-18] MEDS: Thyroid 60 MG Tablet PO (04:58)
[2021-10-18] MEDS: Lidocaine 5% Patch 2 PATCH TOPICAL (04:58)
[2021-10-18] MEDS: Menthol/Lanolin/Calamine/Znox 113 GM Tube 1 APPLIC TOPICAL ×2 (05:00→17:39)
[2021-10-18] MEDS: Nystatin Powder 15gm Bottle 1 APPLIC TOPICAL ×2 (05:00→17:39)
[2021-10-18 05:07] VITALS: BP 136/60; PULSE 70
[2021-10-18 06:16] LABS: Bedside Glucose 161 mg/dL (70-110)
[2021-10-18] MEDS: Insulin Lispro 100 UNIT/ML INSULN.PEN 20 UNIT SC ×2 (08:14→17:43)
[2021-10-18] MEDS: Aspirin 81 MG TAB.CHEW PO (08:14)
[2021-10-18 08:23] VITALS: BP 119/61; PULSE 69; RESP 16; TEMP 36.4; O2SAT 93
--- NOTE | 2021-10-18 09:41 | NURSING ---
Pt rang call light and reported to this nurse that she felt Dizzy and felt like something was wrong saying I do not feel right. Charge nurse notified and met this nurse at bedside. BS obtained and was 176, VS as follows BP 139/58, HR 60, SPO2% 94% RA, pt afebrile. Pt also complains of neck pain. When asked if she had ever felt like this before she stated she has not. Pt has hx of feeling dizzy in the past according to medical chart. Pt has hx of multiple strokes, when asked how she felt while having the strokes she stated she felt Dizzy. Dr. Pablito diego.
[2021-10-18 09:45] VITALS: BP 139/58; PULSE 60; RESP 16; O2SAT 94
[2021-10-18 09:45] LABS: Bedside Glucose 176 mg/dL (70-110)
[2021-10-18 09:58] VITALS: O2SAT 94
--- NOTE | 2021-10-18 10:06 | NURSING ---
Addendum entered by Fani Tijerina 10/18/21 10:16: Eun updated on clinical situation and pt being transferred to ED Original Note: Notified Dr. Kenney of pt stating she doesn't feel right reports feeling dizzy, having neck pain and feels something is not right. Received order to transfer pt to ED.
--- NOTE | 2021-10-18 16:57 | NURSING ---
Received order from Dr. Kenney for Cipro 250g BID x 7 days.
[2021-10-18 17:30] LABS: Bedside Glucose 140 mg/dL (70-110)
[2021-10-18] MEDS: Glycerin/Hypromellose/PEG400 15 ml Bottle 2 DRP EACH EYE (17:45)
--- NOTE | 2021-10-18 21:08 | NURSING ---
Patient continues to refuse Lipitor. After several attempts. Patient states, that medication is bad for you. Educated patient on reasoning for the medication and previous CVA's. Patient still refused.
[2021-10-18] MEDS: Ciprofloxacin 250 MG Tablet PO (21:34)
[2021-10-18 21:35] LABS: Bedside Glucose 138 mg/dL (70-110)
[2021-10-19 05:53] VITALS: BP 120/61; PULSE 67
[2021-10-19] MEDS: Acetaminophen 500 MG Tablet 1000 MG PO ×3 (05:55→22:31)
[2021-10-19] MEDS: Thyroid 60 MG Tablet PO (05:56)
[2021-10-19] MEDS: Losartan Potassium 100 MG Tablet PO (05:56)
[2021-10-19] MEDS: Senna/Docusate Sodium 1 Tablet PO ×2 (05:56→17:03)
[2021-10-19] MEDS: Ciprofloxacin 250 MG Tablet PO ×2 (05:56→17:03)
[2021-10-19] MEDS: Escitalopram Oxalate 20 MG Tablet PO (05:56)
[2021-10-19] MEDS: Lidocaine 5% Patch 2 PATCH TOPICAL (05:57)
[2021-10-19] MEDS: Enoxaparin 40 MG/0.4 ML Syringe SC (05:58)
[2021-10-19] MEDS: Menthol/Lanolin/Calamine/Znox 113 GM Tube 1 APPLIC TOPICAL ×2 (06:02→17:04)
[2021-10-19] MEDS: Nystatin Powder 15gm Bottle 1 APPLIC TOPICAL ×2 (06:02→17:03)
[2021-10-19 06:11] LABS: Bedside Glucose 127 mg/dL (70-110)
[2021-10-19] MEDS: Insulin Lispro 100 UNIT/ML INSULN.PEN 20 UNIT SC ×3 (08:01→17:57)
[2021-10-19] MEDS: Aspirin 81 MG TAB.CHEW PO (08:02)
[2021-10-19 11:10] LABS: Bedside Glucose 247 mg/dL (70-110)
[2021-10-19 14:31] VITALS: BP 132/63; PULSE 76; RESP 18; TEMP 36.3; O2SAT 95
[2021-10-19 16:20] LABS: Bedside Glucose 231 mg/dL (70-110)
[2021-10-19] MEDS: Glycerin/Hypromellose/PEG400 15 ml Bottle 2 DRP EACH EYE (18:00)
[2021-10-19 21:05] LABS: Bedside Glucose 192 mg/dL (70-110)
[2021-10-19 22:00] VITALS: PULSE 60; RESP 14; O2SAT 92
[2021-10-20 06:01] LABS: Bedside Glucose 95 mg/dL (70-110)
[2021-10-20] MEDS: Lidocaine 5% Patch 2 PATCH TOPICAL (06:10)
[2021-10-20] MEDS: Ciprofloxacin 250 MG Tablet PO ×2 (06:15→18:03)
[2021-10-20] MEDS: Losartan Potassium 100 MG Tablet PO (06:15)
[2021-10-20] MEDS: Nystatin Powder 15gm Bottle 1 APPLIC TOPICAL ×2 (06:15→18:03)
[2021-10-20] MEDS: Escitalopram Oxalate 20 MG Tablet PO (06:15)
[2021-10-20] MEDS: Thyroid 60 MG Tablet PO (06:15)
[2021-10-20] MEDS: Enoxaparin 40 MG/0.4 ML Syringe SC (06:15)
[2021-10-20] MEDS: Senna/Docusate Sodium 1 Tablet PO ×2 (06:15→18:03)
[2021-10-20] MEDS: Menthol/Lanolin/Calamine/Znox 113 GM Tube 1 APPLIC TOPICAL ×2 (06:16→18:05)
[2021-10-20] MEDS: Acetaminophen 500 MG Tablet 1000 MG PO ×3 (06:20→21:30)
--- NOTE | 2021-10-20 07:40 | NURSING ---
on unit, notified of patient continued refusal of Lipitor, continue to offer as ordered and educate. No new orders received.
[2021-10-20 08:13] LABS: Absolute Lymphocyte Count 2.99 X10^3/uL (0.83-4.51); Absolute Neutrophil Count 4.2 X10^3/uL (2.0-7.7); Basophil# 0.07 X10^3/uL; Basophil% 0.9 % (0-1); Eosinophil# 0.26 X10^3/uL; Eosinophils% 3.2 % (0-5); Hematocrit 41.3 % (37-47); Hemoglobin 13.7 g/dL (12.0-15.0); Lymphocyte # 2.99 X10^3/ul (0.83-4.51); Lymphocyte % 36.3 % (19-41); Mean Corp Hgb Conc 33.2 g/dL (32-36); Mean Corpuscular Hgb 31.6 pg (27.0-32.0); Mean Corpuscular Volume 95.2 fL (81-99); Mean Platelet Vol. 10.9 fl (6.2-12.0); Monocyte# 0.71 X10^3/uL; Monocyte% 8.6 % (0-10); NRBC Flagged by Analyzer 0 % (0-5); Neutrophil # 4.18 X10^3/uL (2.7-7.7); Neutrophil % 50.8 % (47-70); Platelet Count 230 K/mm3 (150-450); RBC Distribution Width CV 12.6 % (11.6-14.6); RBC Distribution Width SD 43.7 fl (35.1-43.9); Red Blood Count 4.34 M/mm3 (4.2-5.4); White Blood Count 8.2 K/mm3 (4.4-11.0)
[2021-10-20 08:43] LABS: Anion Gap 5 (5-15); BUN 21 mg/dL (7-18); BUN/Creat Ratio 24.3 RATIO (10-20); Chloride 105 mmol/L (98-107); Creatinine, Serum 0.86 mg/dL (0.55-1.02); EST Glomerular Filtration Rate 68 mL/min (>60); Est Glom Filt Rate - Afr Amer 83 mL/min (>60); Estimated Creatinine Clearance 88.94 ml/min; Glucose 154 mg/dL (74-106); Potassium 3.7 mmol/L (3.5-5.1); Sodium Level 140 mmol/L (136-145)
[2021-10-20] MEDS: Aspirin 81 MG TAB.CHEW PO (08:53)
[2021-10-20] MEDS: Insulin Lispro 100 UNIT/ML INSULN.PEN 20 UNIT SC ×3 (08:56→18:04)
[2021-10-20 10:55] LABS: Bedside Glucose 271 mg/dL (70-110)
[2021-10-20 15:00] VITALS: RESP 16; O2SAT 92
[2021-10-20 15:08] VITALS: BP 124/58; PULSE 48; RESP 16; TEMP 36.1; O2SAT 94
[2021-10-20 16:41] LABS: Bedside Glucose 174 mg/dL (70-110)
[2021-10-20 21:30] LABS: Bedside Glucose 219 mg/dL (70-110)
[2021-10-21 06:30] VITALS: BP 132/66; PULSE 59
[2021-10-21 06:45] LABS: Bedside Glucose 149 mg/dL (70-110)
[2021-10-21] MEDS: Lidocaine 5% Patch 2 PATCH TOPICAL (06:53)
[2021-10-21] MEDS: Thyroid 60 MG Tablet PO (06:54)
[2021-10-21] MEDS: Senna/Docusate Sodium 1 Tablet PO ×2 (06:54→17:35)
[2021-10-21] MEDS: Escitalopram Oxalate 20 MG Tablet PO (06:54)
[2021-10-21] MEDS: Enoxaparin 40 MG/0.4 ML Syringe SC (06:54)
[2021-10-21] MEDS: Losartan Potassium 100 MG Tablet PO (06:54)
[2021-10-21] MEDS: Nystatin Powder 15gm Bottle 1 APPLIC TOPICAL ×2 (06:55→17:36)
[2021-10-21] MEDS: Ciprofloxacin 250 MG Tablet PO ×2 (06:55→17:35)
[2021-10-21] MEDS: Menthol/Lanolin/Calamine/Znox 113 GM Tube 1 APPLIC TOPICAL ×2 (06:56→17:37)
[2021-10-21] MEDS: Acetaminophen 500 MG Tablet 1000 MG PO ×3 (06:56→22:00)
[2021-10-21] MEDS: Glycerin/Hypromellose/PEG400 15 ml Bottle 2 DRP EACH EYE (07:06)
[2021-10-21] MEDS: Aspirin 81 MG TAB.CHEW PO (08:18)
[2021-10-21] MEDS: Insulin Lispro 100 UNIT/ML INSULN.PEN 20 UNIT SC ×3 (08:18→17:36)
[2021-10-21 11:20] LABS: Bedside Glucose 153 mg/dL (70-110)
[2021-10-21 14:49] VITALS: BP 138/72; PULSE 65; RESP 20; TEMP 36.5; O2SAT 95
[2021-10-21 16:25] LABS: Bedside Glucose 216 mg/dL (70-110)
--- NOTE | 2021-10-21 16:47 | NURSING ---
Informed patient and of current covid patient and 2 staff members
[2021-10-21] MEDS: Bisacodyl 5 MG Tablet 10 MG PO (17:45)
[2021-10-21 21:56] VITALS: PULSE 54; RESP 18; O2SAT 95
[2021-10-21 22:06] LABS: Bedside Glucose 290 mg/dL (70-110)
[2021-10-22 06:25] LABS: Bedside Glucose 146 mg/dL (70-110)
[2021-10-22] MEDS: Acetaminophen 500 MG Tablet 1000 MG PO ×3 (06:38→21:34)
[2021-10-22] MEDS: Ciprofloxacin 250 MG Tablet PO ×2 (06:38→17:02)
[2021-10-22] MEDS: Losartan Potassium 100 MG Tablet PO (06:38)
[2021-10-22] MEDS: Thyroid 60 MG Tablet PO (06:38)
[2021-10-22] MEDS: Senna/Docusate Sodium 1 Tablet PO ×2 (06:38→17:03)
[2021-10-22] MEDS: Enoxaparin 40 MG/0.4 ML Syringe SC (06:39)
[2021-10-22] MEDS: Escitalopram Oxalate 20 MG Tablet PO (06:39)
[2021-10-22] MEDS: Menthol/Lanolin/Calamine/Znox 113 GM Tube 1 APPLIC TOPICAL ×2 (06:42→17:04)
[2021-10-22 06:44] VITALS: BP 125/64; PULSE 64
[2021-10-22] MEDS: Lidocaine 5% Patch 2 PATCH TOPICAL (07:11)
[2021-10-22] MEDS: Nystatin Powder 15gm Bottle 1 APPLIC TOPICAL ×2 (07:13→17:04)
[2021-10-22] MEDS: Insulin Lispro 100 UNIT/ML INSULN.PEN 20 UNIT SC ×3 (07:13→17:00)
[2021-10-22] MEDS: Aspirin 81 MG TAB.CHEW PO (07:14)
[2021-10-22 11:25] LABS: Bedside Glucose 248 mg/dL (70-110)
[2021-10-22 15:31] VITALS: BP 133/49; PULSE 71; RESP 16; TEMP 36.3; O2SAT 95
[2021-10-22 16:30] LABS: Bedside Glucose 269 mg/dL (70-110)
[2021-10-22] MEDS: Ergocalciferol 1.25 MG (50, 000 UNIT) Capsule PO (17:02)
[2021-10-22] MEDS: Bisacodyl 5 MG Tablet 10 MG PO (17:09)
[2021-10-22 21:21] LABS: Bedside Glucose 244 mg/dL (70-110)
[2021-10-23 06:25] LABS: Bedside Glucose 184 mg/dL (70-110)
[2021-10-23] MEDS: Thyroid 60 MG Tablet PO (06:39)
[2021-10-23] MEDS: Senna/Docusate Sodium 1 Tablet PO ×2 (06:39→17:40)
[2021-10-23] MEDS: Losartan Potassium 100 MG Tablet PO (06:39)
[2021-10-23] MEDS: Ciprofloxacin 250 MG Tablet PO ×2 (06:39→17:40)
[2021-10-23] MEDS: Escitalopram Oxalate 20 MG Tablet PO (06:39)
[2021-10-23] MEDS: Acetaminophen 500 MG Tablet 1000 MG PO ×3 (06:40→21:47)
[2021-10-23] MEDS: Menthol/Lanolin/Calamine/Znox 113 GM Tube 1 APPLIC TOPICAL ×2 (06:43→17:40)
[2021-10-23] MEDS: Lidocaine 5% Patch 2 PATCH TOPICAL (06:43)
[2021-10-23] MEDS: Nystatin Powder 15gm Bottle 1 APPLIC TOPICAL ×2 (06:43→17:41)
[2021-10-23] MEDS: Enoxaparin 40 MG/0.4 ML Syringe SC (06:44)
[2021-10-23] MEDS: Aspirin 81 MG TAB.CHEW PO (08:50)
[2021-10-23] MEDS: Insulin Lispro 100 UNIT/ML INSULN.PEN 20 UNIT SC ×3 (08:52→17:40)
[2021-10-23 10:45] LABS: Bedside Glucose 288 mg/dL (70-110)
[2021-10-23 16:00] VITALS: BP 99/53; PULSE 65; RESP 16; TEMP 36.8; O2SAT 93
[2021-10-23 16:01] LABS: Bedside Glucose 246 mg/dL (70-110)
[2021-10-23 21:36] LABS: Bedside Glucose 277 mg/dL (70-110)
[2021-10-24] MEDS: Lidocaine 5% Patch 2 PATCH TOPICAL (06:11)
[2021-10-24] MEDS: Senna/Docusate Sodium 1 Tablet PO ×2 (06:11→18:18)
[2021-10-24] MEDS: Enoxaparin 40 MG/0.4 ML Syringe SC (06:11)
[2021-10-24] MEDS: Escitalopram Oxalate 20 MG Tablet PO (06:11)
[2021-10-24] MEDS: Losartan Potassium 100 MG Tablet PO (06:11)
[2021-10-24] MEDS: Ciprofloxacin 250 MG Tablet PO ×2 (06:11→18:18)
[2021-10-24] MEDS: Thyroid 60 MG Tablet PO (06:11)
[2021-10-24] MEDS: Nystatin Powder 15gm Bottle 1 APPLIC TOPICAL ×2 (06:12→18:21)
[2021-10-24] MEDS: Menthol/Lanolin/Calamine/Znox 113 GM Tube 1 APPLIC TOPICAL ×2 (06:12→18:21)
[2021-10-24] MEDS: Acetaminophen 500 MG Tablet 1000 MG PO ×3 (06:14→22:36)
[2021-10-24 06:35] LABS: Bedside Glucose 185 mg/dL (70-110)
[2021-10-24] MEDS: Aspirin 81 MG TAB.CHEW PO (08:38)
[2021-10-24] MEDS: Insulin Lispro 100 UNIT/ML INSULN.PEN 20 UNIT SC ×3 (08:38→18:17)
[2021-10-24 11:05] LABS: Bedside Glucose 282 mg/dL (70-110)
[2021-10-24 14:47] VITALS: BP 126/64; PULSE 63; RESP 16; TEMP 36.1; O2SAT 95
--- NOTE | 2021-10-24 15:13 | CASEMGMT ---
Social Work SW met with pt Criss who states that his first choice of ECF is [facility] and second choice is [facility]. TERRY informed Criss that review was submitted to insurance on 10/23 and determination has not been made at this time. TERRY called Aydee at [facility] who confirms that they can accept pt and will reserve a bed for her and Aydee is aware d/c date has not been set yet. Phone call to [facility] and notified Misty that pt will not be coming. TERRY requested Aydee at [facility] call Criss to discuss payment of ECF. TERRY will continue to follow for d/c planning. BRUCE Khan
[2021-10-24 16:10] LABS: Bedside Glucose 235 mg/dL (70-110)
[2021-10-24 21:30] LABS: Bedside Glucose 203 mg/dL (70-110)
[2021-10-25] MEDS: Thyroid 60 MG Tablet PO (05:44)
[2021-10-25] MEDS: Lidocaine 5% Patch 2 PATCH TOPICAL (05:44)
[2021-10-25] MEDS: Escitalopram Oxalate 20 MG Tablet PO (05:44)
[2021-10-25] MEDS: Ciprofloxacin 250 MG Tablet PO ×2 (05:44→21:12)
[2021-10-25] MEDS: Enoxaparin 40 MG/0.4 ML Syringe SC (05:44)
[2021-10-25] MEDS: Losartan Potassium 100 MG Tablet PO (05:45)
[2021-10-25] MEDS: Acetaminophen 500 MG Tablet 1000 MG PO ×3 (05:46→21:12)
[2021-10-25] MEDS: Menthol/Lanolin/Calamine/Znox 113 GM Tube 1 APPLIC TOPICAL ×2 (05:48→21:12)
[2021-10-25 07:10] LABS: Bedside Glucose 144 mg/dL (70-110)
[2021-10-25] MEDS: Nystatin Powder 15gm Bottle 1 APPLIC TOPICAL ×2 (08:59→21:12)
[2021-10-25] MEDS: Aspirin 81 MG TAB.CHEW PO (09:00)
[2021-10-25] MEDS: Insulin Lispro 100 UNIT/ML INSULN.PEN 20 UNIT SC ×3 (09:01→17:35)
[2021-10-25 11:25] LABS: Bedside Glucose 226 mg/dL (70-110)
--- NOTE | 2021-10-25 13:01 | CASEMGMT ---
Social Work Insurance issued notice of non coverage with last covered day 10/27/21 and discharge 10/28/21. TERRY placed call to pt Criss and reveiwed AD. Criss plans to appeal decision and information given to do this. TERRY explained that nursing facility placement will be arranged in the event that pt does not win appeal. Criss is agreeable and confirms she would like pt to go to [facility] at discharge. Phone call to Aydee at [facility] and informed of discharge on 10/28/21 if pt does not win appeal. [facility] can accept pt on that date. Pt does have palliative services which will follow pt at [facility]. PASSRR 3200 completed in [employer] system. [facility] left in pt room for to order picker/assembler and pt informed of d/c plan. Anticipated D/C Date: 10/28/21, pending appeal decision D/C Disposition: [facility], intermediate level of care. Palliative Medicine to follow. BRUCE Khan
--- NOTE | 2021-10-25 14:09 | NURSING ---
Resident and spouse, Eun, notified of 3 staff members testing positive for COVID.
[2021-10-25 14:32] VITALS: BP 139/54; PULSE 50; RESP 17; TEMP 36.4; O2SAT 93
[2021-10-25 15:50] LABS: Bedside Glucose 226 mg/dL (70-110)
[2021-10-25] MEDS: Senna/Docusate Sodium 1 Tablet PO (17:36)
--- NOTE | 2021-10-25 19:42 | PCM.DC.SUM ---
Providers Date of Admission: 10/05/21 Primary Care Physician: Dr. Christian Toure MD Consultations 10/06/21 16:31 Consult: Hospice / Palliative Care Routine Consulting Provider: [facility] Reason for Consult: Palliative - acute stroke, decline in ADLs EMERGENT Consult: No Notified: Yes Date Notified: 10/06/21 Time Notified: 16:31 Method of Notification: Provider Initiated 10/09/21 16:59 Consult: Pain Management Routine Consulting Provider: Orestes Sosa Reason for Consult: spinal stenosis EMERGENT Consult: No Notified: Yes Date Notified: 10/09/21 Time Notified: 17:00 Method of Notification: Verbal Diagnosis Discharge Diagnosis (1) Debility: Status: Acute Code(s): R53.81 - Other malaise (2) CVA (cerebral vascular accident): Status: Acute Code(s): I63.9 - Cerebral infarction, unspecified Qualifiers: CVA mechanism: unspecified Qualified Code(s): I63.9 - Cerebral infarction, unspecified (3) 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 Code(s): G61.81 - Chronic inflammatory demyelinating polyneuritis (4) Right leg weakness: Status: Acute Code(s): R29.898 - Other symptoms and signs involving the musculoskeletal system (5) Unable to ambulate: Status: Acute Code(s): R26.2 - Difficulty in walking, not elsewhere classified (6) Depression: Status: Acute Code(s): F32.A - Depression, unspecified Qualifiers: Depression Type: unspecified Qualified Code(s): F32.A - Depression, unspecified (7) Ovarian cancer: Status: Acute Code(s): C56.9 - Malignant neoplasm of unspecified ovary Qualifiers: Laterality: unspecified laterality Qualified Code(s): C56.9 - Malignant neoplasm of unspecified ovary Medications at Discharge Home Medications escitalopram oxalate 20 mg PO DAILY 11/24/15 thyroid (pork) [[place] Thyroid] 60 mg PO DAILY 02/23/16 Humalog U-100 Insulin 20 unit SUBCUT TID 07/05/16 cholecalciferol (vitamin D3) 1,250 mcg PO QWEEK 10/04/21 meclizine 25 mg PO PRN PRN 10/04/21 Artificial Tears([id number]) 2 drp EACH EYE Q1H PRN #0 ml 10/05/21 aspirin 81 mg PO BREAKFAST 10/05/21 atorvastatin 40 mg PO QHS 10/05/21 acetaminophen 1,000 mg PO Q8 #0 tab 10/25/21 insulin glargine [Lantus Solostar U-100 Insulin] 30 units SUBCUT QHS #0 ml 10/25/21 lidocaine 2 patch TOPICAL DAILY #0 ea 10/25/21 losartan 100 mg PO DAILY #0 tab 10/25/21 menthol-zinc oxide [Calmoseptine] 1 applic TOPICAL BID #0 g 10/25/21 nystatin [Nyamyc] 1 applic TOPICAL BID #0 g 10/25/21 sennosides-docusate sodium [Stool Softener-Stimulant Laxat] 1 tab PO BID #0 tab 10/25/21 Hospital Course Operations None Procedures None Summary of Care Provided Minutes Spent on Discharge: 35 Hospital Course: 71 year old female with below past medical history hospitalized for acute stroke, right hemiparesis, admitted to TCU with debility, here for rehabilitation, strengthening, prior to discharge home with . Resident has had 4 strokes, her prognosis is poor. Discharge to [facility] 10/28/2021, intermediate level of care, Palliative Medicine to follow. Physical Exam Const alert and oriented x3 General Appearance: cooperative HEENT normocephalic Eyes PERRL and EOMs intact bilaterally Neck supple, no JVD and no carotid bruits Resp normal respiratory effort, normal air movement and clear to auscultation bilaterally Cardio regular rate and regular rhythm GI normal to inspection, nondistended, normoactive bowel sounds, non-tender and non-distended Extremity normal capillary refill General Extremity: Negative for edema Skin no rashes or lesions noted General Skin Exam: no breakdown Neuro Neuro Narrative: Right hemiparesis. Psych affect normal Appearance: appropriate Weight / BMI Weight Weight: 97.069 kg Body Mass Index (BMI) 44.1 ABG / Lab / Microbiology Data Result Diagrams: 10/20/21 08:00 10/20/21 08:00 Laboratory: Laboratory Results - last 24 hr 10/24/21 21:24: POC Glucose 203 H 10/25/21 06:15: POC Glucose 144 H 10/25/21 11:15: POC Glucose 226 H 10/25/21 15:44: POC Glucose 226 H Microbiology: Microbiology 10/18/21 15:15 Urine Catheter - Catheter Urine Culture - Final Escherichia coli D/C Instructions Discharge Diet: No restrictions Discharge Activity: Return to Normal Activity, May Shower and Use Walker Weight Bearing Status: Weight bearing as tolerated Call your doctor if you observe: Fever of 101 or Higher, Inability to urinate, Inability to have a bowel movement, Shortness of breath, Dizziness, Fainting spells, Swelling in the ankles, Chest pain and Uncontrolled pain Additional Instructions: Discharge to [facility] 10/28/2021, intermediate level of care, Palliative Medicine to follow. Meaningful Use Info Meaningful Use Diagnoses (Choose all that apply): Ischemic CVA CVA Therapy Assessed for PT,OT and/or ST?: Yes Ischemic Stroke Antithrombotic order at d/c?: Yes Dx of Atrial fib/flutter?: No Statins at discharge?: Yes Primary Dx Acute Ischemic CVA?: Yes IV tPA ordered during stay?: No Reason IV t-PA not ordered: Procedure not Indicated Discharge Plan Admission Admit Date/Time: 10/05/21 16:09 Primary Reason for Your Visit: Debility. Attending Provider: Rigo Kenney Chi Primary Care Provider: Christian Toure Consulting Providers: Catherine Garcia ; Roscoe Stark ; Judy Milton ; Nikkie Jung ; Adrienne Gamboa ; Mar Kapoor REFLESHER ; Orestes Sosa Instructions Additional Instructions / Restrictions: [facility], intermediate care Palliative Care to follow Discharge to [facility] 10/28/2021, intermediate level of care, Palliative Medicine to follow. Discharge Orders/Prescriptions Prescriptions: New sennosides-docusate sodium [Stool Softener-Stimulant Laxat] 8.6-50 mg Tablet 1 tab PO BID Qty: 0 RF: 0 acetaminophen 500 mg Tablet 1,000 mg PO Q8 Qty: 0 RF: 0 lidocaine 5 % Adhesive Patch,Medicated 2 patch topical DAILY Qty: 0 RF: 0 nystatin [Nyamyc] 100,000 unit/gram Powder 1 applic topical BID Qty: 0 RF: 0 losartan 100 mg Tablet 100 mg PO DAILY Qty: 0 RF: 0 Lantus Solostar U-100 Insulin 100 unit/mL (3 mL) Insulin Pen 30 units subcut QHS Qty: 0 RF: 0 menthol-zinc oxide [Calmoseptine] 0.44-20.6 % Ointment 1 applic topical BID Qty: 0 RF: 0 Continued escitalopram oxalate 10 MG tablet 20 mg PO DAILY RF: 0 thyroid (pork) [[place] Thyroid] 60 MG tablet 60 mg PO DAILY RF: 0 Humalog U-100 Insulin 100 UNIT/ML cartridge 20 unit subcut TID RF: 0 meclizine 25 mg tablet 25 mg PO PRN PRN (Reason: Dizziness/Nausea) RF: 0 cholecalciferol (vitamin D3) 1,250 mcg (50,000 unit) Capsule 1,250 mcg PO QWEEK RF: 0 Artificial Tears([id number]) 1-0.2-0.2 % Drops 2 drp EACH EYE Q1H PRN (Reason: DRY EYES) Qty: 0 RF: 0 atorvastatin 40 mg tablet 40 mg PO QHS RF: 0 aspirin 81 mg tablet,chewable 81 mg PO BREAKFAST RF: 0 Discontinued Immune Globulin 5 Gm (Octagam) 50 ML Vial 25 g IV QMONTH RF: 0 docusate sodium [DOK] 100 MG capsule 100 mg PO BID PRN (Reason: Constipation) RF: 0 Lantus U-100 Insulin 100 UNIT/ML solution 60 unit QHS RF: 0 levothyroxine [Synthroid] 88 mcg tablet 88 mcg PO DAILY RF: 0 acetaminophen [Tylenol] 325 mg Tablet 650 mg PO Q6H PRN PRN (Reason: Pain Score 1-10/Temp > 100.7 F) Qty: 0 RF: 0 Referrals / Follow Up: Christian Toure MD [Primary Care Provider] - Disposition Disposition (needs filled in before D/C Order can be placed): NonSkilled NH/Intermed Care
--- NOTE | 2021-10-25 19:49 | PCM.TXEXTCAR ---
Diet 10/05/21 16:21 Diet: Cardiac: Calorie-Controlled Food consistency:: Easy to Chew Liquid Consistency:: Regular/Thin Diet Comments: meat cut bite size, sup at meals, NO straws, bread ok How many daily calories?: 1600 calorie Routine Orders/Code Status Code Status: DNRCC-A (No intubation.) Wound(s) right buttock: Wound Type: Abrasion left lower quadrant: Wound Type: scabs x3 Therapies Weight Bearing: Weight bearing as tolerated Extremity Affected:: Bilateral Lower Physical Therapy: Eval and Treat Occupational Therapy: Eval and Treat Problem/Diagnosis (1) Debility: Status: Acute (2) CVA (cerebral vascular accident): Status: Acute (3) 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 (4) Right leg weakness: Status: Acute (5) Unable to ambulate: Status: Acute (6) Depression: Status: Acute (7) Ovarian cancer: Status: Acute Allergies/Procedures Done in Hospital Allergies oats Adverse Reaction (Severe, Verified 10/18/21 10:43) Rash sodium benzoate Adverse Reaction (Intermediate, Verified 10/18/21 10:43) compromise immune system PLASTIC TAPE Adverse Reaction (Severe, Uncoded 10/18/21 10:43) Rash BERRIES Adverse Reaction (Intermediate, Uncoded 10/18/21 10:43) compromise immune system PEPPERS Adverse Reaction (Intermediate, Uncoded 10/18/21 10:43) compromise immune system TUNA Adverse Reaction (Intermediate, Uncoded 10/18/21 10:43) compromise immune system Type of Care/Length of Stay Estimated LOS: More Than 30 Days Type of Care Needed: Intermediate Rehab Potential: Fair Prognosis: Poor Additional Orders/Day of Discharge Additional Orders: Palliative medicine to follow at nursing facility Day of Discharge: 10/28/21 Dietary and Speech Recommendations Dietitian Recommendations/Changes: Will continue 1600 calorie controlled, cardiac diet- texture/consistency modifications per ESTATE PLANNING COUNSELOR. Discharge Plan Admission Admit Date/Time: 10/05/21 16:09 Primary Reason for Your Visit: Debility. Attending Provider: Rigo Kenney Chi Primary Care Provider: Christian Toure Consulting Providers: Catherine Garcia ; Roscoe Stark ; Judy Milton ; Nikkie Jung ; Adrienne Gamboa ; Mar Kapoor OVERSEER KOSHER KITCHEN ; Orestes Sosa Instructions Additional Instructions / Restrictions: [facility], intermediate care Palliative Care to follow Discharge to [facility] 10/28/2021, intermediate level of care, Palliative Medicine to follow. Discharge Orders/Prescriptions Prescriptions: New sennosides-docusate sodium [Stool Softener-Stimulant Laxat] 8.6-50 mg Tablet 1 tab PO BID Qty: 0 RF: 0 acetaminophen 500 mg Tablet 1,000 mg PO Q8 Qty: 0 RF: 0 lidocaine 5 % Adhesive Patch,Medicated 2 patch topical DAILY Qty: 0 RF: 0 nystatin [Nyamyc] 100,000 unit/gram Powder 1 applic topical BID Qty: 0 RF: 0 losartan 100 mg Tablet 100 mg PO DAILY Qty: 0 RF: 0 Lantus Solostar U-100 Insulin 100 unit/mL (3 mL) Insulin Pen 30 units subcut QHS Qty: 0 RF: 0 menthol-zinc oxide [Calmoseptine] 0.44-20.6 % Ointment 1 applic topical BID Qty: 0 RF: 0 Continued escitalopram oxalate 10 MG tablet 20 mg PO DAILY RF: 0 thyroid (pork) [[place] Thyroid] 60 MG tablet 60 mg PO DAILY RF: 0 Humalog U-100 Insulin 100 UNIT/ML cartridge 20 unit subcut TID RF: 0 meclizine 25 mg tablet 25 mg PO PRN PRN (Reason: Dizziness/Nausea) RF: 0 cholecalciferol (vitamin D3) 1,250 mcg (50,000 unit) Capsule 1,250 mcg PO QWEEK RF: 0 Artificial Tears([id number]) 1-0.2-0.2 % Drops 2 drp EACH EYE Q1H PRN (Reason: DRY EYES) Qty: 0 RF: 0 atorvastatin 40 mg tablet 40 mg PO QHS RF: 0 aspirin 81 mg tablet,chewable 81 mg PO BREAKFAST RF: 0 Discontinued Immune Globulin 5 Gm (Octagam) 50 ML Vial 25 g IV QMONTH RF: 0 docusate sodium [DOK] 100 MG capsule 100 mg PO BID PRN (Reason: Constipation) RF: 0 Lantus U-100 Insulin 100 UNIT/ML solution 60 unit QHS RF: 0 levothyroxine [Synthroid] 88 mcg tablet 88 mcg PO DAILY RF: 0 acetaminophen [Tylenol] 325 mg Tablet 650 mg PO Q6H PRN PRN (Reason: Pain Score 1-10/Temp > 100.7 F) Qty: 0 RF: 0 Referrals / Follow Up: Christian Toure MD [Primary Care Provider] - Disposition Disposition (needs filled in before D/C Order can be placed): NonSkilled NH/Intermed Care
[2021-10-25] MEDS: Atorvastatin Calcium 40 MG Tablet PO (21:13)
[2021-10-25 21:30] LABS: Bedside Glucose 216 mg/dL (70-110)
[2021-10-26 06:26] LABS: Bedside Glucose 204 mg/dL (70-110)
[2021-10-26] MEDS: Losartan Potassium 100 MG Tablet PO (06:38)
[2021-10-26] MEDS: Escitalopram Oxalate 20 MG Tablet PO (06:38)
[2021-10-26] MEDS: Senna/Docusate Sodium 1 Tablet PO ×2 (06:38→18:21)
[2021-10-26] MEDS: Enoxaparin 40 MG/0.4 ML Syringe SC (06:38)
[2021-10-26] MEDS: Nystatin Powder 15gm Bottle 1 APPLIC TOPICAL ×2 (06:38→18:20)
[2021-10-26] MEDS: Thyroid 60 MG Tablet PO (06:38)
[2021-10-26] MEDS: Menthol/Lanolin/Calamine/Znox 113 GM Tube 1 APPLIC TOPICAL ×2 (06:38→18:20)
[2021-10-26] MEDS: Lidocaine 5% Patch 2 PATCH TOPICAL (06:38)
[2021-10-26] MEDS: Acetaminophen 500 MG Tablet 1000 MG PO ×3 (06:40→21:25)
[2021-10-26] MEDS: Insulin Lispro 100 UNIT/ML INSULN.PEN 20 UNIT SC ×3 (08:20→18:25)
[2021-10-26] MEDS: Aspirin 81 MG TAB.CHEW PO (09:19)
[2021-10-26 10:40] VITALS: RESP 18
[2021-10-26 10:46] LABS: Bedside Glucose 357 mg/dL (70-110)
--- NOTE | 2021-10-26 14:38 | CASEMGMT ---
Addendum entered by May Drew 10/26/21 16:40: Spoke with - he left another message. Confirmed correct phone numbers. SW had call the [facility] direct line - he received no further information. SW call [facility] - left a message on the provider line. Reached a voicemail for the patient line as well. Updated [employer] Executive Director to advise further. Will continue to assist /pt. Original Note: Social Work Followed up with on appeal status as this worker hasn't received any information from [facility]. explained he called at 12:30 pm on 10/25 to file the appeal, but got a recording stating [facility] is very busy and to leave a message for a return phone call. then called again this AM and the recording advised not to leave duplicate messages, thus he did not. This worker advised to call [facility] again to see if he can speak to a live surgical device sales representative. to call and notify this worker. This worker spoke with insurance collector, Loulou, to reach out to [facility] to ensure they have not received appeal information or if they have any suggestions. returned call to this worker - he reached another recording to leave a message and could not speak to a live rep. Advised to keep track of dates and times when he called to ensure he called within the allotted time frame in the appeal rights. TERRY to continue to follow. May Drew, NENA HUGOW
[2021-10-26 15:12] VITALS: BP 138/62; PULSE 54; RESP 18; TEMP 36.2; O2SAT 94
[2021-10-26 16:05] LABS: Bedside Glucose 285 mg/dL (70-110)
--- NOTE | 2021-10-26 16:58 | CASEMGMT ---
Notified by TERRY Olvera of pt's 's issues with contacting [facility] for appeal request submission. I contacted [facility] provider customer service and was transferred to an [facility] territory sales representative Tila who entered the appeal request on behalf of the patient and her spouse. Case #[id number] received which is also to be faxed to [phone]. Will forward to HIM for medical record submission. Pt's notified. Donnell Villalta RN CM
[2021-10-26] MEDS: Glycerin/Hypromellose/PEG400 15 ml Bottle 2 DRP EACH EYE (18:19)
[2021-10-26] MEDS: Insulin Lispro 100 UNIT/ML INSULN.PEN 10 UNIT SC (18:24)
[2021-10-26 21:16] LABS: Bedside Glucose 262 mg/dL (70-110)
[2021-10-26] MEDS: Atorvastatin Calcium 40 MG Tablet PO (21:18)
[2021-10-27] MEDS: Enoxaparin 40 MG/0.4 ML Syringe SC (05:36)
[2021-10-27] MEDS: Escitalopram Oxalate 20 MG Tablet PO (05:36)
[2021-10-27] MEDS: Thyroid 60 MG Tablet PO (05:36)
[2021-10-27] MEDS: Bisacodyl 5 MG Tablet 10 MG PO (05:36)
[2021-10-27] MEDS: Senna/Docusate Sodium 1 Tablet PO ×2 (05:36→17:53)
[2021-10-27] MEDS: Acetaminophen 500 MG Tablet 1000 MG PO ×3 (05:36→21:22)
[2021-10-27] MEDS: Losartan Potassium 100 MG Tablet PO (05:36)
[2021-10-27] MEDS: Lidocaine 5% Patch 2 PATCH TOPICAL (05:38)
[2021-10-27] MEDS: Menthol/Lanolin/Calamine/Znox 113 GM Tube 1 APPLIC TOPICAL ×2 (05:41→17:55)
[2021-10-27] MEDS: Nystatin Powder 15gm Bottle 1 APPLIC TOPICAL ×2 (05:41→17:54)
[2021-10-27 05:43] VITALS: BP 130/64; PULSE 74
[2021-10-27 06:01] LABS: Absolute Lymphocyte Count 3.06 X10^3/uL (0.83-4.51); Absolute Neutrophil Count 3.6 X10^3/uL (2.0-7.7); Basophil% 1.2 % (0-1); Eosinophil# 0.38 X10^3/uL; Eosinophils% 4.7 % (0-5); Hematocrit 37.9 % (37-47); Hemoglobin 12.6 g/dL (12.0-15.0); Lymphocyte # 3.06 X10^3/ul (0.83-4.51); Mean Corp Hgb Conc 33.2 g/dL (32-36); Mean Corpuscular Hgb 31.1 pg (27.0-32.0); Mean Corpuscular Volume 93.6 fL (81-99); Mean Platelet Vol. 11.4 fl (6.2-12.0); Monocyte# 0.87 X10^3/uL; Monocyte% 10.8 % (0-10); NRBC Flagged by Analyzer 0 % (0-5); Neutrophil # 3.62 X10^3/uL (2.7-7.7); Neutrophil % 44.9 % (47-70); Platelet Count 190 K/mm3 (150-450); RBC Distribution Width CV 12.8 % (11.6-14.6); Red Blood Count 4.05 M/mm3 (4.2-5.4); White Blood Count 8.1 K/mm3 (4.4-11.0)
[2021-10-27 06:20] LABS: Bedside Glucose 132 mg/dL (70-110)
[2021-10-27 06:23] LABS: Anion Gap 6 (5-15); BUN 20 mg/dL (7-18); Calcium,Total 9.5 mg/dL (8.5-10.1); Chloride 105 mmol/L (98-107); Creatinine, Serum 0.74 mg/dL (0.55-1.02); EST Glomerular Filtration Rate 82 mL/min (>60); Est Glom Filt Rate - Afr Amer 99 mL/min (>60); Estimated Creatinine Clearance 76.78 ml/min; Glucose 128 mg/dL (74-106); Potassium 3.8 mmol/L (3.5-5.1); Sodium Level 140 mmol/L (136-145)
[2021-10-27] MEDS: Aspirin 81 MG TAB.CHEW PO (08:31)
[2021-10-27] MEDS: Insulin Lispro 100 UNIT/ML INSULN.PEN 20 UNIT SC ×3 (08:31→17:51)
--- NOTE | 2021-10-27 08:37 | CASEMGMT ---
Addendum entered by May Drew 10/27/21 15:31: came to SW office. Reviewed case progress on [facility]'s website - clinical documents have not be reviewed yet. Explained [facility] can take as long as they want to review the information. The hope is to have an outcome by Saturday morning. Explained choose to keep pt in TCU until he receives appeal outcome. He understands if pt loses, he would be responsible for paying privately for days not covered by insurance. Pt does have technically until 11:59 pm on 10/28/21 to DC. Nursing is aware to cancel or postpone transport if pt does not leave at 1300. expressed understanding and will see tomorrow what he wants to do. advised to notify nursing of his decision. Hand-off given to Saturday ED SW. Addendum entered by May Drew 10/27/21 09:09: Cot transport scheduled through [facility] for 1 pm. [place] updated. Will cancel transport if pt has won appeal. Faxed DC paperwork to [facility]. Original Note: Social Work Received appeal information from [facility] and DENC from [facility]. Appeal request forwarded to medical records to complete. SW to continue to follow for outcome of appeal and DC plan. Updated [place] of appeal. NENA Marrero
[2021-10-27 10:56] LABS: Bedside Glucose 212 mg/dL (70-110)
--- NOTE | 2021-10-27 12:16 | NURSING ---
Resident and spouse, Eun, notified of a resident on the unit testing positive for COVID.
--- NOTE | 2021-10-27 13:22 | CASEMGMT ---
Social Work BIMS and PHQ-9 completed for MDS assessment. May Drew, BRANCH SERVICE SPECIALIST MUSIC ADAPTER
[2021-10-27 14:54] VITALS: BP 130/67; PULSE 55; RESP 16; TEMP 36.3; O2SAT 93
[2021-10-27 16:01] LABS: Bedside Glucose 230 mg/dL (70-110)
[2021-10-27 21:21] LABS: Bedside Glucose 295 mg/dL (70-110)
[2021-10-27] MEDS: Atorvastatin Calcium 40 MG Tablet PO (21:23)
[2021-10-28] MEDS: Acetaminophen 500 MG Tablet 1000 MG PO ×3 (05:43→20:29)
[2021-10-28] MEDS: Menthol/Lanolin/Calamine/Znox 113 GM Tube 1 APPLIC TOPICAL ×2 (05:44→17:42)
[2021-10-28] MEDS: Thyroid 60 MG Tablet PO (05:44)
[2021-10-28] MEDS: Losartan Potassium 100 MG Tablet PO (05:45)
[2021-10-28] MEDS: Nystatin Powder 15gm Bottle 1 APPLIC TOPICAL ×2 (05:45→17:42)
[2021-10-28] MEDS: Escitalopram Oxalate 20 MG Tablet PO (05:45)
[2021-10-28] MEDS: Enoxaparin 40 MG/0.4 ML Syringe SC (05:45)
[2021-10-28] MEDS: Senna/Docusate Sodium 1 Tablet PO ×2 (05:46→17:33)
[2021-10-28] MEDS: Lidocaine 5% Patch 2 PATCH TOPICAL (05:47)
[2021-10-28 06:30] LABS: Bedside Glucose 185 mg/dL (70-110)
[2021-10-28] MEDS: Insulin Lispro 100 UNIT/ML INSULN.PEN 20 UNIT SC ×3 (07:56→17:36)
[2021-10-28] MEDS: Aspirin 81 MG TAB.CHEW PO (07:56)
--- NOTE | 2021-10-28 10:50 | NURSING ---
Spoke with Ni Pizano in ED, per Jerica the patient won her appeal and will be remaining in TCU for now.
--- NOTE | 2021-10-28 10:55 | NURSING ---
Not[facility] to cancel the transport for the patient, spoke with Jocelin. Per Jocelin the order will be placed on hold and when the patient is in need of transportation, we are to let [facility] know that there is already a hold placed for this patient. Also notified [facility] that the pt will be remaining in TCU for now, spoke with Ivonne.
--- NOTE | 2021-10-28 10:59 | NURSING ---
pt and spouse notified that the appeal was won and pt will remain in TCU for now.
[2021-10-28 12:16] LABS: Bedside Glucose 266 mg/dL (70-110)
[2021-10-28 14:10] VITALS: BP 140/69; PULSE 69; RESP 24; TEMP 36.4; O2SAT 92
--- NOTE | 2021-10-28 15:38 | CM.ED ---
TERRY Note TERRY received email from shoe worker, Yari Alba that patient had won her appeal. TERRY called Mireille in TCu and advised patient had won her appeal and requested Mireille cancel transport, update [place] and . Mireille agreed to update all parties. Claudia RICHARDS
[2021-10-28 16:56] LABS: Bedside Glucose 165 mg/dL (70-110)
[2021-10-28 21:46] LABS: Bedside Glucose 117 mg/dL (70-110)
[2021-10-29] MEDS: Menthol/Lanolin/Calamine/Znox 113 GM Tube 1 APPLIC TOPICAL ×2 (06:05→17:33)
[2021-10-29] MEDS: Enoxaparin 40 MG/0.4 ML Syringe SC (06:05)
[2021-10-29] MEDS: Lidocaine 5% Patch 2 PATCH TOPICAL (06:06)
[2021-10-29] MEDS: Nystatin Powder 15gm Bottle 1 APPLIC TOPICAL ×2 (06:08→17:31)
[2021-10-29] MEDS: Senna/Docusate Sodium 1 Tablet PO ×2 (06:08→17:31)
[2021-10-29] MEDS: Losartan Potassium 100 MG Tablet PO (06:08)
[2021-10-29] MEDS: Escitalopram Oxalate 20 MG Tablet PO (06:08)
[2021-10-29] MEDS: Thyroid 60 MG Tablet PO (06:08)
[2021-10-29] MEDS: Acetaminophen 500 MG Tablet 1000 MG PO ×3 (06:22→21:34)
[2021-10-29 07:15] LABS: Bedside Glucose 152 mg/dL (70-110)
[2021-10-29] MEDS: Insulin Lispro 100 UNIT/ML INSULN.PEN 20 UNIT SC ×3 (09:13→17:30)
[2021-10-29] MEDS: Aspirin 81 MG TAB.CHEW PO (09:14)
[2021-10-29 10:15] VITALS: PULSE 52; RESP 16
[2021-10-29 11:01] LABS: Bedside Glucose 164 mg/dL (70-110)
[2021-10-29 15:29] VITALS: BP 136/58; PULSE 58; RESP 16; TEMP 36.6; O2SAT 93
[2021-10-29 16:40] LABS: Bedside Glucose 229 mg/dL (70-110)
[2021-10-29] MEDS: Ergocalciferol 1.25 MG (50, 000 UNIT) Capsule PO (17:30)
[2021-10-29] MEDS: Glycerin/Hypromellose/PEG400 15 ml Bottle 2 DRP EACH EYE (18:50)
[2021-10-29 21:25] LABS: Bedside Glucose 204 mg/dL (70-110)
[2021-10-30] MEDS: Enoxaparin 40 MG/0.4 ML Syringe SC (05:15)
[2021-10-30] MEDS: Lidocaine 5% Patch 2 PATCH TOPICAL (05:15)
[2021-10-30] MEDS: Escitalopram Oxalate 20 MG Tablet PO (05:15)
[2021-10-30] MEDS: Losartan Potassium 100 MG Tablet PO (05:16)
[2021-10-30] MEDS: Senna/Docusate Sodium 1 Tablet PO ×2 (05:16→18:07)
[2021-10-30] MEDS: Menthol/Lanolin/Calamine/Znox 113 GM Tube 1 APPLIC TOPICAL ×2 (05:16→18:11)
[2021-10-30] MEDS: Thyroid 60 MG Tablet PO (05:16)
[2021-10-30] MEDS: Nystatin Powder 15gm Bottle 1 APPLIC TOPICAL ×2 (05:16→18:11)
[2021-10-30] MEDS: Acetaminophen 500 MG Tablet 1000 MG PO ×3 (05:19→22:10)
[2021-10-30 06:31] LABS: Bedside Glucose 92 mg/dL (70-110)
[2021-10-30] MEDS: Aspirin 81 MG TAB.CHEW PO (08:36)
[2021-10-30] MEDS: Insulin Lispro 100 UNIT/ML INSULN.PEN 20 UNIT SC ×3 (08:36→18:07)
[2021-10-30 08:40] LABS: Bedside Glucose 164 mg/dL (70-110)
[2021-10-30 10:55] LABS: Bedside Glucose 139 mg/dL (70-110)
[2021-10-30 12:35] VITALS: PULSE 69; RESP 18; O2SAT 95
[2021-10-30 13:57] VITALS: BP 126/53; PULSE 50; RESP 16; TEMP 36.4; O2SAT 94
[2021-10-30 16:06] LABS: Bedside Glucose 106 mg/dL (70-110)
--- NOTE | 2021-10-30 16:28 | CASEMGMT ---
Social Work Left message with notifying him of insurance issuing LCD 11/01, DC 11/02. Provided him with [facility]'s phone number if he would like to appeal by noon 10/31. Will await return phone call. May Drew ,DISTRICT COURT REPORTER FITNESS CONSULTANT
--- NOTE | 2021-10-30 16:35 | CASEMGMT ---
Social Work Received return phone call from . expressed he would like to appeal. Encouraged to continue to call until he reaches a live person or gets a return call. spoke with live rep at [facility]. Appeal filed - . Emailed appropriate paperwork to medical records to start appeal process. Will await outcome. Updated [place]. Plan: DC to [facility] 11/02, pending appeal NENA MarreroW
--- NOTE | 2021-10-30 19:24 | PN.TCU_ITS ---
Subjective Subjective Resident seen, examined for regulatory visit. Her present today, she is eating dinner. She has no new problems, concerns, issues, complaints. Resident won appeal, but ultimately will be discharging to [facility]. Objective Data Objective Data Vital Signs: Vital Signs Temp Pulse Resp BP Pulse Ox 97.5 F L 50 L 16 126/53 H 94 10/30/21 13:57 10/30/21 13:57 10/30/21 13:57 10/30/21 13:57 10/30/21 13:57 Oxygen Delivery Method Room Air Weight: 97.976 kg Body Mass Index (BMI) 44.1 Intake & Output: Intake and Output for Last 24 Hours 10/28/21 10/29/21 10/30/21 23:59 23:59 23:59 Intake Total 240 / 240 840 / 840 600 / 600 Balance 240 / 240 840 / 840 600 / 600 Lab / Micro Data Result Diagrams: 10/27/21 05:23 10/27/21 05:23 Labs: Laboratory Results - last 24 hr 10/29/21 21:19: POC Glucose 204 H 10/30/21 06:17: POC Glucose 92 10/30/21 08:35: POC Glucose 164 H 10/30/21 10:49: POC Glucose 139 H 10/30/21 15:57: POC Glucose 106 Micro: Microbiology 10/26/21 10:49 Nasal Secretion SARS-CoV-2 Antigen (Rapid) - Final 10/18/21 15:15 Urine Catheter - Catheter Urine Culture - Final Escherichia coli Physical Exam Const alert and oriented x3 General Appearance: cooperative HEENT normocephalic Eyes PERRL and EOMs intact bilaterally Neck supple, no JVD and no carotid bruits Resp normal respiratory effort, normal air movement and clear to auscultation bilater ally Cardio regular rate and regular rhythm GI normal to inspection, nondistended, normoactive bowel sounds, non-tender and non-distended Extremity normal capillary refill General Extremity: Negative for edema Skin no rashes or lesions noted General Skin Exam: no breakdown Neuro Neuro Narrative: Right hemiparesis. Psych affect normal Appearance: appropriate Assessment & Plan Assessment/Plan (1) Debility: (2) CVA (cerebral vascular accident): QUALIFIERS: CVA mechanism: unspecified Qualified Code(s): I63.9 - Cerebral infarction, unspecified (3) CIDP (chronic inflammatory demyelinating polyneuropathy): (4) Right leg weakness: (5) Unable to ambulate: (6) Depression: QUALIFIERS: Depression Type: unspecified Qualified Code(s): F32.A - Depression, unspecified (7) Ovarian cancer: QUALIFIERS: Laterality: unspecified laterality Qualified Code(s): C56.9 - Malignant neoplasm of unspecified ovary PLAN: 71 year old female with below past medical history hospitalized for acute stroke, right hemiparesis, admitted to TCU with debility, here for rehabil itation, strengthening, prior to discharge home with . * Debility - PT/OT. * Dysarthria - ST. * Pain - Tylenol 1000mg q8, [place] 5/325mg 1 tab q6h prn, Lidoderm 2 patches topical daily. * Bowel - Senna/colace 1 tablet bid, Dulcolax 10mg daliy prn. * Adult immunization - Administer prevnar 13, pneumovax 23, fluzone, covid19 vaccine as appropriate. * DVT prophylaxis - Lovenox 40mg sc daily. * Stroke - Aspirin 81mg daily. * Hyperlipidemia - Atorvastatin 40mg qhs. * Vitamin D deficiency - D3 1.25mg per week. * Depression - Lexapro 20mg daily, stable chronic penitentiary use, GDR not recommended. * Diabetes Mellitus II - Lantus 50 units qhs, Humalog 20 units tidac. * Hypertension - Losartan 100mg daily. * Dizziness - Meclizine 25mg tid prn. * Dry Eyes - Artificial tears 2gtt ou Q1H prn. * Hypothyroidism - [place] Thyroid 60mg daily. * Skin irritation - Calmoseptine topical bid. * Tinea Corporis - Nystatin powder topical bid. Capacity Capacity Assessment Tool Can the patient make a choice & communicate that choice?: Yes Can the patient understand benefits, risks and alternatives?: Yes Can the patient make a logical, rational choice?: Yes Is the choice the patient makes consistent w/ their values?: Yes Is there an impending, emergent risk to the patient?: No Does the patient have an Advance Directive?: Yes Is there a Surrogate Available?: Yes i.e. HCPOA: Yes i.e. close relative (spouse, child, parent, sibling)?: Yes
[2021-10-30 21:20] LABS: Bedside Glucose 140 mg/dL (70-110)
[2021-10-31] MEDS: Lidocaine 5% Patch 2 PATCH TOPICAL (06:00)
[2021-10-31] MEDS: Thyroid 60 MG Tablet PO (06:01)
[2021-10-31] MEDS: Losartan Potassium 100 MG Tablet PO (06:01)
[2021-10-31] MEDS: Senna/Docusate Sodium 1 Tablet PO ×2 (06:01→17:32)
[2021-10-31] MEDS: Enoxaparin 40 MG/0.4 ML Syringe SC (06:01)
[2021-10-31 06:30] VITALS: BP 130/68; PULSE 59
[2021-10-31] MEDS: Menthol/Lanolin/Calamine/Znox 113 GM Tube 1 APPLIC TOPICAL ×2 (06:32→17:32)
[2021-10-31] MEDS: Nystatin Powder 15gm Bottle 1 APPLIC TOPICAL ×2 (06:32→17:32)
[2021-10-31] MEDS: Acetaminophen 500 MG Tablet 1000 MG PO ×3 (06:33→21:30)
[2021-10-31] MEDS: Escitalopram Oxalate 20 MG Tablet PO (06:33)
[2021-10-31 06:56] LABS: Bedside Glucose 85 mg/dL (70-110)
[2021-10-31 07:24] VITALS: PULSE 60; RESP 16
[2021-10-31] MEDS: Insulin Lispro 100 UNIT/ML INSULN.PEN 20 UNIT SC ×3 (07:55→17:31)
[2021-10-31] MEDS: Aspirin 81 MG TAB.CHEW PO (07:55)
[2021-10-31 11:05] LABS: Bedside Glucose 223 mg/dL (70-110)
--- NOTE | 2021-10-31 12:39 | NURSING ---
Resident and spouse, Eun, notified of staff member testing positive for COVID.
[2021-10-31 14:13] VITALS: BP 140/60; PULSE 49; RESP 16; TEMP 36.2; O2SAT 94
[2021-10-31 16:01] LABS: Bedside Glucose 172 mg/dL (70-110)
[2021-10-31] MEDS: COVID-19 VACC, MRNA(PFIZER)/PF 30 MCG/0.3 ML SYRINGE IM (17:33)
[2021-10-31 21:30] LABS: Bedside Glucose 116 mg/dL (70-110)
[2021-10-31] MEDS: Bisacodyl 5 MG Tablet 10 MG PO (21:40)
[2021-11-01] MEDS: Menthol/Lanolin/Calamine/Znox 113 GM Tube 1 APPLIC TOPICAL ×2 (06:31→16:30)
[2021-11-01] MEDS: Senna/Docusate Sodium 1 Tablet PO ×2 (06:31→17:59)
[2021-11-01] MEDS: Acetaminophen 500 MG Tablet 1000 MG PO ×3 (06:31→22:03)
[2021-11-01] MEDS: Escitalopram Oxalate 20 MG Tablet PO (06:31)
[2021-11-01] MEDS: Enoxaparin 40 MG/0.4 ML Syringe SC (06:31)
[2021-11-01] MEDS: Thyroid 60 MG Tablet PO (06:31)
[2021-11-01] MEDS: Lidocaine 5% Patch 2 PATCH TOPICAL (06:31)
[2021-11-01] MEDS: Losartan Potassium 100 MG Tablet PO (06:31)
[2021-11-01] MEDS: Nystatin Powder 15gm Bottle 1 APPLIC TOPICAL ×2 (06:32→16:33)
[2021-11-01 06:41] LABS: Bedside Glucose 96 mg/dL (70-110)
[2021-11-01] MEDS: Aspirin 81 MG TAB.CHEW PO (08:07)
[2021-11-01] MEDS: Insulin Lispro 100 UNIT/ML INSULN.PEN 20 UNIT SC ×2 (08:12→11:37)
[2021-11-01] MEDS: Magnesium Citrate 300 ML PO (08:15)
[2021-11-01] MEDS: HYDROcodone Bitartrate/Apap 5/325 Tablet PO (08:52)
[2021-11-01 11:15] LABS: Bedside Glucose 143 mg/dL (70-110)
--- NOTE | 2021-11-01 15:04 | CCN.REFER ---
Social Work Received call from [facility]. Pt lost appeal and will DC to [facility] 11/02. Spoke with pt and to notify. [place] confirmed DC. Scheduled cot transport through [facility] for 1 pm. Plan: DC to [facility] 11/02 NENA MarreroW
[2021-11-01 15:35] VITALS: BP 143/50; PULSE 57; RESP 15; TEMP 36; O2SAT 92
[2021-11-01 16:25] LABS: Bedside Glucose 56 mg/dL (70-110)
--- NOTE | 2021-11-01 16:25 | NURSING ---
Resident with low blood sugar of 56. Reportedly having refused eating lunch after scheduled insulin given. Assisted up in bed. OJ given and bites of strawberry ice cream. Resident awake and talking but reports feeling like my blood sugar is low. Will continue to monitor.
--- NOTE | 2021-11-01 16:41 | NURSING ---
Drinks the rest of the magnesium citrate that was started this AM. Will monitor for results. Blood sugar retaken and was 73. Takes the rest of the ice cream and dietary called to send up supper tray early.
[2021-11-01 16:50] LABS: Bedside Glucose 73 mg/dL (70-110)
[2021-11-01 17:56] LABS: Bedside Glucose 138 mg/dL (70-110)
[2021-11-01] MEDS: Insulin Lispro 100 UNIT/ML INSULN.PEN 13 UNIT SC (17:57)
[2021-11-01 21:16] LABS: Bedside Glucose 186 mg/dL (70-110)
[2021-11-01 21:21] VITALS: PULSE 70; RESP 14; O2SAT 97
[2021-11-02 05:59] VITALS: BP 145/58; PULSE 76
[2021-11-02] MEDS: Enoxaparin 40 MG/0.4 ML Syringe SC (06:01)
[2021-11-02] MEDS: Lidocaine 5% Patch 2 PATCH TOPICAL (06:01)
[2021-11-02] MEDS: Escitalopram Oxalate 20 MG Tablet PO (06:01)
[2021-11-02] MEDS: Losartan Potassium 100 MG Tablet PO (06:01)
[2021-11-02] MEDS: Thyroid 60 MG Tablet PO (06:01)
[2021-11-02] MEDS: Acetaminophen 500 MG Tablet 1000 MG PO (06:02)
[2021-11-02] MEDS: Nystatin Powder 15gm Bottle 1 APPLIC TOPICAL (06:02)
[2021-11-02] MEDS: Senna/Docusate Sodium 1 Tablet PO (06:02)
[2021-11-02] MEDS: Menthol/Lanolin/Calamine/Znox 113 GM Tube 1 APPLIC TOPICAL (06:03)
[2021-11-02 06:25] LABS: Bedside Glucose 180 mg/dL (70-110)
[2021-11-02] MEDS: Aspirin 81 MG TAB.CHEW PO (08:21)
[2021-11-02] MEDS: Insulin Lispro 100 UNIT/ML INSULN.PEN 13 UNIT SC ×2 (08:22→12:01)
[2021-11-02 11:00] LABS: Bedside Glucose 229 mg/dL (70-110)
[2021-11-02 14:07] VITALS: BP 104/59; PULSE 61; RESP 18; TEMP 36.7; O2SAT 92
== END 2021-11-02 13:15 | DRG 57 ==
PROVIDERS: Admitting Provider Family Medicine Geriatric Medicine; PCP Family Medicine; Visit Provider Family Medicine Geriatric Medicine
DX: I69.351 Hemiplegia and hemiparesis following cerebral infarction affecting right dominant side (principal); C80.0 Disseminated malignant neoplasm, unspecified; G61.81 Chronic inflammatory demyelinating polyneuritis; C56.9 Malignant neoplasm of unspecified ovary; Z68.41 Body mass index [BMI] 40.0-44.9, adult; E11.649 Type 2 diabetes mellitus with hypoglycemia without coma; B35.4 Tinea corporis; Z79.4 Long term (current) use of insulin; E66.01 Morbid (severe) obesity due to excess calories; M48.00 Spinal stenosis, site unspecified; E03.9 Hypothyroidism, unspecified; E55.9 Vitamin D deficiency, unspecified; E78.5 Hyperlipidemia, unspecified; M53.3 Sacrococcygeal disorders, not elsewhere classified; I69.392 Facial weakness following cerebral infarction; M51.36 Other intervertebral disc degeneration, lumbar region; F32.A Depression, unspecified; Z23 Encounter for immunization; Z79.899 Other long term (current) drug therapy; Z79.890 Hormone replacement therapy; Z79.82 Long term (current) use of aspirin
CPT/HCPCS: 0004A; 36415; 80048; 82962; 85025; 87077; 87086; 87088; 87186; 87426; 87635; 91300; 92507; 92523; 92526; 92610; 97110; 97112; 97116; 97150; 97162; 97166; 97530; 97535; 97802; U0003; U0005

== ENCOUNTER → 2021-10-09 08:29 | Outpatient (CLI) | payer MEDICARE, SELFPAY ==
--- NOTE | 2021-10-09 09:37 | VDLE_ITS ---
Reason For Study: Pain LLE Procedure LEFT This is a venous duplex using B-mode, color GSV is normal. flow and spectral Doppler. CFV is compressible, spontaneous, phasic, Exam performed portable in patient room. competent, and demonstrates normal A preliminary report was called and/or faxed augmentation. to Patients RN. FV is compressible, spontaneous, phasic, competent and demonstrates normal augmentation. POP V is compressible, spontaneous, phasic, competent and demonstrates normal augmentation. T/P Trunk is compressible. PTV is compressible. LT PerV is compressible. Patient unable to tolerate compressions Lt mid/distal thigh; relied on color doppler. VL/Venous Duplex US, Unilateral Interpretation Summary There is no evidence of left lower extremity deep vein thrombosis. Left great s aphenous vein appears patent and compressible segmentally. Note limitation of inability to tolerate c ompression left mid to distal thigh and reliance upon color Doppler. Ordering Physician: Rigo Kenney Chi Referring Physician: Christian Toure Performed By: Anastasia Zamora, MEMO, RVT
== END ==
PROVIDERS: PCP Family Medicine; Referring Provider Family Medicine Geriatric Medicine; Visit Provider Family Medicine Geriatric Medicine
DX: M79.662 Pain in left lower leg (principal); M79.89 Other specified soft tissue disorders
CPT/HCPCS: 93971

== ENCOUNTER 2021-10-18 10:18 | Emergency (ER) | payer MEDICARE, SELFPAY ==
[2021-10-18 10:19] VITALS: BP 175/90; PULSE 56; RESP 18; TEMP 36; O2SAT 95; BMI 46.7
--- NOTE | 2021-10-18 10:44 | CT_ITS ---
INDICATION: stroke EXAMINATION: CT BRAIN - CT Head or Brain W/O Contrast Injection TECHNIQUE: Multiple axial images were obtained of the head without intravenous contrast. A radiation dose optimization technique was used for this scan. IV Contrast dosage and agent: None. COMPARISON: 10/04/2021 FINDINGS: A 3.5 x 1.5 cm area of low attenuation is visualized in the left centrum semiovale, mild effacement of the kruse-white matter differentiation in the posterior left frontal lobe isn''t seen, this demonstrates significant increase in size in comparison to the prior study where it had measured approximately 0.6 cm, thus this could either represent evolution of the previously visualized the acute lacunar infarct or new progression of infarct in that location. Focal area of low attenuation is visualized along the inferior aspect of infarct extending into the left thalamus. Subtle air-fluid attenuation also visualized in the left external capsule that demonstrates slight prominence in comparison to the prior study. Focal area of encephalomalacia visualized in the medial aspect of the left occipital lobe demonstrates no change in comparison to the prior study. Scattered areas of low attenuation visualized in the periventricular and subcortical white matter that demonstrate no significant change in comparison to the prior study. No evidence of parenchymal hemorrhages or contusions. No evidence of intra or extra-axial fluid collection is seen. The visualized the vessels straightened areas of increased attenuation to suggest thrombosis. Prominence of the ventricles and sulci is visualized unremarkable for the patient''s age demonstrates no significant change in comparison to the prior study. Circumferential mucosal thickening visualized in the ethmoid air cells otherwise unremarkable aeration of the paranasal sinuses. ORBITS: Both globes, extraocular muscles, optic nerves and retrobulbar fat appear unremarkable. CT/Brain/Head without Contrast IMPRESSION: Evolution of the infarct in the left centrum semiovale or this could represent superimposed new infarct on the previously visualized infarct that was seen on 10/04/2021. Encephalomalacia left occipital lobe demonstrates no change. Chronic microvascular disease. Electronically Signed: Srinivas Olmstead MD at 13:01 EST Tel , Service support ,
--- NOTE | 2021-10-18 10:44 | RAD_ITS ---
INDICATION: cough EXAMINATION/TECHNIQUE: X-RAY - XR Chest 1 View COMPARISON: 10/04/2021. FINDINGS: LINES/DEVICES: Right chest port visualizes catheter tip in the SVC. EKG leads are seen superimposed over the chest. LUNGS: Peribronchial cuffing bilateral hilar prominence demonstrates no change in comparison to the prior study. Scattered patchy densities in bilateral lung sanchez demonstrate no change. No consolidation, edema or effusion. No pneumothorax. MEDIASTINUM AND CARDIOVASCULAR STRUCTURES: Cardiac silhouette not enlarged. Central airways and mediastinal contour are unremarkable. BONES AND SOFT TISSUES: Unremarkable. RAD/Chest 1 View (Portable) IMPRESSION: Peribronchial cuffing bilateral hilar prominence is seen, correlate for acute bronchitis or airway disease or obstruction from right hilar prominence Electronically Signed: Srinivas Olmstead MD at 12:14 EST Tel , Service support ,
--- NOTE | 2021-10-18 10:45 | EKG12_ITS ---
Test Reason : WEAKNESS Blood Pressure : / mmHG Vent. Rate : 056 BPM Atrial Rate : 056 BPM P-R Int : 236 ms QRS Dur : 092 ms QT Int : 440 ms P-R-T Axes : 055 057 019 degrees QTc Int : 424 ms Sinus bradycardia with marked sinus arrhythmia with 1st degree A-V block Low voltage QRS Borderline ECG Confirmed by DIANNE SHORE, TD ([id number]), tooler NAZARIO AQUINO ([id number]) on 10/24/2021 10:22:51 AM Referred By: MARCY Confirmed By:TD DEAN MD
--- NOTE | 2021-10-18 10:49 | EX.ED.DYSGE1 ---
HPI History of Present Illness Chief Complaint: Weakness Informant: patient and other Narrative Narrative: History is obtained from patient and reviewing available records online. Patient is in TCU recovering from a recent stroke for which she was admitted. She had MRI/MRA cardiac echo. She was started on aspirin Plavix and a statin. Neurology consult was also done. She has right-sided weakness as a residual from this. Patient states she was dizzy this morning. However, she states she gets dizzy pretty much every day. It is worse if she is sit up too quickly. She cannot walk because of her stroke now. But if she gets up she gets more lightheaded. Nurse here in the department also talked to TCU staff. They saw no new neurologic deficit. They sent her down here because the dizziness seemed to be worse per the patient then is her normal daily dizziness. No chest pain. No fevers. She has not fallen or hurt herself recently. [facility] Medical History Cerebrovascular disease CIDP (chronic inflammatory demyelinating polyneuropathy) Depressive disorder Diabetes mellitus History of cardioembolic stroke HLD (hyperlipidemia) Lumbar degenerative disc disease Malignant neoplasm of right ovary Morbid obesity with BMI of 40.0-44.9, adult Ovarian cancer Peritoneal carcinomatosis Home Medications escitalopram oxalate 20 mg PO DAILY 11/24/15 [History Last Taken Unknown] thyroid (pork) [Shallowater Thyroid] 60 mg PO DAILY 02/23/16 [History Last Taken Unknown] Humalog U-100 Insulin 20 unit SUBCUT TID 07/05/16 [History Last Taken Unknown] docusate sodium [DOK] 100 mg PO BID PRN 03/14/17 [History Last Taken Unknown] Immune Globulin 5 Gm (Octagam) 25 g IV QMONTH 04/18/17 [History Last Taken Unknown] Lantus U-100 Insulin 60 unit QHS 08/08/17 [History Last Taken Unknown] cholecalciferol (vitamin D3) 1,250 mcg PO QWEEK 10/04/21 [History Last Taken Unknown] levothyroxine [Synthroid] 88 mcg PO DAILY 10/04/21 [History Last Taken Unknown] meclizine 25 mg PO PRN PRN 10/04/21 [History Last Taken Unknown] acetaminophen [Tylenol] 650 mg PO Q6H PRN PRN #0 tab 10/05/21 [Rx Last Taken Unknown] aspirin 81 mg PO BREAKFAST 10/05/21 [History Last Taken Unknown] atorvastatin 40 mg PO QHS 10/05/21 [History Last Taken Unknown] peg [id number] [Artificial Tears([id number])] 2 drp EACH EYE Q1H PRN #0 ml 10/05/21 [Rx Last Taken Unknown] Allergy/AdvReac Type Severity Reaction Status Date / Time oats AdvReac Severe Rash Verified 10/18/21 10:43 sodium benzoate AdvReac Intermediate compromise Verified 10/18/21 10:43 immune system PLASTIC TAPE AdvReac Severe Rash Uncoded 10/18/21 10:43 BERRIES AdvReac Intermediate compromise Uncoded 10/18/21 10:43 immune system PEPPERS AdvReac Intermediate compromise Uncoded 10/18/21 10:43 immune system TUNA AdvReac Intermediate compromise Uncoded 10/18/21 10:43 immune system Social History household members: spouse Smoking Status: Never smoker alcohol intake: never substance use type: does not use ROS ROS ED Constitutional Constitutional ED: Denies chills or fever(s) Eyes Eyes: Denies blurry vision or change in vision ENT ENT ED: Denies rhinorrhea Cardiovascular Cardiovascular: Denies chest pain or palpitations Respiratory/Chest Respiratory/Chest: Denies cough or dyspnea Gastrointestinal Gastrointestinal: Denies abdominal pain, nausea or vomiting Genitourinary Genitourinary ED: Denies dysuria Musculoskeletal Musculoskeletal: Denies myalgias Integumentary Denies rash Neurologic Neurologic: Reports paresthesias, weakness and other Details: Patient has weakness and paresthesias on the right that are not new or worse. Her dizziness is reviewed in history of present illness. ; Denies headache(s) Endocrine Endocrinology: Denies polydipsia or polyuria Allergic/Immunologic Allergic/Immunologic ED: Denies urticaria EXAM Physical Exam Const Vital Signs: 10/18/21 10:19 10/18/21 10:43 10/18/21 12:19 Temperature 96.8 F L Temperature Source Temporal Pulse Rate 56 L 56 L Respiratory Rate 18 18 Respiratory Effort Normal Respiratory Pattern Normal Blood Pressure 175/90 H 163/76 H Blood Pressure Mean 118 105 Pulse Ox 95 96 Oxygen Delivery Method Room Air Room Air Positive well nourished, well developed and obese General Appearance ED: well developed and NAD; Negative for cyanotic or diaphoretic Nutritional Appearance: obese HEENT Reports moist mucous membranes HEENT Narrative: There is minimal if any right facial weakness. This is reported but I am not seeing much now at this time. Eyes PERRL and EOMs intact bilaterally Neck supple and no JVD Chest Wall inspection of chest normal Resp normal respiratory effort and clear to auscultation bilaterally Effort and Inspection: Negative for pain with movement Auscultation: Negative for rales, rhonchi or wheezes Cardio regular rhythm Rate: bradycardia and other Other Details: Heart rate is slow. Its about 50-60. It does vary a slight amount but does appear to be sinus. I looked back on prior EKG and she had a rate of 62 recently. She is not on any medicines that I see that would cause bradycardia. Her blood pressure is good despite this heart rate. GI normal to inspection, nondistended, normoactive bowel sounds and non-tender GI Narrative: Obese but overall benign. Palpation: soft Extremity normal to inspection General Extremety ED: Negative for edema or tenderness General Extremity: Negative for edema Neuro oriented x3 Neuro Narrative: Patient has clear weakness of right side. Right upper extremity is affected significantly more than the right lower. Sensation also seems more affected. Patient states this is been weeks since her stroke. She states is not worse. She states she normally cannot move her right arm at all. Sensorium / Orientation: alert Psych Psych Narrative: Mildly flat affect. Skin no rashes or lesions noted MDM MDM MDM Narrative Medical decision making narrative: Patient's blood work shows normal CBC. Electrolytes show no marked abnormalities. There is some very mild dehydration. TSH is minimally up. CT scan did show some changes since her recent 1. We did talk with [facility] neurology. They looked at the CT images and MRI. The changes in the CT would be normal progression during the process of healing of her recent stroke. They are in the same areas as the MRI. This does not appear to be new changes on CT. Clinically she does not have new changes. They were okay with keeping her on the aspirin Plavix and statin. At this point they would not increase therapy. We will get her back to TCU. Lab Data Labs: Laboratory Results - last 24 hr 1210/18/21 10/18/21 10:30 10:30 12:58 WBC Cancelled 9.0 Corrected WBC Cancelled RBC Cancelled 4.58 Hgb Cancelled 14.7 Hct Cancelled 43.8 MCV Cancelled 95.6 MCH Cancelled 32.1 H MCHC Cancelled 33.6 RDW Std Deviation Cancelled 44.5 H RDW Coeff of Alex Cancelled 12.7 Plt Count Cancelled 146 L MPV Cancelled 11.5 Immature Gran % (Auto) Cancelled 0.200 Neut % (Auto) Cancelled 55.1 Lymph % (Auto) Cancelled 31.6 Villalba % (Auto) Cancelled 8.9 Eos % (Auto) Cancelled 3.1 Baso % (Auto) Cancelled 1.1 H Absolute Neuts (auto) Cancelled 5.0 Absolute Lymphs (auto) Cancelled 2.84 Total Counted Cancelled Neutrophils % (Manual) Cancelled Band Neutrophils % Cancelled Lymphocytes % (Manual) Cancelled Monocytes % (Manual) Cancelled Eosinophils % (Manual) Cancelled Basophils % (Manual) Cancelled Metamyelocytes % Cancelled Myelocytes % Cancelled Promyelocytes % Cancelled Blast Cells % Cancelled Plasma Cell % (Manual) Cancelled Other Cells % Cancelled Nucleated RBC % Cancelled 0 Nucleated RBCs/100 WBC Cancelled Differential Comment Cancelled Diff Path Review Cancelled Hypersegmented Neuts Cancelled Atypical Lymphocytes Cancelled Reactive Lymphocytes Cancelled Smudge Cells Cancelled Toxic Granulation Cancelled Toxic Vacuolation Cancelled Dohle Bodies Cancelled Pinky Rods Cancelled Platelet Estimate Cancelled Plt Morphology Comment Cancelled RBC Morphology Cancelled Polychromasia Cancelled Hypochromasia Cancelled Poikilocytosis Cancelled Basophilic Stippling Cancelled Anisocytosis Cancelled Microcytosis Cancelled Macrocytosis Cancelled Spherocytes Cancelled Sickle Cells Cancelled Target Cells Cancelled Tear Drop Cells Cancelled Ovalocytes Cancelled Stomatocytes Cancelled [place] Bodies Cancelled Jefferson Cells Cancelled Bite Cells Cancelled Crenated Cell Cancelled Acanthocytes (Spur) Cancelled Rouleaux Cancelled Schistocytes Cancelled Sodium 141 Potassium 4.6 Chloride 105 Carbon Dioxide 32.0 Anion Gap 4 L BUN 22 H Creatinine 0.91 Estim Creat Clear Calc 88.31 Est GFR (MDRD) Af Amer 78 Est GFR (MDRD) Non-Af 64 BUN/Creatinine Ratio 24.1 H Glucose 177 H Calcium 10.0 TSH 4.04 H Urine Color Urine Clarity Urine pH Ur Specific [place] Urine Protein Urine Glucose (UA) Urine Ketones Urine Occult Blood Urine Nitrite Urine Bilirubin Urine Urobilinogen Ur Leukocyte Esterase Urine RBC Urine WBC Ur Squamous Epith Cells Urine Bacteria Urine Mucus POC Glucose 10/18/21 10/18/21 13:15 15:12 WBC Corrected WBC RBC Hgb Hct MCV MCH MCHC RDW Std Deviation RDW Coeff of Alex Plt Count MPV Immature Gran % (Auto) Neut % (Auto) Lymph % (Auto) Villalba % (Auto) Eos % (Auto) Baso % (Auto) Absolute Neuts (auto) Absolute Lymphs (auto) Total Counted Neutrophils % (Manual) Band Neutrophils % Lymphocytes % (Manual) Monocytes % (Manual) Eosinophils % (Manual) Basophils % (Manual) Metamyelocytes % Myelocytes % Promyelocytes % Blast Cells % Plasma Cell % (Manual) Other Cells % Nucleated RBC % Nucleated RBCs/100 WBC Differential Comment Diff Path Review Hypersegmented Neuts Atypical Lymphocytes Reactive Lymphocytes Smudge Cells Toxic Granulation Toxic Vacuolation Dohle Bodies Pinky Rods Platelet Estimate Plt Morphology Comment RBC Morphology Polychromasia Hypochromasia Poikilocytosis Basophilic Stippling Anisocytosis Microcytosis Macrocytosis Spherocytes Sickle Cells Target Cells Tear Drop Cells Ovalocytes Stomatocytes [place] Bodies Jefferson Cells Bite Cells Crenated Cell Acanthocytes (Spur) Rouleaux Schistocytes Sodium Potassium Chloride Carbon Dioxide Anion Gap BUN Creatinine Estim Creat Clear Calc Est GFR (MDRD) Af Amer Est GFR (MDRD) Non-Af BUN/Creatinine Ratio Glucose Calcium TSH Urine Color Yellow Urine Clarity Cloudy Urine pH 5.0 Ur Specific [place] 1.025 Urine Protein 30 H Urine Glucose (UA) Normal Urine Ketones 5 H Urine Occult Blood 10 H Urine Nitrite Positive H Urine Bilirubin Negative Urine Urobilinogen Normal Ur Leukocyte Esterase 25 H Urine RBC 0 SEEN Urine WBC 0 SEEN Ur Squamous Epith Cells 0-5 SEEN Urine Bacteria 2+ Urine Mucus 0 SEEN POC Glucose 134 H Radiography Diagnostic Testing: Clinical Impression(s) from Imaging Studies Brain CT 10/18/21 10:44 IMPRESSION: Evolution of the infarct in the left centrum semiovale or this could represent superimposed new infarct on the previously visualized infarct that was seen on 10/04/2021. Encephalomalacia left occipital lobe demonstrates no change. Chronic microvascular disease. Electronically Signed: Srinivas Olmstead MD at 13:01 EST Tel , Service support , Chest X-Ray 10/18/21 10:44 IMPRESSION: Peribronchial cuffing bilateral hilar prominence is seen, correlate for acute bronchitis or airway disease or obstruction from right hilar prominence Electronically Signed: Srinivas Olmstead MD at 12:14 EST Tel , Service support , EKG Initial EKG: Comments: EKG done for bradycardia and read by me shows sinus rhythm with bradycardic rate at 56. There are occasional PACs. No PVCs. There is first-degree block. No acute ST elevation or depression. WA interval is long. QRS duration and QTc are normal. Discharge Plan Triage Chief Complaint: Weakness ED Provider: Migue Velasquez Dx/Rx/DC Orders Clinical Impression: Episode of dizziness, History of recent stroke Instructions: ED Dizziness, Uncertain Cause Prescriptions: No Action escitalopram oxalate 10 MG tablet 20 mg PO DAILY RF: 0 thyroid (pork) [Shallowater Thyroid] 60 MG tablet 60 mg PO DAILY RF: 0 Humalog U-100 Insulin 100 UNIT/ML cartridge 20 unit subcut TID RF: 0 Immune Globulin 5 Gm (Octagam) 50 ML Vial 25 g IV QMONTH RF: 0 docusate sodium [DOK] 100 MG capsule 100 mg PO BID PRN (Reason: Constipation) RF: 0 Lantus U-100 Insulin 100 UNIT/ML solution 60 unit QHS RF: 0 levothyroxine [Synthroid] 88 mcg tablet 88 mcg PO DAILY RF: 0 meclizine 25 mg tablet 25 mg PO PRN PRN (Reason: Dizziness/Nausea) RF: 0 cholecalciferol (vitamin D3) 1,250 mcg (50,000 unit) Capsule 1,250 mcg PO QWEEK RF: 0 acetaminophen [Tylenol] 325 mg Tablet 650 mg PO Q6H PRN PRN (Reason: Pain Score 1-10/Temp > 100.7 F) Qty: 0 RF: 0 Artificial Tears([id number]) 1-0.2-0.2 % Drops 2 drp EACH EYE Q1H PRN (Reason: DRY EYES) Qty: 0 RF: 0 atorvastatin 40 mg tablet 40 mg PO QHS RF: 0 aspirin 81 mg tablet,chewable 81 mg PO BREAKFAST RF: 0 Primary Care Provider: Christian Toure Referrals: Christian Toure MD [Primary Care Provider] - Disposition Disposition: Care Home Facility
--- NOTE | 2021-10-18 10:55 | NURSING ---
LAB CALLED UP. [facility] IS TOO SHORT, NEEDS REDRAWN
[2021-10-18 11:15] LABS: Anion Gap 4 (5-15); BUN 22 mg/dL (7-18); BUN/Creat Ratio 24.1 RATIO (10-20); Chloride 105 mmol/L (98-107); Creatinine, Serum 0.91 mg/dL (0.55-1.02); EST Glomerular Filtration Rate 64 mL/min (>60); Est Glom Filt Rate - Afr Amer 78 mL/min (>60); Estimated Creatinine Clearance 88.31 ml/min; Glucose 177 mg/dL (74-106); Potassium 4.6 mmol/L (3.5-5.1); Sodium Level 141 mmol/L (136-145); Thyroid Stim Hormone (TSH) 4.04 uIU/mL (0.358-3.74)
[2021-10-18 12:19] VITALS: BP 163/76; PULSE 56; RESP 18; O2SAT 96
[2021-10-18 13:13] LABS: Absolute Lymphocyte Count 2.84 X10^3/uL (0.83-4.51); Basophil% 1.1 % (0-1); Eosinophil# 0.28 X10^3/uL; Eosinophils% 3.1 % (0-5); Hematocrit 43.8 % (37-47); Hemoglobin 14.7 g/dL (12.0-15.0); Lymphocyte # 2.84 X10^3/ul (0.83-4.51); Lymphocyte % 31.6 % (19-41); Mean Corp Hgb Conc 33.6 g/dL (32-36); Mean Corpuscular Hgb 32.1 pg (27.0-32.0); Mean Corpuscular Volume 95.6 fL (81-99); Mean Platelet Vol. 11.5 fl (6.2-12.0); Monocyte% 8.9 % (0-10); NRBC Flagged by Analyzer 0 % (0-5); Neutrophil # 4.96 X10^3/uL (2.7-7.7); Neutrophil % 55.1 % (47-70); Platelet Count 146 K/mm3 (150-450); RBC Distribution Width CV 12.7 % (11.6-14.6); RBC Distribution Width SD 44.5 fl (35.1-43.9); Red Blood Count 4.58 M/mm3 (4.2-5.4)
[2021-10-18 13:25] LABS: Mucous, Urine 0 SEEN /hpf (<or=2+); Red Blood Cells-Urine 0 SEEN /hpf (0-5); White Blood Cells 0 SEEN /hpf (0-5)
[2021-10-18 13:37] LABS: Color, Urine Yellow (Yellow); Glucose, Dipstick Normal (Normal); Ketone-Dipstick 5 mg/dl (Negative); Leukocyte Esterase-Dipstick 25 /ul (Negative); Nitrite-Dipstick Positive (Negative); Occult Blood-Urine 10 /ul (Negative); Protein-Dipstick 30 mg/dl (Negative); Specific Gravity, Urine 1.025 (1.002-1.030); Urine Bilirubin Dipstick Negative (Negative); Urine Clarity Cloudy (Clear); Urine Urobilinogen Normal (Normal)
[2021-10-18 13:58] LABS: Bacteria 2+ /hpf (None Seen); Squamous Epithelial Cells - UA 0-5 SEEN /hpf (5-10)
--- NOTE | 2021-10-18 15:09 | NURSING ---
[facility] [place] [id number]
[2021-10-18 15:20] LABS: Bedside Glucose 134 mg/dL (70-110)
[2021-10-18 16:49] VITALS: BP 144/76; PULSE 64; RESP 18; TEMP 36.8; O2SAT 96
== END 2021-10-18 17:20 ==
PROVIDERS: Emergency Provider Emergency Medicine; PCP Family Medicine
DX: R42 Dizziness and giddiness (principal); I69.351 Hemiplegia and hemiparesis following cerebral infarction affecting right dominant side; C56.1 Malignant neoplasm of right ovary; C78.6 Secondary malignant neoplasm of retroperitoneum and peritoneum; G61.81 Chronic inflammatory demyelinating polyneuritis; E11.9 Type 2 diabetes mellitus without complications; E78.5 Hyperlipidemia, unspecified; F32.A Depression, unspecified; E66.01 Morbid (severe) obesity due to excess calories; Z68.41 Body mass index [BMI] 40.0-44.9, adult; Z79.02 Long term (current) use of antithrombotics/antiplatelets; Z79.4 Long term (current) use of insulin; Z79.82 Long term (current) use of aspirin; Z79.890 Hormone replacement therapy; Z79.899 Other long term (current) drug therapy
CPT/HCPCS: 70450; 71045; 80048; 81001; 82962; 84443; 85025; 93005; 99284; A4216

== ENCOUNTER 2022-02-28 16:17 | Emergency (ER) | payer MEDICARE, SELFPAY ==
[2022-02-28] VITALS (7 sets, daily range): BP systolic 152–184; BP diastolic 63–89; PULSE 60–63; RESP 17–20; TEMP 36.2; O2SAT 96–99; BMI 46.2; BMI 46.4
--- NOTE | 2022-02-28 16:35 | CT_ITS ---
EXAM: CT ANGIOGRAPHY HEAD AND NECK WITH INTRAVENOUS CONTRAST CLINICAL INDICATION: TIA LT FACIAL DROOP. SLURRED SPEECH, HX OVARIAN CA, DM TECHNIQUE: [place]/head and neck CT angiography protocol performed with intravenous contrast. This CT exam was performed using one or more of the following dose reduction techniques: automated exposure control, adjustment of the mA and/or kV according to patient size, and/or use of iterative reconstruction technique. This report was created using [employer] report generation technology. MIP reconstructed images were created and reviewed. CONTRAST: IV 100mL Isovue-370 RADIATION DOSE: CTDIvol = 26.52 mGy, DLP = 2255.67 mGy-cm COMPARISON: None. FINDINGS: HEAD: RIGHT ANTERIOR CEREBRAL ARTERY: Unremarkable. No significant stenosis at the visualized segments. Anterior communicating artery is present. No aneurysm. RIGHT MIDDLE CEREBRAL ARTERY: Unremarkable. No significant stenosis at the visualized segments. No aneurysm. RIGHT POSTERIOR CEREBRAL ARTERY: Unremarkable. No occlusion or significant stenosis. No aneurysm. RIGHT INTRACRANIAL INTERNAL CAROTID ARTERY: Unremarkable. No significant stenosis. No dissection or occlusion. RIGHT INTRACRANIAL VERTEBRAL ARTERY: Unremarkable. No significant stenosis. No dissection or occlusion. LEFT ANTERIOR CEREBRAL ARTERY: Unremarkable. No significant stenosis at the visualized segments. No aneurysm. LEFT MIDDLE CEREBRAL ARTERY: Unremarkable. No significant stenosis at the visualized segments. No aneurysm. LEFT POSTERIOR CEREBRAL ARTERY: Unremarkable. No occlusion or significant stenosis. No aneurysm. LEFT INTRACRANIAL INTERNAL CAROTID ARTERY: Unremarkable. No significant stenosis. No dissection or occlusion. LEFT INTRACRANIAL VERTEBRAL ARTERY: Unremarkable. No significant stenosis. No dissection or occlusion. BASILAR ARTERY: Unremarkable. No significant stenosis. No aneurysm. GREAT VESSELS OF AORTIC ARCH: See below. OTHER VASCULATURE: There is mild atherosclerotic plaque formation of the origin of the right and left internal carotid artery with less than 50% cross sectional diameter stenosis. ALL ABOVE CRITERIA BY NASCET. There is calcified plaque formation of the right cavernous carotid artery, with a mild stenosis (less than 50%). There is calcified plaque formation of the left cavernous carotid artery, with a mild stenosis (less than 50%). ALL ABOVE CRITERIA BY NASCET. No vascular malformation. BRAIN AND EXTRA-AXIAL SPACES: Old left occipital lobe infarct. Old left basal ganglia infarct. There is a right Port-A-Cath and/or mediport in place. The tip is in the superior vena cava. NECK: RIGHT COMMON CAROTID ARTERY: Unremarkable. No significant stenosis. No dissection or occlusion. RIGHT EXTRACRANIAL INTERNAL CAROTID ARTERY: Unremarkable. No significant stenosis. No dissection or occlusion. RIGHT EXTERNAL CAROTID ARTERY: Unremarkable. No occlusion. RIGHT EXTRACRANIAL VERTEBRAL ARTERY: Unremarkable. No significant stenosis. No dissection or occlusion. LEFT COMMON CAROTID ARTERY: Unremarkable. No significant stenosis. No dissection or occlusion. LEFT EXTRACRANIAL INTERNAL CAROTID ARTERY: Unremarkable. No significant stenosis. No dissection or occlusion. LEFT EXTERNAL CAROTID ARTERY: Unremarkable. No occlusion. LEFT EXTRACRANIAL VERTEBRAL ARTERY: Unremarkable. No significant stenosis. No dissection or occlusion. LUNG APICES: Unremarkable as visualized. HEAD and NECK: BONES/JOINTS: There are degenerative findings of the cervical spine. No discrete lytic or blastic abnormalities. SOFT TISSUES: Unremarkable. CAROTID STENOSIS REFERENCE USING NASCET CRITERIA: % ICA stenosis = (1 - narrowest ICA diameter/diameter of distal cervical ICA) x 100. Mild - <50% stenosis. Moderate - 50-69% stenosis. Severe - 70-94% stenosis. Near occlusion - 95-99% stenosis. Occluded - 100% stenosis. CT/CTA Head AND Neck W/ Contrast IMPRESSION: 1. There is mild atherosclerotic plaque formation of the origin of the right and left internal carotid artery with less than 50% cross sectional diameter stenosis. ALL ABOVE CRITERIA BY NASCET. 2. There is calcified plaque formation of the right cavernous carotid artery, with a mild stenosis (less than 50%). There is calcified plaque formation of the left cavernous carotid artery, with a mild stenosis (less than 50%). ALL ABOVE CRITERIA BY NASCET. Electronically Signed: Vipul Mark MD at 18:04 EDT ,
--- NOTE | 2022-02-28 16:35 | EKG12_ITS ---
Test Reason : NEURO Blood Pressure : / mmHG Vent. Rate : 063 BPM Atrial Rate : 063 BPM P-R Int : 216 ms QRS Dur : 074 ms QT Int : 428 ms P-R-T Axes : 048 051 021 degrees QTc Int : 437 ms Sinus rhythm with sinus arrhythmia with 1st degree A-V block Low voltage QRS Borderline ECG Confirmed by DEANNA SHORE, ASHOK ([id number]), design editor SANJEEV KATHLEEN ([id number]) on 03/01/2022 8:45:02 AM Referred By: ROSANNE/JANEE Confirmed By:ASHOK HUERTA MD
--- NOTE | 2022-02-28 16:37 | EDS_ITS ---
HPI History of Present Illness Chief Complaint: Neuro S/Sx Informant: patient, family, EMS and SNF Onset/Context/Timing Onset: Today Narrative Narrative: Patient presents via EMS from skilled nursing secondary to possible stroke symptoms. Per skilled nursing report patient was her normal self and speaking without difficulty at 1230 today, lunchtime. She is able to eat without difficulty. Around 215 they noted that she was difficult to arouse with significant difficulty speaking. EMS notes at the time of their arrival her [place] stroke score was negative. On arrival to the emergency room patient states she feels much improved and family member at bedside states she seems to be at baseline. She does have a history of 4 prior strokes. She has chronic right-sided weakness. Patient states she has not been feeling well for the past couple of days. [facility] Medical History Cerebrovascular disease CIDP (chronic inflammatory demyelinating polyneuropathy) Depressive disorder Diabetes mellitus History of cardioembolic stroke HLD (hyperlipidemia) Lumbar degenerative disc disease Malignant neoplasm of right ovary Morbid obesity with BMI of 40.0-44.9, adult Ovarian cancer Peritoneal carcinomatosis Home Medications escitalopram oxalate 20 mg PO DAILY 11/24/15 [History Last Taken Unknown] thyroid (pork) [[place] Thyroid] 60 mg PO DAILY 02/23/16 [History Last Taken Unknown] Humalog U-100 Insulin 20 unit SUBCUT TID 07/05/16 [History Last Taken Unknown] cholecalciferol (vitamin D3) 1,250 mcg PO QWEEK 10/04/21 [History Last Taken Unknown] meclizine 25 mg PO PRN PRN 10/04/21 [History Last Taken Unknown] Artificial Tears([id number]) 2 drp EACH EYE Q1H PRN #0 ml 10/05/21 [Rx Last Taken Unknown] aspirin 81 mg PO BREAKFAST 10/05/21 [History Last Taken Unknown] atorvastatin 40 mg PO QHS 10/05/21 [History Last Taken Unknown] acetaminophen 1,000 mg PO Q8 #0 tab 10/25/21 [Rx Last Taken Unknown] lidocaine 2 patch TOPICAL DAILY #0 ea 10/25/21 [Rx Last Taken Unknown] losartan 100 mg PO DAILY #0 tab 10/25/21 [Rx Last Taken Unknown] menthol-zinc oxide [Calmoseptine] 1 applic TOPICAL BID #0 g 10/25/21 [Rx Last Taken Unknown] nystatin [Nyamyc] 1 applic TOPICAL BID #0 g 10/25/21 [Rx Last Taken Unknown] sennosides-docusate sodium [Stool Softener-Stimulant Laxat] 1 tab PO BID #0 tab 10/25/21 [Rx Last Taken Unknown] bisacodyl 10 mg ME DAILY PRN 02/28/22 [History Last Taken Unknown] docusate sodium [Colace] 100 mg PO DAILY 02/28/22 [History Last Taken Unknown] gabapentin 300 mg PO BID 02/28/22 [History Last Taken Unknown] insulin glargine [Lantus Solostar U-100 Insulin] 36 units SUBCUT QHS 02/28/22 [History Last Taken Unknown] lidocaine 1 patch TOPICAL DAILY 02/28/22 [History Last Taken Unknown] meclizine 12.5 mg PO TID PRN 02/28/22 [History Last Taken Unknown] Allergy/AdvReac Type Severity Reaction Status Date / Time oats AdvReac Severe Rash Verified 02/28/22 16:27 sodium benzoate AdvReac Intermediate compromise Verified 02/28/22 16:27 immune system PLASTIC TAPE AdvReac Severe Rash Uncoded 02/28/22 16:27 BERRIES AdvReac Intermediate compromise Uncoded 02/28/22 16:27 immune system PEPPERS AdvReac Intermediate compromise Uncoded 02/28/22 16:27 immune system TUNA AdvReac Intermediate compromise Uncoded 02/28/22 16:27 immune system Social History household members: spouse Smoking Status: Never smoker alcohol intake: never substance use type: does not use ROS ROS ED Constitutional Constitutional ED: Denies chills or fever(s) Eyes Eyes: Denies change in vision ENT ENT ED: Denies sore throat Cardiovascular Cardiovascular: Denies chest pain Respiratory/Chest Respiratory/Chest: Denies cough or dyspnea Gastrointestinal Gastrointestinal: Denies abdominal pain, diarrhea, nausea or vomiting Genitourinary Genitourinary ED: Denies dysuria Musculoskeletal Musculoskeletal: Denies back pain or neck pain Integumentary Denies rash Neurologic Neurologic: Reports weakness; Denies headache(s) Allergic/Immunologic Allergic/Immunologic ED: Denies urticaria EXAM Physical Exam Const Vital Signs: 02/28/22 16:18 02/28/22 17:18 02/28/22 18:00 Temperature 97.2 F L Temperature Source Temporal Pulse Rate 62 60 63 Respiratory Rate 19 H 17 17 Blood Pressure 152/63 H 171/84 H 184/72 H Blood Pressure Mean 92 113 109 Pulse Ox 97 99 97 Oxygen Delivery Method Room Air Room Air Room Air 02/28/22 18:55 02/28/22 19:00 Temperature Temperature Source Pulse Rate 60 Respiratory Rate 20 H Blood Pressure 168/69 H Blood Pressure Mean 102 Pulse Ox 96 Oxygen Delivery Method Room Air Positive obese Nutritional Appearance: obese HEENT Reports moist mucous membranes Eyes PERRL and EOMs intact bilaterally Neck supple Chest Wall inspection of chest normal and palpation of chest normal Resp normal respiratory effort and clear to auscultation bilaterally Cardio Rate: regular rate Rhythm: regular rhythm GI normal to inspection, nondistended, normoactive bowel sounds, soft to palpation and non-tender Extremity Extremity Narrative: Brace noted on right upper extremity. Neuro oriented x3 Neuro Narrative: Slight right-sided facial weakness that is chronic and unchanged from baseline per family. Right upper and lower extremity weakness that is chronic and unchanged from baseline. Patient able to hold her left arm and left leg up off the bed without difficulty. She reports normal sensation on testing. Family reports her speech is at baseline. Sensorium / Orientation: alert Skin Rashes: no rashes STROKE Vital Signs/Narrative: Vital Signs Temp Pulse Resp BP Pulse Ox 02/28/22 19:00 60 20 H 96 02/28/22 18:55 168/69 H 02/28/22 18:00 63 17 184/72 H 97 02/28/22 17:18 60 17 171/84 H 99 02/28/22 16:18 97.2 F L 62 19 H 152/63 H 97 MDM MDM MDM Narrative Medical decision making narrative: Patient's neuro exam was at baseline per family at bedside at the time of her arrival to the emergency room. Lab work, EKG, CTA head and neck obtained. Urinalysis ordered. Lab Data Attestation: I reviewed the patient's lab results. Labs: Laboratory Results - last 24 hr 02/28/22 02/28/22 02/28/22 16:32 16:48 16:48 WBC 8.7 RBC 3.56 L Hgb 11.7 L Hct 35.0 L MCV 98.3 MCH 32.9 H MCHC 33.4 RDW Std Deviation 44.7 H RDW Coeff of Alex 12.3 Plt Count 167 MPV 10.7 Immature Gran % (Auto) 0.300 Neut % (Auto) 52.5 Lymph % (Auto) 30.4 [place] % (Auto) 10.5 H Eos % (Auto) 5.3 H Baso % (Auto) 1.0 Absolute Neuts (auto) 4.6 Absolute Lymphs (auto) 2.65 Nucleated RBC % 0 Sodium 142 Potassium 3.8 Chloride 108 H Carbon Dioxide 32.0 Anion Gap 2 L BUN 14 Creatinine 0.95 Estim Creat Clear Calc 83.51 Est GFR (MDRD) Af Amer 74 Est GFR (MDRD) Non-Af 61 BUN/Creatinine Ratio 14.7 Glucose 163 H Calcium 9.2 Total Bilirubin 0.90 Direct Bilirubin 0.25 AST 39 H ALT 32 Alkaline Phosphatase 96 Troponin I High Sens 5 Total Protein 6.7 Albumin 2.7 L Globulin 4.0 Urine Color Urine Clarity Urine pH Ur Specific [place] Urine Protein Urine Glucose (UA) Urine Ketones Urine Occult Blood Urine Nitrite Urine Bilirubin Urine Urobilinogen Ur Leukocyte Esterase Urine RBC Urine WBC Ur Squamous Epith Cells Urine Bacteria Urine Mucus POC Glucose 160 H 02/28/22 17:17 WBC RBC Hgb Hct MCV MCH MCHC RDW Std Deviation RDW Coeff of Alex Plt Count MPV Immature Gran % (Auto) Neut % (Auto) Lymph % (Auto) Barton % (Auto) Eos % (Auto) Baso % (Auto) Absolute Neuts (auto) Absolute Lymphs (auto) Nucleated RBC % Sodium Potassium Chloride Carbon Dioxide Anion Gap BUN Creatinine Estim Creat Clear Calc Est GFR (MDRD) Af Amer Est GFR (MDRD) Non-Af BUN/Creatinine Ratio Glucose Calcium Total Bilirubin Direct Bilirubin AST ALT Alkaline Phosphatase Troponin I High Sens Total Protein Albumin Globulin Urine Color Yellow Urine Clarity Sl. Cloudy Urine pH 6.0 Ur Specific [place] 1.010 Urine Protein 15 H Urine Glucose (UA) Normal Urine Ketones Negative Urine Occult Blood Negative Urine Nitrite Negative Urine Bilirubin Negative Urine Urobilinogen Normal Ur Leukocyte Esterase Negative Urine RBC 0 SEEN Urine WBC 0 SEEN Ur Squamous Epith Cells 0 SEEN Urine Bacteria 2+ Urine Mucus 0 SEEN POC Glucose Radiography Diagnostic Testing: Clinical Impression(s) from Imaging Studies Head/Neck CTA 02/28/22 16:35 IMPRESSION: 1. There is mild atherosclerotic plaque formation of the origin of the right and left internal carotid artery with less than 50% cross sectional diameter stenosis. ALL ABOVE CRITERIA BY NASCET. 2. There is calcified plaque formation of the right cavernous carotid artery, with a mild stenosis (less than 50%). There is calcified plaque formation of the left cavernous carotid artery, with a mild stenosis (less than 50%). ALL ABOVE CRITERIA BY NASCET. Electronically Signed: Vipul Mark MD at 18:04 EDT , EKG Initial EKG: Attestation: I personally reviewed and interpreted this EKG as follows: Interpretation: Sinus Rhythm (Sinus at 63 with no acute ischemia.) Treatment and Re-Evaluation Narrative: Patient's lab work largely unremarkable. Urinalysis reveals 2+ bacteria but no nitrates, leukocyte esterase, or white cells. CTA of the head reveals less than 50% stenosis. I did review the patient's medication list. It does not appear that she is on Plavix or Aggrenox for stroke prevention. She is on aspirin. I discussed with her staying in the hospital for further work-up including MRI and evaluation by neurology to see if some medication adjustments could be made to help prevent any further episodes. She is very adamant that she does not want to be on Plavix, Aggrenox, or any other blood thinners. I spoke with Dr. Nelson, covering for patient's PCP Dr. Shirley. She agrees that at this time if patient does not want further intervention for further strokes and she is at baseline at this time that she can be discharged back to the facility. Return instructions are provided. Discharge Plan Triage Chief Complaint: Neuro S/Sx ED Provider: Amaris Vanessa Dx/Rx/DC Orders Clinical Impression: Brain TIA Instructions: ED TIA: Transient Ischemic Attack Prescriptions: No Action escitalopram oxalate 10 MG tablet 20 mg PO DAILY RF: 0 thyroid (pork) [[place] Thyroid] 60 MG tablet 60 mg PO DAILY RF: 0 Humalog U-100 Insulin 100 UNIT/ML cartridge 20 unit subcut TID RF: 0 meclizine 25 mg tablet 25 mg PO PRN PRN (Reason: Dizziness/Nausea) RF: 0 cholecalciferol (vitamin D3) 1,250 mcg (50,000 unit) Capsule 1,250 mcg PO QWEEK RF: 0 Artificial Tears([id number]) 1-0.2-0.2 % Drops 2 drp EACH EYE Q1H PRN (Reason: DRY EYES) Qty: 0 RF: 0 atorvastatin 40 mg tablet 40 mg PO QHS RF: 0 aspirin 81 mg tablet,chewable 81 mg PO BREAKFAST RF: 0 sennosides-docusate sodium [Stool Softener-Stimulant Laxat] 8.6-50 mg Tablet 1 tab PO BID Qty: 0 RF: 0 acetaminophen 500 mg Tablet 1,000 mg PO Q8 Qty: 0 RF: 0 lidocaine 5 % Adhesive Patch,Medicated 2 patch topical DAILY Qty: 0 RF: 0 nystatin [Nyamyc] 100,000 unit/gram Powder 1 applic topical BID Qty: 0 RF: 0 losartan 100 mg Tablet 100 mg PO DAILY Qty: 0 RF: 0 menthol-zinc oxide [Calmoseptine] 0.44-20.6 % Ointment 1 applic topical BID Qty: 0 RF: 0 meclizine 12.5 mg Tablet 12.5 mg PO TID PRN (Reason: Vertigo) RF: 0 bisacodyl 10 mg Suppository 10 mg ME DAILY PRN (Reason: Constipation) RF: 0 lidocaine 5 % Adhesive Patch,Medicated 1 patch TOPICAL DAILY RF: 0 docusate sodium [Colace] 100 mg Capsule 100 mg PO DAILY RF: 0 gabapentin 300 mg Capsule 300 mg PO BID RF: 0 Lantus Solostar U-100 Insulin 100 unit/mL (3 mL) insulin pen 36 units subcut QHS RF: 0 Primary Care Provider: Christian Toure Referrals: Christian Toure MD [Primary Care Provider] - Prasanna Shirley MD [STAFF PHYSICIAN] - As Needed Disposition Disposition: Jail Facility Discharge Location: [facility]
[2022-02-28 16:40] LABS: Bedside Glucose 160 mg/dL (74-106)
[2022-02-28 17:00] LABS: Absolute Lymphocyte Count 2.65 X10^3/uL (0.83-4.51); Absolute Neutrophil Count 4.6 X10^3/uL (2.0-7.7); Basophil# 0.09 X10^3/uL; Eosinophil# 0.46 X10^3/uL; Eosinophils% 5.3 % (0-5); Hemoglobin 11.7 g/dL (12.0-15.0); Lymphocyte # 2.65 X10^3/ul (0.83-4.51); Lymphocyte % 30.4 % (19-41); Mean Corp Hgb Conc 33.4 g/dL (32-36); Mean Corpuscular Hgb 32.9 pg (27.0-32.0); Mean Corpuscular Volume 98.3 fL (81-99); Mean Platelet Vol. 10.7 fl (6.2-12.0); Monocyte# 0.92 X10^3/uL; Monocyte% 10.5 % (0-10); NRBC Flagged by Analyzer 0 % (0-5); Neutrophil # 4.58 X10^3/uL (2.7-7.7); Neutrophil % 52.5 % (47-70); Platelet Count 167 K/mm3 (150-450); RBC Distribution Width CV 12.3 % (11.6-14.6); RBC Distribution Width SD 44.7 fl (35.1-43.9); Red Blood Count 3.56 M/mm3 (4.2-5.4); White Blood Count 8.7 K/mm3 (4.4-11.0)
[2022-02-28 17:16] LABS: AST(SGOT) 39 U/L (15-37); Alanine Aminotransfer ALT/SGPT 32 U/L (13-56); Albumin, Serum 2.7 g/dL (3.2-5.0); Alkaline Phosphatase 96 U/L (45-117); Anion Gap 2 (5-15); BUN 14 mg/dL (7-18); BUN/Creat Ratio 14.7 RATIO (10-20); Bilirubin, Direct 0.25 mg/dL (0.00-0.30); Calcium,Total 9.2 mg/dL (8.5-10.1); Chloride 108 mmol/L (98-107); Creatinine, Serum 0.95 mg/dL (0.55-1.02); EST Glomerular Filtration Rate 61 mL/min (>60); Est Glom Filt Rate - Afr Amer 74 mL/min (>60); Estimated Creatinine Clearance 83.51 ml/min; Glucose 163 mg/dL (74-106); Potassium 3.8 mmol/L (3.5-5.1); Protein, Total 6.7 g/dL (6.4-8.2); Sodium Level 142 mmol/L (136-145); Troponin-I HS 5 pg/mL (3.0-54.0)
[2022-02-28 17:28] LABS: Mucous, Urine 0 SEEN /hpf (<or=2+); Red Blood Cells-Urine 0 SEEN /hpf (0-5); Squamous Epithelial Cells - UA 0 SEEN /hpf (5-10); White Blood Cells 0 SEEN /hpf (0-5)
[2022-02-28 17:39] LABS: Color, Urine Yellow (Yellow); Glucose, Dipstick Normal (Normal); Ketone-Dipstick Negative (Negative); Leukocyte Esterase-Dipstick Negative /ul (Negative); Nitrite-Dipstick Negative (Negative); Occult Blood-Urine Negative /ul (Negative); Protein-Dipstick 15 mg/dl (Negative); Urine Bilirubin Dipstick Negative (Negative); Urine Clarity Sl. Cloudy (Clear); Urine Urobilinogen Normal (Normal)
[2022-02-28 17:50] LABS: Bacteria 2+ /hpf (None Seen)
[2022-02-28 19:46] LABS: Bedside Glucose 152 mg/dL (74-106)
--- NOTE | 2022-02-28 20:08 | ED.RN ---
report called to itzel dias.
== END 2022-03-01 00:13 ==
PROVIDERS: Emergency Provider Emergency Medicine; PCP Family Medicine; Visit Provider Emergency Medicine
DX: G45.9 Transient cerebral ischemic attack, unspecified (principal); G61.81 Chronic inflammatory demyelinating polyneuritis; E11.9 Type 2 diabetes mellitus without complications; E78.5 Hyperlipidemia, unspecified; F32.A Depression, unspecified; E66.01 Morbid (severe) obesity due to excess calories; Z68.41 Body mass index [BMI] 40.0-44.9, adult; Z79.4 Long term (current) use of insulin; Z79.82 Long term (current) use of aspirin; Z79.899 Other long term (current) drug therapy; Z86.73 Personal history of transient ischemic attack (TIA), and cerebral infarction without residual deficits
CPT/HCPCS: 36591; 70496; 70498; 80048; 80076; 81001; 82962; 84484; 85025; 93005; 99284; Q9967

== ENCOUNTER → 2022-12-24 | Outpatient (REF) | payer MEDICARE, SELFPAY ==
[2022-12-24 08:59] LABS: Hematocrit 35.7 % (37-47); Hemoglobin 11.5 g/dL (12.0-15.0); Mean Corp Hgb Conc 32.2 g/dL (32-36); Mean Corpuscular Volume 96.2 fL (81-99); Mean Platelet Vol. 11.5 fl (6.2-12.0); Platelet Count 234 K/mm3 (150-450); RBC Distribution Width CV 13.9 % (11.6-14.6); RBC Distribution Width SD 49.2 fl (35.1-43.9); Red Blood Count 3.71 M/mm3 (4.2-5.4); White Blood Count 9.5 K/mm3 (4.4-11.0)
[2022-12-24 09:27] LABS: Anion Gap 6 (5-15); BUN 28 mg/dL (7-18); BUN/Creat Ratio 26.2 RATIO (10-20); Calcium,Total 9.9 mg/dL (8.5-10.1); Chloride 103 mmol/L (98-107); Creatinine, Serum 1.07 mg/dL (0.55-1.02); EST Glomerular Filtration Rate 53 mL/min (>60); Est Glom Filt Rate - Afr Amer 64 mL/min (>60); Glucose 235 mg/dL (74-106); Potassium 4.4 mmol/L (3.5-5.1); Sodium Level 138 mmol/L (136-145); Thyroid Stim Hormone (TSH) 2.77 uIU/mL (0.358-3.74)
[2022-12-24 10:13] LABS: Hemoglobin A1c 7.7 % (3.8-5.6)
== END ==
LOC: OLS.WCC 04:00
PROVIDERS: PCP Family Medicine; Referring Provider Family Medicine; Visit Provider Family Medicine
DX: E11.9 Type 2 diabetes mellitus without complications (principal); I10 Essential (primary) hypertension; E03.9 Hypothyroidism, unspecified
CPT/HCPCS: 36415; 80048; 83036; 84443; 85027

== ENCOUNTER → 2023-09-30 | Outpatient (REF) | payer MEDICARE, SELFPAY ==
[2023-09-30 08:24] LABS: Hematocrit 34.6 % (37-47); Hemoglobin 10.7 g/dL (12.0-15.0); Mean Corp Hgb Conc 30.9 g/dL (32-36); Mean Corpuscular Hgb 29.5 pg (27.0-32.0); Mean Corpuscular Volume 95.3 fL (81-99); Mean Platelet Vol. 11.3 fl (6.2-12.0); Platelet Count 219 K/mm3 (150-450); RBC Distribution Width SD 48.9 fl (35.1-43.9); Red Blood Count 3.63 M/mm3 (4.2-5.4); White Blood Count 10.5 K/mm3 (4.4-11.0)
[2023-09-30 09:14] LABS: Anion Gap 4 (5-15); BUN 15 mg/dL (7-18); BUN/Creat Ratio 17.4 RATIO (10-20); Calcium,Total 9.5 mg/dL (8.5-10.1); Chloride 105 mmol/L (98-107); Creatinine, Serum 0.86 mg/dL (0.55-1.02); EST Glomerular Filtration Rate 68 mL/min (>60); Est Glom Filt Rate - Afr Amer 82 mL/min (>60); Glucose 267 mg/dL (74-106); Potassium 3.9 mmol/L (3.5-5.1); Sodium Level 139 mmol/L (136-145)
[2023-10-01 08:10] LABS: Cancer Antigen 125 11.7 U/mL (0.0-38.1)
== END ==
LOC: OLS.WCC 05:00
PROVIDERS: PCP Family Medicine; Visit Provider Family Medicine
DX: E11.9 Type 2 diabetes mellitus without complications (principal); I10 Essential (primary) hypertension; E03.9 Hypothyroidism, unspecified; C56.9 Malignant neoplasm of unspecified ovary
CPT/HCPCS: 36415; 80048; 85027; 86304

== ENCOUNTER → 2024-03-13 | Outpatient (REF) | payer MEDICARE, SELFPAY ==
[2024-03-13 08:48] LABS: Hematocrit 32.9 % (37-47); Hemoglobin 10.2 g/dL (12.0-15.0); Mean Corpuscular Volume 93.5 fL (81-99); Mean Platelet Vol. 10.2 fl (6.2-12.0); Platelet Count 433 K/mm3 (150-450); RBC Distribution Width CV 15.4 % (11.6-14.6); RBC Distribution Width SD 53.1 fl (35.1-43.9); Red Blood Count 3.52 M/mm3 (4.2-5.4); White Blood Count 13.5 K/mm3 (4.4-11.0)
[2024-03-13 09:10] LABS: Anion Gap 3 (5-15); BUN 10 mg/dL (7-18); BUN/Creat Ratio 13.8 RATIO (10-20); Chloride 104 mmol/L (98-107); Creatinine, Serum 0.73 mg/dL (0.55-1.02); EST Glomerular Filtration Rate 83 mL/min (>60); Est Glom Filt Rate - Afr Amer 100 mL/min (>60); Glucose 60 mg/dL (74-106); Potassium 3.7 mmol/L (3.5-5.1); Sodium Level 137 mmol/L (136-145)
== END ==
LOC: OLS.WCC 05:00
PROVIDERS: PCP Family Medicine; Visit Provider Family Medicine
DX: C56.9 Malignant neoplasm of unspecified ovary (principal); N93.9 Abnormal uterine and vaginal bleeding, unspecified; R53.83 Other fatigue
CPT/HCPCS: 36415; 80048; 85027; 86304

== ENCOUNTER → 2024-08-23 | Outpatient (CLI) | payer MEDICARE, SELFPAY | END | disposition home or self-care (01) | PROVIDERS: PCP Family Medicine; Visit Provider Family Medicine | DX: N39.0 Urinary tract infection, site not specified (principal) | CPT/HCPCS: 87077; 87086; 87088; 87186 ==